=== PATIENT | female | born 1945 | race Caucasian/White ===

== ENCOUNTER 2023-07-18 17:19 | Inpatient (IN) | payer MEDICARE ==
--- NOTE | 2023-07-18 17:43 | ED ---
General Adult HPI - General Chief complaint: Shortness of Breath Stated complaint: chest pain/sob Time Seen by Provider: 07/18/23 17:25 Source: patient, RN notes reviewed, old records reviewed Mode of arrival: ambulatory Limitations: no limitations - History of Present Illness Initial comments: 78-year-old female history of oxygen dependent COPD presenting for evaluation of cough and dyspnea. Patient symptoms have been present for the past 3 weeks. She does report some left-sided chest pain worse with cough. No measured fever. She is also had diarrhea over this time. - Related Data Home Medications Medication Instructions Recorded Confirmed Fluticasone Propion/Salmeterol 2 puff INHALATION RT-BID 07/18/23 07/18/23 [Fluticasone-Salmeterol 115-21] Gabapentin [Neurontin] 300 mg PO TID 07/18/23 07/18/23 Levothyroxine Sodium [Synthroid] 75 mcg PO DAILY 07/18/23 07/18/23 Mirtazapine [Remeron] 15 mg PO HS 07/18/23 07/18/23 Nystatin 100,000 Unit/gm Oint 1 applic TOPICAL BID 07/18/23 07/18/23 [Mycostatin Oint] Omeprazole [PriLOSEC] 20 mg PO DAILY 07/18/23 07/18/23 Pravastatin Sodium [Pravachol] 40 mg PO HS 07/18/23 07/18/23 QUEtiapine FUMARATE [SEROquel] 200 mg PO HS 07/18/23 07/18/23 QUEtiapine [SEROquel] 50 mg PO HS 07/18/23 07/18/23 buPROPion SR [Wellbutrin SR] 150 mg PO PC-BRKFST 07/18/23 07/18/23 busPIRone HCL [Buspar] 7.5 mg PO BID 07/18/23 07/18/23 lamoTRIgine [LaMICtal] 150 mg PO BID 07/18/23 07/18/23 Allergies Allergy/AdvReac Type Severity Reaction Status Date / Time codeine Allergy Swelling Verified 07/18/23 19:01 Review of Systems ROS Statement: Those systems with pertinent positive or pertinent negative responses have been documented in the HPI. ROS Other: All systems not noted in ROS Statement are negative. Past Medical History Past Medical History: COPD History of Any Multi-Drug Resistant Organisms: None Reported Past Surgical History: No Surgical Hx Reported Past Psychological History: No Psychological Hx Reported Smoking Status: Former smoker Past Alcohol Use History: None Reported Past Drug Use History: None Reported General Exam Limitations: no limitations General appearance: alert, in no apparent distress Head exam: Present: atraumatic, normocephalic Eye exam: Present: normal appearance, PERRL ENT exam: Present: mucous membranes dry Respiratory exam: Present: respiratory distress, wheezes, accessory muscle use, decreased breath sounds (Left lower lung field) Cardiovascular Exam: Present: normal rhythm, tachycardia GI/Abdominal exam: Present: soft. Absent: distended, tenderness, guarding Extremities exam: Present: normal inspection, normal capillary refill. Absent: pedal edema, calf tenderness Neurological exam: Present: alert, oriented X3, CN II-XII intact. Absent: motor sensory deficit Psychiatric exam: Present: normal affect, normal mood Course Vital Signs 07/18/23 07/18/23 07/18/23 17:22 17:30 17:40 Temperature 98.3 F 98.6 F Pulse Rate 114 H 104 H Respiratory 32 H 28 H 28 H Rate Blood Pressure 152/54 125/82 O2 Sat by Pulse 89 L 83 L Oximetry 07/18/23 07/18/23 07/18/23 17:47 18:25 18:45 Temperature 98.1 F Pulse Rate 103 H 108 H 108 H Respiratory 32 H Rate Blood Pressure 100/77 O2 Sat by Pulse 93 L Oximetry 07/18/23 19:40 Temperature Pulse Rate Respiratory Rate Blood Pressure O2 Sat by Pulse 92 L Oximetry Medical Decision Making - Medical Decision Making Was pt. sent in by a medical professional or institution (, PA, TAX MANAGER PUBLIC, urgent care, hospital, or long term...) When possible be specific @ -No Did you speak to anyone other than the patient for history (EMS, parent, family, police, friend...)? What history was obtained from this source @ -No Did you review nursing and triage notes (agree or disagree)? Why? @ -I reviewed and agree with nursing and triage notes Were old charts reviewed (outside hosp., previous admission, EMS record, old EKG, old radiological studies, urgent care reports/EKG's, long term records)? Report findings @ -No old charts were reviewed Differential Diagnosis (chest pain, altered mental status, abdominal pain women, abdominal pain men, vaginal bleeding, weakness, fever, dyspnea, syncope, headache, dizziness, GI bleed, back pain, seizure, CVA, palpatations, mental health, musculoskeletal)? @ -Differential Dyspnea: Coronary syndrome, arrhythmia, tamponade, asthma, COPD, pulmonary embolism, pneumonia, pneumothorax, pulmonary effusion, anaphylaxis, diabetic ketoacidosis, flailed chest, pulmonary contusion, diaphragmatic rupture, anemia, neuromuscular, this is not meant to be an all-inclusive list. EKG interpreted by me (3pts min.). @Sinus tachycardia rate of 101, KS interval 146, QRS duration 97, QTc 396, no ST segment elevation. X-rays interpreted by me (1pt min.). @Chest x-ray showing opacification of the left hemithorax, pneumonia versus effusion versus bronchial plugging CT interpreted by me (1pt min.). @ -CT with contrast of the chest showing mass and likely postobstructive pneumonia. U/S interpreted by me (1pt. min.). @ -None done What testing was considered but not performed or refused? (CT, X-rays, U/S, labs)? Why? @ -None What meds were considered but not given or refused? Why? @ -None Did you discuss the management of the patient with other professionals (professionals i.e. , PA, TAX MANAGER PUBLIC, lab, RT, psych nurse, social security benefits interviewer, temporary receptionist, teacher, planned giving officer, social work case manager)? Give summary @ -Discussed with Dr. Padilla who will admit, case discussed with Dr. Villa covering for pulmonary critical care Was smoking cessation discussed for >3mins.? @ -No Was critical care preformed (if so, how long)? @ yes, 35 min Were there social determinants of health that impacted care today? How? (Homelessness, low income, unemployed, alcoholism, drug addiction, t ransportation, low edu. Level, literacy, decrease access to med. care, care home, rehab)? @ -No Was there de-escalation of care discussed even if they declined (Discuss DNR or withdrawal of care, Hospice)? DNR status @ -No What co-morbidities impacted this encounter? (DM, HTN, Smoking, COPD, CAD, Cance r, CVA, ARF, Chemo, Hep., AIDS, mental health diagnosis, sleep apnea, morbid obesity)? @ -Patient has history of lung nodule status post radiation. This was approximately 14 months ago Was patient admitted / discharged? Hospital course, mention meds given and route, prescriptions, significant lab abnormalities, going to OR and other pertinent info. @78-year-old female who is new to this health system presenting with cough and dyspnea. Patient is hypoxic and tachypneic with severe bronchospastic cough. X-ray shows opacification of left hemithorax with tracheal deviation towards the left. No pneumothorax on the right, suspect pneumonia versus mass. CT is ordered showing a perihilar mass on the left with likely postobstructive pneumonia and atelectasis. Patient started on albuterol, Atrovent, steroids, antibiotics. She will be admitted for pulmonary consultation as well as treatment of COPD and postobstructive pneumonia. Undiagnosed new problem with uncertain prognosis? @ -No Drug Therapy requiring intensive monitoring for toxicity (Heparin, Nitro, Insulin, Cardizem)? @ -No Were any procedures done? @ -No Diagnosis/symptom? @ -Pulmonary mass, COPD, postobstructive pneumonia Acute, or Chronic, or Acute on Chronic? @ -[Acute on chronic Uncomplicated (without systemic symptoms) or Complicated (systemic symptoms)? @ -Default Side effects of treatment? @ -No Exacerbation, Progression, or Severe Exacerbation? @ -No Poses a threat to life or bodily function? How? (Chest pain, [place], [place], pneumonia, PE, COPD, DKA, ARF, appy, cholecystitis, CVA, Diverticulitis, Homicidal, Suicidal, threat to staff... and all critical care pts) @ -Yes, COPD, pneumonia, pulmonary mass - Lab Data Result diagrams: 07/18/23 17:42 07/18/23 17:42 Lab Results 07/18/23 07/18/23 07/18/23 Range/Units 17:42 17:42 17:42 WBC 12.3 H (3.8-10.6) k/uL RBC 3.92 (3.80-5.40) m/uL Hgb 10.6 L (11.4-16.0) gm/dL Hct 33.7 L (34.0-46.0) % MCV 86.1 (80.0-100.0) fL MCH 27.0 (25.0-35.0) pg MCHC 31.4 (31.0-37.0) g/dL RDW 16.5 H (11.5-15.5) % Plt Count 321 (150-450) k/uL MPV 7.1 Neutrophils % 71 % Lymphocytes % 15 % Monocytes % 8 % Eosinophils % 5 % Basophils % 1 % Neutrophils # 8.6 H (1.3-7.7) k/uL Lymphocytes # 1.8 (1.0-4.8) k/uL Monocytes # 0.9 (0-1.0) k/uL Eosinophils # 0.6 (0-0.7) k/uL Basophils # 0.1 (0-0.2) k/uL Hypochromasia Moderate Poikilocytosis Slight Anisocytosis Slight PT 11.1 (10.0-12.5) sec INR 1.0 (<1.2) APTT 24.5 (22.0-30.0) sec Sodium 135 L (137-145) mmol/L Potassium 3.3 L (3.5-5.1) mmol/L Chloride 99 (98-107) mmol/L Carbon Dioxide 27 (22-30) mmol/L Anion Gap 9 mmol/L BUN 11 (7-17) mg/dL Creatinine 1.03 (0.52-1.04) mg/dL Est GFR (CKD-EPI)AfAm 60 (>60 ml/min/1.73 sqM) Est GFR (CKD-EPI)NonAf 52 (>60 ml/min/1.73 sqM) Glucose 101 H (74-99) mg/dL Plasma Lactic Acid Brendan (0.7-2.0) mmol/L Calcium 8.7 (8.4-10.2) mg/dL Magnesium 2.2 (1.6-2.3) mg/dL Total Bilirubin 0.8 (0.2-1.3) mg/dL AST 21 (14-36) U/L ALT 14 (4-34) U/L Alkaline Phosphatase 142 H (38-126) U/L Troponin I (0.000-0.034) ng/mL NT-Pro-B Natriuret Pep 1130 pg/mL Total Protein 6.6 (6.3-8.2) g/dL Albumin 3.5 (3.5-5.0) g/dL Influenza Type A (PCR) (Not Detectd) Influenza Type B (PCR) (Not Detectd) RSV (PCR) (Not Detectd) SARS-CoV-2 (PCR) (Not Detectd) 07/18/23 07/18/23 07/18/23 Range/Units 17:42 17:42 17:42 WBC (3.8-10.6) k/uL RBC (3.80-5.40) m/uL Hgb (11.4-16.0) gm/dL Hct (34.0-46.0) % MCV (80.0-100.0) fL MCH (25.0-35.0) pg MCHC (31.0-37.0) g/dL RDW (11.5-15.5) % Plt Count (150-450) k/uL MPV Neutrophils % % Lymphocytes % % Monocytes % % Eosinophils % % Basophils % % Neutrophils # (1.3-7.7) k/uL Lymphocytes # (1.0-4.8) k/uL Monocytes # (0-1.0) k/uL Eosinophils # (0-0.7) k/uL Basophils # (0-0.2) k/uL Hypochromasia Poikilocytosis Anisocytosis PT (10.0-12.5) sec INR (<1.2) APTT (22.0-30.0) sec Sodium (137-145) mmol/L Potassium (3.5-5.1) mmol/L Chloride (98-107) mmol/L Carbon Dioxide (22-30) mmol/L Anion Gap mmol/L BUN (7-17) mg/dL Creatinine (0.52-1.04) mg/dL Est GFR (CKD-EPI)AfAm (>60 ml/min/1.73 sqM) Est GFR (CKD-EPI)NonAf (>60 ml/min/1.73 sqM) Glucose (74-99) mg/dL Plasma Lactic Acid Brendan 2.0 (0.7-2.0) mmol/L Calcium (8.4-10.2) mg/dL Magnesium (1.6-2.3) mg/dL Total Bilirubin (0.2-1.3) mg/dL AST (14-36) U/L ALT (4-34) U/L Alkaline Phosphatase (38-126) U/L Troponin I <0.012 (0.000-0.034) ng/mL NT-Pro-B Natriuret Pep pg/mL Total Protein (6.3-8.2) g/dL Albumin (3.5-5.0) g/dL Influenza Type A (PCR) Not Detected (Not Detectd) Influenza Type B (PCR) Not Detected (Not Detectd) RSV (PCR) Not Detected (Not Detectd) SARS-CoV-2 (PCR) Not Detected (Not Detectd) Critical Care Time Critical Care Time: Yes Total Critical Care Time: 35 Disposition Clinical Impression: Acute exacerbation of chronic obstructive pulmonary disease, Postobstructive pneumonia, Pulmonary mass Disposition: ADMITTED IP TO THIS HOSP Condition: Serious Is patient prescribed a controlled substance at d/c from ED?: No Time of Disposition: 19:46
[2023-07-18] MEDS: IPRATROPIUM 0.5 MG/2.5 ML NEBU INHALATION STA (17:44)
[2023-07-18] MEDS: ALBUTEROL NEBULIZED 2.5 MG/3 ML INHALATION STA (17:44)
[2023-07-18] MEDS: methylPREDNISolone SOD SUCCI 125 MG/2 ML VIAL IV STA (17:46)
[2023-07-18 17:54] LABS: Anisocytosis Slight; Basophils # (A) 0.1 k/uL (0-0.2); Basophils % (A) 1 %; Eosinophils # (A) 0.6 k/uL (0-0.7); Eosinophils % (A) 5 %; HCT 33.7 % (34.0-46.0); HGB 10.6 gm/dL (11.4-16.0); Hypochromasia Moderate; Lymphocytes # (A) 1.8 k/uL (1.0-4.8); Lymphocytes % (A) 15 %; MCHC 31.4 g/dL (31.0-37.0); MCV 86.1 fL (80.0-100.0); Mean Platelet Volume 7.1; Monocytes # (A) 0.9 k/uL (0-1.0); Monocytes % (A) 8 %; Neutrophils # (A) 8.6 k/uL (1.3-7.7); Neutrophils % (A) 71 %; Platelet Count 321 k/uL (150-450); Poikilocytosis Slight; RBC 3.92 m/uL (3.80-5.40); RDW 16.5 % (11.5-15.5); WBC 12.3 k/uL (3.8-10.6)
[2023-07-18] MEDS: HYDROmorphone 0.5 MG/0.5 ML SYRINGE IVP STA (17:58)
[2023-07-18 18:03] LABS: Potassium 3.3 mmol/L (3.5-5.1)
[2023-07-18 18:04] LABS: ALT 14 U/L (4-34); AST 21 U/L (14-36); African American GFR (CKD) 60 (>60 ml/min/1.73 sqM); Albumin 3.5 g/dL (3.5-5.0); Alkaline Phosphatase 142 U/L (38-126); Anion Gap 9 mmol/L; Blood Urea Nitrogen 11 mg/dL (7-17); Calcium 8.7 mg/dL (8.4-10.2); Carbon Dioxide 27 mmol/L (22-30); Chloride 99 mmol/L (98-107); Glucose 101 mg/dL (74-99); Magnesium 2.2 mg/dL (1.6-2.3); Non-African American GFR(CKD) 52 (>60 ml/min/1.73 sqM); Sodium 135 mmol/L (137-145); Total Bilirubin 0.8 mg/dL (0.2-1.3); Total Protein 6.6 g/dL (6.3-8.2)
[2023-07-18 18:12] LABS: NT-Pro-B-Type Natriuretic Pept 1130 pg/mL
[2023-07-18 18:26] LABS: Prothrombin Time 11.1 sec (10.0-12.5)
[2023-07-18 18:27] LABS: Partial Thromboplastin Time 24.5 sec (22.0-30.0)
[2023-07-18] MEDS ORDERED: RX INFO: IV CONTRAST WAS GIVEN 1 EACH MISC MISCELLANE PRN (18:36)
--- NOTE | 2023-07-18 19:13 | XR ---
EXAMINATION TYPE: XR chest 1V DATE OF EXAM: 07/18/2023 COMPARISON: None INDICATION: Difficulty breathing TECHNIQUE: Single frontal view of the chest is obtained. FINDINGS: The heart size is normal. The pulmonary vasculature is normal. There is a left lower lobe consolidation. Correlate for pneumonia. Follow-up to clearing is recommend ed. IMPRESSION: 1. Left lower lobe consolidation. Correlate for pneumonia.
--- NOTE | 2023-07-18 19:29 | CT ---
EXAMINATION TYPE: CT chest w con DATE OF EXAM: 07/18/2023 COMPARISON: None HISTORY: DAYDAY, Pleural effusion. Severe coughing since June 23. Hx of Severe COPD w/emphysema. CT DLP: 317 mGycm, Automated exposure control for dose reduction was used. CONTRAST: Performed injected with 100 mL of Isovue 300. TECHNIQUE: Axial images were obtained at 5 mm thick sections. Reconstructed images are reviewed on [employer] computer in the coronal plane. FINDINGS: Portion of the thyroid visualized is normal. There is increased density in the lingula. Vascular structures with contrast are evident. Right hilar mass appears to be present estimated at 3.7 x 2.3 cm. Example image 201 image 23. Scattered infiltra te is at the left base. Small left pleural effusion is present. Limited CT sections were obtained through the upper abdomen appear unremarkable. IMPRESSION: 1. Masslike area in the left hilar region measuring 3.7 x 2.3 cm. Consider PET/CT for additional work up of suspected neoplasm. 2. Suspected obstructive atelectasis within the lingula. Underlying mass or pneumonia could be consid ered within the differential.
[2023-07-18] MEDS ORDERED: IPRATROPIUM-ALBUTEROL 3 ML NEB INHALATION PRN (19:30)
[2023-07-18] MEDS ORDERED: NALOXONE 0.4 MG/ML 1 ML VIAL IVP PRN (19:30)
[2023-07-18] MEDS: AZITHROMYCIN 500 MG in SODIUM CHLORIDE 0.9% 250 ML IVPB STA (19:31)
[2023-07-18] MEDS: IPRATROPIUM-ALBUTEROL 3 ML NEB INHALATION SCH (19:56)
[2023-07-18 20:21] LABS: ABG HCO3 30 mmol/L (21-25); ABG PCO2 43 mmHg (35-45); ABG PH 7.45 (7.35-7.45); ABG PO2 65 mmHg (83-108); ABG TCO2 31 mmol/L (19-24); Allen Test Performed? Yes
[2023-07-18 20:25] LABS: ABG Oxygen Saturation 93.4 % (94-97)
[2023-07-18] MEDS: QUEtiapine 50 MG TAB PO SCH (22:41)
[2023-07-18] MEDS: guaiFENesin 600 MG TABLET.ER PO SCH (22:41)
[2023-07-18] MEDS: QUEtiapine 200 MG TAB PO SCH (22:41)
[2023-07-19] MEDS: methylPREDNISolone SOD SUCCI 125 MG/2 ML VIAL IV SCH (00:09)
--- NOTE | 2023-07-19 02:51 | P.CNPUL ---
History of Present Illness Consult date: 07/19/23 Requesting physician: Tai Steinberg Reason for consult: COPD, lung mass Chief complaint: Shortness of breath and cough x 3 weeks History of present illness: Patient is a 78-year-old white female with past medical history significant for COPD, lung cancer, hypothyroidism, hyperlipidemia, bipolar disorder. Patient is in town visiting her son who lives across the border in [place]. She is actually from [place]. She does follow with a bus attendant in [place], Dr. John Hernandez. She states that she has moderate to severe emphysema/COPD. She quit smoking approximately 3 years ago. She is oxygen dependent on 3 L/min nasal cannula at home. She utilizes a combination of Advair and as needed albuterol inhaler. She does have a known lung mass/nodule on the left side, first ident ified 3 years ago, and has underwent radiation therapy. She is not on any systemic chemotherapy or immunotherapy. Over the last 2 to 3 weeks she has had progressively worsening shortness of breath accompanied with a associated nonproductive cough. She does have some left-sided, pleuritic like, chest pain. Worse with coughing and deep breathing. Denies any fevers, myalgias, purulent sputum, hemoptysis. She has had some diarrhea. An enhanced chest CT demonstrated a masslike area in the left hilar region measuring 3.7 x 2.3 cm. There is suspected obstructive atelectasis within the lingula, however, underlying pneumonia cannot be completely excluded. CBC includes: WBC count 12.3, hemoglobin 10.6, hematocrit 33.7, platelets 321. BMP on arrival unremarkable. Troponins less than 0.012. NT proBNP 1130. Negative for influenza, RSV, COVID. Patient was in some respiratory distress on arrival to the emergency room, and was placed on BiPAP. Initial BiPAP settings were 12/6 and FiO2 of 60%. ABGs done on the settings include a PaO2 of 65, pCO2 43, and pH of 7.45. She remains on BiPAP with the mentioned settings. Respiratory rate is in the mid 20s, and she is achieving tidal volumes of 300-400. I did temporarily try to wean her off onto a 15 L high flow nasla cannula. She did become dyspneic. She speaks in phrases. She was placed back on BiPAP with above-mentioned settings. She is afebrile. Remaining vital signs stable. Review of Systems REVIEW OF SYSTEMS: CONSTITUTIONAL: Denies any recent significant weight loss or weight gain. EYES: Denies change in vision. EARS, NOSE, MOUTH, THROAT: Denies headaches, denies sore throat. CARDIOVASCULAR: Denies any radiating chest pain, palpitations or syncopal episodes. RESPIRATORY: See HPI GASTROINTESTINAL: Denies change in appetite, nausea and vomiting. Does admit occasional diarrhea. There is some mild right lower quadrant abdominal pain with deep palpation GENITOURINARY: Denies hematuria, denies infections. MUSKULOSKELETAL: Denies pain, denies swelling. INTEGUMENTARY: Denies rash, denies eczema. NEUROLOGICAL: Denies recent memory loss, no recent seizure activity. PSYCHIATRIC: Denies anxiety, denies depression. HEMATOLOGIC/LYMPHATIC: Denies anemia, denies enlarged lymph node Past Medical History Past Medical History: COPD Additional Past Medical History / Comment(s): Patient states she has bipolar disorder. History of Any Multi-Drug Resistant Organisms: None Reported Past Surgical History: No Surgical Hx Reported Past Psychological History: No Psychological Hx Reported Smoking Status: Former smoker Past Alcohol Use History: None Reported Past Drug Use History: None Reported Medications and Allergies Home Medications Medication Instructions Recorded Confirmed Type Fluticasone Propion/Salmeterol 2 puff INHALATION RT-BID 07/18/23 07/18/23 History [Fluticasone-Salmeterol 115-21] Gabapentin [Neurontin] 300 mg PO TID 07/18/23 07/18/23 History Levothyroxine Sodium [Synthroid] 75 mcg PO DAILY 07/18/23 07/18/23 History Mirtazapine [Remeron] 15 mg PO HS 07/18/23 07/18/23 History Nystatin 100,000 Unit/gm Oint 1 applic TOPICAL BID 07/18/23 07/18/23 History [Mycostatin Oint] Omeprazole [PriLOSEC] 20 mg PO DAILY 07/18/23 07/18/23 History Pravastatin Sodium [Pravachol] 40 mg PO HS 07/18/23 07/18/23 History QUEtiapine FUMARATE [SEROquel] 200 mg PO HS 07/18/23 07/18/23 History QUEtiapine [SEROquel] 50 mg PO HS 07/18/23 07/18/23 History buPROPion SR [Wellbutrin SR] 150 mg PO PC-BRKFST 07/18/23 07/18/23 History busPIRone HCL [Buspar] 7.5 mg PO BID 07/18/23 07/18/23 History lamoTRIgine [LaMICtal] 150 mg PO BID 07/18/23 07/18/23 History Allergies Allergy/AdvReac Type Severity Reaction Status Date / Time codeine Allergy Swelling Verified 07/18/23 19:01 Physical Exam Vitals: Vital Signs Temp Pulse Pulse Resp BP BP Pulse Ox 07/19/23 00:00 97.7 F 85 24 103/54 93 L 07/18/23 23:59 07/18/23 21:05 92 18 127/65 95 07/18/23 21:00 97.6 F 79 24 129/63 96 07/18/23 20:04 90 07/18/23 20:00 90 18 120/63 92 L 07/18/23 19:56 92 07/18/23 19:53 07/18/23 19:52 07/18/23 19:40 92 L 07/18/23 19:30 97.8 F 96 32 H 119/67 83 L 07/18/23 18:45 98.1 F 108 H 32 H 100/77 93 L 07/18/23 18:25 108 H 07/18/23 17:47 103 H 07/18/23 17:40 98.6 F 104 H 28 H 125/82 83 L 07/18/23 17:30 28 H 07/18/23 17:22 98.3 F 114 H 32 H 152/54 89 L FiO2 07/19/23 00:00 60 07/18/23 23:59 60 07/18/23 21:05 07/18/23 21:00 60 07/18/23 20:04 07/18/23 20:00 07/18/23 19:56 07/18/23 19:53 60 07/18/23 19:52 60 07/18/23 19:40 07/18/23 19:30 07/18/23 18:45 07/18/23 18:25 07/18/23 17:47 07/18/23 17:40 07/18/23 17:30 07/18/23 17:22 Intake and Output 07/18/23 07/18/23 07/19/23 14:59 22:59 06:59 Other: Voiding Method External Catheter Weight 57.606 kg GENERAL EXAM: Alert, 78-year-old white female, teary-eyed and anxious appearing, on BiPAP. HEAD: Normocephalic and atraumatic EYES: Normal reaction of pupils, equal size. NOSE: Clear with pink turbinates. THROAT: No erythema or exudates. NECK: No masses, no JVD. CHEST: No chest wall deformity. LUNGS: Equal air entry with inspiratory and expiratory wheezes heard over the left lung palm. On BiPAP with settings 12/6 and FiO2 of 60%. SpO2 95%. Speaks in phrases. CVS: S1 and S2 normal with no audible murmur, regular rhythm. No extra heart sounds ABDOMEN: No hepatosplenomegaly, active bowel sounds, no guarding or rigidity. SPINE: No scoliosis or deformity SKIN: No rashes CENTRAL NERVOUS SYSTEM: No focal deficits, tone is normal in all 4 extremities. EXTREMITIES: There is no peripheral edema or cyanosis. Peripheral pulses are intact. There is clubbing. Results - Laboratory Findings CBC and BMP: 07/18/23 17:42 07/18/23 17:42 ABG ABG pH 7.45 (7.35-7.45) 07/18/23 20:19 ABG pCO2 43 mmHg (35-45) 07/18/23 20:19 ABG pO2 65 mmHg (83-108) L 07/18/23 20:19 ABG O2 Saturation 93.4 % (94-97) L 07/18/23 20:19 PT/INR, D-dimer PT 11.1 sec (10.0-12.5) 07/18/23 17:42 INR 1.0 (<1.2) 07/18/23 17:42 Abnormal lab findings: Abnormal Labs 07/18/23 07/18/23 07/18/23 17:42 17:42 20:19 WBC 12.3 H Hgb 10.6 L Hct 33.7 L RDW 16.5 H Neutrophils # 8.6 H ABG pO2 65 L ABG HCO3 30 H ABG Total CO2 31 H ABG O2 Saturation 93.4 L Sodium 135 L Potassium 3.3 L Glucose 101 H Alkaline Phosphatase 142 H - Diagnostic Findings Chest x-ray: image reviewed CT scan - chest: image reviewed Assessment and Plan Assessment: Acute COPD exacerbation 3.7 x 2.3 cm left hilar mass, with suspected postobstructive atelectasis within the lingula, underlying community-acquired pneumonia cannot be completely excluded. Acute on chronic hypoxemic respiratory failure, currently on BiPAP, likely secondary to above Chronic obstructive pulmonary disease History of lung cancer, status post radiation therapy. Chronic hypoxemic respiratory failure, secondary to above History of hypothyroidism History of hyperlipidemia History of bipolar disorder Former tobacco smoker, quitting approximately 3 years ago Plan: Patient's medications, labs, imaging were reviewed Continue on BiPAP with current settings Start patient on combination of DuoNebs [id number], budesonide inhalation, formoterol inhalation, and IV Solu-Medrol Continue empiric antibiotics. Check procalcitonin level. Negative for influenza, RSV, COVID She will follow with her regular bus attendant on discharge. Will continue to follow, and further recommendations are forthcoming. I have personally seen and examined the patient, performed the documentation and the assessment and plan as written. Number of minutes spent on the visit:20 Time with Patient: Greater than 30
[2023-07-19] MEDS: BENZONATATE 100 MG CAP PO PRN (03:35)
[2023-07-19] MEDS: ALPRAZolam 0.25 MG TAB PO PRN ×2 (05:47→15:53)
[2023-07-19] MEDS: guaiFENesin-DM 100-10MG/5ML 10 ML CUP PO PRN (05:49)
[2023-07-19] MEDS: BUDESONIDE 1 MG/2 ML NEBU INHALATION SCH (08:34)
[2023-07-19] MEDS: FORMOTEROL FUMARATE 20 MCG/2 ML NEBU INHALATION SCH (08:34)
[2023-07-19] MEDS: lamoTRIgine 100 MG TAB PO SCH (09:14)
[2023-07-19] MEDS: busPIRone HCl 5 MG TAB PO SCH (09:14)
[2023-07-19] MEDS: GABAPENTIN 300 MG CAP PO SCH (09:15)
[2023-07-19] MEDS: NYSTATIN 100,000 UNIT/GM OINT 30 GM TUBE TOPICAL SCH (09:24)
[2023-07-19] MEDS: buPROPion SR 150 MG TABLET.ER PO SCH (09:24)
[2023-07-19] MEDS: LEVOTHYROXINE 75 MCG TAB PO SCH (09:24)
[2023-07-19] MEDS: PANTOPRAZOLE 40 MG TABLET PO SCH (09:24)
[2023-07-19] MEDS: HEPARIN SODIUM,PORCINE 5,000 UNIT/ML 1 ML VIAL SQ SCH (15:53)
[2023-07-19] MEDS: AZITHROMYCIN 500 MG in SODIUM CHLORIDE 0.9% 250 ML IVPB SCH (17:27)
[2023-07-19] MEDS ORDERED: SALMETEROL INHALATION SCH (20:00)
[2023-07-19] MEDS ORDERED: FLUTICASONE INHALATION SCH (20:00)
[2023-07-19] MEDS ORDERED: [UNRECOGNIZED DRUG - OTHER] INHALATION SCH (20:00)
[2023-07-19] MEDS: PRAVASTATIN SODIUM 40 MG TAB PO SCH (20:46)
[2023-07-19] MEDS: QUEtiapine 200 MG TAB PO SCH (20:47)
[2023-07-19] MEDS: MIRTAZAPINE 15 MG TAB PO SCH (20:47)
[2023-07-19] MEDS: QUEtiapine 50 MG TAB PO SCH (20:47)
--- NOTE | 2023-07-19 23:26 | P.CONS ---
History of Present Illness - Reason for Consult Consult date: 07/19/23 - History of Present Illness Patient is a 78-year-old female with a past medical history pertinent for COPD bipolar disorder, hypothyroidism hyperlipidemia, lung cancer, prior smoker on 3 L nasal cannula oxygen at home, presenting to the hospital for evaluation of increasing shortness of breath and cough that has been getting worse for the last 2 to 3 weeks patient also complaining of left-sided pleuritic chest pain seems to be mild to moderate intensity without any radiation patient did have a cough moderate intensity but denies any purulent sputum production or hemoptysis patient denies having any nausea or vomiting no choking on the food no abdominal pain and no diarrhea patient on presentation to the hospital was afebrile and no fever have been recorded subsequently patient was tachycardic on presentation the hospital that has improved subsequently not hypotensive and was hypoxic with O2 sat down to 83% on 3 L nasal cannula oxygen. Did have a white count of 12.3 with a left shift creatinine has been normal liver isms are normal influenza RSV COVID testing has been negative patient did have a chest x-ray left lower lobe consolidation correlate for pneumonia patient did have a CT of the chest masslike area in the left hilar region suspected for new possible suspected obstructive atelectasis within the lingula patient was started on Zithromax and Rocephin infectious was consulted for further management of antibiotic therapy Past Medical History Past Medical History: COPD Additional Past Medical History / Comment(s): Patient states she has bipolar disorder. History of Any Multi-Drug Resistant Organisms: None Reported Past Surgical History: No Surgical Hx Reported Past Psychological History: No Psychological Hx Reported Smoking Status: Former smoker Past Alcohol Use History: None Reported Past Drug Use History: None Reported Medications and Allergies Home Medications Medication Instructions Recorded Confirmed Type Fluticasone Propion/Salmeterol 2 puff INHALATION RT-BID 07/18/23 07/18/23 History [Fluticasone-Salmeterol 115-21] Gabapentin [Neurontin] 300 mg PO TID 07/18/23 07/18/23 History Levothyroxine Sodium [Synthroid] 75 mcg PO DAILY 07/18/23 07/18/23 History Mirtazapine [Remeron] 15 mg PO HS 07/18/23 07/18/23 History Nystatin 100,000 Unit/gm Oint 1 applic TOPICAL BID 07/18/23 07/18/23 History [Mycostatin Oint] Omeprazole [PriLOSEC] 20 mg PO DAILY 07/18/23 07/18/23 History Pravastatin Sodium [Pravachol] 40 mg PO HS 07/18/23 07/18/23 History QUEtiapine FUMARATE [SEROquel] 200 mg PO HS 07/18/23 07/18/23 History QUEtiapine [SEROquel] 50 mg PO HS 07/18/23 07/18/23 History buPROPion SR [Wellbutrin SR] 150 mg PO PC-[id number] 07/18/23 07/18/23 History busPIRone HCL [Buspar] 7.5 mg PO BID 07/18/23 07/18/23 History lamoTRIgine [LaMICtal] 150 mg PO BID 07/18/23 07/18/23 History Allergies Allergy/AdvReac Type Severity Reaction Status Date / Time codeine Allergy Swelling Verified 07/18/23 19:01 Physical Exam Vitals: Vital Signs Temp Pulse Pulse Resp BP BP Pulse Ox 07/19/23 15:27 98.4 F 94 19 110/51 93 L 07/19/23 11:50 94 07/19/23 11:43 98.5 F 84 18 94/47 94 L 07/19/23 11:39 90 07/19/23 11:38 07/19/23 09:04 90 07/19/23 08:49 88 07/19/23 08:41 07/19/23 08:34 88 07/19/23 07:57 97.6 F 81 15 132/57 95 07/19/23 04:14 07/19/23 03:56 97.8 F 75 28 H 109/58 94 L 07/19/23 02:00 22 07/19/23 00:00 97.7 F 85 24 103/54 93 L 07/18/23 23:59 07/18/23 21:05 92 18 127/65 95 07/18/23 21:00 97.6 F 79 24 129/63 96 07/18/23 20:04 90 07/18/23 20:00 90 18 120/63 92 L 07/18/23 19:56 92 07/18/23 19:53 07/18/23 19:52 07/18/23 19:40 92 L 07/18/23 19:30 97.8 F 96 32 H 119/67 83 L 07/18/23 18:45 98.1 F 108 H 32 H 100/77 93 L 07/18/23 18:25 108 H 07/18/23 17:47 103 H 07/18/23 17:40 98.6 F 104 H 28 H 125/82 83 L 07/18/23 17:30 28 H 07/18/23 17:22 98.3 F 114 H 32 H 152/54 89 L FiO2 07/19/23 15:27 60 07/19/23 11:50 07/19/23 11:43 60 07/19/23 11:39 07/19/23 11:38 60 07/19/23 09:04 07/19/23 08:49 07/19/23 08:41 60 07/19/23 08:34 07/19/23 07:57 60 07/19/23 04:14 60 07/19/23 03:56 60 07/19/23 02:00 07/19/23 00:00 60 07/18/23 23:59 60 07/18/23 21:05 07/18/23 21:00 60 07/18/23 20:04 07/18/23 20:00 07/18/23 19:56 07/18/23 19:53 60 07/18/23 19:52 60 07/18/23 19:40 07/18/23 19:30 07/18/23 18:45 07/18/23 18:25 07/18/23 17:47 07/18/23 17:40 07/18/23 17:30 07/18/23 17:22 Intake and Output 07/19/23 07/19/23 07/19/23 06:59 14:59 22:59 Intake Total 480 Output Total 200 Balance -200 480 Intake: Oral 480 Output: Urine 200 Other: Voiding Method External Catheter External Catheter # Voids 1 Results CBC & Chem 7: 07/18/23 17:42 07/18/23 17:42 Labs: Abnormal Lab Results - Last 24 Hours (Table) 07/18/23 07/18/23 07/18/23 Range/Units 17:42 17:42 20:19 WBC 12.3 H (3.8-10.6) k/uL Hgb 10.6 L (11.4-16.0) gm/dL Hct 33.7 L (34.0-46.0) % RDW 16.5 H (11.5-15.5) % Neutrophils # 8.6 H (1.3-7.7) k/uL ABG pO2 65 L (83-108) mmHg ABG HCO3 30 H (21-25) mmol/L ABG Total CO2 31 H (19-24) mmol/L ABG O2 Saturation 93.4 L (94-97) % Sodium 135 L (137-145) mmol/L Potassium 3.3 L (3.5-5.1) mmol/L Glucose 101 H (74-99) mg/dL Alkaline Phosphatase 142 H (38-126) U/L Assessment and Plan Plan: 1patient presented hospital with increasing shortness of breath she also have left-sided pleuritic chest pain did have a cough but no hemoptysis in this patient did have history of smoking COPD and lung cancer now with abnormal CT suspicious for mass and a question of possible component of postobstructive pneu monia clinically not behaving as community-acquired pneumonia 2-obtain a sputum for Gram stain and culture 3-discontinue Rocephin and Zithromax 4-start the patient on Zosyn 3.375 g every 8 hours May benefit from bronchoscopy biopsy and culture We will follow on clinical condition and cultures to further adjust medication if needed Thank you for this consultation we will follow the patient along with you Dictation was produced using [employer] dictation software. please excuse any grammatical, word or spelling errors.
[2023-07-19] MEDS: PIPERACILLIN-TAZOBACTAM 3.375 GM in SODIUM CHLORIDE 0.9% 100 ML IVPB SCH (23:42)
--- NOTE | 2023-07-20 01:57 | HP ---
HISTORY AND PHYSICAL CHIEF COMPLAINT: Shortness of breath and diarrhea. HISTORY OF PRESENT ILLNESS: A 78-year-old woman with a past history of multiple medical problems, living in [place], was complaining of increased shortness of breath, cough, and diarrhea. The patient apparently had a left lung mass which had radiation from [place]. The patient does thought to have postobstructive pneumonia and the patient admitted for further evaluation and treatment. There is no history of any fever, rigors, or chills at this time. PAST MEDICAL HISTORY: Reviewed include COPD and bipolar. Rest of the history and rest of the chart is also reviewed. HOME MEDICATIONS: Reviewed include Prilosec. Dose and rest of medications noted. ALLERGIES: Codeine. FAMILY HISTORY: No history of heart disease or strokes. SOCIAL HISTORY: Previous history of smoking. REVIEW OF SYSTEMS: Fourteen-point review of systems negative except as mentioned earlier. PHYSICAL EXAM: VITAL SIGNS: Pulse 84, blood pressure 94/47, respirations 18, pulse ox 94% on BiPAP. HEENT: Conjunctivae normal. NECK: No JVD. CARDIOVASCULAR: S1, S2. RESPIRATION: Breath sounds diminished at the bases. A few scattered rhonchi and crackles. ABDOMEN: Soft. NERVOUS SYSTEM: No focal deficits. SKIN: No ulcer, rash, bleeding. JOINTS: No active deforming arthropathy. LABORATORY DATA: WBC 10.3. Other labs are noted. Chest x-ray and CT scan reviewed. ASSESSMENT: 1. Left lung pneumonia, possibly postobstructive. 2. Chronic obstructive pulmonary disease acute exacerbation with acute hypoxic respiratory failure. 3. Elevated WBC. 4. Diarrhea. 5. Hyponatremia. 6. Hypokalemia. 7. History of nicotine dependence. 8. History of bipolar. RECOMMENDATIONS AND DISCUSSION: A 78-year-old woman, presented with multiple complex medical issues. We will monitor the patient closely. I would optimize the bronchodilator treatment and IV steroids. Pulmonary consultation. Monitor blood sugars closely. Empiric antibiotics. Follow the cultures. I would also recommend Infectious Disease evaluation. If the diarrhea persist, we will do stool cultures and other testing also. Home medications will be continued. DVT prophylaxis. Prognosis guarded because of multiple complex medical issues. BiPAP to be continued. Further recommendations to follow. See orders for details. MMODL / IJN: [id number] /
[2023-07-20 11:16] LABS: Anisocytosis Slight; Basophils % (A) 0 %; Eosinophils % (A) 0 %; HGB 9.5 gm/dL (11.4-16.0); Hypochromasia Marked; Lymphocytes # (A) 0.4 k/uL (1.0-4.8); Lymphocytes % (A) 4 %; MCH 26.6 pg (25.0-35.0); MCHC 29.8 g/dL (31.0-37.0); MCV 89.4 fL (80.0-100.0); Monocytes # (A) 0.4 k/uL (0-1.0); Monocytes % (A) 4 %; Neutrophils # (A) 8.7 k/uL (1.3-7.7); Neutrophils % (A) 92 %; Platelet Count 252 k/uL (150-450); Poikilocytosis Slight; RBC 3.58 m/uL (3.80-5.40); RDW 16.3 % (11.5-15.5); WBC 9.5 k/uL (3.8-10.6)
[2023-07-20 11:30] LABS: African American GFR (CKD) 75 (>60 ml/min/1.73 sqM); Anion Gap 9 mmol/L; Blood Urea Nitrogen 14 mg/dL (7-17); Calcium 8.7 mg/dL (8.4-10.2); Carbon Dioxide 27 mmol/L (22-30); Chloride 103 mmol/L (98-107); Glucose 157 mg/dL (74-99); Non-African American GFR(CKD) 65 (>60 ml/min/1.73 sqM); Potassium 3.2 mmol/L (3.5-5.1); Sodium 139 mmol/L (137-145)
[2023-07-20] MEDS: POTASSIUM CHLORIDE ER 20 MEQ TAB.ER PO SCH (13:59)
--- NOTE | 2023-07-20 15:03 | P.PN ---
Subjective Progress Note Date: 07/20/23 Principal diagnosis: Pneumonia. Patient is a 78-year-old white female with past medical history significant for COPD, lung cancer, hypothyroidism, hyperlipidemia, bipolar disorder. Patient is in town visiting her son who lives across the border in [place]. She is actually from [place]. 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 John Hernandez. She states that she has moderate to severe emphysema/COPD. She quit smoking approximately 3 years ago. She is oxygen dependent on 3 L/min nasal cannula at home. She utilizes a combination of Advair and as needed albuterol inhaler. She does have a known lung mass/nodule on the left side, first identified 3 years ago, and has underwent radiation therapy. She is not on any systemic chemotherapy or immunotherapy. Over the last 2 to 3 weeks she has had progressively worsening shortness of breath accompanied with a associated nonproductive cough. She does have some left-sided, pleuritic like, chest pain. Worse with coughing and deep breathing. Denies any fevers, myalgias, purulent sputum, hemoptysis. She has had some diarrhea. An enhanced chest CT demonstrated a masslike area in the left hilar region measuring 3.7 x 2.3 cm. There is suspected obstructive atelectasis within the lingula, however, unde rlying pneumonia cannot be completely excluded. CBC includes: WBC count 12.3, hemoglobin 10.6, hematocrit 33.7, platelets 321. BMP on arrival unremarkable. Troponins less than 0.012. NT proBNP 1130. Negative for influenza, RSV, COVID. Patient was in some respiratory distress on arrival to the emergency room, and was placed on BiPAP. Initial BiPAP settings were 12/6 and FiO2 of 60%. ABGs do ne on the settings include a PaO2 of 65, pCO2 43, and pH of 7.45. She remains on BiPAP with the mentioned settings. Respiratory rate is in the mid 20s, and she is achieving tidal volumes of 300-400. I did temporarily try to wean her off onto a 15 L high flow nasla cannula. She did become dyspneic. She speaks in phrases. She was placed back on BiPAP with above-mentioned settings. She is afebrile. Remaining vital signs stable. Progress note dated July 20, 2023. 78-year-old female seen yesterday in consultation. The patient has a history of COPD, suspected, but not proven lung cancer, hypothyroidism, hyperlipidemia, and bipolar disorder. The patient was in town, visiting her son, who lives in [place]. She resides in [place]. The patient apparently has a coremaker apprentice, back home, and apparently was thought to have lung cancer, and she apparently opted for probable stereotactic body radiotherapy, to one of the lesions, and her left lung. The patient presented to the hospital with increasing shortness of breath, cough, and generally not feeling well. The patient's chest x-ray, and CAT scan, shows significant abnormalities in the left chest, particularly in the area of the left hilum, with a mass, that measures 3.7 x 2.3 cm. She is suspected to have a postobstructive pneumonia. Currently, the patient is on 15 L high flow O2. She has been on BiPAP at 12/6, and 60%. No IV fluids. The patient had radiation to the left lung lesion, in April 2022. The plan is to do bronchoscopy, airway examination, BAL, tomorrow. Labs are reviewed. White count 9.5, hemoglobin 9.5, hematocrit 32, and platelet count 252,000. Sodium 139, potassium 3.2, chlorides 103, CO2 27, BUN 14, creatinine 0.86. Glucose is 157. Procalcitonin level is 0.09. Objective - Vital Signs Vital signs: Vital Signs Temp 97.5 F L 07/20/23 11:52 Pulse 88 07/20/23 11:53 Resp 20 07/20/23 11:53 BP 116/70 07/20/23 11:52 Pulse Ox 96 07/20/23 11:52 FiO2 60 07/20/23 09:03 Intake & Output 07/19/23 07/20/23 07/20/23 18:59 06:59 18:59 Intake Total 660 420 Output Total 0 900 800 Balance 660 -900 -380 Intake: Oral 660 420 Output: Urine 0 900 800 Other: Voiding Method External Catheter External Catheter # Voids 1 - Exam No acute distress, oriented 3. Currently on 15 L high flow. Saturations are 96 to 97%. HEENT examination is grossly unremarkable. Mucous membranes are moist. No oral lesions. Neck supple. Full range of motion. No adenopathy thyromegaly or neck vein distention. Cardiovascular examination reveals regular rhythm rate. S1-S2 normal. No S3 or S4. No discernible murmur noted. Heart sounds are distant. Heart rate 90 bpm. Lungs reveal severely diminished breath sounds on the left. Scattered rhonchi are noted throughout. No crackles or wheezes. Saturations are 96 to 97%. Abdomen soft bowel sounds are heard. No masses or tenderness. Extremities are intact. No cyanosis clubbing or edema. Skin is without rash or lesion. Neurologic examination is brief but nonfocal. - Labs CBC & Chem 7: 07/20/23 09:27 07/20/23 09:27 Labs: Abnormal Lab Results - Last 24 Hours (Table) 07/20/23 07/20/23 Range/Units : 09:27 RBC 3.58 L (3.80-5.40) m/uL Hgb 9.5 L (11.4-16.0) gm/dL Hct 32.0 L (34.0-46.0) % MCHC 29.8 L (31.0-37.0) g/dL RDW 16.3 H (11.5-15.5) % Neutrophils # 8.7 H (1.3-7.7) k/uL Lymphocytes # 0.4 L (1.0-4.8) k/uL Potassium 3.2 L (3.5-5.1) mmol/L Glucose 157 H (74-99) mg/dL Microbiology - Last 24 Hours (Table) 07/18/23 18:20 Blood Culture - Preliminary Blood 07/18/23 18:35 Blood Culture - Preliminary Blood Assessment and Plan Assessment: Acute COPD exacerbation. 3.7 x 2.3 cm left hilar mass, with suspected postobstructive atelectasis within the lingula. Acute on chronic hypoxemic respiratory failure, currently on BiPAP, likely secondary to above. Chronic obstructive pulmonary disease. History of lung cancer, status post radiation therapy, probable SBRT. Chronic hypoxemic respiratory failure, secondary to above. History of hypothyroidism. History of hyperlipidemia. History of bipolar disorder. Former tobacco smoker, quitting approximately 3 years ago. Plan: Plan dated July 20, 2023. The patient's procalcitonin level is normal. We were thinking that she had a postobstructive pneumonia, but everything that we are seeing on the chest x-ray, and CAT scan, just may be a tumor/malignancy. The patient apparently had SBRT, to the left lung lesion, back in April 2022. She never had any chemotherapy. She is never actually had a precise diagnosis. I believe she just was thought t o have lung cancer. Anyway, the patient scheduled for bronchoscopy, airway examination, and possible biopsy tomorrow. We will continue to follow make recommendations were appropriate. Prognosis is guarded. Time with Patient: Less than 30
--- NOTE | 2023-07-20 16:28 | P.PN ---
Subjective Progress Note Date: 07/20/23 Principal diagnosis: Reason for follow-up is possible postoperative pneumonia Patient is a 78-year-old female with a past medical history pertinent for COPD bipolar disorder, hypothyroidism hyperlipidemia, lung cancer, prior smoker on 3 L nasal cannula oxygen at home, presenting to the hospital for evaluation of increasing shortness of breath and cough, patient did have significant normality on the CT of the chest with masslike lesion concerning for tumor with possible postobstructive pneumonia. On today's visit that is 07/20/2023, Patient is afebrile patient is currently on 15 L high flow nasal cannula oxygen and mention breathing about the same still complaining of pain to the left side of the chest denies any worsening cough or sputum production no abdominal pain no diarrhea. The patient white count normalized to 9.5 creatinine 0.86 Pro-Brandan 0.09 blood cu ltures pending Objective - Vital Signs Vital signs: Vital Signs Temp 98 F 07/20/23 16:06 Pulse 93 07/20/23 16:06 Resp 18 07/20/23 16:06 BP 104/67 07/20/23 16:06 Pulse Ox 92 L 07/20/23 16:06 FiO2 60 07/20/23 09:03 Intake & Output 07/19/23 07/20/23 07/20/23 18:59 06:59 18:59 Intake Total 660 420 Output Total 0 900 800 Balance 660 -900 -380 Intake: Oral 660 420 Output: Urine 0 900 800 Other: Voiding Method External Catheter External Catheter # Voids 1 - Exam GENERAL DESCRIPTION: An elderly female lying in bed in no distress RESPIRATORY SYSTEM: Unlabored breathing , decreased breath sounds at bases HEART: S1 S2 regular rate and rhythm , ABDOMEN: Soft , no tenderness EXTREMITIES: No edema feet - Labs CBC & Chem 7: 07/20/23 09:27 07/20/23 09:27 Labs: Abnormal Lab Results - Last 24 Hours (Table) 07/20/23 07/20/23 Range/Units 09:27 09:27 RBC 3.58 L (3.80-5.40) m/uL Hgb 9.5 L (11.4-16.0) gm/dL Hct 32.0 L (34.0-46.0) % MCHC 29.8 L (31.0-37.0) g/dL RDW 16.3 H (11.5-15.5) % Neutrophils # 8.7 H (1.3-7.7) k/uL Lymphocytes # 0.4 L (1.0-4.8) k/uL Potassium 3.2 L (3.5-5.1) mmol/L Glucose 157 H (74-99) mg/dL Microbiology - Last 24 Hours (Table) 07/18/23 18:20 Blood Culture - Preliminary Blood 07/18/23 18:35 Blood Culture - Preliminary Blood Assessment and Plan (1) Leukocytosis Current Visit: Yes Status: Acute Code(s): D72.829 - ELEVATED WHITE BLOOD CELL COUNT, UNSPECIFIED SNOMED Code(s): 395205009 (2) Postobstructive pneumonia Current Visit: Yes Status: Acute Code(s): J18.9 - PNEUMONIA, UNSPECIFIED ORG ANISM SNOMED Code(s): 628228779 Plan: 1patient presented hospital with increasing shortness of breath she also have left-sided pleuritic chest pain did have a cough but no hemoptysis in this patient did have history of smoking COPD and lung cancer now with abnormal CT suspicious for mass and a question of possible component of postobstructive pneumonia clinically not behaving as community-acquired pneumonia 2- patient is scheduled for bronchoscopy biopsy and lavage tomorrow 3for now continue patient on Zosyn 3.375 g every 8 hours while waiting for the workup to be completed Dictation was produced using [employer] dictation software. please excuse any grammatical, word or spelling errors. Time with Patient: Less than 30
[2023-07-20] MEDS ORDERED: LIDOCAINE 1% (10MG/ML) FOR IV START INTRADERMA PRN (18:35)
--- NOTE | 2023-07-20 21:29 | P.PN ---
Subjective Progress Note Date: 07/20/23 Patient evaluated today on the stepdown unit. Has been taken off the BiPAP and currently on 15L hi flow cannula. Chest CT reveals masslike area in the left hilar region measuring 3.7 x 2.3 cm. There is suspected obstructive atelectasis within the lingula. Underlying mass or pneumonia could be considered within the differential. Pulmonary following. Remains on IV zosyn, IV solumedrol. Review of Systems Constitutional: Denied any fatigue denied any fever. Cardio vascular: denied any chest pain, palpitations Gastrointestinal: denied any nausea, vomiting, diarrhea Pulmonary: Denied any shortness of breath cough Neurologic denied any new focal deficits All inpatient medications were reviewed and appropriate changes in these medications as dictated in the interval history and assessment and plan. PHYSICAL EXAMINATION: GENERAL: The patient is alert and oriented x3, not in any acute distress. Well developed, well nourished. On 15L Hi Flow cannula HEENT: Pupils are round and equally reacting to light. EOMI. No scleral icterus. No conjunctival pallor. Normocephalic, atraumatic. No pharyngeal erythema. No thyromegaly. CARDIOVASCULAR: S1 and S2 present. No murmurs, rubs, or gallops. PULMONARY: Chest is clear to auscultation, no wheezing or crackles. ABDOMEN: Soft, nontender, nondistended, normoactive bowel sounds. No palpable organomegaly. MUSCULOSKELETAL: No joint swelling or deformity. EXTREMITIES: No cyanosis, clubbing, or pedal edema. NEUROLOGICAL: Gross neurological examination did not reveal any focal deficits. SKIN: No rashes. Assessment and Plan Left lung pneumonia, post obstructive with concern for malignancy left hilar region. Patient scheduled to undergo bronchoscopy tomorrow. Acute on chronic hypoxemic respiratory failure secondary to above, maintained on 3L nasal cannula outpatient currently on 15L hiflow cannula. Acute COPD exacerbation on IV solumedrol, inhaled steroids and bronchodilators. Hx of lung cancer with radiation Hypothyroidism Hypokalemia supplemented and will repeat labs in the AM Hx hyperlipidemia Bipolar disorder Former tobacco use GI prophylaxis DVT prophylaxis The impression and plan of care has been dictated by Stephanie Sánchez, Nurse Practitioner as directed. Dr. Rosa Maria MD I have performed a history and physical examination and medical decision making of this patient, discussed the same with the dictator, and agree with the dictators assessment and plan as written, documented as a scribe. Based on total visit time, I have performed more than 50% of this visit. Objective - Vital Signs Vital signs: Vital Signs Temp 98.3 F 07/20/23 19:52 Pulse 94 07/20/23 19:52 Resp 20 07/20/23 19:53 BP 109/63 07/20/23 19:52 Pulse Ox 90 L 07/20/23 19:52 FiO2 60 07/20/23 09:03 Intake & Output 07/20/23 07/20/23 07/21/23 06:59 18:59 06:59 Intake Total 600 Output Total 900 800 Balance -900 -200 Intake: Oral 600 Output: Urine 900 800 Other: Voiding Method External Catheter External Catheter # Voids 1 - Labs CBC & Chem 7: 07/20/23 09:27 07/20/23 09:27 Labs: Abnormal Lab Results - Last 24 Hours (Table) 07/20/23 07/20/23 Range/Units 09:27 09:27 RBC 3.58 L (3.80-5.40) m/uL Hgb 9.5 L (11.4-16.0) gm/dL Hct 32.0 L (34.0-46.0) % MCHC 29.8 L (31.0-37.0) g/dL RDW 16.3 H (11.5-15.5) % Neutrophils # 8.7 H (1.3-7.7) k/uL Lymphocytes # 0.4 L (1.0-4.8) k/uL Potassium 3.2 L (3.5-5.1) mmol/L Glucose 157 H (74-99) mg/dL Microbiology - Last 24 Hours (Table) 07/18/23 18:20 Blood Culture - Preliminary Blood 07/18/23 18:35 Blood Culture - Preliminary Blood Assessment and Plan Time with Patient: Less than 30
[2023-07-20] MEDS: LACTATED RINGERS 1,000 ML IV SCH (23:44)
[2023-07-21 10:40] LABS: African American GFR (CKD) 66 (>60 ml/min/1.73 sqM); Anion Gap 6 mmol/L; Blood Urea Nitrogen 18 mg/dL (7-17); Calcium 8.8 mg/dL (8.4-10.2); Carbon Dioxide 26 mmol/L (22-30); Chloride 106 mmol/L (98-107); Glucose 137 mg/dL (74-99); Non-African American GFR(CKD) 57 (>60 ml/min/1.73 sqM); Potassium 4.3 mmol/L (3.5-5.1); Sodium 138 mmol/L (137-145)
--- NOTE | 2023-07-21 11:42 | P.PN ---
Subjective Progress Note Date: 07/21/23 Principal diagnosis: Pneumonia. Patient is a 78-year-old white female with past medical history significant for COPD, lung cancer, hypothyroidism, hyperlipidemia, bipolar disorder. Patient is in town visiting her son who lives across the border in [place]. She is actually from [place]. She does follow with a vp product marketing in [place], Dr. John Hernandez. She states that she has moderate to severe emphysema/COPD. She quit smoking approximately 3 years ago. She is oxygen dependent on 3 L/min nasal cannula at home. She utilizes a combination of Advair and as needed albuterol inhaler. She does have a known lung mass/nodule on the left side, first identified 3 years ago, and has underwent radiation therapy. She is not on any systemic chemotherapy or immunotherapy. Over the last 2 to 3 weeks she has had progressively worsening shortness of breath accompanied with a associated nonproductive cough. She does have some left-sided, pleuritic like, chest pain. Worse with coughing and deep breathing. Denies any fevers, myalgias, purulent sputum, hemoptysis. She has had some diarrhea. An enhanced chest CT demonstrated a masslike area in the left hilar region measuring 3.7 x 2.3 cm. There is suspected obstructive atelectasis within the lingula, however, unde rlying pneumonia cannot be completely excluded. CBC includes: WBC count 12.3, hemoglobin 10.6, hematocrit 33.7, platelets 321. BMP on arrival unremarkable. Troponins less than 0.012. NT proBNP 1130. Negative for influenza, RSV, COVID. Patient was in some respiratory distress on arrival to the emergency room, and was placed on BiPAP. Initial BiPAP settings were 12/6 and FiO2 of 60%. ABGs do ne on the settings include a PaO2 of 65, pCO2 43, and pH of 7.45. She remains on BiPAP with the mentioned settings. Respiratory rate is in the mid 20s, and she is achieving tidal volumes of 300-400. I did temporarily try to wean her off onto a 15 L high flow nasla cannula. She did become dyspneic. She speaks in phrases. She was placed back on BiPAP with above-mentioned settings. She is afebrile. Remaining vital signs stable. Progress note dated July 20, 2023. 78-year-old female seen yesterday in consultation. The patient has a history of COPD, suspected, but not proven lung cancer, hypothyroidism, hyperlipidemia, and bipolar disorder. The patient was in town, visiting her son, who lives in [place]. She resides in [place]. The patient apparently has a vp product marketing, back home, and apparently was thought to have lung cancer, and she apparently opted for probable stereotactic body radiotherapy, to one of the lesions, and her left lung. The patient presented to the hospital with increasing shortness of breath, cough, and generally not feeling well. The patient's chest x-ray, and CAT scan, shows significant abnormalities in the left chest, particularly in the area of the left hilum, with a mass, that measures 3.7 x 2.3 cm. She is suspected to have a postobstructive pneumonia. Currently, the patient is on 15 L high flow O2. She has been on BiPAP at 12/6, and 60%. No IV fluids. The patient had radiation to the left lung lesion, in April 2022. The plan is to do bronchoscopy, airway examination, BAL, tomorrow. Labs are reviewed. White count 9.5, hemoglobin 9.5, hematocrit 32, and platelet count 252,000. Sodium 139, potassium 3.2, chlorides 103, CO2 27, BUN 14, creatinine 0.86. Glucose is 157. Procalcitonin level is 0.09. Progress note dated July 21, 2023. 78-year-old female seen in room 374. The patient is scheduled to undergo bronchoscopy today. Currently, the patient is on BiPAP, with settings of 12/6, and 60%, or high flow oxygen at 15 L/min. The patient is not receiving any IV fluids. Her procalcitonin level was 0.09. We were thinking that she had endobronchial obstruction with postobstructive pneumonia. That may be the case, or, what was seen on x-ray, and CAT scan, could all just be tumor. I am hoping to get a sample on her, so that oncology, might be able to treat her, with either a chemotherapeutic agent, or immunotherapy. Labs today include a sodium 138, potassium 4.3, chlorides 106, CO2 26, BUN 18, creatinine 0.96. Glucose is 137. Calcium 8.8. Objective - Vital Signs Vital signs: Vital Signs Temp 97.4 F L 07/21/23 08:00 Pulse 85 07/21/23 09:08 Resp 18 07/21/23 08:00 BP 148/79 07/21/23 08:00 Pulse Ox 91 L 07/21/23 08:50 FiO2 60 07/21/23 01:03 Intake & Output 07/20/23 07/21/23 07/21/23 18:59 06:59 18:59 Intake Total 600 Output Total 800 650 Balance -200 -650 Intake: Oral 600 Output: Urine 800 650 Other: Voiding Method External Catheter External Catheter # Voids 1 # Bowel Movements 1 - Exam No acute distress, oriented 3. Currently on 15 L high flow. Saturations are 95% HEENT examination is grossly unremarkable. Mucous membranes are moist. No oral lesions. Neck supple. Full range of motion. No adenopathy thyromegaly or neck vein distention. Cardiovascular examination reveals regular rhythm rate. S1-S2 normal. No S3 or S4. No discernible murmur noted. Heart sounds are distant. Heart rate 85 bpm. Lungs reveal severely diminished breath sounds on the left. Scattered rhonchi are noted throughout. No crackles or wheezes. Saturations are 95% Abdomen soft bowel sounds are heard. No masses or tenderness. Extremities are intact. No cyanosis clubbing or edema. Skin is without rash or lesion. Neurologic examination is brief but nonfocal. - Labs CBC & Chem 7: 07/20/23 09:27 07/21/23 09:28 Labs: Abnormal Lab Results - Last 24 Hours (Table) 07/21/23 Range/Units 09:28 BUN 18 H (7-17) mg/dL Glucose 137 H (74-99) mg/dL Microbiology - Last 24 Hours (Table) 07/18/23 18:20 Blood Culture - Preliminary Blood 07/18/23 18:35 Blood Culture - Preliminary Blood Assessment and Plan Assessment: Acute COPD exacerbation. 3.7 x 2.3 cm left hilar mass, with suspected postobstructive atelectasis within the lingula. Acute on chronic hypoxemic respiratory failure, currently on BiPAP, likely secondary to above. Chronic obstructive pulmonary disease. History of lung cancer, status post radiation therapy, probable SBRT. Chronic hypoxemic respiratory failure, secondary to above. History of hypothyroidism. History of hyperlipidemia. History of bipolar disorder. Former tobacco smoker, quitting approximately 3 years ago. Plan: Plan dated July 20, 2023. The patient's procalcitonin level is normal. We were thinking that she had a postobstructive pneumonia, but everything that we are seeing on the chest x-ray, and CAT scan, just may be a tumor/malignancy. The patient apparently had SBRT, to the left lung lesion, back in April 2022. She never had any chemotherapy. She is never actually had a precise diagnosis. I believe she just was thought to have lung cancer. Anyway, the patient scheduled for bronchoscopy, airway examination, and possible biopsy tomorrow. We will continue to follow make recommendations were appropriate. Prognosis is guarded. Plan dated July 21, 2023. The patient will have bronchoscopy today, and hopefully, we can get a sample, of the lesion in her lung. The patient has a previous history of radiation therapy, to the left lung lesion, but it appears, that the mass has recurred, or gotten bigger. Anyway, she was initially admitted with a diagnosis of postobstructive pneumonia. That still may be the case. Interestingly, her procalcitonin level was normal. We will continue to follow the patient, and make recommendations along the way. Labs, x-rays, and medications are reviewed. Prognosis is certainly guarded. Time with Patient: Less than 30
[2023-07-21] MEDS: IV FLUID CONTINUATION 900 ML IV ONE (12:49)
[2023-07-21] MEDS ORDERED: LIDOCAINE 1% INJ 10MG/ML (20 ML MDV) ONE (12:54)
[2023-07-21] MEDS ORDERED: PROPOFOL 10 MG/ML 20 ML VIAL IV ONE (12:54)
[2023-07-21] MEDS ORDERED: SUCCINYLCHOLINE CHLORIDE 200 MG/10 ML VIAL IV ONE (12:54)
[2023-07-21] MEDS ORDERED: KETAMINE HCL IN 0.9 % NACL 50 MG/5 ML SYRINGE ONE (12:54)
[2023-07-21] MEDS: ALBUTEROL NEBULIZED 2.5 MG/3 ML INHALATION ONE (13:40)
--- NOTE | 2023-07-21 14:58 | P.PN ---
Subjective Progress Note Date: 07/21/23 Principal diagnosis: Reason for follow-up is possible postoperative pneumonia Patient is a 78-year-old female with a past medical history pertinent for COPD bipolar disorder, hypothyroidism hyperlipidemia, lung cancer, prior smoker on 3 L nasal cannula oxygen at home, presenting to the hospital for evaluation of increasing shortness of breath and cough, patient did have significant normality on the CT of the chest with masslike lesion concerning for tumor with possible postobstructive pneumonia. On today's visit that is 07/21/2023, patient has been afebrile, patient is breathing comfortably however the patient still requiring 15 L high flow oxygen patient did have a cough and bring up some sputum still complaining of left- sided pleuritic chest pain but no worsening no nausea no vomiting and no diarrhea. Patient white count of 9.5 creatinine 0.96 blood cultures pending Objective - Vital Signs Vital signs: Vital Signs Temp 97.7 F 07/21/23 11:53 Pulse 91 07/21/23 12:00 Resp 18 07/21/23 11:53 BP 148/79 07/21/23 11:53 Pulse Ox 97 07/21/23 11:53 FiO2 60 07/21/23 01:03 Intake & Output 07/20/23 07/21/23 07/21/23 18:59 06:59 18:59 Intake Total 600 100 Output Total 800 650 Balance -200 -650 100 Intake: IV 100 Oral 600 Output: Urine 800 650 Other: Voiding Method External Catheter External Catheter # Voids 1 # Bowel Movements 1 - Exam GENERAL DESCRIPTION: An elderly female lying in bed in no distress RESPIRATORY SYSTEM: Unlabored breathing , decreased breath sounds at bases HEART: S1 S2 regular rate and rhythm , ABDOMEN: Soft , no tenderness EXTREMITIES: No edema feet - Labs CBC & Chem 7: 07/20/23 09:27 07/21/23 09:28 Labs: Abnormal Lab Results - Last 24 Hours (Table) 07/21/23 Range/Units 09:28 BUN 18 H (7-17) mg/dL Glucose 137 H (74-99) mg/dL Microbiology - Last 24 Hours (Table) 07/18/23 18:20 Blood Culture - Preliminary Blood 07/18/23 18:35 Blood Culture - Preliminary Blood Assessment and Plan (1) Leukocytosis Current Visit: Yes Status: Acute Code(s): D72.829 - ELEVATED WHITE BLOOD CELL COUNT, UNSPECIFIED SNOMED Code(s): 522758851 (2) Postobstructive pneumonia Current Visit: Yes Status: Acute Code(s): J18.9 - PNEUMONIA, UNSPECIFIED ORGANISM SNOMED Code(s): 619182856 Plan: 1patient presented hospital with increasing shortness of breath she also have left-sided pleuritic chest pain did have a cough but no hemoptysis in this patient did have history of smoking COPD and lung cancer now with abnormal CT suspicious for mass and a question of possible component of postobstructive pneumonia clinically not behaving as community-acquired pneumonia 2- patient is scheduled for bronchoscopy biopsy and lavage this afternoon 3- we will continue Zosyn 3.375 g every 8 hours while waiting for the workup to be completed Question Answered Dictation was produced using [employer] dictation software. please excuse any grammatical, word or spelling errors. Time with Patient: Less than 30
--- NOTE | 2023-07-21 16:05 | P.PN ---
Subjective Progress Note Date: 07/21/23 Patient evaluated today on the stepdown unit. Has been taken off the BiPAP and currently on 15L hi flow cannula. Chest CT reveals masslike area in the left hilar region measuring 3.7 x 2.3 cm. There is suspected obstructive atelectasis within the lingula. Underlying mass or pneumonia could be considered within the differential. Pulmonary following. Remains on IV zosyn, IV solumedrol. 07/21/2023 Patient evaluated in follow up today. Remains on high flow nasal cannula 15L. Patient is pending bronchoscopy today of the left lung mass. Remains on IV solumedrol, IV zosyn. Patient is feeling anxious and has been tearful today. Review of Systems Constitutional: Denied any fatigue denied any fever. Cardio vascular: denied any chest pain, palpitations Gastrointestinal: denied any nausea, vomiting, diarrhea Pulmonary: Denied any shortness of breath cough Neurologic denied any new focal deficits All inpatient medications were reviewed and appropriate changes in these medications as dictated in the interval history and assessment and plan. PHYSICAL EXAMINATION: GENERAL: The patient is alert and oriented x3, not in any acute distress. Well developed, well nourished. On 15L Hi Flow cannula HEENT: Pupils are round and equally reacting to light. EOMI. No scleral icterus. No conjunctival pallor. Normocephalic, atraumatic. No pharyngeal erythema. No thyromegaly. CARDIOVASCULAR: S1 and S2 present. No murmurs, rubs, or gallops. PULMONARY: Chest is clear to auscultation, no wheezing or crackles. ABDOMEN: Soft, nontender, nondistended, normoactive bowel sounds. No palpable organomegaly. MUSCULOSKELETAL: No joint swelling or deformity. EXTREMITIES: No cyanosis, clubbing, or pedal edema. NEUROLOGICAL: Gross neurological examination did not reveal any focal deficits. SKIN: No rashes. Assessment and Plan Acute COPD exacerbation on IV solumedrol, inhaled steroids and bronchodilators. Left lung pneumonia, post obstructive with concern for malignancy left hilar region. Patient scheduled to undergo bronchoscopy of the left lung mass. Acute on chronic hypoxemic respiratory failure secondary to above, maintained on 3L nasal cannula outpatient currently on 15L hiflow cannula. Hx of lung cancer with radiation with possible reoccurance of lung mass Anxiety situational receiving xanax TID as needed. Hypothyroidism Hypokalemia replaced. Hx hyperlipidemia Bipolar disorder Former tobacco use GI prophylaxis DVT prophylaxis The impression and plan of care has been dictated by Stephanie Sánchez Nurse Practitioner as directed. Dr. Rosa Maria MD I have performed a history and physical examination and medical decision making of this patient, discussed the same with the dictator, and agree with the dictators assessment and plan as written, documented as a scribe. Based on total visit time, I have performed more than 50% of this visit. Objective - Vital Signs Vital signs: Vital Signs Temp 98.0 F 07/21/23 13:39 Pulse 101 H 07/21/23 14:09 Resp 20 07/21/23 14:09 BP 136/64 07/21/23 14:09 Pulse Ox 90 L 07/21/23 14:09 FiO2 60 07/21/23 01:03 Intake & Output 07/20/23 07/21/23 07/21/23 18:59 06:59 18:59 Intake Total 600 150 Output Total 800 650 Balance -200 -650 150 Intake: IV 150 Oral 600 Output: Urine 800 650 Other: Voiding Method External Catheter External Catheter # Voids 1 # Bowel Movements 1 - Labs CBC & Chem 7: 07/20/23 09:27 07/21/23 09:28 Labs: Abnormal Lab Results - Last 24 Hours (Table) 07/21/23 Range/Units 09:28 BUN 18 H (7-17) mg/dL Glucose 137 H (74-99) mg/dL Microbiology - Last 24 Hours (Table) 07/18/23 18:20 Blood Culture - Preliminary Blood 07/18/23 18:35 Blood Culture - Preliminary Blood Assessment and Plan Time with Patient: Less than 30
--- NOTE | 2023-07-21 19:59 | PCN ---
PROCEDURE NOTE PROCEDURE: Bronchoscopy airway examination; therapeutic lavage; bronchoalveolar lavage; brushes, left mainstem; biopsies, endobronchial, left mainstem; washes, left mainstem. PREOPERATIVE DIAGNOSIS: Rule out lung cancer. POSTOPERATIVE DIAGNOSIS: Rule out lung cancer. SPACE SCHEDULER: Dr. Nicole. FIRST INSEMINATION WORKER: Dr. Jasmin England. ANESTHESIA PROVIDED: General anesthesia. The patient was intubated. The patient's procedure took place in room #1 [facility]. There was informed consent and universal timeout. DESCRIPTION OF PROCEDURE: After the patient was intubated, and placed on the ventilator, the bronchoscope was inserted through the bronchoscope, adapter connected to the endotracheal tube. The bronchoscope was pushed through the endotracheal tube out into the trachea. The mid and distal trachea appeared normal. Tracheal hamilton was sharp. We did a thorough evaluation of the right lung. Right upper lobe and its 3 segments; right middle lobe and its 2 segments; right lower lobe and its 5 segments all appeared normal. On the left side, there was a mass noted in the proximal left mainstem. It was obstructing our ability to get down deeper into the left lung. This is where we did our sampling. Initially we did brushes of lesion of the left mainstem, and then multiple endobronchial biopsies of the same lesion. Finally, we washed the left mainstem, for exfoliative cytology. The patient's lesion had blood just a bit. We made sure there was adequate hemostasis before the bronchoscope was withdrawn. There was no immediate complication. The patient tolerated the procedure well. The patient will be extubated and recovered by Anesthesia. Again the patient tolerated the procedure well. The specimen will be sent to the laboratory for analysis. MMODL / IJN: [id number] /
[2023-07-21 21:25] LABS: Appearance,BF Blood Tinged (Clear); RBC, Body Fluid 7300 /UL (0-2000)
[2023-07-22 09:33] LABS: Nucleated Cells, Body Fluid 25 /UL
[2023-07-22 11:17] LABS: Anisocytosis Slight; Basophils % (A) 0 %; Eosinophils % (A) 0 %; HCT 34.9 % (34.0-46.0); HGB 10.5 gm/dL (11.4-16.0); Hypochromasia Marked; Lymphocytes # (A) 0.5 k/uL (1.0-4.8); Lymphocytes % (A) 4 %; MCH 26.7 pg (25.0-35.0); MCV 88.9 fL (80.0-100.0); Mean Platelet Volume 7.5; Monocytes # (A) 0.3 k/uL (0-1.0); Monocytes % (A) 3 %; Neutrophils # (A) 10.2 k/uL (1.3-7.7); Neutrophils % (A) 92 %; Platelet Count 292 k/uL (150-450); RBC 3.92 m/uL (3.80-5.40); RDW 16.2 % (11.5-15.5); WBC 11.1 k/uL (3.8-10.6)
--- NOTE | 2023-07-22 11:28 | P.PN ---
Subjective Progress Note Date: 07/22/23 Principal diagnosis: Pneumonia. Patient is a 78-year-old white female with past medical history significant for COPD, lung cancer, hypothyroidism, hyperlipidemia, bipolar disorder. Patient is in town visiting her son who lives across the border in [place]. She is actually from [place]. She does follow with a handle and vent machine operator in [place], Dr. John Hernandez. She states that she has moderate to severe emphysema/COPD. She quit smoking approximately 3 years ago. She is oxygen dependent on 3 L/min nasal cannula at home. She utilizes a combination of Advair and as needed albuterol inhaler. She does have a known lung mass/nodule on the left side, first identified 3 years ago, and has underwent radiation therapy. She is not on any systemic chemotherapy or immunotherapy. Over the last 2 to 3 weeks she has had progressively worsening shortness of breath accompanied with a associated nonproductive cough. She does have some left-sided, pleuritic like, chest pain. Worse with coughing and deep breathing. Denies any fevers, myalgias, purulent sputum, hemoptysis. She has had some diarrhea. An enhanced chest CT demonstrated a masslike area in the left hilar region measuring 3.7 x 2.3 cm. There is suspected obstructive atelectasis within the lingula, however, unde rlying pneumonia cannot be completely excluded. CBC includes: WBC count 12.3, hemoglobin 10.6, hematocrit 33.7, platelets 321. BMP on arrival unremarkable. Troponins less than 0.012. NT proBNP 1130. Negative for influenza, RSV, COVID. Patient was in some respiratory distress on arrival to the emergency room, and was placed on BiPAP. Initial BiPAP settings were 12/6 and FiO2 of 60%. ABGs do ne on the settings include a PaO2 of 65, pCO2 43, and pH of 7.45. She remains on BiPAP with the mentioned settings. Respiratory rate is in the mid 20s, and she is achieving tidal volumes of 300-400. I did temporarily try to wean her off onto a 15 L high flow nasla cannula. She did become dyspneic. She speaks in phrases. She was placed back on BiPAP with above-mentioned settings. She is afebrile. Remaining vital signs stable. Progress note dated July 20, 2023. 78-year-old female seen yesterday in consultation. The patient has a history of COPD, suspected, but not proven lung cancer, hypothyroidism, hyperlipidemia, and bipolar disorder. The patient was in town, visiting her son, who lives in [place]. She resides in [place]. The patient apparently has a handle and vent machine operator, back home, and apparently was thought to have lung cancer, and she apparently opted for probable stereotactic body radiotherapy, to one of the lesions, and her left lung. The patient presented to the hospital with increasing shortness of breath, cough, and generally not feeling well. The patient's chest x-ray, and CAT scan, shows significant abnormalities in the left chest, particularly in the area of the left hilum, with a mass, that measures 3.7 x 2.3 cm. She is suspected to have a postobstructive pneumonia. Currently, the patient is on 15 L high flow O2. She has been on BiPAP at 12/6, and 60%. No IV fluids. The patient had radiation to the left lung lesion, in April 2022. The plan is to do bronchoscopy, airway examination, BAL, tomorrow. Labs are reviewed. White count 9.5, hemoglobin 9.5, hematocrit 32, and platelet count 252,000. Sodium 139, potassium 3.2, chlorides 103, CO2 27, BUN 14, creatinine 0.86. Glucose is 157. Procalcitonin level is 0.09. Progress note dated July 21, 2023. 78-year-old female seen in room 374. The patient is scheduled to undergo bronchoscopy today. Currently, the patient is on BiPAP, with settings of 12/6, and 60%, or high flow oxygen at 15 L/min. The patient is not receiving any IV fluids. Her procalcitonin level was 0.09. We were thinking that she had endobronchial obstruction with postobstructive pneumonia. That may be the case, or, what was seen on x-ray, and CAT scan, could all just be tumor. I am hoping to get a sample on her, so that oncology, might be able to treat her, with either a chemotherapeutic agent, or immunotherapy. Labs today include a sodium 138, potassium 4.3, chlorides 106, CO2 26, BUN 18, creatinine 0.96. Glucose is 137. Calcium 8.8. Progress note dated July 22, 2023. 78-year-old female seen today in room 374. Yesterday, we did a bronchoscopy on the patient. The right-sided airway examination was normal. On the left side, we saw a very large obstructing tumor, in the proximal left mainstem. We did brushings, biopsies, and washings of that area. Those results are currently pending. We are going to have medical oncology see the patient, in anticipation, that the biopsies are positive, and the patient may have other treatment options. Currently, she is on high flow O2 at 15 L/min. She did not use the BiPAP last night. Zosyn can be discontinued as her procalcitonin level is normal. Clinically she is feeling okay. Current labs include a white count 11.1, hemoglobin 10.5, hematocrit 34.9, and a normal platelet count. Procalcitonin level was 0.09. Objective - Vital Signs Vital signs: Vital Signs Temp 98.0 F 07/22/23 01:10 Pulse 110 H 07/22/23 08:54 Resp 24 07/22/23 08:54 BP 131/68 07/22/23 04:40 Pulse Ox 89 L 07/22/23 08:28 FiO2 60 07/22/23 08:28 Intake & Output 07/21/23 07/22/23 07/22/23 18:59 06:59 18:59 Intake Total 330 240 Output Total 400 1100 Balance -70 -1100 240 Intake: IV 150 Oral 180 240 Output: Urine 400 1100 Other: Voiding Method External Catheter External Catheter # Bowel Movements 1 - Exam No acute distress, oriented 3. Currently on 15 L high flow. Saturations are 95% HEENT examination is grossly unremarkable. Mucous membranes are moist. No oral lesions. Neck supple. Full range of motion. No adenopathy thyromegaly or neck vein distention. Cardiovascular examination reveals regular rhythm rate. S1-S2 normal. No S3 or S4. No discernible murmur noted. Heart sounds are distant. Heart rate 100 bpm. Lungs reveal severely diminished breath sounds on the left. Scattered rhonchi are noted throughout. No crackles or wheezes. Saturations are 92 % Abdomen soft bowel sounds are heard. No masses or tenderness. Extremities are intact. No cyanosis clubbing or edema. Skin is without rash or lesion. Neurologic examination is brief but nonfocal. - Labs CBC & Chem 7: 07/22/23 09:29 07/21/23 09:28 Labs: Abnormal Lab Results - Last 24 Hours (Table) 07/21/23 07/22/23 Range/Units 13:15 09:29 WBC 11.1 H (3.8-10.6) k/uL Hgb 10.5 L (11.4-16.0) gm/dL MCHC 30.0 L (31.0-37.0) g/dL RDW 16.2 H (11.5-15.5) % Neutrophils # 10.2 H (1.3-7.7) k/uL Lymphocytes # 0.5 L (1.0-4.8) k/uL Fluid Appearance Blood Tinged A (Clear) Fluid RBC 7300 H (0-2000) /uL Microbiology - Last 24 Hours (Table) 07/21/23 13:15 Gram Stain - Preliminary Bronchoalviolar Lavage - Left 07/21/23 08:15 Gram Stain - Final Sputum Sputum Culture - Final 07/18/23 18:20 Blood Culture - Preliminary Blood 07/18/23 18:35 Blood Culture - Preliminary Blood Assessment and Plan Assessment: Acute COPD exacerbation. 3.7 x 2.3 cm left hilar mass, with suspected postobstructive atelectasis within the lingula, S/P bronchoscopy on 07/21/2023. Acute on chronic hypoxemic respiratory failure, currently on BiPAP, likely secondary to above. Chronic obstructive pulmonary disease. Suspected but never proven lung cancer, status post radiation therapy, probable SBRT. Chronic hypoxemic respiratory failure, secondary to above. History of hypothyroidism. History of hyperlipidemia. History of bipolar disorder. Former tobacco smoker, quitting approximately 3 years ago. Plan: Plan dated July 20, 2023. The patient's procalcitonin level is normal. We were thinking that she had a postobstructive pneumonia, but everything that we are seeing on the chest x-ray, and CAT scan, just may be a tumor/malignancy. The patient apparently had SBRT, to the left lung lesion, back in April 2022. She never had any chemotherapy. She is never actually had a precise diagnosis. I believe she just was thought to have lung cancer. Anyway, the patient scheduled for bronchoscopy, airway examination, and possible biopsy tomorrow. We will continue to follow make recommendations were appropriate. Prognosis is guarded. Plan dated July 21, 2023. The patient will have bronchoscopy today, and hopefully, we can get a sample, of the lesion in her lung. The patient has a previous history of radiation therapy, to the left lung lesion, but it appears, that the mass has recurred, or gotten bigger. Anyway, she was initially admitted with a diagnosis of postobstructive pneumonia. That still may be the case. Interestingly, her procalcitonin level was normal. We will continue to follow the patient, and make recommendations along the way. Labs, x-rays, and medications are reviewed. Prognosis is certainly guarded. Plan dated July 22, 2023. Because the patient's procalcitonin level was normal, Zosyn was discontinued. T he patient underwent bronchoscopy yesterday, was found to have a large obstructing mass, in the left mainstem bronchus. It was brushed, biopsy, and washed. Those results are currently pending. The patient remains on O2 via high flow nasal cannula at 15 L/min. Will have medical oncology see the p atient. Additional recommendations and suggestions are forthcoming. Prognosis is certainly guarded. We will await the biopsy results. Time with Patient: Less than 30
[2023-07-22 11:33] LABS: African American GFR (CKD) 56 (>60 ml/min/1.73 sqM); Anion Gap 7 mmol/L; Blood Urea Nitrogen 17 mg/dL (7-17); Calcium 8.8 mg/dL (8.4-10.2); Carbon Dioxide 25 mmol/L (22-30); Chloride 105 mmol/L (98-107); Glucose 163 mg/dL (74-99); Non-African American GFR(CKD) 49 (>60 ml/min/1.73 sqM); Potassium 4.4 mmol/L (3.5-5.1); Sodium 137 mmol/L (137-145)
--- NOTE | 2023-07-22 15:01 | P.PN ---
Subjective Progress Note Date: 07/22/23 Principal diagnosis: Reason for follow-up is possible postoperative pneumonia Patient is a 78-year-old female with a past medical history pertinent for COPD bipolar disorder, hypothyroidism hyperlipidemia, lung cancer, prior smoker on 3 L nasal cannula oxygen at home, presenting to the hospital for evaluation of increasing shortness of breath and cough, patient did have significant normality on the CT of the chest with masslike lesion concerning for tumor with possible postobstructive pneumonia. On today's visit that is Patient is status post bronchoscopy with evidence of left mainstem mass status post biopsy procedure completed on 07/21/2023. On today's evaluation that is 07/22/2023,the patient denies any fever or any chills, patient is breathing comfortably however still requiring 15 L high flow nasal cannula oxygen the patient denies any worsening cough and left-sided chest pain has decreased in intensity no vomiting or diarrhea. Patient white count is 11.1, creatinine 1.09, bronchial washing cultures pending sputum culture were negative Objective - Vital Signs Vital signs: Vital Signs Temp 97.7 F 07/22/23 08:00 Pulse 90 07/22/23 12:05 Resp 20 07/22/23 13:54 BP 138/67 07/22/23 12:00 Pulse Ox 94 L 07/22/23 12:00 FiO2 60 07/22/23 08:28 Intake & Output 07/21/23 07/22/23 07/22/23 18:59 06:59 18:59 Intake Total 330 780 Output Total 400 1100 600 Balance -70 -1100 180 Intake: IV 150 Oral 180 780 Output: Urine 400 1100 600 Other: Voiding Method External Catheter External Catheter External Catheter # Bowel Movements 1 1 - Exam GENERAL DESCRIPTION: An elderly female lying in bed in no distress RESPIRATORY SYSTEM: Unlabored breathing , decreased breath sounds at bases HEART: S1 S2 regular rate and rhythm , ABDOMEN: Soft , no tenderness EXTREMITIES: No edema feet - Labs CBC & Chem 7: 07/22/23 09:29 07/22/23 09:29 Labs: Abnormal Lab Results - Last 24 Hours (Table) 07/21/23 07/22/23 07/22/23 Range/Units 13:15 09:29 09:29 WBC 11.1 H (3.8-10.6) k/uL Hgb 10.5 L (11.4-16.0) gm/dL MCHC 30.0 L (31.0-37.0) g/dL RDW 16.2 H (11.5-15.5) % Neutrophils # 10.2 H (1.3-7.7) k/uL Lymphocytes # 0.5 L (1.0-4.8) k/uL Creatinine 1.09 H (0.52-1.04) mg/dL Glucose 163 H (74-99) mg/dL Fluid Appearance Blood Tinged A (Clear) Fluid RBC 7300 H (0-2000) /uL Microbiology - Last 24 Hours (Table) 07/21/23 13:15 Gram Stain - Preliminary Bronchoalviolar Lavage - Left Bronchial Washings Culture - Preliminary 07/21/23 08:15 Gram Stain - Final Sputum Sputum Culture - Final 07/18/23 18:20 Blood Culture - Preliminary Blood 07/18/23 18:35 Blood Culture - Preliminary Blood Assessment and Plan (1) Leukocytosis Current Visit: Yes Status: Acute Code(s): D72.829 - ELEVATED WHITE BLOOD CELL COUNT, UNSPECIFIED SNOMED Code(s): 138796110 (2) Postobstructive pneumonia Current Visit: Yes Status: Acute Code(s): J18.9 - PNEUMONIA, UNSPECIFIED ORGANISM SNOMED Code(s): 185490590 Plan: 1patient presented hospital with increasing shortness of breath she also have left-sided pleuritic chest pain did have a cough but no hemoptysis in this patient did have history of smoking COPD and lung cancer now with abnormal CT suspicious for mass and a question of possible component of postobstructive pneumonia clinically not behaving as community-acquired pneumonia 2- patient is s/p bronchoscopy biopsy and lavage completed on 07/21/2023 3-Zosyn has been discontinued by pulmonary we will monitor the patient closely off antibiotic at this point Dictation was produced using [employer] dictation software. please excuse any grammatical, word or spelling errors. Time with Patient: Less than 30
--- NOTE | 2023-07-22 15:23 | P.PN ---
Subjective Progress Note Date: 07/22/23 Patient evaluated today on the stepdown unit. Has been taken off the BiPAP and currently on 15L hi flow cannula. Chest CT reveals masslike area in the left hilar region measuring 3.7 x 2.3 cm. There is suspected obstructive atelectasis within the lingula. Underlying mass or pneumonia could be considered within the differential. Pulmonary following. Remains on IV zosyn, IV solumedrol. 07/21/2023 Patient evaluated in follow up today. Remains on high flow nasal cannula 15L. Patient is pending bronchoscopy today of the left lung mass. Remains on IV solumedrol, IV zosyn. Patient is feeling anxious and has been tearful today. 07/22/2023 Patient evaluated today. Status post bronchoscopy findings reveal an obstructing mass of the left mainstem which was biopsied. Pathology currently pending. Patient having loose stools, C.Dif was negative. Viral panel negative. Remains on IV solumedrol. IV zosyn was discontinued. Patient has reported frequent headaches on the left side of her head since June when the breathing difficulties started. Patient is also having difficulty with ambulation and weakness since June as well. Oncology evaluated the patient today. Remains on a 15L hi flow nasal cannula. Review of Systems Constitutional: Denied any fatigue denied any fever. Cardio vascular: denied any chest pain, palpitations Gastrointestinal: denied any nausea, vomiting, diarrhea Pulmonary: Denied any shortness of breath cough Neurologic denied any new focal deficits All inpatient medications were reviewed and appropriate changes in these medications as dictated in the interval history and assessment and plan. PHYSICAL EXAMINATION: GENERAL: The patient is alert and oriented x3, not in any acute distress. Well developed, well nourished. On 15L Hi Flow cannula HEENT: Pupils are round and equally reacting to light. EOMI. No scleral icterus. No conjunctival pallor. Normocephalic, atraumatic. No pharyngeal erythema. No thyromegaly. CARDIOVASCULAR: S1 and S2 present. No murmurs, rubs, or gallops. PULMONARY: Chest is clear to auscultation, no wheezing or crackles. ABDOMEN: Soft, nontender, nondistended, normoactive bowel sounds. No palpable organomegaly. MUSCULOSKELETAL: No joint swelling or deformity. EXTREMITIES: No cyanosis, clubbing, or pedal edema. NEUROLOGICAL: Gross neurological examination did not reveal any focal deficits. SKIN: No rashes. Assessment and Plan -Acute COPD exacerbation on IV solumedrol, inhaled steroids and bronchodilators. -Left lung pneumonia, post obstructive with concern for malignancy left hilar region status post bronchoscopy revealing left obstructing mass left mainstem which was biopsied. -Headaches; brain MRI ordered by oncology team r/o metastasis. -Acute on chronic hypoxemic respiratory failure secondary to above, maintained on 3L nasal cannula outpatient currently on 15L hiflow cannula. -Hx of lung cancer with radiation with possible reoccurance of lung mass -Anxiety situational receiving xanax TID as needed. -Lower extremity weakness and lower back pain due to medical debility PT/OT consultation. Will order lumbar xray -Hypothyroidism -Hypokalemia replaced. -Hx hyperlipidemia -Bipolar disorder -Former tobacco use GI prophylaxis DVT prophylaxis The impression and plan of care has been dictated by Stephanie Sánchez, Nurse Practitioner as directed. Dr. Rosa Maria MD I have performed a history and physical examination and medical decision making of this patient, discussed the same with the dictator, and agree with the dictators assessment and plan as written, documented as a scribe. Based on total visit time, I have performed more than 50% of this visit. Objective - Vital Signs Vital signs: Vital Signs Temp 97.7 F 07/22/23 08:00 Pulse 90 07/22/23 12:05 Resp 20 07/22/23 13:54 BP 138/67 07/22/23 12:00 Pulse Ox 94 L 07/22/23 12:00 FiO2 60 07/22/23 08:28 Intake & Output 07/21/23 07/22/23 07/22/23 18:59 06:59 18:59 Intake Total 330 780 Output Total 400 1100 600 Balance -70 -1100 180 Intake: IV 150 Oral 180 780 Output: Urine 400 1100 600 Other: Voiding Method External Catheter External Catheter External Catheter # Bowel Movements 1 1 - Labs CBC & Chem 7: 07/22/23 09:29 07/22/23 09:29 Labs: Abnormal Lab Results - Last 24 Hours (Table) 07/21/23 07/22/23 07/22/23 Range/Units 13:15 09:29 09:29 WBC 11.1 H (3.8-10.6) k/uL Hgb 10.5 L (11.4-16.0) gm/dL MCHC 30.0 L (31.0-37.0) g/dL RDW 16.2 H (11.5-15.5) % Neutrophils # 10.2 H (1.3-7.7) k/uL Lymphocytes # 0.5 L (1.0-4.8) k/uL Creatinine 1.09 H (0.52-1.04) mg/dL Glucose 163 H (74-99) mg/dL Fluid Appearance Blood Tinged A (Clear) Fluid RBC 7300 H (0-2000) /uL Microbiology - Last 24 Hours (Table) 07/21/23 13:15 Gram Stain - Preliminary Bronchoalviolar Lavage - Left Bronchial Washings Culture - Preliminary 07/21/23 08:15 Gram Stain - Final Sputum Sputum Culture - Final 07/18/23 18:20 Blood Culture - Preliminary Blood 07/18/23 18:35 Blood Culture - Preliminary Blood Assessment and Plan Time with Patient: Less than 30
--- NOTE | 2023-07-22 16:10 | XR ---
EXAMINATION TYPE: XR lumbar spine 2 or 3V DATE OF EXAM: 07/22/2023 3:50 PM CLINICAL INDICATION:Female, 78 years old with history of Weakness, lower back pain.; [facility] COMPARISON: None TECHNIQUE: XR lumbar spine 2 or 3V - Frontal, lateral and coned in L5-S1 lateral views of the spine. FINDINGS: No evidence of any acute osseous pathology. No evidence of loss of vertebral body height i s seen. There is normal alignment of the lumbar vertebral bodies. Mild scattered disc space narrowing . Multilevel marginal osteophyte formation throughout the visualized spine. There is facet joint arth ropathy throughout the spine. Scattered at least mild neural foraminal stenosis. IMPRESSION: 1. No acute fracture. 2. Moderate multilevel disc degeneration.
[2023-07-22] MEDS: FLUTICASONE 50MCG/SPRAY NASAL 16GM EA NOSTRIL SCH (17:47)
[2023-07-22] MEDS: LORATADINE 10 MG TAB PO SCH (17:47)
--- NOTE | 2023-07-22 19:30 | P.CONS ---
History of Present Illness - Reason for Consult Consult date: 07/22/23 lung mass Requesting physician: Jasmin England - Chief Complaint SOB - History of Present Illness Patient is a 70-year-old 8-year-old female with a significant history of COPD and severe emphysema, with long time nicotine dependence, quitting 5 yrs ago. Consult was placed due to lung mass found on CT imaging. Patient follows up with associate theatre professor in [facility] where she lives. She is currently visiting son who lives in [place]. She states that in April 2022 she underwent radiation to left lung nodules that were being followed by her associate theatre professor, but she did not undergo biopsy at that time. She follows up with her associate theatre professor every 3 months and at last follow-up in March/2023 she was told that there was no further progression or recurrence. She states that she began to not feel well and having increasing shortness of breath and cough after re ceiving the COVID-vaccine in early June. She states symptoms have progressively worsened since she drove here from [place] on July 09-. She also reports for the last month has been having left-sided occipital headache and feeling off balance over the last 1 week, having 7 falls. Upon adm ission chest x-ray showed left lower lobe consolidation. CT chest with contrast showed masslike area in the left hilar region measuring 3.7 x 2.3 cm. Suspected obstructive atelectasis within the lingula. Patient was been started on IV antibiotics, steroids and bronchodilators. Viral panel negative. Patient afebrile, SPO2 91% on 15L high flow. Pulmonary following. Underwent bronchoscopy with biopsy on 07/[address] Nicole. Review of Systems 10 point ROS is negative except as stated in the HPI Past Medical History Past Medical History: COPD Additional Past Medical History / Comment(s): Patient states she has bipolar disorder. History of Any Multi-Drug Resistant Organisms: None Reported Past Surgical History: No Surgical Hx Reported Past Psychological History: No Psychological Hx Reported Smoking Status: Former smoker Past Alcohol Use History: None Reported Past Drug Use History: None Reported Medications and Allergies Home Medications Medication Instructions Recorded Confirmed Type Fluticasone Propion/Salmeterol 2 puff INHALATION RT-BID 07/18/23 07/18/23 History [Fluticasone-Salmeterol 115-21] Gabapentin [Neurontin] 300 mg PO TID 07/18/23 07/18/23 History Levothyroxine Sodium [Synthroid] 75 mcg PO DAILY 07/18/23 07/18/23 History Mirtazapine [Remeron] 15 mg PO HS 07/18/23 07/18/23 History Nystatin 100,000 Unit/gm Oint 1 applic TOPICAL BID 07/18/23 07/18/23 History [Mycostatin Oint] Omeprazole [PriLOSEC] 20 mg PO DAILY 07/18/23 07/18/23 History Pravastatin Sodium [Pravachol] 40 mg PO HS 07/18/23 07/18/23 History QUEtiapine FUMARATE [SEROquel] 200 mg PO HS 07/18/23 07/18/23 History QUEtiapine [SEROquel] 50 mg PO HS 07/18/23 07/18/23 History buPROPion SR [Wellbutrin SR] 150 mg PO PC-[id number] 07/18/23 07/18/23 History busPIRone HCL [Buspar] 7.5 mg PO BID 07/18/23 07/18/23 History lamoTRIgine [LaMICtal] 150 mg PO BID 07/18/23 07/18/23 History Allergies Allergy/AdvReac Type Severity Reaction Status Date / Time codeine Allergy Swelling Verified 07/18/23 19:01 Physical Exam Vitals: Vital Signs Temp Pulse Pulse Resp BP Pulse Ox FiO2 07/22/23 08:54 110 H 24 07/22/23 08:40 110 H 20 07/22/23 08:28 113 H 24 89 L 60 07/22/23 04:40 90 20 131/68 94 L 07/22/23 01:10 98.0 F 84 20 143/80 93 L 07/21/23 21:39 89 07/21/23 21:30 90 07/21/23 21:18 92 L 07/21/23 21:17 88 07/21/23 19:41 98.3 F 89 20 131/67 90 L 07/21/23 16:15 95 24 07/21/23 16:04 97 24 07/21/23 16:00 97.9 F 98 20 156/82 98 07/21/23 15:00 87 20 153/80 94 L 07/21/23 14:45 89 20 136/80 95 07/21/23 14:30 98.4 F 80 19 155/77 94 L 07/21/23 14:09 101 H 20 136/64 90 L 07/21/23 13:54 98 22 144/57 92 L 07/21/23 13:39 98.0 F 105 H 24 134/66 87 L 07/21/23 12:00 91 07/21/23 11:53 97.7 F 87 18 148/79 97 07/21/23 11:49 88 Intake and Output 07/21/23 07/22/23 07/22/23 22:59 06:59 14:59 Intake Total 180 240 Output Total 400 1100 Balance -220 -1100 240 Intake: Oral 180 240 Output: Urine 400 1100 Other: Voiding Method External Catheter External Catheter - Constitutional General appearance: average body habitus, no acute distress - EENT Eyes: anicteric sclerae ENT: hard of hearing - Respiratory breathing midly labored, significantly diminished lung sounds bilaterally - Cardiovascular Rhythm: regular Heart sounds: normal: S1, S2 - Integumentary Integumentary: no cyanotic - Musculoskeletal Musculoskeletal: strength equal bilaterally - Psychiatric Psychiatric: A&O x's 3 Results CBC & Chem 7: 07/22/23 09:29 07/22/23 09:29 Labs: Abnormal Lab Results - Last 24 Hours (Table) 07/21/23 Range/Units 13:15 Fluid Appearance Blood Tinged A (Clear) Fluid RBC 7300 H (0-2000) /uL Microbiology - Last 24 Hours (Table) 07/21/23 13:15 Gram Stain - Preliminary Bronchoalviolar Lavage - Left 07/21/23 08:15 Gram Stain - Final Sputum Sputum Culture - Final 07/18/23 18:20 Blood Culture - Preliminary Blood 07/18/23 18:35 Blood Culture - Preliminary Blood Chest x-ray: report reviewed CT scan - chest: report reviewed Assessment and Plan (1) Acute exacerbation of chronic obstructive pulmonary disease Current Visit: Yes Status: Acute Priority: High Code(s): J44.1 - CHRONIC OBSTRUCTIVE PULMONARY DISEASE W (ACUTE) EXACERBATION SNOMED Code(s): 351193957 (2) Pulmonary mass Current Visit: Yes Status: Acute Priority: High Code(s): R91.8 - OTHER NONSPECIFIC ABNORMAL FINDING OF LUNG FIELD SNOMED Code(s): 855751477 Plan: Lung mass, COPD: Presented c/o of worsening SOB and cough over the last couple weeks. Also c/o headache and feeling off balance, with multiple falls over the last 1 week. She has a significant history of COPD and severe emphysema, with long time nicotine dependence, quitting 5 yrs ago. Patient follows up with associate theatre professor in [facility] where she lives. She states that in April 2022 she underwent radiation to left lung nodules that were being followed by her associate theatre professor, but she did not undergo biopsy at that time. She follows up with her associate theatre professor every 3 months and at last follow-up in March/2023 she was told that there was no further progression or recurrence -Upon admission chest x-ray showed left lower lobe consolidation. CT chest with contrast showed masslike area in the left hilar region measuring 3.7 x 2.3 cm. Suspected obstructive atelectasis within the lingula. Patient was started on IV antibiotics, steroids and bronchodilators. Patient afebrile, SPO2 91% on 15L high flow -Pulmonary following. Underwent bronchoscopy with biopsy on 07/[address] Nicole, pathology pending -Will obtain urgent brain MRI to evaluate for brain metastases; concerned for mets due to persisting headache and balance issues -Pt will also need PET CT in outpt setting. Discussed with pt, if she plans to return home or establish care here locally. She is wishing to establish care here, and is agreeable to proceed with further testing and workup -Will continue to follow, and set up outpt PET CT and clinic f/u
[2023-07-22] MEDS: ACETAMINOPHEN TAB 325 MG TAB PO PRN (20:01)
--- NOTE | 2023-07-23 11:22 | MR ---
EXAMINATION TYPE: MR brain wo/w con DATE OF EXAM: 07/23/2023 COMPARISON: None HISTORY: Pulmonary mass, headache, dizziness, evaluate for metastatic disease. CONTRAST: Performed utilizing 5.5 mL intravenous Gadobutrol gadolinium contrast. TECHNIQUE: Multiplanar, multiecho imaging on a 3.0 Laury magnet is performed through the brain. Stud y is performed within 24 hours of arrival to the hospital. The craniovertebral junction is normal. The pituitary is normal. Diffusion-weighted imaging is performed. No abnormal hyperintensity is present to suggest an acute i ntracranial infarct or acute ischemic change. There are multiple scattered punctate areas of hyperintensity on T2 and Inversion Recovery weighted s equences which are non-specific but can be related to microvascular ischemic changes. Ventricles and sulci are appropriate for the patient age. Bilateral fluid-filled mastoid air cells. Correlate for bilateral mastoiditis. IMPRESSION: 1. Multiple scattered chronic appearing periventricular and deep white matter ischemic changes. 2. No suspicious area of enhancement to suggest metastatic disease.
--- NOTE | 2023-07-23 11:59 | P.PN ---
Subjective Progress Note Date: 07/23/23 Principal diagnosis: Pneumonia. Patient is a 78-year-old white female with past medical history significant for COPD, lung cancer, hypothyroidism, hyperlipidemia, bipolar disorder. Patient is in town visiting her son who lives across the border in [place]. She is actually from [place]. She does follow with a international trade analyst in [place], Dr. John Hernandez. She states that she has moderate to severe emphysema/COPD. She quit smoking approximately 3 years ago. She is oxygen dependent on 3 L/min nasal cannula at home. She utilizes a combination of Advair and as needed albuterol inhaler. She does have a known lung mass/nodule on the left side, first identified 3 years ago, and has underwent radiation therapy. She is not on any systemic chemotherapy or immunotherapy. Over the last 2 to 3 weeks she has had progressively worsening shortness of breath accompanied with a associated nonproductive cough. She does have some left-sided, pleuritic like, chest pain. Worse with coughing and deep breathing. Denies any fevers, myalgias, purulent sputum, hemoptysis. She has had some diarrhea. An enhanced chest CT demonstrated a masslike area in the left hilar region measuring 3.7 x 2.3 cm. There is suspected obstructive atelectasis within the lingula, however, unde rlying pneumonia cannot be completely excluded. CBC includes: WBC count 12.3, hemoglobin 10.6, hematocrit 33.7, platelets 321. BMP on arrival unremarkable. Troponins less than 0.012. NT proBNP 1130. Negative for influenza, RSV, COVID. Patient was in some respiratory distress on arrival to the emergency room, and was placed on BiPAP. Initial BiPAP settings were 12/6 and FiO2 of 60%. ABGs do ne on the settings include a PaO2 of 65, pCO2 43, and pH of 7.45. She remains on BiPAP with the mentioned settings. Respiratory rate is in the mid 20s, and she is achieving tidal volumes of 300-400. I did temporarily try to wean her off onto a 15 L high flow nasla cannula. She did become dyspneic. She speaks in phrases. She was placed back on BiPAP with above-mentioned settings. She is afebrile. Remaining vital signs stable. Progress note dated July 20, 2023. 78-year-old female seen yesterday in consultation. The patient has a history of COPD, suspected, but not proven lung cancer, hypothyroidism, hyperlipidemia, and bipolar disorder. The patient was in town, visiting her son, who lives in [place]. She resides in [place]. The patient apparently has a international trade analyst, back home, and apparently was thought to have lung cancer, and she apparently opted for probable stereotactic body radiotherapy, to one of the lesions, and her left lung. The patient presented to the hospital with increasing shortness of breath, cough, and generally not feeling well. The patient's chest x-ray, and CAT scan, shows significant abnormalities in the left chest, particularly in the area of the left hilum, with a mass, that measures 3.7 x 2.3 cm. She is suspected to have a postobstructive pneumonia. Currently, the patient is on 15 L high flow O2. She has been on BiPAP at 12/6, and 60%. No IV fluids. The patient had radiation to the left lung lesion, in April 2022. The plan is to do bronchoscopy, airway examination, BAL, tomorrow. Labs are reviewed. White count 9.5, hemoglobin 9.5, hematocrit 32, and platelet count 252,000. Sodium 139, potassium 3.2, chlorides 103, CO2 27, BUN 14, creatinine 0.86. Glucose is 157. Procalcitonin level is 0.09. Progress note dated July 21, 2023. 78-year-old female seen in room 374. The patient is scheduled to undergo bronchoscopy today. Currently, the patient is on BiPAP, with settings of 12/6, and 60%, or high flow oxygen at 15 L/min. The patient is not receiving any IV fluids. Her procalcitonin level was 0.09. We were thinking that she had endobronchial obstruction with postobstructive pneumonia. That may be the case, or, what was seen on x-ray, and CAT scan, could all just be tumor. I am hoping to get a sample on her, so that oncology, might be able to treat her, with either a chemotherapeutic agent, or immunotherapy. Labs today include a sodium 138, potassium 4.3, chlorides 106, CO2 26, BUN 18, creatinine 0.96. Glucose is 137. Calcium 8.8. Progress note dated July 22, 2023. 78-year-old female seen today in room 374. Yesterday, we did a bronchoscopy on the patient. The right-sided airway examination was normal. On the left side, we saw a very large obstructing tumor, in the proximal left mainstem. We did brushings, biopsies, and washings of that area. Those results are currently pending. We are going to have medical oncology see the patient, in anticipation, that the biopsies are positive, and the patient may have other treatment options. Currently, she is on high flow O2 at 15 L/min. She did not use the BiPAP last night. Zosyn can be discontinued as her procalcitonin level is normal. Clinically she is feeling okay. Current labs include a white count 11.1, hemoglobin 10.5, hematocrit 34.9, and a normal platelet count. Procalcitonin level was 0.09. Progress note dated July 23, 2023. 78-year-old female seen today in room 374. The patient was seen by medical oncology. We are awaiting the biopsy results. Currently, the patient is on 12 L high flow nasal O2. She is getting LR at 20 cc an hour. She is not in any respiratory distress. No new labs today. The patient's biopsy results, showed non-small cell carcinoma. Additional stains, seem to indicate a pulmonary adenocarcinoma. Objective - Vital Signs Vital signs: Vital Signs Temp 97.4 F L 07/23/23 09:00 Pulse 82 07/23/23 11:43 Resp 20 07/23/23 09:00 BP 124/66 07/23/23 09:00 Pulse Ox 98 07/23/23 09:00 FiO2 60 07/22/23 08:28 Intake & Output 07/22/23 07/23/23 07/23/23 18:59 06:59 18:59 Intake Total 1320 180 Output Total 600 350 Balance 720 -350 180 Intake: Oral 1320 180 Output: Urine 600 350 Other: Voiding Method External Catheter External Catheter External Catheter # Voids 3 # Bowel Movements 1 1 - Exam No acute distress, oriented 3. Currently on 12 L high flow. Saturations are 98 % HEENT examination is grossly unremarkable. Mucous membranes are moist. No oral lesions. Neck supple. Full range of motion. No adenopathy thyromegaly or neck vein distention. Cardiovascular examination reveals regular rhythm rate. S1-S2 normal. No S3 or S4. No discernible murmur noted. Heart sounds are distant. Heart rate 82 bpm. Lungs reveal severely diminished breath sounds on the left. Scattered rhonchi a re noted throughout. No crackles or wheezes. Saturations are 88 % Abdomen soft bowel sounds are heard. No masses or tenderness. Extremities are intact. No cyanosis clubbing or edema. Skin is without rash or lesion. Neurologic examination is brief but nonfocal. - Labs CBC & Chem 7: 07/22/23 09:29 07/22/23 09:29 Labs: Microbiology - Last 24 Hours (Table) 07/21/23 13:15 Gram Stain - Final Bronchoalviolar Lavage - Left Bronchial Washings Culture - Final 07/21/23 13:15 Acid Fast Bacilli Smear - Preliminary Bronchoalviolar Lavage - Left 07/21/23 08:15 Gram Stain - Final Sputum Sputum Culture - Final Assessment and Plan Assessment: Acute COPD exacerbation. 3.7 x 2.3 cm left hilar mass, with suspected postobstructive atelectasis within the lingula, S/P bronchoscopy on 07/21/2023. Pathology is consistent with a non-small cell lung cancer, likely pulmonary adenocarcinoma. Acute on chronic hypoxemic respiratory failure, currently on BiPAP, likely secondary to above. Chronic obstructive pulmonary disease. Suspected but never proven lung cancer, status post radiation therapy, probable SBRT. Chronic hypoxemic respiratory failure, secondary to above. History of hypothyroidism. History of hyperlipidemia. History of bipolar disorder. Former tobacco smoker, quitting approximately 3 years ago. Plan: Plan dated July 20, 2023. The patient's procalcitonin level is normal. We were thinking that she had a postobstructive pneumonia, but everything that we are seeing on the chest x-ray, and CAT scan, just may be a tumor/malignancy. The patient apparently had SBRT, to the left lung lesion, back in April 2022. She never had any chemotherapy. She is never actually had a precise diagnosis. I believe she just was thought to have lung cancer. Anyway, the patient scheduled for bronchoscopy, airway examination, and possible biopsy tomorrow. We will continue to follow make recommendations were appropriate. Prognosis is guarded. Plan dated July 21, 2023. The patient will have bronchoscopy today, and hopefully, we can get a sample, of the lesion in her lung. The patient has a previous history of radiation therapy, to the left lung lesion, but it appears, that the mass has recurred, or gotten bigger. Anyway, she was initially admitted with a diagnosis of postobstructive pneumonia. That still may be the case. Interestingly, her procalcitonin level was normal. We will continue to follow the patient, and make recommendations along the way. Labs, x-rays, and medications are reviewed. Prognosis is certainly guarded. Plan dated July 22, 2023. Because the patient's procalcitonin level was normal, Zosyn was discontinued. The patient underwent bronchoscopy yesterday, was found to have a large obstructing mass, in the left mainstem bronchus. It was brushed, biopsy, and washed. Those results are currently pending. The patient remains on O2 via high flow nasal cannula at 15 L/min. Will have medical oncology see the patient. Additional recommendations and suggestions are forthcoming. Prognosis is certainly guarded. We will await the biopsy results. Plan dated July 23, 2023. The patient has been weaned down to 12 L high flow oxygen. She appears relatively stable. She is getting LR 20 cc an hour. Her biopsies, are consistent with non-small cell lung cancer, likely pulmonary adenocarcinoma. The patient was seen by medical oncology. The patient will need additional s taging including a scan of the brain, and PET scan. Additional recommendations and suggestions are forthcoming. She continues on appropriate medications. Antibiotics were discontinued. Prognosis is guarded. Time with Patient: Less than 30
--- NOTE | 2023-07-23 12:58 | P.PN ---
Subjective Progress Note Date: 07/23/23 No acute events. Breathing unlabored. 98% on 12 L high flow Biopsy/cytology pending. Brain MRI obtained this morning, no evidence of metastatic disease Objective - Vital Signs Vital signs: Vital Signs Temp 97.4 F L 07/23/23 09:00 Pulse 82 07/23/23 11:43 Resp 20 07/23/23 09:00 BP 124/66 07/23/23 09:00 Pulse Ox 98 07/23/23 09:00 FiO2 60 07/22/23 08:28 Intake & Output 07/22/23 07/23/23 07/23/23 18:59 06:59 18:59 Intake Total 1320 180 Output Total 600 350 Balance 720 -350 180 Intake: Oral 1320 180 Output: Urine 600 350 Other: Voiding Method External Catheter External Catheter External Catheter # Voids 3 # Bowel Movements 1 1 - Constitutional General appearance: Present: no acute distress - EENT Eyes: Present: anicteric sclerae, EOMI ENT: Present: hard of hearing - Respiratory Details: Breathing even and unlabored - Integumentary Integumentary: Absent: cyanotic - Musculoskeletal Musculoskeletal: Present: strength equal bilaterally - Psychiatric Psychiatric: Present: A&O x's 3 - Labs CBC & Chem 7: 07/22/23 09:29 07/22/23 09:29 Labs: Microbiology - Last 24 Hours (Table) 07/21/23 13:15 Gram Stain - Final Bronchoalviolar Lavage - Left Bronchial Washings Culture - Final 07/21/23 13:15 Acid Fast Bacilli Smear - Preliminary Bronchoalviolar Lavage - Left 07/21/23 08:15 Gram Stain - Final Sputum Sputum Culture - Final Assessment and Plan (1) Acute exacerbation of chronic obstructive pulmonary disease Current Visit: Yes Status: Acute Priority: High Code(s): J44.1 - CHRONIC OBSTRUCTIVE PULMONARY DISEASE W (ACUTE) EXACERBATION SNOMED Code(s): 947047117 (2) Pulmonary mass Current Visit: Yes Status: Acute Priority: High Code(s): R91.8 - OTHER NONSPECIFIC ABNORMAL FINDING OF LUNG FIELD SNOMED Code(s): 108185242 Plan: Lung mass, COPD: Presented c/o of worsening SOB and cough over the last couple weeks. Also c/o headache and feeling off balance, with multiple falls over the last 1 week. She has a significant history of COPD and severe emphysema, with long time nicotine dependence, quitting 5 yrs ago. Patient follows up with vegetable harvest worker in [facility] where she lives. She states that in April 2022 she underwent radiation to left lung nodules that were being followed by her vegetable harvest worker, but she did not undergo biopsy at that time. She follows up with her vegetable harvest worker every 3 months and at last follow-up in March/2023 she was told that there was no further progression or recurrence -Upon admission chest x-ray showed left lower lobe consolidation. CT chest with contrast showed masslike area in the left hilar region measuring 3.7 x 2.3 cm. Suspected obstructive atelectasis within the lingula. Patient was started on IV antibiotics, steroids and bronchodilators. Patient afebrile, SPO2 91% on 15L high flow -Pulmonary following. Underwent bronchoscopy with biopsy on 07/[address] Nicole, pathology and cytology pending -Will obtain urgent brain MRI to evaluate for brain metastases; concerned for mets due to persisting headache and balance issues. MRI revealed multiple Scattered chronic appearing periventricular and deep white matter ischemic changes. No suspicious area of enhancement to suggest metastatic disease -Pt will also need PET CT in outpt setting. Discussed with pt, if she plans to return home or establish care here locally. She is wishing to establish care here, and is agreeable to proceed with further testing and workup. Will request records from her vegetable harvest worker and radiation oncology, in [place]. -Will continue to follow, and set up outpt PET CT and clinic f/u
--- NOTE | 2023-07-23 15:22 | P.PN ---
Subjective Progress Note Date: 07/23/23 Principal diagnosis: Reason for follow-up is possible postoperative pneumonia Patient is a 78-year-old female with a past medical history pertinent for COPD bipolar disorder, hypothyroidism hyperlipidemia, lung cancer, prior smoker on 3 L nasal cannula oxygen at home, presenting to the hospital for evaluation of increasing shortness of breath and cough, patient did have significant normality on the CT of the chest with masslike lesion concerning for tumor with possible postobstructive pneumonia. On today's visit that is Patient is status post bronchoscopy with evidence of left mainstem mass status post biopsy procedure completed on 07/21/2023. On today's evaluation that is 07/23/2023,the patient remains to be afebrile, patient is down to 10 L supplemental oxygen and denies any worsening shortness of breath no chest pain and no worsening cough.Patient denies having any nausea or vomiting, no abdominal pain and no diarrhea. Patient white count is 11.1 creatinine 1.09 as of yesterday no lab draw today BAL cultures pending Objective - Vital Signs Vital signs: Vital Signs Temp 97.4 F L 07/23/23 11:40 Pulse 80 07/23/23 15:01 Resp 20 07/23/23 11:40 BP 162/65 07/23/23 11:40 Pulse Ox 94 L 07/23/23 14:53 FiO2 60 07/22/23 08:28 Intake & Output 07/22/23 07/23/23 07/23/23 18:59 06:59 18:59 Intake Total 1320 420 Output Total 600 350 Balance 720 -350 420 Intake: Oral 1320 420 Output: Urine 600 350 Other: Voiding Method External Catheter External Catheter External Catheter # Voids 3 # Bowel Movements 1 1 1 - Exam GENERAL DESCRIPTION: An elderly female lying in bed in no distress RESPIRATORY SYSTEM: Unlabored breathing , decreased breath sounds at bases HEART: S1 S2 regular rate and rhythm , ABDOMEN: Soft , no tenderness EXTREMITIES: No edema feet - Labs CBC & Chem 7: 07/22/23 09:29 07/22/23 09:29 Labs: Microbiology - Last 24 Hours (Table) 07/21/23 13:15 Gram Stain - Final Bronchoalviolar Lavage - Left Bronchial Washings Culture - Final 07/21/23 13:15 Acid Fast Bacilli Smear - Preliminary Bronchoalviolar Lavage - Left Assessment and Plan (1) Leukocytosis Current Visit: Yes Status: Acute Code(s): D72.829 - ELEVATED WHITE BLOOD CELL COUNT, UNSPECIFIED SNOMED Code(s): 380740617 (2) Postobstructive pneumonia Current Visit: Yes Status: Acute Code(s): J18.9 - PNEUMONIA, UNSPECIFIED ORGANISM SNOMED Code(s): 367296846 Plan: 1patient presented hospital with increasing shortness of breath she also have left-sided pleuritic chest pain did have a cough but no hemoptysis in this patient did have history of smoking COPD and lung cancer now with abnormal CT suspicious for mass and a question of possible component of postobstructive pneumonia clinically not behaving as community-acquired pneumonia, patient did have a low procalcitonin 2- patient is s/p bronchoscopy biopsy and lavage completed on 07/21/2023 with a BAL cultures pending 3-patient is currently being monitored closely off antibiotic therapy while waiting for the culture to finalize Dictation was produced using [employer] dictation software. please excuse any grammatical, word or spelling errors. Time with Patient: Less than 30
--- NOTE | 2023-07-23 15:40 | P.PN ---
Subjective Progress Note Date: 07/23/23 Patient evaluated today on the stepdown unit. Has been taken off the BiPAP and currently on 15L hi flow cannula. Chest CT reveals masslike area in the left hilar region measuring 3.7 x 2.3 cm. There is suspected obstructive atelectasis within the lingula. Underlying mass or pneumonia could be considered within the differential. Pulmonary following. Remains on IV zosyn, IV solumedrol. 07/21/2023 Patient evaluated in follow up today. Remains on high flow nasal cannula 15L. Patient is pending bronchoscopy today of the left lung mass. Remains on IV solumedrol, IV zosyn. Patient is feeling anxious and has been tearful today. 07/22/2023 Patient evaluated today. Status post bronchoscopy findings reveal an obstructing mass of the left mainstem which was biopsied. Pathology currently pending. Patient having loose stools, C.Dif was negative. Viral panel negative. Remains on IV solumedrol. IV zosyn was discontinued. Patient has reported frequent headaches on the left side of her head since June when the breathing difficulties started. Patient is also having difficulty with ambulation and weakness since June as well. Oncology evaluated the patient today. Remains on a 15L hi flow nasal cannula. 07/23/2023 Patient is evaluated today in follow-up she is status post bronchoscopy with pathology pending. She does report mild improvement in her breathing today she is less short of breath currently she is maintained on a 12 L high flow nasal cannula. This does pose a challenge for discharge planning as patient will need to be on at least 6 L maximum of oxygen support to be considered for discharge home. She does state that her concentrator that she has at her son's house only supports up to 6 L of nasal cannula. Lumbar x-ray showing degenerative changes and he is being followed by physical therapy who is currently recommending home with home care and 09/11 care on discharge. Patient will undergo a brain MRI today which is currently pending at this time. Review of Systems Constitutional: Denied any fatigue denied any fever. Cardio vascular: denied any chest pain, palpitations Gastrointestinal: denied any nausea, vomiting, diarrhea Pulmonary: Denied any shortness of breath cough Neurologic denied any new focal deficits All inpatient medications were reviewed and appropriate changes in these medications as dictated in the interval history and assessment and plan. PHYSICAL EXAMINATION: GENERAL: The patient is alert and oriented x3, not in any acute distress. Well developed, well nourished. On 15L Hi Flow cannula HEENT: Pupils are round and equally reacting to light. EOMI. No scleral icterus. No conjunctival pallor. Normocephalic, atraumatic. No pharyngeal erythema. No thyromegaly. CARDIOVASCULAR: S1 and S2 present. No murmurs, rubs, or gallops. PULMONARY: Chest is clear to auscultation, no wheezing or crackles. ABDOMEN: Soft, nontender, nondistended, normoactive bowel sounds. No palpable organomegaly. MUSCULOSKELETAL: No joint swelling or deformity. EXTREMITIES: No cyanosis, clubbing, or pedal edema. NEUROLOGICAL: Gross neurological examination did not reveal any focal deficits. SKIN: No rashes. Assessment and Plan -Acute COPD exacerbation on IV solumedrol, inhaled steroids and bronchodilators. -Left lung pneumonia, post obstructive with concern for malignancy left hilar region status post bronchoscopy revealing left obstructing mass left mainstem which was biopsied. -Headaches; brain MRI ordered by oncology team r/o metastasis. -Acute on chronic hypoxemic respiratory failure secondary to above, maintained on 3L nasal cannula outpatient currently on 12L hiflow cannula. -Hx of lung cancer with radiation with possible reoccurance of lung mass -Anxiety situational receiving xanax TID as needed. -Lower extremity weakness and lower back pain due to medical debility PT/OT consultation. Will order lumbar xray -Hypothyroidism -Hypokalemia replaced. -Hx hyperlipidemia -Bipolar disorder -Former tobacco use GI prophylaxis DVT prophylaxis We will need to continue to wean the oxygen as tolerated in order to consider this patient for discharge planning. Physical therapy is currently recommending home with home care and 24/7 care on discharge. She is currently staying with her son in [place] she does have a oxygen concentrator set up which only goes up to 6 L of high flow. Her pathology is currently pending from the lung biopsy. She will also undergo brain MRI today. The impression and plan of care has been dictated by Stephanie Sánchez, Nurse Practitioner as directed. Dr. Rosa Maria MD I have performed a history and physical examination and medical decision making of this patient, discussed the same with the dictator, and agree with the dictators assessment and plan as written, documented as a scribe. Based on total visit time, I have performed more than 50% of this visit. Objective - Vital Signs Vital signs: Vital Signs Temp 97.4 F L 07/23/23 11:40 Pulse 80 07/23/23 15:01 Resp 20 07/23/23 11:40 BP 162/65 07/23/23 11:40 Pulse Ox 94 L 07/23/23 14:53 FiO2 60 07/22/23 08:28 Intake & Output 07/22/23 07/23/23 07/23/23 18:59 06:59 18:59 Intake Total 1320 420 Output Total 600 350 Balance 720 -350 420 Intake: Oral 1320 420 Output: Urine 600 350 Other: Voiding Method External Catheter External Catheter External Catheter # Voids 3 # Bowel Movements 1 1 1 - Labs CBC & Chem 7: 07/22/23 09:29 07/22/23 09:29 Labs: Microbiology - Last 24 Hours (Table) 07/21/23 13:15 Gram Stain - Final Bronchoalviolar Lavage - Left Bronchial Washings Culture - Final 07/21/23 13:15 Acid Fast Bacilli Smear - Preliminary Bronchoalviolar Lavage - Left Assessment and Plan Time with Patient: Less than 30
[2023-07-24 10:04] LABS: Anisocytosis Slight; Basophils % (A) 0 %; Eosinophils % (A) 0 %; HCT 39.2 % (34.0-46.0); HGB 11.7 gm/dL (11.4-16.0); Hypochromasia Marked; Lymphocytes # (A) 0.4 k/uL (1.0-4.8); Lymphocytes % (A) 3 %; MCH 26.6 pg (25.0-35.0); MCHC 29.9 g/dL (31.0-37.0); MCV 88.9 fL (80.0-100.0); Mean Platelet Volume 7.7; Monocytes # (A) 0.2 k/uL (0-1.0); Monocytes % (A) 2 %; Neutrophils # (A) 12.1 k/uL (1.3-7.7); Neutrophils % (A) 94 %; Platelet Count 308 k/uL (150-450); RBC 4.41 m/uL (3.80-5.40); WBC 12.9 k/uL (3.8-10.6)
[2023-07-24 10:17] LABS: African American GFR (CKD) 66 (>60 ml/min/1.73 sqM); Anion Gap 11 mmol/L; Blood Urea Nitrogen 20 mg/dL (7-17); Calcium 9.1 mg/dL (8.4-10.2); Carbon Dioxide 26 mmol/L (22-30); Chloride 101 mmol/L (98-107); Glucose 234 mg/dL (74-99); Magnesium 2.7 mg/dL (1.6-2.3); Non-African American GFR(CKD) 57 (>60 ml/min/1.73 sqM); Potassium 3.7 mmol/L (3.5-5.1); Sodium 138 mmol/L (137-145)
--- NOTE | 2023-07-24 12:20 | P.PN ---
Subjective Progress Note Date: 07/24/23 Principal diagnosis: Pneumonia. Patient is a 78-year-old white female with past medical history significant for COPD, lung cancer, hypothyroidism, hyperlipidemia, bipolar disorder. Patient is in town visiting her son who lives across the border in [place]. She is actually from [place]. She does follow with a manager of engineering in [place], Dr. John Hernandez. She states that she has moderate to severe emphysema/COPD. She quit smoking approximately 3 years ago. She is oxygen dependent on 3 L/min nasal cannula at home. She utilizes a combination of Advair and as needed albuterol inhaler. She does have a known lung mass/nodule on the left side, first identified 3 years ago, and has underwent radiation therapy. She is not on any systemic chemotherapy or immunotherapy. Over the last 2 to 3 weeks she has had progressively worsening shortness of breath accompanied with a associated nonproductive cough. She does have some left-sided, pleuritic like, chest pain. Worse with coughing and deep breathing. Denies any fevers, myalgias, purulent sputum, hemoptysis. She has had some diarrhea. An enhanced chest CT demonstrated a masslike area in the left hilar region measuring 3.7 x 2.3 cm. There is suspected obstructive atelectasis within the lingula, however, unde rlying pneumonia cannot be completely excluded. CBC includes: WBC count 12.3, hemoglobin 10.6, hematocrit 33.7, platelets 321. BMP on arrival unremarkable. Troponins less than 0.012. NT proBNP 1130. Negative for influenza, RSV, COVID. Patient was in some respiratory distress on arrival to the emergency room, and was placed on BiPAP. Initial BiPAP settings were 12/6 and FiO2 of 60%. ABGs do ne on the settings include a PaO2 of 65, pCO2 43, and pH of 7.45. She remains on BiPAP with the mentioned settings. Respiratory rate is in the mid 20s, and she is achieving tidal volumes of 300-400. I did temporarily try to wean her off onto a 15 L high flow nasla cannula. She did become dyspneic. She speaks in phrases. She was placed back on BiPAP with above-mentioned settings. She is afebrile. Remaining vital signs stable. Progress note dated July 20, 2023. 78-year-old female seen yesterday in consultation. The patient has a history of COPD, suspected, but not proven lung cancer, hypothyroidism, hyperlipidemia, and bipolar disorder. The patient was in town, visiting her son, who lives in [place]. She resides in [place]. The patient apparently has a manager of engineering, back home, and apparently was thought to have lung cancer, and she apparently opted for probable stereotactic body radiotherapy, to one of the lesions, and her left lung. The patient presented to the hospital with increasing shortness of breath, cough, and generally not feeling well. The patient's chest x-ray, and CAT scan, shows significant abnormalities in the left chest, particularly in the area of the left hilum, with a mass, that measures 3.7 x 2.3 cm. She is suspected to have a postobstructive pneumonia. Currently, the patient is on 15 L high flow O2. She has been on BiPAP at 12/6, and 60%. No IV fluids. The patient had radiation to the left lung lesion, in April 2022. The plan is to do bronchoscopy, airway examination, BAL, tomorrow. Labs are reviewed. White count 9.5, hemoglobin 9.5, hematocrit 32, and platelet count 252,000. Sodium 139, potassium 3.2, chlorides 103, CO2 27, BUN 14, creatinine 0.86. Glucose is 157. Procalcitonin level is 0.09. Progress note dated July 21, 2023. 78-year-old female seen in room 374. The patient is scheduled to undergo bronchoscopy today. Currently, the patient is on BiPAP, with settings of 12/6, and 60%, or high flow oxygen at 15 L/min. The patient is not receiving any IV fluids. Her procalcitonin level was 0.09. We were thinking that she had endobronchial obstruction with postobstructive pneumonia. That may be the case, or, what was seen on x-ray, and CAT scan, could all just be tumor. I am hoping to get a sample on her, so that oncology, might be able to treat her, with either a chemotherapeutic agent, or immunotherapy. Labs today include a sodium 138, potassium 4.3, chlorides 106, CO2 26, BUN 18, creatinine 0.96. Glucose is 137. Calcium 8.8. Progress note dated July 22, 2023. 78-year-old female seen today in room 374. Yesterday, we did a bronchoscopy on the patient. The right-sided airway examination was normal. On the left side, we saw a very large obstructing tumor, in the proximal left mainstem. We did brushings, biopsies, and washings of that area. Those results are currently pending. We are going to have medical oncology see the patient, in anticipation, that the biopsies are positive, and the patient may have other treatment options. Currently, she is on high flow O2 at 15 L/min. She did not use the BiPAP last night. Zosyn can be discontinued as her procalcitonin level is normal. Clinically she is feeling okay. Current labs include a white count 11.1, hemoglobin 10.5, hematocrit 34.9, and a normal platelet count. Procalcitonin level was 0.09. Progress note dated July 23, 2023. 78-year-old female seen today in room 374. The patient was seen by medical oncology. We are awaiting the biopsy results. Currently, the patient is on 12 L high flow nasal O2. She is getting LR at 20 cc an hour. She is not in any respiratory distress. No new labs today. The patient's biopsy results, showed non-small cell carcinoma. Additional stains, seem to indicate a pulmonary adenocarcinoma. Progress note dated July 24, 2023. 78-year-old female seen today in room 374. This is a patient who we recently saw in consultation, for suspected lung cancer. The patient apparently takes most of her medical care, [place], but was in [place], visiting her son who lives in [place]. She came into the hospital with an abnormality noted on her CT scan and chest x-ray, involving the majority of her left lung. Bronchoscopy revealed a obstructing mass, in the left mainstem, and biopsies suggest non- small cell lung cancer, most consistent with pulmonary adenocarcinoma. We did have medical oncology see the patient. The patient has a previous history of SBRT to the lesion in the left lung. Currently, the patient is on saline at 20 cc an hour. She continues on high flow oxygen at 12 L. White count is 12.9, hemoglobin 11.7, hematocrit 39.2, and platelet count was normal. Sodium 138, potassium 3.7, chlorides 101, CO2 26, BUN 20, creatinine 0.96. Glucose is 234. Magnesium is 2.7. MRI of the brain, did not reveal any metastatic foci. Objective - Vital Signs Vital signs: Vital Signs Temp 97.3 F L 07/24/23 08:50 Pulse 90 07/24/23 11:20 Resp 18 07/24/23 08:50 BP 115/67 07/24/23 08:50 Pulse Ox 94 L 07/24/23 08:50 FiO2 60 07/22/23 08:28 Intake & Output 07/23/23 07/24/23 07/24/23 18:59 06:59 18:59 Intake Total 600 222 Balance 600 222 Intake: Oral 600 222 Other: Voiding Method External Catheter External Catheter External Catheter # Voids 2 # Bowel Movements 1 - Exam No acute distress, oriented 3. Currently on 12 L high flow. Saturations are 94 % HEENT examination is grossly unremarkable. Mucous membranes are moist. No oral lesions. Neck supple. Full range of motion. No adenopathy thyromegaly or neck vein distention. Cardiovascular examination reveals regular rhythm rate. S1-S2 normal. No S3 or S4. No discernible murmur noted. Heart sounds are distant. Heart rate 90 bpm. Lungs reveal severely diminished breath sounds on the left. Scattered rhonchi are noted throughout. No crackles or wheezes. Saturations are 88 % Abdomen soft bowel sounds are heard. No masses or tenderness. Extremities are intact. No cyanosis clubbing or edema. Skin is without rash or lesion. Neurologic examination is brief but nonfocal. - Labs CBC & Chem 7: 07/24/23 08:38 07/24/23 08:38 Labs: Abnormal Lab Results - Last 24 Hours (Table) 07/24/23 07/24/23 Range/Units 08:38 08:38 WBC 12.9 H (3.8-10.6) k/uL MCHC 29.9 L (31.0-37.0) g/dL RDW 16.0 H (11.5-15.5) % Neutrophils # 12.1 H (1.3-7.7) k/uL Lymphocytes # 0.4 L (1.0-4.8) k/uL BUN 20 H (7-17) mg/dL Glucose 234 H (74-99) mg/dL Magnesium 2.7 H (1.6-2.3) mg/dL Microbiology - Last 24 Hours (Table) 07/18/23 18:20 Blood Culture - Final Blood 07/18/23 18:35 Blood Culture - Final Blood 07/21/23 13:15 Gram Stain - Final Bronchoalviolar Lavage - Left Bronchial Washings Culture - Final Assessment and Plan Assessment: Acute COPD exacerbation. 3.7 x 2.3 cm left hilar mass, with suspected postobstructive atelectasis within the lingula, S/P bronchoscopy on 07/21/2023. Pathology is consistent with a non-small cell lung cancer, likely pulmonary adenocarcinoma. Acute on chronic hypoxemic respiratory failure, currently on BiPAP, likely secondary to above. Chronic obstructive pulmonary disease. Suspected but never proven lung cancer, status post radiation therapy, probable SBRT. Chronic hypoxemic respiratory failure, secondary to above. History of hypothyroidism. History of hyperlipidemia. History of bipolar disorder. Former tobacco smoker, quitting approximately 3 years ago. Plan: Plan dated July 20, 2023. The patient's procalcitonin level is normal. We were thinking that she had a postobstructive pneumonia, but everything that we are seeing on the chest x-ray, and CAT scan, just may be a tumor/malignancy. The patient apparently had SBRT, to the left lung lesion, back in April 2022. She never had any chemotherapy. She is never actually had a precise diagnosis. I believe she just was thought to have lung cancer. Anyway, the patient scheduled for bronchoscopy, airway examination, and possible biopsy tomorrow. We will continue to follow make recommendations were appropriate. Prognosis is guarded. Plan dated July 21, 2023. The patient will have bronchoscopy today, and hopefully, we can get a sample, of the lesion in her lung. The patient has a previous history of radiation therapy, to the left lung lesion, but it appears, that the mass has recurred, or gotten bigger. Anyway, she was initially admitted with a diagnosis of p ostobstructive pneumonia. That still may be the case. Interestingly, her procalcitonin level was normal. We will continue to follow the patient, and make recommendations along the way. Labs, x-rays, and medications are reviewed. Prognosis is certainly guarded. Plan dated July 22, 2023. Because the patient's procalcitonin level was normal, Zosyn was discontinued. The patient underwent bronchoscopy yesterday, was found to have a large obstructing mass, in the left mainstem bronchus. It was brushed, biopsy, and washed. Those results are currently pending. The patient remains on O2 via high flow nasal cannula at 15 L/min. Will have medical oncology see the patient. Additional recommendations and suggestions are forthcoming. Prognosis is certainly guarded. We will await the biopsy results. Plan dated July 23, 2023. The patient has been weaned down to 12 L high flow oxygen. She appears relatively stable. She is getting LR 20 cc an hour. Her biopsies, are consistent with non-small cell lung cancer, likely pulmonary adenocarcinoma. The patient was seen by medical oncology. The patient will need additional staging including a scan of the brain, and PET scan. Additional recommendations and suggestions are forthcoming. She continues on appropriate medications. Antibiotics were discontinued. Prognosis is guarded. And dated July 24, 2023. The patient continues on 12 L high flow oxygen. The diagnosis was given to her yesterday. The brain MRI did not reveal any metastatic deposits. The patient will need a outpatient PET scan, for further staging. Medical oncology has seen the patient. Additional recommendations and suggestions are forthcoming. Prognosis is poor. We will continue to follow the patient, and make recommendations along the way. Time with Patient: Less than 30
[2023-07-24 12:48] VITALS: BMI 22.4
--- NOTE | 2023-07-24 14:42 | P.PN ---
Subjective Progress Note Date: 07/24/23 Principal diagnosis: Reason for follow-up is possible postoperative pneumonia Patient is a 78-year-old female with a past medical history pertinent for COPD bipolar disorder, hypothyroidism hyperlipidemia, lung cancer, prior smoker on 3 L nasal cannula oxygen at home, presenting to the hospital for evaluation of increasing shortness of breath and cough, patient did have significant normality on the CT of the chest with masslike lesion concerning for tumor with possible postobstructive pneumonia. On today's visit that is Patient is status post bronchoscopy with evidence of left mainstem mass status post biopsy procedure completed on 07/21/2023. On today's evaluation that is 07/24/2023, the patient continues to be afebrile, the patient is on 12 L nasal cannula oxygen and breathing comfortably, the Pt has been complaining of more left-sided chest pain today denies any worsening cough sputum production no hemoptysis no nausea vomiting abdominal pain or diarrhea. Patient white count is 12.9, creatinine 0.96 BAL cultures so far negative Objective - Vital Signs Vital signs: Vital Signs Temp 97.3 F L 07/24/23 08:50 Pulse 90 07/24/23 11:20 Resp 18 07/24/23 08:50 BP 115/67 07/24/23 08:50 Pulse Ox 94 L 07/24/23 08:50 FiO2 60 07/22/23 08:28 Intake & Output 07/23/23 07/24/23 07/24/23 18:59 06:59 18:59 Intake Total 600 340 Balance 600 340 Weight 57.606 kg Intake: Oral 600 340 Other: Voiding Method External Catheter External Catheter External Catheter # Voids 2 # Bowel Movements 1 - Exam GENERAL DESCRIPTION: An elderly female lying in bed in no distress RESPIRATORY SYSTEM: Unlabored breathing , decreased breath sounds at bases HEART: S1 S2 regular rate and rhythm , ABDOMEN: Soft , no tenderness EXTREMITIES: No edema feet - Labs CBC & Chem 7: 07/24/23 08:38 07/24/23 08:38 Labs: Abnormal Lab Results - Last 24 Hours (Table) 07/24/23 07/24/23 Range/Units 08:38 08:38 WBC 12.9 H (3.8-10.6) k/uL MCHC 29.9 L (31.0-37.0) g/dL RDW 16.0 H (11.5-15.5) % Neutrophils # 12.1 H (1.3-7.7) k/uL Lymphocytes # 0.4 L (1.0-4.8) k/uL BUN 20 H (7-17) mg/dL Glucose 234 H (74-99) mg/dL Magnesium 2.7 H (1.6-2.3) mg/dL Microbiology - Last 24 Hours (Table) 07/18/23 18:20 Blood Culture - Final Blood 07/18/23 18:35 Blood Culture - Final Blood Assessment and Plan (1) Leukocytosis Current Visit: Yes Status: Acute Code(s): D72.829 - ELEVATED WHITE BLOOD CELL COUNT, UNSPECIFIED SNOMED Code(s): 192599520 (2) Postobstructive pneumonia Current Visit: Yes Status: Acute Code(s): J18.9 - PNEUMONIA, UNSPECIFIED ORGANISM SNOMED Code(s): 472431398 Plan: 1patient presented hospital with increasing shortness of breath she also have left-sided pleuritic chest pain did have a cough but no hemoptysis in this patient did have history of smoking COPD and lung cancer now with abnormal CT suspicious for mass and a question of possible component of postobstructive pneumonia clinically not behaving as community-acquired pneumonia, patient did h ave a low procalcitonin 2- patient is s/p bronchoscopy biopsy and lavage completed on 07/21/2023 with a BAL cultures so far negative 3-patient with mild leukocytosis possibly steroid related and will be monitored closely Dictation was produced using [employer] dictation software. please excuse any grammatical, word or spelling errors. Time with Patient: Less than 30
--- NOTE | 2023-07-24 14:43 | P.PN ---
Subjective Progress Note Date: 07/24/23 Patient evaluated today on the stepdown unit. Has been taken off the BiPAP and currently on 15L hi flow cannula. Chest CT reveals masslike area in the left hilar region measuring 3.7 x 2.3 cm. There is suspected obstructive atelectasis within the lingula. Underlying mass or pneumonia could be considered within the differential. Pulmonary following. Remains on IV zosyn, IV solumedrol. 07/21/2023 Patient evaluated in follow up today. Remains on high flow nasal cannula 15L. Patient is pending bronchoscopy today of the left lung mass. Remains on IV solumedrol, IV zosyn. Patient is feeling anxious and has been tearful today. 07/22/2023 Patient evaluated today. Status post bronchoscopy findings reveal an obstructing mass of the left mainstem which was biopsied. Pathology currently pending. Patient having loose stools, C.Dif was negative. Viral panel negative. Remains on IV solumedrol. IV zosyn was discontinued. Patient has reported frequent headaches on the left side of her head since June when the breathing difficulties started. Patient is also having difficulty with ambulation and weakness since June as well. Oncology evaluated the patient today. Remains on a 15L hi flow nasal cannula. 07/23/2023 Patient is evaluated today in follow-up she is status post bronchoscopy with pathology pending. She does report mild improvement in her breathing today she is less short of breath currently she is maintained on a 12 L high flow nasal cannula. This does pose a challenge for discharge planning as patient will need to be on at least 6 L maximum of oxygen support to be considered for discharge home. She does state that her concentrator that she has at her son's house only supports up to 6 L of nasal cannula. Lumbar x-ray showing degenerative changes and he is being followed by physical therapy who is currently recommending home with home care and 09/11 care on discharge. Patient will undergo a brain MRI today which is currently pending at this time. 07/24/2023 Patient evaluated today in follow up. Remains mostly bedrest needs encouragement to be up in the chair for meals. Reports feeling short of breath with activity and having dry cough. She was unable to be weaned down to 10 L high flow and placed back on 12 L of oxygen. Pathology from the lung biopsy revealing nonsmall cell carcinoma possible pulmonary adenocarcinoma. MRI of the brain does not show any metastatic disease. Renal function improved. Patient is being hydrated. Oncology following this patient and recommending evaluation by radiation/oncology services for the left lung mass. Review of Systems Constitutional: Denied any fatigue denied any fever. Cardio vascular: denied any chest pain, palpitations Gastrointestinal: denied any nausea, vomiting, diarrhea Pulmonary: Reports shortness of breath and cough. Neurologic denied any new focal deficits All inpatient medications were reviewed and appropriate changes in these medications as dictated in the interval history and assessment and plan. PHYSICAL EXAMINATION: GENERAL: The patient is alert and oriented x3, not in any acute distress. Well developed, well nourished. On 15L Hi Flow cannula HEENT: Pupils are round and equally reacting to light. EOMI. No scleral icterus. No conjunctival pallor. Normocephalic, atraumatic. No pharyngeal erythema. No thyromegaly. CARDIOVASCULAR: S1 and S2 present. No murmurs, rubs, or gallops. PULMONARY: Chest is clear to auscultation, no wheezing or crackles. ABDOMEN: Soft, nontender, nondistended, normoactive bowel sounds. No palpable organomegaly. MUSCULOSKELETAL: No joint swelling or deformity. EXTREMITIES: No cyanosis, clubbing, or pedal edema. NEUROLOGICAL: Gross neurological examination did not reveal any focal deficits. SKIN: No rashes. Assessment and Plan -Acute COPD exacerbation on IV solumedrol, inhaled steroids and bronchodilators. -Left lung pneumonia, post obstructive with concern for malignancy left hilar region status post bronchoscopy revealing left obstructing mass left mainstem -Left hilar mass positive for non small cell lung cancer with concern for pulmonary adenocarcinoma. Oncology following and rad/onc consulted. Will need PET scan on an outpatient basis for further work up. -Abdominal distention and diarrhea will check an abdominal xray -Headaches; brain MRI showing no metastatic lesions. -Acute on chronic hypoxemic respiratory failure secondary to above, maintained on 3L nasal cannula outpatient currently on 12L hiflow cannula. -Hx of lung cancer with radiation with possible reoccurance of lung mass -Anxiety situational receiving xanax TID as needed. -Lower extremity weakness and lower back pain due to medical debility PT/OT consultation. -Hypothyroidism -Hypokalemia replaced. -Hx hyperlipidemia -Bipolar disorder -Former tobacco use GI prophylaxis DVT prophylaxis We will need to continue to wean the oxygen as tolerated in order to consider this patient for discharge planning. Physical therapy is currently recommending home with home care and 09/11 care on discharge. She is currently staying with her son in [place] she does have a oxygen concentrator set up which only goes up to 6 L of high flow. The patient is considering [facility] here in [facility] on discharge. She will be evaluated by rad/onc. Abdominal xray ordered. The impression and plan of care has been dictated by Stephanie Sánchez, Nurse Practitioner as directed. Dr. Rosa Maria MD I have performed a history and physical examination and medical decision making of this patient, discussed the same with the dictator, and agree with the dictators assessment and plan as written, documented as a scribe. Based on total visit time, I have performed more than 50% of this visit. Objective - Vital Signs Vital signs: Vital Signs Temp 97.3 F L 07/24/23 08:50 Pulse 90 07/24/23 11:20 Resp 18 07/24/23 08:50 BP 115/67 07/24/23 08:50 Pulse Ox 94 L 07/24/23 08:50 FiO2 60 07/22/23 08:28 Intake & Output 07/23/23 07/24/23 07/24/23 18:59 06:59 18:59 Intake Total 600 340 Balance 600 340 Weight 57.606 kg Intake: Oral 600 340 Other: Voiding Method External Catheter External Catheter External Catheter # Voids 2 # Bowel Movements 1 - Labs CBC & Chem 7: 07/24/23 08:38 07/24/23 08:38 Labs: Abnormal Lab Results - Last 24 Hours (Table) 07/24/23 07/24/23 Range/Units 08:38 08:38 WBC 12.9 H (3.8-10.6) k/uL MCHC 29.9 L (31.0-37.0) g/dL RDW 16.0 H (11.5-15.5) % Neutrophils # 12.1 H (1.3-7.7) k/uL Lymphocytes # 0.4 L (1.0-4.8) k/uL BUN 20 H (7-17) mg/dL Glucose 234 H (74-99) mg/dL Magnesium 2.7 H (1.6-2.3) mg/dL Microbiology - Last 24 Hours (Table) 07/18/23 18:20 Blood Culture - Final Blood 07/18/23 18:35 Blood Culture - Final Blood Assessment and Plan Time with Patient: Less than 30
--- NOTE | 2023-07-24 15:52 | P.PN ---
Subjective Progress Note Date: 07/24/23 -Biopsy of the left hilar mass was consistent with non-small cell lung cancer containing components of adenocarcinoma and squamous cell carcinoma -Brain MRI was negative for metastases -No acute events overnight -Patient has continues to have dyspnea that is overall improved from admission, but persistent. She denies any hemoptysis Objective - Vital Signs Vital signs: Vital Signs Temp 97.3 F L 07/24/23 08:50 Pulse 88 07/24/23 15:17 Resp 18 07/24/23 08:50 BP 115/67 07/24/23 08:50 Pulse Ox 94 L 07/24/23 08:50 FiO2 60 07/22/23 08:28 Intake & Output 07/23/23 07/24/23 07/24/23 18:59 06:59 18:59 Intake Total 600 340 Balance 600 340 Weight 57.606 kg Intake: Oral 600 340 Other: Voiding Method External Catheter External Catheter External Catheter # Voids 2 # Bowel Movements 1 - Constitutional General appearance: Present: cooperative, no acute distress - Respiratory Respiratory: left: diminished (Diminished breath sounds in the left lung base) - Cardiovascular Details: Warm and well-perfused - Gastrointestinal General gastrointestinal: Present: soft. Absent: distended - Integumentary Integumentary: Present: pale - Psychiatric Psychiatric: Present: A&O x's 3, appropriate affect - Labs CBC & Chem 7: 07/24/23 08:38 07/24/23 08:38 Labs: Abnormal Lab Results - Last 24 Hours (Table) 07/24/23 07/24/23 Range/Units 08:38 08:38 WBC 12.9 H (3.8-10.6) k/uL MCHC 29.9 L (31.0-37.0) g/dL RDW 16.0 H (11.5-15.5) % Neutrophils # 12.1 H (1.3-7.7) k/uL Lymphocytes # 0.4 L (1.0-4.8) k/uL BUN 20 H (7-17) mg/dL Glucose 234 H (74-99) mg/dL Magnesium 2.7 H (1.6-2.3) mg/dL Microbiology - Last 24 Hours (Table) 07/18/23 18:20 Blood Culture - Final Blood 07/18/23 18:35 Blood Culture - Final Blood - Imaging and Cardiology CT scan - chest: report reviewed, image reviewed MRI - head: report reviewed Assessment and Plan (1) Non-small cell cancer of left lung Current Visit: Yes Status: Acute Code(s): C34.92 - MALIGNANT NEOPLASM OF UNSP PART OF LEFT BRONCHUS OR LUNG SNOMED Code(s): 667548421 Plan: NSCLC: Presented c/o of worsening SOB and cough over the last couple weeks. Also c/o headache and feeling off balance, with multiple falls over the last 1 week. She has a significant history of COPD and severe emphysema, with long time nicotine dependence, quitting 5 yrs ago. Patient follows up with retail sales clerk in [facility] where she lives. She states that in April 2022 she underwent radiation to left lung nodules that were being followed by her retail sales clerk, but she did not undergo biopsy at that time. She follows up with her retail sales clerk every 3 months and at last follow-up in March/2023 she was told that there was no further progression or recurrence -Upon admission chest x-ray showed left lower lobe consolidation. CT chest with contrast showed masslike area in the left hilar region measuring 3.7 x 2.3 cm. Suspected obstructive atelectasis within the lingula. Patient was started on IV antibiotics, steroids and bronchodilators. Patient afebrile, SPO2 91% on 15L high flow -Bronchoscopy with biopsy on 07/21/2023 noted non-small cell lung cancer with what appears to be adenosquamous histology -Brain MRI on 07/23/2023 revealed no evidence of intracranial metastases -Based on the workup to date, she has T2N0 non-small cell lung cancer -Given she had a lung nodule radiated in April 2022 in [place] that was also in the left lung, this could represent a localized recurrence vs new prima ry lesion. She has not had full staging workup, however -She continues to have acute hypoxia despite treatment with nebulizers, steroids, and antibiotics -Given the location of the lesion, this is likely causing compression of the left lower lobe bronchus -We discussed potential for at least palliative radiation to the lesion, which she was amenable to. There is no evidence of metastatic disease, it is unclear if she would be a candidate for additional SBRT given she had prior radiation in the left lung potentially in close proximity to the current lung lesion -Consult to radiation oncology will be placed -Records of her prior SBRT treatment will be needed for further assessment -NGS/PD-L1 from the biopsy will be sent for molecular profiling -Obtaining CT abdomen/pelvis with contrast inpatient could be beneficial for planning of radiation purposes as opposed to waiting for PET/CT outpatient Tamera Harkins MD
[2023-07-24] MEDS: KETOROLAC 15 MG/ML 1 ML VIAL IVP PRN (17:29)
[2023-07-24] MEDS: SODIUM CHLORIDE 0.9% 1,000 ML IV SCH (20:15)
--- NOTE | 2023-07-24 23:26 | XR ---
EXAMINATION TYPE: XR abdomen 1V DATE OF EXAM: 07/24/2023 3:26 PM CLINICAL HISTORY: Distention and diarrhea TECHNIQUE: Two supine KUB images of the abdomen are obtained. COMPARISON: None. FINDINGS: Mild distended gas-filled stomach. Scattered gas is seen in non-distended small and large b owel loops. There is left basilar opacity with left-sided volume loss. Cholecystectomy clips are pres ent. Surgical clips project over the right upper pelvis. Right lung base is clear. Osseous structures are intact. Mildly distended bladder in the pelvis is seen. IMPRESSION: Overall nonobstructive bowel gas pattern.
[2023-07-25 06:27] LABS: Anisocytosis Slight; Basophils % (A) 0 %; Eosinophils # (A) 0.1 k/uL (0-0.7); Eosinophils % (A) 1 %; HCT 34.9 % (34.0-46.0); HGB 10.6 gm/dL (11.4-16.0); Hypochromasia Moderate; Lymphocytes # (A) 0.5 k/uL (1.0-4.8); Lymphocytes % (A) 4 %; MCH 26.9 pg (25.0-35.0); MCHC 30.4 g/dL (31.0-37.0); MCV 88.6 fL (80.0-100.0); Mean Platelet Volume 7.2; Monocytes # (A) 0.3 k/uL (0-1.0); Monocytes % (A) 3 %; Neutrophils # (A) 10.4 k/uL (1.3-7.7); Neutrophils % (A) 91 %; Platelet Count 270 k/uL (150-450); RBC 3.94 m/uL (3.80-5.40); RDW 16.1 % (11.5-15.5); WBC 11.4 k/uL (3.8-10.6)
[2023-07-25 06:39] LABS: African American GFR (CKD) 69 (>60 ml/min/1.73 sqM); Anion Gap 3 mmol/L; Blood Urea Nitrogen 25 mg/dL (7-17); Calcium 8.5 mg/dL (8.4-10.2); Carbon Dioxide 28 mmol/L (22-30); Chloride 104 mmol/L (98-107); Glucose 138 mg/dL (74-99); Non-African American GFR(CKD) 60 (>60 ml/min/1.73 sqM); Potassium 3.9 mmol/L (3.5-5.1); Sodium 135 mmol/L (137-145)
[2023-07-25] MEDS ORDERED: ZINC OXIDE PASTE (Z-GUARD) 1 APPLIC TOPICAL PRN (09:58)
--- NOTE | 2023-07-25 11:50 | P.PN ---
Subjective Progress Note Date: 07/25/23 Principal diagnosis: Pneumonia. Patient is a 78-year-old white female with past medical history significant for COPD, lung cancer, hypothyroidism, hyperlipidemia, bipolar disorder. Patient is in town visiting her son who lives across the border in [place]. She is actually from [place]. 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 John Hernandez. She states that she has moderate to severe emphysema/COPD. She quit smoking approximately 3 years ago. She is oxygen dependent on 3 L/min nasal cannula at home. She utilizes a combination of Advair and as needed albuterol inhaler. She does have a known lung mass/nodule on the left side, first identified 3 years ago, and has underwent radiation therapy. She is not on any systemic chemotherapy or immunotherapy. Over the last 2 to 3 weeks she has had progressively worsening shortness of breath accompanied with a associated nonproductive cough. She does have some left-sided, pleuritic like, chest pain. Worse with coughing and deep breathing. Denies any fevers, myalgias, purulent sputum, hemoptysis. She has had some diarrhea. An enhanced chest CT demonstrated a masslike area in the left hilar region measuring 3.7 x 2.3 cm. There is suspected obstructive atelectasis within the lingula, however, unde rlying pneumonia cannot be completely excluded. CBC includes: WBC count 12.3, hemoglobin 10.6, hematocrit 33.7, platelets 321. BMP on arrival unremarkable. Troponins less than 0.012. NT proBNP 1130. Negative for influenza, RSV, COVID. Patient was in some respiratory distress on arrival to the emergency room, and was placed on BiPAP. Initial BiPAP settings were 12/6 and FiO2 of 60%. ABGs do ne on the settings include a PaO2 of 65, pCO2 43, and pH of 7.45. She remains on BiPAP with the mentioned settings. Respiratory rate is in the mid 20s, and she is achieving tidal volumes of 300-400. I did temporarily try to wean her off onto a 15 L high flow nasla cannula. She did become dyspneic. She speaks in phrases. She was placed back on BiPAP with above-mentioned settings. She is afebrile. Remaining vital signs stable. Progress note dated July 20, 2023. 78-year-old female seen yesterday in consultation. The patient has a history of COPD, suspected, but not proven lung cancer, hypothyroidism, hyperlipidemia, and bipolar disorder. The patient was in town, visiting her son, who lives in [place]. She resides in [place]. 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 The patient presented to the hospital with increasing shortness of breath, cough, and generally not feeling well. The patient's chest x-ray, and CAT scan, shows significant abnormalities in the left chest, particularly in the area of the left hilum, with a mass, that measures 3.7 x 2.3 cm. She is suspected to have a postobstructive pneumonia. Currently, the patient is on 15 L high flow O2. She has been on BiPAP at 12/6, and 60%. No IV fluids. The patient had radiation to the left lung lesion, in April 2022. The plan is to do bronchoscopy, airway examination, BAL, tomorrow. Labs are reviewed. White count 9.5, hemoglobin 9.5, hematocrit 32, and platelet count 252,000. Sodium 139, potassium 3.2, chlorides 103, CO2 27, BUN 14, creatinine 0.86. Glucose is 157. Procalcitonin level is 0.09. Progress note dated July 21, 2023. 78-year-old female seen in room 374. The patient is scheduled to undergo bronchoscopy today. Currently, the patient is on BiPAP, with settings of 12/6, and 60%, or high flow oxygen at 15 L/min. The patient is not receiving any IV fluids. Her procalcitonin level was 0.09. We were thinking that she had endobronchial obstruction with postobstructive pneumonia. That may be the case, or, what was seen on x-ray, and CAT scan, could all just be tumor. I am hoping to get a sample on her, so that oncology, might be able to treat her, with either a chemotherapeutic agent, or immunotherapy. Labs today include a sodium 138, potassium 4.3, chlorides 106, CO2 26, BUN 18, creatinine 0.96. Glucose is 137. Calcium 8.8. Progress note dated July 22, 2023. 78-year-old female seen today in room 374. Yesterday, we did a bronchoscopy on the patient. The right-sided airway examination was normal. On the left side, we saw a very large obstructing tumor, in the proximal left mainstem. We did brushings, biopsies, and washings of that area. Those results are currently pending. We are going to have medical oncology see the patient, in anticipation, that the biopsies are positive, and the patient may have other treatment options. Currently, she is on high flow O2 at 15 L/min. She did not use the BiPAP last night. Zosyn can be discontinued as her procalcitonin level is normal. Clinically she is feeling okay. Current labs include a white count 11.1, hemoglobin 10.5, hematocrit 34.9, and a normal platelet count. Procalcitonin level was 0.09. Progress note dated July 23, 2023. 78-year-old female seen today in room 374. The patient was seen by medical oncology. We are awaiting the biopsy results. Currently, the patient is on 12 L high flow nasal O2. She is getting LR at 20 cc an hour. She is not in any respiratory distress. No new labs today. The patient's biopsy results, showed non-small cell carcinoma. Additional stains, seem to indicate a pulmonary adenocarcinoma. Progress note dated July 24, 2023. 78-year-old female seen today in room 374. This is a patient who we recently saw in consultation, for suspected lung cancer. The patient apparently takes most of her medical care, [place], but was in [place], visiting her son who lives in [place]. She came into the hospital with an abnormality noted on her CT scan and chest x-ray, involving the majority of her left lung. Bronchoscopy revealed a obstructing mass, in the left mainstem, and biopsies suggest non- small cell lung cancer, most consistent with pulmonary adenocarcinoma. We did have medical oncology see the patient. The patient has a previous history of SBRT to the lesion in the left lung. Currently, the patient is on saline at 20 cc an hour. She continues on high flow oxygen at 12 L. White count is 12.9, hemoglobin 11.7, hematocrit 39.2, and platelet count was normal. Sodium 138, potassium 3.7, chlorides 101, CO2 26, BUN 20, creatinine 0.96. Glucose is 234. Magnesium is 2.7. MRI of the brain, did not reveal any metastatic foci. Progress note dated July 25, 2023. 78-year-old female seen again in room 374. The patient continues on 12 L high flow oxygen, and saline at 50 cc an hour. The patient had a recent bronchoscopy, which revealed a obstructing lesion in the left mainstem. Biopsy was positive for pulmonary adenocarcinoma. Current labs include a white count 11.4, hemoglobin 10.6, hematocrit 34.9, and a platelet count of 270,000. Sodium 135, potassium 3.9, chlorides 104, CO2 28, BUN 25, creatinine 0.92. Glucose is 138. Calcium is 8.5. Objective - Vital Signs Vital signs: Vital Signs Temp 97.3 F L 07/25/23 09:45 Pulse 80 07/25/23 11:25 Resp 20 07/25/23 09:45 BP 129/70 07/25/23 09:45 Pulse Ox 93 L 07/25/23 09:45 FiO2 60 07/22/23 08:28 Intake & Output 07/24/23 07/25/23 07/25/23 18:59 06:59 18:59 Intake Total 1300 240 Output Total 493 Balance 1300 -253 Weight 57.606 kg Intake: Oral 1300 240 Output: Post Void Residual 493 Other: Voiding Method External Catheter External Catheter External Catheter # Voids 1 # Bowel Movements 1 - Exam No acute distress, oriented 3. Currently on 12 L high flow. Saturations are 93 % HEENT examination is grossly unremarkable. Mucous membranes are moist. No oral lesions. Neck supple. Full range of motion. No adenopathy thyromegaly or neck vein distention. Cardiovascular examination reveals regular rhythm rate. S1-S2 normal. No S3 or S4. No discernible murmur noted. Heart sounds are distant. Heart rate 80 bpm. Lungs reveal severely diminished breath sounds on the left. Scattered rhonchi are noted throughout. No crackles or wheezes. The patient's current saturation on 12 L high flow oxygen is 93%. Abdomen soft bowel sounds are heard. No masses or tenderness. Extremities are intact. No cyanosis clubbing or edema. Skin is without rash or lesion. Neurologic examination is brief but nonfocal. - Labs CBC & Chem 7: 07/25/23 06:05 07/25/23 06:05 Labs: Abnormal Lab Results - Last 24 Hours (Table) 04/07/24 04/07/24 Range/Units 06:05 06:05 WBC 11.4 H (3.8-10.6) k/uL Hgb 10.6 L (11.4-16.0) gm/dL MCHC 30.4 L (31.0-37.0) g/dL RDW 16.1 H (11.5-15.5) % Neutrophils # 10.4 H (1.3-7.7) k/uL Lymphocytes # 0.5 L (1.0-4.8) k/uL Sodium 135 L (137-145) mmol/L BUN 25 H (7-17) mg/dL Glucose 138 H (74-99) mg/dL Assessment and Plan Assessment: Acute COPD exacerbation, with significant hypoxemic respiratory failure. 3.7 x 2.3 cm left hilar mass, with suspected postobstructive atelectasis within the lingula, S/P bronchoscopy on 07/21/2023. Pathology is consistent with a non-small cell lung cancer, likely pulmonary adenocarcinoma. Acute on chronic hypoxemic respiratory failure, currently on BiPAP, likely secondary to above. Chronic obstructive pulmonary disease. Suspected but never proven lung cancer, status post radiation therapy, probable SBRT. Chronic hypoxemic respiratory failure, secondary to above. History of hypothyroidism. History of hyperlipidemia. History of bipolar disorder. Former tobacco smoker, quitting approximately 3 years ago. Plan: Plan dated July 20, 2023. The patient's procalcitonin level is normal. We were thinking that she had a postobstructive pneumonia, but everything that we are seeing on the chest x-ray, and CAT scan, just may be a tumor/malignancy. The patient apparently had SBRT, to the left lung lesion, back in April 2022. She never had any chemotherapy. She is never actually had a precise diagnosis. I believe she just was thought to have lung cancer. Anyway, the patient scheduled for bronchoscopy, airway examination, and possible biopsy tomorrow. We will continue to follow make recommendations were appropriate. Prognosis is guarded. Plan dated July 21, 2023. The patient will have bronchoscopy today, and hopefully, we can get a sample, of the lesion in her lung. The patient has a previous history of radiation therapy, to the left lung lesion, but it appears, that the mass has recurred, or gotten bigger. Anyway, she was initially admitted with a diagnosis of postobstructive pneumonia. That still may be the case. Interestingly, her procalcitonin level was normal. We will continue to follow the patient, and make recommendations along the way. Labs, x-rays, and medications are reviewed. Prognosis is certainly guarded. Plan dated July 22, 2023. Because the patient's procalcitonin level was normal, Zosyn was discontinued. The patient underwent bronchoscopy yesterday, was found to have a large obstructing mass, in the left mainstem bronchus. It was brushed, biopsy, and washed. Those results are currently pending. The patient remains on O2 via high flow nasal cannula at 15 L/min. Will have medical oncology see the patient. Additional recommendations and suggestions are forthcoming. Prognosis is certainly guarded. We will await the biopsy results. Plan dated July 23, 2023. The patient has been weaned down to 12 L high flow oxygen. She appears relatively stable. She is getting LR 20 cc an hour. Her biopsies, are consistent with non-small cell lung cancer, likely pulmonary adenocarcinoma. The patient was seen by medical oncology. The patient will need additional staging including a scan of the brain, and PET scan. Additional recommendations and suggestions are forthcoming. She continues on appropriate medications. Antibiotics were discontinued. Prognosis is guarded. Plan dated July 24, 2023. The patient continues on 12 L high flow oxygen. The diagnosis was given to her yesterday. The brain MRI did not reveal any metastatic deposits. The patient will need a outpatient PET scan, for further staging. Medical oncology has seen the patient. Additional recommendations and suggestions are forthcoming. Prognosis is poor. We will continue to follow the patient, and make recommendations along the way. Plan dated July 25, 2023. The patient continues on high flow nasal O2 at 12 L. She is receiving saline at 50 cc an hour. She has been seen by medical oncology. The patient will need additional workup including a outpatient PET scan. Labs, x-rays, and medications are reviewed. The patient is overall prognosis remains poor. She continues on high flow oxygen. Time with Patient: Less than 30
--- NOTE | 2023-07-25 14:26 | P.PN ---
Subjective Progress Note Date: 07/25/23 Patient evaluated today on the stepdown unit. Has been taken off the BiPAP and currently on 15L hi flow cannula. Chest CT reveals masslike area in the left hilar region measuring 3.7 x 2.3 cm. There is suspected obstructive atelectasis within the lingula. Underlying mass or pneumonia could be considered within the differential. Pulmonary following. Remains on IV zosyn, IV solumedrol. 07/21/2023 Patient evaluated in follow up today. Remains on high flow nasal cannula 15L. Patient is pending bronchoscopy today of the left lung mass. Remains on IV solumedrol, IV zosyn. Patient is feeling anxious and has been tearful today. 07/22/2023 Patient evaluated today. Status post bronchoscopy findings reveal an obstructing mass of the left mainstem which was biopsied. Pathology currently pending. Patient having loose stools, C.Dif was negative. Viral panel negative. Remains on IV solumedrol. IV zosyn was discontinued. Patient has reported frequent headaches on the left side of her head since June when the breathing difficulties started. Patient is also having difficulty with ambulation and weakness since June as well. Oncology evaluated the patient today. Remains on a 15L hi flow nasal cannula. 07/23/2023 Patient is evaluated today in follow-up she is status post bronchoscopy with pathology pending. She does report mild improvement in her breathing today she is less short of breath currently she is maintained on a 12 L high flow nasal cannula. This does pose a challenge for discharge planning as patient will need to be on at least 6 L maximum of oxygen support to be considered for discharge home. She does state that her concentrator that she has at her son's house only supports up to 6 L of nasal cannula. Lumbar x-ray showing degenerative changes and he is being followed by physical therapy who is currently recommending home with home care and 09/11 care on discharge. Patient will undergo a brain MRI today which is currently pending at this time. 07/24/2023 Patient evaluated today in follow up. Remains mostly bedrest needs encouragement to be up in the chair for meals. Reports feeling short of breath with activity and having dry cough. She was unable to be weaned down to 10 L high flow and placed back on 12 L of oxygen. Pathology from the lung biopsy revealing nonsmall cell carcinoma possible pulmonary adenocarcinoma. MRI of the brain does not show any metastatic disease. Renal function improved. Patient is being hydrated. Oncology following this patient and recommending evaluation by radiation/oncology services for the left lung mass. 07/25/2023 Patient is evaluated today on the medical floor. Patient remains on a 12L hi flow cannula. Patient reports worsening shortness of breath and feeling chest pain from the epigastric region and wrapping around her back. She has been unable to be weaned off the 12L of oxygen. Sodium down to 135 today and would recommend to stop the IV fluids at the time. She remains on IV solumedrol. Continues to report multiple episodes of loose stool and abdominal xray was completed showing overall nonobstructive bowel gas pattern. The abdominal xray does mention left basilar opacity with some left sided volume loss. All cultures are negative so far. The lung biopsy does come back showing non small cell lung cancer and radiation/oncology has been consulted. Review of Systems Constitutional: Denied any fatigue denied any fever. Cardio vascular: denied any chest pain, palpitations Gastrointestinal: denied any nausea, vomiting, diarrhea Pulmonary: Reports shortness of breath and cough. Neurologic denied any new focal deficits All inpatient medications were reviewed and appropriate changes in these medications as dictated in the interval history and assessment and plan. PHYSICAL EXAMINATION: GENERAL: The patient is alert and oriented x3, not in any acute distress. Well developed, well nourished. On 15L Hi Flow cannula HEENT: Pupils are round and equally reacting to light. EOMI. No scleral icterus. No conjunctival pallor. Normocephalic, atraumatic. No pharyngeal erythema. No thyromegaly. CARDIOVASCULAR: S1 and S2 present. No murmurs, rubs, or gallops. PULMONARY: Chest is clear to auscultation, no wheezing or crackles. Diminished. ABDOMEN: Soft, nontender, nondistended, normoactive bowel sounds. No palpable organomegaly. MUSCULOSKELETAL: No joint swelling or deformity. EXTREMITIES: No cyanosis, clubbing, or pedal edema. NEUROLOGICAL: Gross neurological examination did not reveal any focal deficits. SKIN: No rashes. Assessment and Plan -Acute COPD exacerbation on IV solumedrol, inhaled steroids and bronchodilators. -Left lung pneumonia, post obstructive with concern for malignancy left hilar region status post bronchoscopy revealing left obstructing mass left mainstem -Left hilar mass positive for non small cell lung cancer with concern for pulmonary adenocarcinoma. Oncology following and rad/onc consulted. Will need PET scan on an outpatient basis for further work up. -Abdominal distention and diarrhea, imaging reveals no nobstructive bowel gas and questran will be added. -Headaches; brain MRI showing no metastatic lesions. -Acute on chronic hypoxemic respiratory failure secondary to above, maintained on 3L nasal cannula outpatient currently on 12L hiflow cannula. -Hx of lung cancer with radiation with possible reoccurance of lung mass -Anxiety situational receiving xanax TID as needed. -Lower extremity weakness and lower back pain due to medical debility PT/OT cons ultation. -Hypothyroidism -Hypokalemia replaced. -Hx hyperlipidemia -Bipolar disorder -Former tobacco use GI prophylaxis DVT prophylaxis We will need to continue to wean the oxygen as tolerated in order to consider this patient for discharge planning. Physical therapy is currently recommending home with home care and 24/ care on discharge. She is currently staying with her son in [place] she does have a oxygen concentrator set up which only goes up to 6 L of high flow. The patient is considering [facility] here in [facility] on discharge. She will be evaluated by rad/onc. The impression and plan of care has been dictated by Stephanie Sánchez Nurse Practitioner as directed. Dr. Rosa Maria MD I have performed a history and physical examination and medical decision making of this patient, discussed the same with the dictator, and agree with the dictators assessment and plan as written, documented as a scribe. Based on total visit time, I have performed more than 50% of this visit. Objective - Vital Signs Vital signs: Vital Signs Temp 97.3 F L 07/25/23 09:45 Pulse 80 07/25/23 11:25 Resp 20 07/25/23 09:45 BP 129/70 07/25/23 09:45 Pulse Ox 93 L 07/25/23 09:45 FiO2 60 07/22/23 08:28 Intake & Output 07/24/23 07/25/23 07/25/23 18:59 06:59 18:59 Intake Total 1300 240 Output Total 493 Balance 1300 -253 Weight 57.606 kg Intake: Oral 1300 240 Output: Post Void Residual 493 Other: Voiding Method External Catheter External Catheter External Catheter # Voids 1 # Bowel Movements 1 - Labs CBC & Chem 7: 07/25/23 06:05 07/25/23 06:05 Labs: Abnormal Lab Results - Last 24 Hours (Table) 07/25/23 07/25/23 Range/Units 06:05 06:05 WBC 11.4 H (3.8-10.6) k/uL Hgb 10.6 L (11.4-16.0) gm/dL MCHC 30.4 L (31.0-37.0) g/dL RDW 16.1 H (11.5-15.5) % Neutrophils # 10.4 H (1.3-7.7) k/uL Lymphocytes # 0.5 L (1.0-4.8) k/uL Sodium 135 L (137-145) mmol/L BUN 25 H (7-17) mg/dL Glucose 138 H (74-99) mg/dL Assessment and Plan Time with Patient: Less than 30
--- NOTE | 2023-07-25 14:52 | P.PN ---
Subjective Progress Note Date: 07/25/23 Principal diagnosis: Reason for follow-up is possible postoperative pneumonia Patient is a 78-year-old female with a past medical history pertinent for COPD bipolar disorder, hypothyroidism hyperlipidemia, lung cancer, prior smoker on 3 L nasal cannula oxygen at home, presenting to the hospital for evaluation of increasing shortness of breath and cough, patient did have significant normality on the CT of the chest with masslike lesion concerning for tumor with possible postobstructive pneumonia. On today's visit that is Patient is status post bronchoscopy with evidence of left mainstem mass status post biopsy procedure completed on 07/21/2023. On today's evaluation that is 07/25/2023, Patient is afebrile patient is currently on 12 L nasal cannula oxygen and denies having any worsening shortness of breath, the patient denies any worsening left-sided chest pain or cough, the patient denies any nausea vomiting did not have any abdominal pain and no diarrhea. Patient white count is 11.4, creatinine 0.92 BAL culture so far negative biopsy pending Objective - Vital Signs Vital signs: Vital Signs Temp 97.3 F L 07/25/23 09:45 Pulse 80 07/25/23 11:25 Resp 20 07/25/23 09:45 BP 129/70 07/25/23 09:45 Pulse Ox 93 L 07/25/23 09:45 FiO2 60 07/22/23 08:28 Intake & Output 07/24/23 07/25/23 07/25/23 18:59 06:59 18:59 Intake Total 1300 240 Output Total 493 Balance 1300 -253 Weight 57.606 kg Intake: Oral 1300 240 Output: Post Void Residual 493 Other: Voiding Method External Catheter External Catheter External Catheter # Voids 1 # Bowel Movements 1 - Exam GENERAL DESCRIPTION: An elderly female lying in bed in no distress RESPIRATORY SYSTEM: Unlabored breathing , decreased breath sounds at bases HEART: S1 S2 regular rate and rhythm , ABDOMEN: Soft , no tenderness EXTREMITIES: No edema feet - Labs CBC & Chem 7: 07/25/23 06:05 07/25/23 06:05 Labs: Abnormal Lab Results - Last 24 Hours (Table) 07/25/23 07/25/23 Range/Units 06:05 06:05 WBC 11.4 H (3.8-10.6) k/uL Hgb 10.6 L (11.4-16.0) gm/dL MCHC 30.4 L (31.0-37.0) g/dL RDW 16.1 H (11.5-15.5) % Neutrophils # 10.4 H (1.3-7.7) k/uL Lymphocytes # 0.5 L (1.0-4.8) k/uL Sodium 135 L (137-145) mmol/L BUN 25 H (7-17) mg/dL Glucose 138 H (74-99) mg/dL Assessment and Plan (1) Leukocytosis Current Visit: Yes Status: Acute Code(s): D72.829 - ELEVATED WHITE BLOOD CELL COUNT, UNSPECIFIED SNOMED Code(s): 579453982 (2) Postobstructive pneumonia Current Visit: Yes Status: Acute Code(s): J18.9 - PNEUMONIA, UNSPECIFIED ORGANISM SNOMED Code(s): 729561353 Plan: 1patient presented hospital with increasing shortness of breath she also have left-sided pleuritic chest pain did have a cough but no hemoptysis in this patient did have history of smoking COPD and lung cancer now with abnormal CT suspicious for mass and a question of possible component of postobstructive pneumonia clinically not behaving as community-acquired pneumonia, patient did have a low procalcitonin 2- patient is s/p bronchoscopy biopsy and lavage completed on 07/21/2023 with a BAL cultures so far negative 3-patient with mild leukocytosis possibly steroid related and trending down will be monitored closely off antibiotics Dictation was produced using [employer] dictation software. please excuse any grammatical, word or spelling errors. Time with Patient: Less than 30
[2023-07-25] MEDS: CHOLESTYRAMINE (WITH SUGAR) 4 GM PACKET PO SCH (16:51)
[2023-07-25] MEDS: ALPRAZolam 0.5 MG TAB PO PRN (21:52)
[2023-07-26] MEDS: SODIUM CHLORIDE 0.65% NASAL SPRAY 44 ML BTL NASAL PRN (09:30)
--- NOTE | 2023-07-26 11:55 | P.CONS ---
History of Present Illness - Reason for Consult Consult date: 07/26/23 Non-small cell lung cancer, hypoxia Requesting physician: Tamera Harkins - Chief Complaint "I am short of breath" - History of Present Illness Ms. Diez is a 78-year-old female with a history of left lung nodule treated empirically with SBRT (3 fractions, records pending) who now presents with at least a T2aN0 non-small cell lung cancer involving the left mainstem bronchus with resultant postobstructive atelectasis/hypoxia. The patient was previous residing in [place], [place]. She has a history of COPD and had been on 2.5 L ATC oxygen prior to admission. In April 2022 she had enlarging left lung nodule and was treated with 3 fractions of SBRT. We are obtaining records. More recently, she has noted progressively worsening dyspnea and is now living with her son who lives in the [place]. Due to dyspnea, she presented to . CT chest demonstrated 3.7 cm masslike area in left hilar region with postobstructive changes. MRI brain on 07/23/2023 was negative. Bronchoscopy on 07/21/2023 demonstrated involvement of the left mainstem bronchus with biopsy demonstrating detached atypical cells consistent with NSCLC. Today, she notes her breathing is marginally improved with steroids and antibiotics. She does not have a pacemaker. She denies neurological symptoms. Review of Systems as per HPI Past Medical History Past Medical History: COPD Additional Past Medical History / Comment(s): Patient states she has bipolar disorder. History of Any Multi-Drug Resistant Organisms: None Reported Past Surgical History: No Surgical Hx Reported Past Psychological History: No Psychological Hx Reported Smoking Status: Former smoker Past Alcohol Use History: None Reported Past Drug Use History: None Reported Medications and Allergies Home Medications Medication Instructions Recorded Confirmed Type Fluticasone Propion/Salmeterol 2 puff INHALATION RT-BID 07/18/23 07/18/23 History [Fluticasone-Salmeterol 115-21] Gabapentin [Neurontin] 300 mg PO TID 07/18/23 07/18/23 History Levothyroxine Sodium [Synthroid] 75 mcg PO DAILY 07/18/23 07/18/23 History Mirtazapine [Remeron] 15 mg PO HS 07/18/23 07/18/23 History Nystatin 100,000 Unit/gm Oint 1 applic TOPICAL BID 07/18/23 07/18/23 History [Mycostatin Oint] Omeprazole [PriLOSEC] 20 mg PO DAILY 07/18/23 07/18/23 History Pravastatin Sodium [Pravachol] 40 mg PO HS 07/18/23 07/18/23 History QUEtiapine FUMARATE [SEROquel] 200 mg PO HS 07/18/23 07/18/23 History QUEtiapine [SEROquel] 50 mg PO HS 07/18/23 07/18/23 History buPROPion SR [Wellbutrin SR] 150 mg PO PC-[id number] 07/18/23 07/18/23 History busPIRone HCL [Buspar] 7.5 mg PO BID 07/18/23 07/18/23 History lamoTRIgine [LaMICtal] 150 mg PO BID 07/18/23 07/18/23 History Allergies Allergy/AdvReac Type Severity Reaction Status Date / Time codeine Allergy Swelling Verified 07/18/23 19:01 Physical Exam Vitals: Vital Signs Temp Pulse Pulse Pulse Resp BP Pulse Ox 07/26/23 09:33 100 07/26/23 09:24 96 07/26/23 09:23 96 07/26/23 09:05 100 96 07/26/23 08:00 100 18 128/74 99 07/26/23 03:57 98.1 F 76 18 130/69 94 L 07/26/23 01:44 88 07/26/23 00:00 88 18 138/82 96 07/25/23 22:00 95 07/25/23 21:44 97.7 F 95 22 143/86 91 L 07/25/23 21:02 96 07/25/23 20:55 96 07/25/23 20:53 92 07/25/23 20:49 91 07/25/23 17:00 99 18 162/86 96 07/25/23 15:20 80 07/25/23 15:09 82 07/25/23 12:20 97.9 F 94 20 132/93 92 L Intake and Output 07/25/23 07/26/23 07/26/23 22:59 06:59 14:59 Intake Total 780 240 Output Total 600 Balance 780 -600 240 Intake: Oral 780 240 Output: Urine 600 Other: Voiding Method External Catheter External Catheter External Catheter # Voids 1 # Bowel Movements 1 - Constitutional General appearance: average body habitus, no acute distress - Respiratory 12 L oxygen Respiratory: negative: prolonged expiration, prolonged inspiration - Psychiatric Psychiatric: A&O x's 3, appropriate affect, intact judgment & insight Results CBC & Chem 7: 07/25/23 06:05 07/25/23 06:05 Assessment and Plan Assessment: Ms. Diez is a 78-year-old female with a history of left lung nodule treated empirically with SBRT (3 fractions, records pending) who now presents with at least a T2aN0 non-small cell lung cancer involving the left mainstem bronchus with resultant postobstructive atelectasis/hypoxia. Plan: The patient has an ultracentral at least T2aN0 NSCLC of the left mainstem bronchus (which may be recurrent disease from her previously-irradiated lesion). We will obtain treatment records from [place]. Clinically, she continues to have a high oxygen requirement. I will obtain CT abdomen/pelvis for staging. If she is metastatic, I would offer her a course of palliative radiation therapy. If she is non-metastatic, palliative radiation therapy may preclude delivery of definitive radiation therapy down the line. It is not clear if she would be a chemotherapy candidate in any event. Given the location of the lesion, she would not be a candidate for stereotactic body radiation therapy. For the time being we will obtain radiation records and CT abdomen/pelvis, and then re-evaluate her. Stevan Walsh MD Radiation Oncology Time with Patient: Greater than 30
--- NOTE | 2023-07-26 16:33 | P.PN ---
Subjective Progress Note Date: 07/26/23 Patient is a 78-year-old white female with past medical history significant for COPD, lung cancer, hypothyroidism, hyperlipidemia, bipolar disorder. Patient is in town visiting her son who lives across the border in [place]. She is actually from [place]. She does follow with a mannequin maker in [place], Dr. John Hernandez. She states that she has moderate to severe emphysema/COPD. She quit smoking approximately 3 years ago. She is oxygen dependent on 3 L/min nasal cannula at home. She utilizes a combination of Advair and as needed albuterol inhaler. She does have a known lung mass/nodule on the left side, first identified 3 years ago, and has underwent radiation therapy. She is not on any systemic chemotherapy or immunotherapy. Over the last 2 to 3 weeks she has had progressively worsening shortness of breath accompanied with a associated nonproductive cough. She does have some left-sided, pleuritic like, chest pain. Worse with coughing and deep breathing. Denies any fevers, myalgias, purulent sputum, hemoptysis. She has had some diarrhea. An enhanced chest CT demonstrated a masslike area in the left hilar region measuring 3.7 x 2.3 cm. There is suspected obstructive atelectasis within the lingula, however, underlying pneumonia cannot be completely excluded. CBC includes: WBC count 12.3, hemoglobin 10.6, hematocrit 33.7, platelets 321. BMP on arrival unremarkable. Troponins less than 0.012. NT proBNP 1130. Negative for influenza, RSV, COVID. Patient was in some respiratory distress on arrival to the emergency room, and was placed on BiPAP. Initial BiPAP settings were 12/6 and FiO2 of 60%. ABGs done on the settings include a PaO2 of 65, pCO2 43, and pH of 7.45. She remains on BiPAP with the mentioned settings. Respiratory rate is in the mid 20s, and she is achieving tidal volumes of 300-400. I did temporarily try to wean her off onto a 15 L high flow nasla cannula. She did become dyspneic. She speaks in phrases. She was placed back on BiPAP with above-mentioned settings. She is afebrile. Remaining vital signs stable. Progress note dated July 20, 2023. 78-year-old female seen yesterday in consultation. The patient has a history of COPD, suspected, but not proven lung cancer, hypothyroidism, hyperlipidemia, and bipolar disorder. The patient was in town, visiting her son, who lives in [place]. She resides in [place]. The patient apparently has a mannequin maker, back home, and apparently was thought to have lung cancer, and she apparently opted for probable stereotactic body radiotherapy, to one of the lesions, and her left lung. The patient presented to the hospital with increasing shortness of breath, cough, and generally not feeling well. The patient's chest x-ray, and CAT scan, shows significant abnormalities in the left chest, particularly in the area of the left hilum, with a mass, that measures 3.7 x 2.3 cm. She is suspected to have a postobstructive pneumonia. Currently, the patient is on 15 L high flow O2. She has been on BiPAP at 12/6, and 60%. No IV fluids. The patient had radiation to the left lung lesion, in April 2022. The plan is to do bronchoscopy, airway examination, BAL, tomorrow. Labs are reviewed. White count 9.5, hemoglobin 9.5, hematocrit 32, and platelet count 252,000. Sodium 1 39, potassium 3.2, chlorides 103, CO2 27, BUN 14, creatinine 0.86. Glucose is 157. Procalcitonin level is 0.09. Progress note dated July 21, 2023. 78-year-old female seen in room 374. The patient is scheduled to undergo bronchoscopy today. Currently, the patient is on BiPAP, with settings of 12/6, and 60%, or high flow oxygen at 15 L/min. The patient is not receiving any IV fluids. Her procalcitonin level was 0.09. We were thinking that she had endobronchial obstruction with postobstructive pneumonia. That may be the case, or, what was seen on x-ray, and CAT scan, could all just be tumor. I am hoping to get a sample on her, so that oncology, might be able to treat her, with either a chemotherapeutic agent, or immunotherapy. Labs today include a sodium 138, potassium 4.3, chlorides 106, CO2 26, BUN 18, creatinine 0.96. Glucose is 137. Calcium 8.8. Progress note dated July 22, 2023. 78-year-old female seen today in room 374. Yesterday, we did a bronchoscopy on the patient. The right-sided airway examination was normal. On the left side, we saw a very large obstructing tumor, in the proximal left mainstem. We did brushings, biopsies, and washings of that area. Those results are currently pending. We are going to have medical oncology see the patient, in anticip ation, that the biopsies are positive, and the patient may have other treatment options. Currently, she is on high flow O2 at 15 L/min. She did not use the BiPAP last night. Zosyn can be discontinued as her procalcitonin level is normal. Clinically she is feeling okay. Current labs include a white count 11.1, hemoglobin 10.5, hematocrit 34.9, and a normal platelet count. Procalcitonin level was 0.09. Progress note dated July 23, 2023. 78-year-old female seen today in room 374. The patient was seen by medical oncology. We are awaiting the biopsy results. Currently, the patient is on 12 L high flow nasal O2. She is getting LR at 20 cc an hour. She is not in any respiratory distress. No new labs today. The patient's biopsy results, showed non-small cell carcinoma. Additional stains, seem to indicate a pulmonary adenocarcinoma. Progress note dated July 24, 2023. 78-year-old female seen today in room 374. This is a patient who we recently saw in consultation, for suspected lung cancer. The patient apparently takes most of her medical care, [place], but was in [place], visiting her son who lives in [place]. She came into the hospital with an abnormality noted on her CT scan and chest x-ray, involving the majority of her left lung. Bronchoscopy revealed a obstructing mass, in the left mainstem, and biopsies suggest non- small cell lung cancer, most consistent with pulmonary adenocarcinoma. We did have medical oncology see the patient. The patient has a previous history of SBRT to the lesion in the left lung. Currently, the patient is on saline at 20 cc an hour. She continues on high flow oxygen at 12 L. White count is 12.9, hemoglobin 11.7, hematocrit 39.2, and platelet count was normal. Sodium 138, potassium 3.7, chlorides 101, CO2 26, BUN 20, creatinine 0.96. Glucose is 234. Magnesium is 2.7. MRI of the brain, did not reveal any metastatic foci. Progress note dated July 25, 2023. 78-year-old female seen again in room 374. The patient continues on 12 L high flow oxygen, and saline at 50 cc an hour. The patient had a recent bronchosco py, which revealed a obstructing lesion in the left mainstem. Biopsy was positive for pulmonary adenocarcinoma. Current labs include a white count 11.4, hemoglobin 10.6, hematocrit 34.9, and a platelet count of 270,000. Sodium 135, potassium 3.9, chlorides 104, CO2 28, BUN 25, creatinine 0.92. Glucose is 138. Calcium is 8.5. On today's evaluation of 07/26/2023, the patient is being seen for a follow-up. This patient has been diagnosed having pulm adenocarcinoma as the patient has a large 3.7 cm left hilar mass extending through to the left upper lobe bronchus and there is also some involvement of the left mainstem bronchus and the biopsy was consistent with pulmonary adenocarcinoma. Note that the patient has had a previous history of a pulmonary nodule that was treated empirically with radiation therapy in the [facility]. CAT scan of the chest that was done during this current admission showed the mass in the left hilum and scattered infiltrates in the left lung base and a small left-sided pleural effusion. The right lung was essentially clear. The patient remains quite hypoxic. The patient remains on DuoNeb nebulized treatments [id number] and the patient is also on IV Solu-Medrol 60 mg every 6 hours. Patient is on performance on Pulmicort nebulized treatment twice a day. Rest of the outpatient medication have been resumed. In terms of the oxygenation, the patient's oxygen flow is at 10 L with a pulse ox of 95%. The white cell count is at 11.4 with a hemoglobin 10.6 and a platelet count of 270. BUN is at 25 with a creatinine of 0.9 and his sodium level is at 135. The patient was seen by radiation oncology. Based on the absence of mediastinal lymphadenopathy, the patient was given stage IIa N0 M0 disease at this point. A CAT scan of the a bdomen pelvis was done also for staging purposes. MRI of the brain was negative for any metastatic lesions. Objective - Vital Signs Vital signs: Vital Signs Temp 98.1 F 07/26/23 03:57 Pulse 100 07/26/23 09:33 Resp 18 07/26/23 08:00 BP 128/74 07/26/23 08:00 Pulse Ox 96 07/26/23 09:05 FiO2 60 07/22/23 08:28 Intake & Output 07/25/23 07/26/23 07/26/23 18:59 06:59 18:59 Intake Total 240 780 240 Output Total 943 600 Balance -703 180 240 Intake: Oral 240 780 240 Output: Urine 450 600 Post Void Residual 493 Other: Voiding Method External Catheter External Catheter External Catheter # Voids 1 # Bowel Movements 1 - Exam No acute distress, oriented 3. Currently on 10 L of oxygen by nasal cannula with a pulse ox of 95% HEENT examination is grossly unremarkable. Mucous membranes are moist. No oral lesions. Neck supple. Full range of motion. No adenopathy thyromegaly or neck vein distention. Cardiovascular examination reveals regular rhythm rate. S1-S2 normal. No S3 or S4. No discernible murmur noted. Heart sounds are distant. Lungs reveal severely diminished breath sounds on the left. Scattered rhonchi are noted throughout. No crackles or wheezes. Abdomen soft bowel sounds are heard. No masses or tenderness. Extremities are intact. No cyanosis clubbing or edema. Skin is without rash or lesion. Neurologic examination is brief but nonfocal. - Labs CBC & Chem 7: 07/25/23 06:05 07/25/23 06:05 Assessment and Plan Plan: Acute COPD exacerbation, with significant hypoxemic respiratory failure.. The patient has background COPD in addition to significant atelectasis in the left upper lobe due to the left hilar mass extending into the left mainstem bronchus. The patient is currently on 2 L of O2 nasal cannula. 3.7 x 2.3 cm left hilar mass, with suspected postobstructive atelectasis within the lingula, S/P bronchoscopy on 07/21/2023. Pathology is consistent with a non-small cell lung cancer, likely pulmonary adenocarcinoma. The patient was given stage T2 a N0 M0 pending further staging by CAT scan of the abdomen and pelvis and the patient will obviously need an PET/CT on outpatient basis. MRI of the brain has been negative. Acute on chronic hypoxemic respiratory failure, currently on 10 L of oxygen by nasal cannula Chronic obstructive pulmonary disease. Lung nodule/lung cancer, status post radiation therapy, probable SBRT. This was performed in [place] Acute on top of chronic hypoxic respiratory failure secondary to above History of hypothyroidism. History of hyperlipidemia. History of bipolar disorder. Former tobacco smoker, quitting approximately 3 years ago. Plan Continue bronchodilators Continue IV Solu-Medrol Provide the patient incentive spirometer Wean down the FiO2, currently on 10 L May need to repeat his CTA of the chest if no improvement in the patient's oxygenation CAT scan of the abdomen and pelvis for staging purposes Patient was seen by radiation oncology Will need a hematology oncology consultation Prognosis poor and will continue to follow make further recommendations based on the progress
--- NOTE | 2023-07-26 17:26 | CT ---
EXAMINATION TYPE: CT abdomen pelvis w con DATE OF EXAM: 07/26/2023 COMPARISON: None INDICATION: Evaluate for metastases, history NSCLC DLP: 758.1 mGycm, Automated exposure control for dose reduction was used. CONTRAST: 70ml mL of Isovue 300. Study performed without Oral Contrast TECHNIQUE: Axial images were obtained from above the diaphragm to the pubic rami in the axial plane a t 5 mm thick sections. Reconstructed images are reviewed on the computer in the coronal plane. FINDINGS: Limited CT sections are obtained the lung bases. Scattered pneumatoceles are within the lower right lung base. There is a small left pleural effusion with adjacent compressive atelectasis.. CT ABDOMEN: Liver: Normal Spleen: Normal Pancreas: Normal Adrenal glands: The adrenal glands are normal. Gallbladder: Surgical clips are present Kidneys: No masses are evident. No hydronephrosis is present. No cysts are present. Delayed images were obtained through the kidneys, which remain unremarkable. No renal stones are identified. Aorta: Vascular calcification is within the aorta. Inferior vena cava: Normal. CT PELVIS: Loops of bowel within the abdomen and pelvis are normal. There is fecal debris through the prominent colon. No obstruction is identified. Scattered diverticuli are evident. The study is without oral contrast limiting bowel evaluation. Appendix: Surgical clips are present in cecum may be prior appendectomy. No dilated tubular structure or inflammatory changes evident. Urinary bladder: Normal. Genitourinary structures: Uterus and ovaries not identified. Osseous structures: No suspicious lytic or sclerotic lesions. IMPRESSION: 1. Left pleural effusion with adjacent atelectasis at the visualized lung base. 2. Diverticulosis without acute diverticulitis.
--- NOTE | 2023-07-26 17:52 | P.PN ---
Subjective Progress Note Date: 07/26/23 Patient evaluated today on the stepdown unit. Has been taken off the BiPAP and currently on 15L hi flow cannula. Chest CT reveals masslike area in the left hilar region measuring 3.7 x 2.3 cm. There is suspected obstructive atelectasis within the lingula. Underlying mass or pneumonia could be considered within the differential. Pulmonary following. Remains on IV zosyn, IV solumedrol. 07/21/2023 Patient evaluated in follow up today. Remains on high flow nasal cannula 15L. Patient is pending bronchoscopy today of the left lung mass. Remains on IV solumedrol, IV zosyn. Patient is feeling anxious and has been tearful today. 07/22/2023 Patient evaluated today. Status post bronchoscopy findings reveal an obstructing mass of the left mainstem which was biopsied. Pathology currently pending. Patie nt having loose stools, C.Dif was negative. Viral panel negative. Remains on IV solumedrol. IV zosyn was discontinued. Patient has reported frequent headaches on the left side of her head since June when the breathing difficulties started. Patient is also having difficulty with ambulation and weakness since June as well. Oncology evaluated the patient today. Remains on a 15L hi flow nasal cannula. 07/23/2023 Patient is evaluated today in follow-up she is status post bronchoscopy with pathology pending. She does report mild improvement in her breathing today she is less short of breath currently she is maintained on a 12 L high flow nasal cannula. This does pose a challenge for discharge planning as patient will need to be on at least 6 L maximum of oxygen support to be considered for discharge home. She does state that her concentrator that she has at her son's house only supports up to 6 L of nasal cannula. Lumbar x-ray showing degenerative changes and he is being followed by physical therapy who is currently recommending home with home care and 09/11 care on discharge. Patient will undergo a brain MRI today which is currently pending at this time. 07/24/2023 Patient evaluated today in follow up. Remains mostly bedrest needs encouragement to be up in the chair for meals. Reports feeling short of breath with activity and having dry cough. She was unable to be weaned down to 10 L high flow and placed back on 12 L of oxygen. Pathology from the lung biopsy revealing nonsmall cell carcinoma possible pulmonary adenocarcinoma. MRI of the brain does not show any metastatic disease. Renal function improved. Patient is being hydrated. Oncology following this patient and recommending evaluation by radiation/oncology services for the left lung mass. 07/25/2023 Patient is evaluated today on the medical floor. Patient remains on a 12L hi flow cannula. Patient reports worsening shortness of breath and feeling chest pain from the epigastric region and wrapping around her back. She has been unable to be weaned off the 12L of oxygen. Sodium down to 135 today and would recommend to stop the IV fluids at the time. She remains on IV solumedrol. Continues to report multiple episodes of loose stool and abdominal xray was completed showing overall nonobstructive bowel gas pattern. The abdominal xray does mention left basilar opacity with some left sided volume loss. All cultures are negative so far. The lung biopsy does come back showing non small cell lung cancer and radiation/oncology has been consulted. 07/26/2023 Patient is seen in follow-up today continues on 12 L high flow working on weaning FiO2 as tolerated. Patient reports no significant improvements in shortness of breath and is attempting to turn down oxygen. Patient is maintaining saturations at 95%. Multiple medical consultations including oncology and radiation oncology along with pulmonary following. Patient does chronically wear 2 L outpatient and instructed the patient to continue with incentive spirometer use and will follow-up with repeat chest x-ray in the next few days. Patient is scheduled to undergo CT abdomen pelvis today. Patient reports she plans on returning home. Will need PT/OT therapy evaluation. Review of Systems Constitutional: Denied any fatigue denied any fever. Cardio vascular: denied any chest pain, palpitations, reports chest wall pain intermittently Gastrointestinal: denied any nausea, vomiting, diarrhea Pulmonary: Reports shortness of breath and cough. Neurologic denied any new focal deficits, reports of feeling diffusely weak All inpatient medications were reviewed and appropriate changes in these medications as dictated in the interval history and assessment and plan. PHYSICAL EXAMINATION: GENERAL: The patient is alert and oriented x3, not in any acute distress. Well developed, thin built, elderly appearing. On 12L Hi Flow cannula HEENT: Pupils are round and equally reacting to light. EOMI. No scleral icterus. No conjunctival pallor. Normocephalic, atraumatic. No pharyngeal erythema. No thyromegaly. CARDIOVASCULAR: S1 and S2 present. No murmurs, rubs, or gallops. PULMONARY: Chest is clear to auscultation, no wheezing or crackles. Diminished. ABDOMEN: Soft, nontender, nondistended, normoactive bowel sounds. No palpable organomegaly. MUSCULOSKELETAL: No joint swelling or deformity. EXTREMITIES: No cyanosis, clubbing, or pedal edema. NEUROLOGICAL: Gross neurological examination did not reveal any focal deficits. Diffusely weak SKIN: No rashes. Assessment and Plan -Acute COPD exacerbation on IV solumedrol, inhaled steroids and bronchodilators. -Left lung pneumonia, post obstructive with concern for malignancy left hilar region status post bronchoscopy revealing left obstructing mass left mainstem -Left hilar mass positive for non small cell lung cancer with concern for pulmonary adenocarcinoma. Oncology following and rad/onc consulted. Will need PET scan on an outpatient basis for further work up. -Abdominal distention and diarrhea, imaging reveals no nobstructive bowel gas and questran continued -Headaches; brain MRI showing no metastatic lesions. -Acute on chronic hypoxemic respiratory failure secondary to above, maintained on 3L nasal cannula outpatient currently on 12L hiflow cannula. -Hx of lung cancer with radiation with possible reoccurance of lung mass -Anxiety situational receiving xanax TID as needed. -Lower extremity weakness and lower back pain due to medical debility PT/OT consultation. -Hypothyroidism -Hypokalemia replaced. -Hx hyperlipidemia -Bipolar disorder -Former tobacco use -Mild protein calorie malnutrition with a BMI of 22.5 GI prophylaxis DVT prophylaxis Plan: We will need to continue to wean the oxygen as tolerated in order to consider this patient for discharge planning. Physical therapy is currently recommending home with home care and 24/7 care on discharge. She is currently staying with her son in [place] she does have a oxygen concentrator set up which only goes up to 6 L of high flow. The patient is considering [facility] here [facility] on discharge. Patient was evaluated by rad/onc and CT abdomen pelvis ordered for evaluation of metastasis. If no metastasis noted may consider radiation treatment outpatient. Await PT/OT therapy evaluation and discussed with case management/social work regarding discharge planning. Patient continues on 12 L high flow currently. Wean as tolerated. Due to multiple complex medical issues, prognosis is extremely poor and guarded. The impression and plan of care has been dictated by Priyanka Lozano Nurse Pr actitioner as directed. Dr. Venkatesh MD I have performed a history and physical examination and medical decision making of this patient, discussed the same with the dictator, and agree with the dictat ors assessment and plan as written, documented as a scribe. Based on total visit time, I have performed more than 50% of this visit. Objective - Vital Signs Vital signs: Vital Signs Temp 98.1 F 07/26/23 03:57 Pulse 100 07/26/23 09:33 Resp 18 07/26/23 08:00 BP 128/74 07/26/23 08:00 Pulse Ox 96 07/26/23 09:05 FiO2 60 07/22/23 08:28 Intake & Output 07/25/23 07/26/23 07/26/23 18:59 06:59 18:59 Intake Total 240 780 240 Output Total 943 600 Balance -703 180 240 Intake: Oral 240 780 240 Output: Urine 450 600 Post Void Residual 493 Other: Voiding Method External Catheter External Catheter # Voids 1 # Bowel Movements 1 - Labs CBC & Chem 7: 07/25/23 06:05 07/25/23 06:05
[2023-07-26] MEDS: ONDANSETRON 4 MG/2 ML VIAL IVP PRN (18:35)
[2023-07-26] MEDS: PANTOPRAZOLE 40 MG/10 ML VIAL IVP SCH (20:22)
[2023-07-26] MEDS: SODIUM CHLORIDE 0.9% 1,000 ML IV SCH (20:23)
[2023-07-26] MEDS: METOCLOPRAMIDE 5 MG/ML 2 ML VIAL IVP STA (20:23)
--- NOTE | 2023-07-26 23:09 | P.PN ---
Subjective Progress Note Date: 07/26/23 Principal diagnosis: Reason for follow-up is possible postoperative pneumonia Patient is a 78-year-old female with a past medical history pertinent for COPD bipolar disorder, hypothyroidism hyperlipidemia, lung cancer, prior smoker on 3 L nasal cannula oxygen at home, presenting to the hospital for evaluation of increasing shortness of breath and cough, patient did have significant normality on the CT of the chest with masslike lesion concerning for tumor with possible postobstructive pneumonia. On today's visit that is Patient is status post bronchoscopy with evidence of left mainstem mass status post biopsy procedure completed on 07/21/2023. On today's evaluation that is 07/26/2023, patient has been afebrile, patient is breathing comfortably and requiring 8 L nasal cannula oxygen, patient left-sided chest pain slightly decreased in intensity denies any worsening cough or sputum production nausea no vomiting no abdominal pain no diarrhea. No new labs has been obtained today BAL culture has been negative Objective - Vital Signs Vital signs: Vital Signs Temp 98.1 F 07/26/23 03:57 Pulse 92 07/26/23 12:20 Resp 18 07/26/23 08:00 BP 128/74 07/26/23 08:00 Pulse Ox 96 07/26/23 12:11 FiO2 60 07/22/23 08:28 Intake & Output 07/25/23 07/26/23 07/26/23 18:59 06:59 18:59 Intake Total 240 780 240 Output Total 943 600 Balance -703 180 240 Intake: Oral 240 780 240 Output: Urine 450 600 Post Void Residual 493 Other: Voiding Method External Catheter External Catheter External Catheter # Voids 1 # Bowel Movements 1 - Exam GENERAL DESCRIPTION: An elderly female lying in bed in no distress RESPIRATORY SYSTEM: Unlabored breathing , decreased breath sounds at bases HEART: S1 S2 regular rate and rhythm , ABDOMEN: Soft , no tenderness EXTREMITIES: No edema feet - Labs CBC & Chem 7: 07/25/23 06:05 07/25/23 06:05 Assessment and Plan (1) Leukocytosis Current Visit: Yes Status: Acute Code(s): D72.829 - ELEVATED WHITE BLOOD CELL COUNT, UNSPECIFIED SNOMED Code(s): 520613829 (2) Postobstructive pneumonia Current Visit: Yes Status: Acute Code(s): J18.9 - PNEUMONIA, UNSPECIFIED ORGANISM SNOMED Code(s): 793358320 Plan: 1patient presented hospital with increasing shortness of breath she also have left-sided pleuritic chest pain did have a cough but no hemoptysis in this patient did have history of smoking COPD and lung cancer now with abnormal CT suspicious for mass and a question of possible component of postobstructive pneumonia clinically not behaving as community-acquired pneumonia, patient did have a low procalcitonin 2- patient is s/p bronchoscopy biopsy and lavage completed on 07/21/2023 with a BAL cultures so far negative 3-patient with mild leukocytosis possibly steroid related and will monitor closely seem to be doing well off antibiotic therapy at this point Dictation was produced using [employer] dictation software. please excuse any grammatical, word or spelling errors. Time with Patient: Less than 30
[2023-07-27 11:08] LABS: Anisocytosis Slight; Basophils % (A) 0 %; Eosinophils % (A) 0 %; HCT 36.9 % (34.0-46.0); HGB 11.2 gm/dL (11.4-16.0); Hypochromasia Marked; Lymphocytes # (A) 0.4 k/uL (1.0-4.8); Lymphocytes % (A) 3 %; MCHC 30.3 g/dL (31.0-37.0); Mean Platelet Volume 7.5; Monocytes # (A) 0.7 k/uL (0-1.0); Monocytes % (A) 5 %; Neutrophils # (A) 12.2 k/uL (1.3-7.7); Neutrophils % (A) 91 %; Platelet Count 221 k/uL (150-450); RBC 4.15 m/uL (3.80-5.40); WBC 13.5 k/uL (3.8-10.6)
[2023-07-27 11:34] LABS: ALT 63 U/L (4-34); AST 44 U/L (14-36); African American GFR (CKD) 79 (>60 ml/min/1.73 sqM); Albumin 2.9 g/dL (3.5-5.0); Alkaline Phosphatase 77 U/L (38-126); Anion Gap 4 mmol/L; Blood Urea Nitrogen 27 mg/dL (7-17); Calcium 8.3 mg/dL (8.4-10.2); Carbon Dioxide 25 mmol/L (22-30); Chloride 108 mmol/L (98-107); Glucose 101 mg/dL (74-99); Magnesium 2.7 mg/dL (1.6-2.3); Non-African American GFR(CKD) 68 (>60 ml/min/1.73 sqM); Sodium 137 mmol/L (137-145); Total Bilirubin 0.2 mg/dL (0.2-1.3); Total Protein 5.3 g/dL (6.3-8.2)
[2023-07-27 11:35] LABS: Potassium 4.1 mmol/L (3.5-5.1)
[2023-07-27] MEDS: LACTULOSE 20 GM/30 ML CUP PO SCH (11:53)
--- NOTE | 2023-07-27 11:58 | XR ---
EXAMINATION TYPE: XR chest 1V DATE OF EXAM: 07/27/2023 HISTORY: Shortness of breath. COMPARISON: 07/18/2023 TECHNIQUE: Single view of the chest is submitted. FINDINGS: Demonstrated are scattered senescent parenchymal change. Complete Opacification left hemithorax likely reflects large effusion. Underlying mass, infiltrate an d/or atelectasis difficult to exclude. The right lung is clear. The heart is stable. Hilar and mediastinal structures are within normal limits. Degenerative changes are seen of the dorsal spine. IMPRESSION: 1. Complete Opacification left hemithorax likely reflects large effusion. Underlying mass, infiltrat e and/or atelectasis difficult to exclude. The right lung is clear.
--- NOTE | 2023-07-27 12:05 | P.PN ---
Progress Note - Text Progress Note Date: 07/27/23 Patient will not be receiving any treatment for malignancy or having PET scan until after she has completed rehabilitation.
--- NOTE | 2023-07-27 14:10 | P.PN ---
Subjective Progress Note Date: 07/27/23 Patient is a 78-year-old white female with past medical history significant for COPD, lung cancer, hypothyroidism, hyperlipidemia, bipolar disorder. Patient is in town visiting her son who lives across the border in [place]. She is actually from [place]. She does follow with a hand glove cleaner in [place], Dr. John Hernandez. She states that she has moderate to severe emphysema/COPD. She quit smoking approximately 3 years ago. She is oxygen dependent on 3 L/min nasal cannula at home. She utilizes a combination of Advair and as needed albuterol inhaler. She does have a known lung mass/nodule on the left side, first identified 3 years ago, and has underwent radiation therapy. She is not on any systemic chemotherapy or immunotherapy. Over the last 2 to 3 weeks she has had progressively worsening shortness of breath accompanied with a associated nonproductive cough. She does have some left-sided, pleuritic like, chest pain. Worse with coughing and deep breathing. Denies any fevers, myalgias, purulent sputum, hemoptysis. She has had some diarrhea. An enhanced chest CT demonstrated a masslike area in the left hilar region measuring 3.7 x 2.3 cm. There is suspected obstructive atelectasis within the lingula, however, underlying pneumonia cannot be completely excluded. CBC includes: WBC count 12.3, hemoglobin 10.6, hematocrit 33.7, platelets 321. BMP on arrival unremarkable. Troponins less than 0.012. NT proBNP 1130. Negative for influenza, RSV, COVID. Patient was in some respiratory distress on arrival to the emergency room, and was placed on BiPAP. Initial BiPAP settings were 12/6 and FiO2 of 60%. ABGs done on the settings include a PaO2 of 65, pCO2 43, and pH of 7.45. She remains on BiPAP with the mentioned settings. Respiratory rate is in the mid 20s, and she is achieving tidal volumes of 300-400. I did temporarily try to wean her off onto a 15 L high flow nasla cannula. She did become dyspneic. She speaks in phrases. She was placed back on BiPAP with above-mentioned settings. She is afebrile. Remaining vital signs stable. Progress note dated July 20, 2023. 78-year-old female seen yesterday in consultation. The patient has a history of COPD, suspected, but not proven lung cancer, hypothyroidism, hyperlipidemia, and bipolar disorder. The patient was in town, visiting her son, who lives in [place]. She resides in [place]. The patient apparently has a hand glove cleaner, back home, and apparently was thought to have lung cancer, and she apparently opted for probable stereotactic body radiotherapy, to one of the lesions, and her left lung. The patient presented to the hospital with increasing shortness of breath, cough, and generally not feeling well. The patient's chest x-ray, and CAT scan, shows significant abnormalities in the left chest, particularly in the area of the left hilum, with a mass, that measures 3.7 x 2.3 cm. She is suspected to have a postobstructive pneumonia. Currently, the patient is on 15 L high flow O2. She has been on BiPAP at 12/6, and 60%. No IV fluids. The patient had radiation to the left lung lesion, in April 2022. The plan is to do bronchoscopy, airway examination, BAL, tomorrow. Labs are reviewed. White count 9.5, hemoglobin 9.5, hematocrit 32, and platelet count 252,000. Sodium 1 39, potassium 3.2, chlorides 103, CO2 27, BUN 14, creatinine 0.86. Glucose is 157. Procalcitonin level is 0.09. Progress note dated July 21, 2023. 78-year-old female seen in room 374. The patient is scheduled to undergo bronchoscopy today. Currently, the patient is on BiPAP, with settings of 12/6, and 60%, or high flow oxygen at 15 L/min. The patient is not receiving any IV fluids. Her procalcitonin level was 0.09. We were thinking that she had endobronchial obstruction with postobstructive pneumonia. That may be the case, or, what was seen on x-ray, and CAT scan, could all just be tumor. I am hoping to get a sample on her, so that oncology, might be able to treat her, with either a chemotherapeutic agent, or immunotherapy. Labs today include a sodium 138, potassium 4.3, chlorides 106, CO2 26, BUN 18, creatinine 0.96. Glucose is 137. Calcium 8.8. Progress note dated July 22, 2023. 78-year-old female seen today in room 374. Yesterday, we did a bronchoscopy on the patient. The right-sided airway examination was normal. On the left side, we saw a very large obstructing tumor, in the proximal left mainstem. We did brushings, biopsies, and washings of that area. Those results are currently pending. We are going to have medical oncology see the patient, in anticip ation, that the biopsies are positive, and the patient may have other treatment options. Currently, she is on high flow O2 at 15 L/min. She did not use the BiPAP last night. Zosyn can be discontinued as her procalcitonin level is normal. Clinically she is feeling okay. Current labs include a white count 11.1, hemoglobin 10.5, hematocrit 34.9, and a normal platelet count. Procalcitonin level was 0.09. Progress note dated July 23, 2023. 78-year-old female seen today in room 374. The patient was seen by medical oncology. We are awaiting the biopsy results. Currently, the patient is on 12 L high flow nasal O2. She is getting LR at 20 cc an hour. She is not in any respiratory distress. No new labs today. The patient's biopsy results, showed non-small cell carcinoma. Additional stains, seem to indicate a pulmonary adenocarcinoma. Progress note dated July 24, 2023. 78-year-old female seen today in room 374. This is a patient who we recently saw in consultation, for suspected lung cancer. The patient apparently takes most of her medical care, [place], but was in [place], visiting her son who lives in [place]. She came into the hospital with an abnormality noted on her CT scan and chest x-ray, involving the majority of her left lung. Bronchoscopy revealed a obstructing mass, in the left mainstem, and biopsies suggest non- small cell lung cancer, most consistent with pulmonary adenocarcinoma. We did have medical oncology see the patient. The patient has a previous history of SBRT to the lesion in the left lung. Currently, the patient is on saline at 20 cc an hour. She continues on high flow oxygen at 12 L. White count is 12.9, hemoglobin 11.7, hematocrit 39.2, and platelet count was normal. Sodium 138, potassium 3.7, chlorides 101, CO2 26, BUN 20, creatinine 0.96. Glucose is 234. Magnesium is 2.7. MRI of the brain, did not reveal any metastatic foci. Progress note dated July 25, 2023. 78-year-old female seen again in room 374. The patient continues on 12 L high flow oxygen, and saline at 50 cc an hour. The patient had a recent bronchosco py, which revealed a obstructing lesion in the left mainstem. Biopsy was positive for pulmonary adenocarcinoma. Current labs include a white count 11.4, hemoglobin 10.6, hematocrit 34.9, and a platelet count of 270,000. Sodium 135, potassium 3.9, chlorides 104, CO2 28, BUN 25, creatinine 0.92. Glucose is 138. Calcium is 8.5. On today's evaluation of 07/26/2023, the patient is being seen for a follow-up. This patient has been diagnosed having pulm adenocarcinoma as the patient has a large 3.7 cm left hilar mass extending through to the left upper lobe bronchus and there is also some involvement of the left mainstem bronchus and the biopsy was consistent with pulmonary adenocarcinoma. Note that the patient has had a previous history of a pulmonary nodule that was treated empirically with radiation therapy in the [facility]. CAT scan of the chest that was done during this current admission showed the mass in the left hilum and scattered infiltrates in the left lung base and a small left-sided pleural effusion. The right lung was essentially clear. The patient remains quite hypoxic. The patient remains on DuoNeb nebulized treatments [id number] and the patient is also on IV Solu-Medrol 60 mg every 6 hours. Patient is on performance on Pulmicort nebulized treatment twice a day. Rest of the outpatient medication have been resumed. In terms of the oxygenation, the patient's oxygen flow is at 10 L with a pulse ox of 95%. The white cell count is at 11.4 with a hemoglobin 10.6 and a platelet count of 270. BUN is at 25 with a creatinine of 0.9 and his sodium level is at 135. The patient was seen by radiation oncology. Based on the absence of mediastinal lymphadenopathy, the patient was given stage IIa N0 M0 disease at this point. A CAT scan of the a bdomen pelvis was done also for staging purposes. MRI of the brain was negative for any metastatic lesions. On today's evaluation of 07/27/2023, I am seeing the patient for a follow-up. The patient is slightly improved in terms of her oxygenation and the patient is currently on 7 L of oxygen by nasal cannula. Noted the patient was requiring high flow oxygen earlier. The chest x-ray was done today and shows complete opacification of left lung which reflects a combination of atelectasis and ef fusion. The right lung remains clear. I reviewed the chest x-ray and there is obvious volume loss and shift of the mediastinum to the left which is consistent of atelectasis. On her earlier CAT scan of the chest, the patient did have some small left-sided pleural effusion. As mentioned by Dr. Nicole, the endobronchial tumor was extending into the left mainstem bronchus and its where the biopsies were taken to establish diagnosis of pulmonary adenocarcinoma. Obviously, this carries a very poor prognosis. Meanwhile, CAT scan of the abdomen and pelvis was done as part of a metastatic workup and the findings were essentially negative. The patient has diverticulosis without evidence of any diverticulitis. The patient was seen by radiation oncology. She remains on DuoNeb updrafts. She is on Robitussin DM for cough. She is also on IV fluids normal saline at rate of 75 cc an hour. She is on a combination of performance and Pulmicort updrafts and IV Solu-Medrol 60 mg every 6 hours. Electrolytes are all stable, renal function is stable, white cell count at 13.5 with a hemoglobin of 11.2 and a platelet count of 221. Objective - Vital Signs Vital signs: Vital Signs Temp 98.3 F 07/27/23 07:54 Pulse 96 07/27/23 09:10 Resp 14 07/27/23 07:56 BP 104/59 07/27/23 07:54 Pulse Ox 94 L 07/27/23 08:43 FiO2 60 07/22/23 08:28 Intake & Output 07/26/23 07/27/23 07/27/23 18:59 06:59 18:59 Intake Total 920 Output Total 1100 Balance 920 -1100 Intake: Intake, IV Titration 200 Amount IV Fluid Continuation 900 200 ml @ 0 mls/hr IV .STK- MED ONE Rx#:[id number] Oral 720 Output: Urine 1100 Other: Voiding Method External Catheter External Catheter External Catheter # Bowel Movements 1 1 - Exam No acute distress, oriented 3. Currently on 7 L of oxygen by nasal cannula wit h a pulse ox of 95% HEENT examination is grossly unremarkable. Mucous membranes are moist. No oral lesions. Neck supple. Full range of motion. No adenopathy thyromegaly or neck vein distention. Cardiovascular examination reveals regular rhythm rate. S1-S2 normal. No S3 or S4. No discernible murmur noted. Heart sounds are distant. Lungs reveal severely diminished breath sounds on the left. Scattered rhonchi are noted throughout. No crackles or wheezes. Abdomen soft bowel sounds are heard. No masses or tenderness. Extremities are intact. No cyanosis clubbing or edema. Skin is without rash or lesion. Neurologic examination is brief but nonfocal. - Labs CBC & Chem 7: 07/27/23 10:01 07/27/23 10:01 Assessment and Plan Plan: Acute COPD exacerbation, with significant hypoxemic respiratory failure.. The patient has background COPD in addition to significant atelectasis in the left u pper lobe due to the left hilar mass extending into the left mainstem bronchus. The patient is currently on 7 L of O2 nasal cannula. Acute hypoxic respiratory failure secondary to complete opacification of the left lung and COPD. The patient has a tumor in the left upper lobe extending to the left mainstem bronchus causing significant atelectasis and shift of the mediastinum to the left. The patient also has a small loculated left-sided pleural effusion. The combination of all these factors contributing to the patient's hypoxia is located and the patient is currently on 7 L of O2 nasal ca nnula. 3.7 x 2.3 cm left hilar mass, with suspected postobstructive atelectasis within the lingula, S/P bronchoscopy on 07/21/2023. Pathology is consistent with a non-small cell lung cancer, likely pulmonary adenocarcinoma. The patient was given stage T2 a N0 M0 pending further staging by CAT scan of the abdomen and pelvis and the patient will obviously need an PET/CT on outpatient basis. MRI of the brain has been negative. CAT scan of the abdomen shows no evidence of any metastatic abnormalities. Acute on chronic hypoxemic respiratory failure, currently on 7 L of oxygen by nasal cannula Chronic obstructive pulmonary disease. Lung nodule/lung cancer, status post radiation therapy, probable SBRT. This was performed in [place] Acute on top of chronic hypoxic respiratory failure secondary to above History of hypothyroidism. History of hyperlipidemia. History of bipolar disorder. Former tobacco smoker, quitting approximately 3 years ago. Plan Continue our attempts to wean down FiO2. The patient is currently down to 7 L of O2 nasal cannula. She would likely need permanent oxygen therapy. Continue bronchodilators Continue IV Solu-Medrol Provide the patient incentive spirometer Chest x-ray from today shows complete opacification of the left lungPatient was seen by radiation oncology Appreciate hematology oncology consultation Prognosis poor and will continue to follow make further recommendations based on the progress Very poor prognosis based on above-mentioned comorbidities.
--- NOTE | 2023-07-27 14:25 | P.PN ---
Subjective Progress Note Date: 07/27/23 Principal diagnosis: Reason for follow-up is possible postoperative pneumonia Patient is a 78-year-old female with a past medical history pertinent for COPD bipolar disorder, hypothyroidism hyperlipidemia, lung cancer, prior smoker on 3 L nasal cannula oxygen at home, presenting to the hospital for evaluation of increasing shortness of breath and cough, patient did have significant normality on the CT of the chest with masslike lesion concerning for tumor with possible postobstructive pneumonia. On today's visit that is Patient is status post bronchoscopy with evidence of left mainstem mass status post biopsy procedure completed on 07/21/2023. On today's evaluation that is 07/27/2023,the patient denies any fever or any chills, patient is breathing comfortably and is down to 7 L nasal cannula oxygen, the patient left-sided chest pain has decreased interestingly cough is about the same as when he complained of some nausea and did not have any bowel movement since admission. Patient white count slightly up to 13.5, creatinine 0.83 Objective - Vital Signs Vital signs: Vital Signs Temp 97.5 F L 07/27/23 11:18 Pulse 88 07/27/23 12:37 Resp 16 07/27/23 11:18 BP 123/72 07/27/23 11:18 Pulse Ox 92 L 07/27/23 11:18 FiO2 60 07/22/23 08:28 Intake & Output 07/26/23 07/27/23 07/27/23 18:59 06:59 18:59 Intake Total 920 Output Total 1100 Balance 920 -1100 Weight 57.606 kg Intake: Intake, IV Titration 200 Amount IV Fluid Continuation 900 200 ml @ 0 mls/hr IV .STK- MED ONE Rx#:[id number] Oral 720 Output: Urine 1100 Other: Voiding Method External Catheter External Catheter External Catheter # Bowel Movements 1 1 - Exam GENERAL DESCRIPTION: An elderly female lying in bed in no distress RESPIRATORY SYSTEM: Unlabored breathing , decreased breath sounds at bases HEART: S1 S2 regular rate and rhythm , ABDOMEN: Soft , no tenderness EXTREMITIES: No edema feet - Labs CBC & Chem 7: 07/27/23 10:01 07/27/23 10:01 Labs: Abnormal Lab Results - Last 24 Hours (Table) 07/27/23 07/27/23 Range/Units 10:01 10:01 WBC 13.5 H (3.8-10.6) k/uL Hgb 11.2 L (11.4-16.0) gm/dL MCHC 30.3 L (31.0-37.0) g/dL RDW 16.0 H (11.5-15.5) % Neutrophils # 12.2 H (1.3-7.7) k/uL Lymphocytes # 0.4 L (1.0-4.8) k/uL Chloride 108 H (98-107) mmol/L BUN 27 H (7-17) mg/dL Glucose 101 H (74-99) mg/dL Calcium 8.3 L (8.4-10.2) mg/dL Magnesium 2.7 H (1.6-2.3) mg/dL AST 44 H (14-36) U/L ALT 63 H (4-34) U/L Total Protein 5.3 L (6.3-8.2) g/dL Albumin 2.9 L (3.5-5.0) g/dL Assessment and Plan (1) Leukocytosis Current Visit: Yes Status: Acute Code(s): D72.829 - ELEVATED WHITE BLOOD CELL COUNT, UNSPECIFIED SNOMED Code(s): 445975094 (2) Postobstructive pneumonia Current Visit: Yes Status: Acute Code(s): J18.9 - PNEUMONIA, UNSPECIFIED ORGANISM SNOMED Code(s): 651940454 Plan: 1patient presented hospital with increasing shortness of breath she also have left-sided pleuritic chest pain did have a cough but no hemoptysis in this patient did have history of smoking COPD and lung cancer now with abnormal CT suspicious for mass and a question of possible component of postobstructive pneumonia clinically not behaving as community-acquired pneumonia, patient did have a low procalcitonin 2- patient is s/p bronchoscopy biopsy and lavage completed on 07/21/2023 with a BAL cultures so far negative 3-patient leukocytosis more likely steroid related and will monitor closely as not running any fever does not look toxic, did have some constipation for the patient given lactulose Dictation was produced using [employer] dictation software. please excuse any grammatical, word or spelling errors. Time with Patient: Less than 30
--- NOTE | 2023-07-27 20:25 | P.PN ---
Subjective Progress Note Date: 07/27/23 Patient evaluated today on the stepdown unit. Has been taken off the BiPAP and currently on 15L hi flow cannula. Chest CT reveals masslike area in the left hilar region measuring 3.7 x 2.3 cm. There is suspected obstructive atelectasis within the lingula. Underlying mass or pneumonia could be considered within the differential. Pulmonary following. Remains on IV zosyn, IV solumedrol. 07/21/2023 Patient evaluated in follow up today. Remains on high flow nasal cannula 15L. Patient is pending bronchoscopy today of the left lung mass. Remains on IV solumedrol, IV zosyn. Patient is feeling anxious and has been tearful today. 07/22/2023 Patient evaluated today. Status post bronchoscopy findings reveal an obstructing mass of the left mainstem which was biopsied. Pathology currently pending. Patie nt having loose stools, C.Dif was negative. Viral panel negative. Remains on IV solumedrol. IV zosyn was discontinued. Patient has reported frequent headaches on the left side of her head since June when the breathing difficulties started. Patient is also having difficulty with ambulation and weakness since June as well. Oncology evaluated the patient today. Remains on a 15L hi flow nasal cannula. 07/23/2023 Patient is evaluated today in follow-up she is status post bronchoscopy with pathology pending. She does report mild improvement in her breathing today she is less short of breath currently she is maintained on a 12 L high flow nasal cannula. This does pose a challenge for discharge planning as patient will need to be on at least 6 L maximum of oxygen support to be considered for discharge home. She does state that her concentrator that she has at her son's house only supports up to 6 L of nasal cannula. Lumbar x-ray showing degenerative changes and he is being followed by physical therapy who is currently recommending home with home care and 09/11 care on discharge. Patient will undergo a brain MRI today which is currently pending at this time. 07/24/2023 Patient evaluated today in follow up. Remains mostly bedrest needs encouragement to be up in the chair for meals. Reports feeling short of breath with activity and having dry cough. She was unable to be weaned down to 10 L high flow and placed back on 12 L of oxygen. Pathology from the lung biopsy revealing nonsmall cell carcinoma possible pulmonary adenocarcinoma. MRI of the brain does not show any metastatic disease. Renal function improved. Patient is being hydrated. Oncology following this patient and recommending evaluation by radiation/oncology services for the left lung mass. 07/25/2023 Patient is evaluated today on the medical floor. Patient remains on a 12L hi flow cannula. Patient reports worsening shortness of breath and feeling chest pain from the epigastric region and wrapping around her back. She has been unable to be weaned off the 12L of oxygen. Sodium down to 135 today and would recommend to stop the IV fluids at the time. She remains on IV solumedrol. Continues to report multiple episodes of loose stool and abdominal xray was completed showing overall nonobstructive bowel gas pattern. The abdominal xray does mention left basilar opacity with some left sided volume loss. All cultures are negative so far. The lung biopsy does come back showing non small cell lung cancer and radiation/oncology has been consulted. 07/26/2023 Patient is seen in follow-up today continues on 12 L high flow working on weaning FiO2 as tolerated. Patient reports no significant improvements in shortness of breath and is attempting to turn down oxygen. Patient is maintaining saturations at 95%. Multiple medical consultations including oncology and radiation oncology along with pulmonary following. Patient does chronically wear 2 L outpatient and instructed the patient to continue with incentive spirometer use and will follow-up with repeat chest x-ray in the next few days. Patient is scheduled to undergo CT abdomen pelvis today. Patient reports she plans on returning home. Will need PT/OT therapy evaluation. 07/27/2023 Patient is seen in follow-up today currently on 7 L high flow weaning FiO2 as tolerated. Patient reports feeling some improvement in breathing and is sitting up in the chair. Repeat chest x-ray for today ordered and pending. Patient was having some nausea with vomiting and made n.p.o. overnight although is denying abdominal pain just has not had a bowel movement in a few days although feels hungry. Will resume diet and monitor for any further issues. Continue bowel regimen and lactulose is being added. Continue to wean FiO2 as tolerated and patient must maintain 4 to 5 L prior to discharge. Recommend PT/OT therapy evaluation as patient is significantly weak and may benefit from ECF for continued strength and mobility prior to returning with her family member in [place]. Patient is from [facility]. Patient is afebrile with no re ported chest pain or palpitations. Patient reports not much of an appetite. Review of Systems Constitutional: Denied any fatigue denied any fever. Cardio vascular: denied any chest pain, palpitations, reports chest wall pain intermittently Gastrointestinal: denied any nausea, vomiting, diarrhea Pulmonary: Reports shortness of breath and cough. Although feels shortness of breath is improving. Neurologic denied any new focal deficits, reports of feeling diffusely weak All inpatient medications were reviewed and appropriate changes in these medications as dictated in the interval history and assessment and plan. PHYSICAL EXAMINATION: GENERAL: The patient is alert and oriented x3, not in any acute distress. Well developed, thin built, elderly appearing. On 7L Hi Flow cannula HEENT: Pupils are round and equally reacting to light. EOMI. No scleral icterus. No conjunctival pallor. Normocephalic, atraumatic. No pharyngeal erythema. No thyromegaly. CARDIOVASCULAR: S1 and S2 present. No murmurs, rubs, or gallops. PULMONARY: Diminished breath sounds bilaterally with some scattered rhonchi noted. No accessory muscle use noted ABDOMEN: Soft, thin, nontender, nondistended, normoactive bowel sounds. No palpable organomegaly. MUSCULOSKELETAL: No joint swelling or deformity. EXTREMITIES: No cyanosis, clubbing, or pedal edema. NEUROLOGICAL: Gross neurological examination did not reveal any focal deficits. Diffusely weak SKIN: No rashes. Assessment and Plan -Acute COPD exacerbation on IV solumedrol, inhaled steroids and bronchodilators. -Left lung pneumonia, post obstructive with concern for malignancy left hilar region status post bronchoscopy revealing left obstructing mass left mainstem -Left hilar mass positive for non small cell lung cancer with concern for pulmon jose adenocarcinoma. Oncology following and rad/onc. Will need PET scan on an outpatient basis for further work up. -Abdominal distention and diarrhea, imaging reveals no nobstructive bowel gas. Diarrhea has resolved patient now feels constipated and has not had a bowel movement in a few days -Headaches; brain MRI showing no metastatic lesions. -Acute on chronic hypoxemic respiratory failure secondary to above, maintained on 3L nasal cannula outpatient currently on 7L hiflow cannula. -Hx of lung cancer with radiation with possible reoccurance of lung mass -Anxiety situational receiving xanax TID as needed. -Lower extremity weakness and lower back pain due to medical debility PT/OT consultation. -Hypothyroidism -Hypokalemia replaced. -Hx hyperlipidemia -Bipolar disorder -Former tobacco use -Mild protein calorie malnutrition with a BMI of 22.5 GI prophylaxis DVT prophylaxis Plan: We will need to continue to wean the oxygen as tolerated in order to consider this patient for discharge planning. Physical therapy is currently recommending home with home care and 24/7 care on discharge. She is currently staying with her son in [place] she does have a oxygen concentrator set up which only goes up to 7 L of high flow. The patient is considering [facility] here in [facility] on discharge. Patient was evaluated by rad/onc and CT abdomen pelvis ordered for evaluation of metastasis. CT abdomen with no evidence of metastasis. Rad onc requesting further information regarding radiation patient has previously received in [place]. Await PT/OT therapy evaluation and discussed with case manageme nt/social work regarding discharge planning. Patient continues on 7 L high flow currently. Wean as tolerated. Due to multiple complex medical issues, prognosis is extremely poor and guarded. The impression and plan of care has been dictated by Priyanka Lozano, Nurse Practitioner as directed. Dr. Venkatesh MD I have performed a history and physical examination and medical decision making of this patient, discussed the same with the dictator, and agree with the dictators assessment and plan as written, documented as a scribe. Based on total visit time, I have performed more than 50% of this visit. Presents back time Objective - Vital Signs Vital signs: Vital Signs Temp 97.5 F L 07/27/23 11:18 Pulse 88 07/27/23 12:37 Resp 16 07/27/23 11:18 BP 123/72 07/27/23 11:18 Pulse Ox 92 L 07/27/23 11:18 FiO2 60 07/22/23 08:28 Intake & Output 07/26/23 07/27/23 07/27/23 18:59 06:59 18:59 Intake Total 920 Output Total 1100 Balance 920 -1100 Intake: Intake, IV Titration 200 Amount IV Fluid Continuation 900 200 ml @ 0 mls/hr IV .STK- [facility] Rx#:[id number] Oral 720 Output: Urine 1100 Other: Voiding Method External Catheter External Catheter External Catheter # Bowel Movements 1 1 - Labs CBC & Chem 7: 07/27/23 10:01 07/27/23 10:01 Labs: Abnormal Lab Results - Last 24 Hours (Table) 07/27/23 07/27/23 Range/Units 10:01 10:01 WBC 13.5 H (3.8-10.6) k/uL Hgb 11.2 L (11.4-16.0) gm/dL MCHC 30.3 L (31.0-37.0) g/dL RDW 16.0 H (11.5-15.5) % Neutrophils # 12.2 H (1.3-7.7) k/uL Lymphocytes # 0.4 L (1.0-4.8) k/uL Chloride 108 H (98-107) mmol/L BUN 27 H (7-17) mg/dL Glucose 101 H (74-99) mg/dL Calcium 8.3 L (8.4-10.2) mg/dL Magnesium 2.7 H (1.6-2.3) mg/dL AST 44 H (14-36) U/L ALT 63 H (4-34) U/L Total Protein 5.3 L (6.3-8.2) g/dL Albumin 2.9 L (3.5-5.0) g/dL
--- NOTE | 2023-07-28 11:29 | P.PN ---
Subjective Progress Note Date: 07/28/23 Patient is a 78-year-old white female with past medical history significant for COPD, lung cancer, hypothyroidism, hyperlipidemia, bipolar disorder. Patient is in town visiting her son who lives across the border in [place]. She is actually from [place]. She does follow with a fish cleaner in [place], Dr. John Hernandez. She states that she has moderate to severe emphysema/COPD. She quit smoking approximately 3 years ago. She is oxygen dependent on 3 L/min nasal cannula at home. She utilizes a combination of Advair and as needed albuterol inhaler. She does have a known lung mass/nodule on the left side, first identified 3 years ago, and has underwent radiation therapy. She is not on any systemic chemotherapy or immunotherapy. Over the last 2 to 3 weeks she has had progressively worsening shortness of breath accompanied with a associated nonproductive cough. She does have some left-sided, pleuritic like, chest pain. Worse with coughing and deep breathing. Denies any fevers, myalgias, purulent sputum, hemoptysis. She has had some diarrhea. An enhanced chest CT demonstrated a masslike area in the left hilar region measuring 3.7 x 2.3 cm. There is suspected obstructive atelectasis within the lingula, however, underlying pneumonia cannot be completely excluded. CBC includes: WBC count 12.3, hemoglobin 10.6, hematocrit 33.7, platelets 321. BMP on arrival unremarkable. Troponins less than 0.012. NT proBNP 1130. Negative for influenza, RSV, COVID. Patient was in some respiratory distress on arrival to the emergency room, and was placed on BiPAP. Initial BiPAP settings were 12/6 and FiO2 of 60%. ABGs done on the settings include a PaO2 of 65, pCO2 43, and pH of 7.45. She remains on BiPAP with the mentioned settings. Respiratory rate is in the mid 20s, and she is achieving tidal volumes of 300-400. I did temporarily try to wean her off onto a 15 L high flow nasla cannula. She did become dyspneic. She speaks in phrases. She was placed back on BiPAP with above-mentioned settings. She is afebrile. Remaining vital signs stable. Progress note dated July 20, 2023. 78-year-old female seen yesterday in consultation. The patient has a history of COPD, suspected, but not proven lung cancer, hypothyroidism, hyperlipidemia, and bipolar disorder. The patient was in town, visiting her son, who lives in [place]. She resides in [place]. The patient apparently has a fish cleaner, back home, and apparently was thought to have lung cancer, and she apparently opted for probable stereotactic body radiotherapy, to one of the lesions, and her left lung. The patient presented to the hospital with increasing shortness of breath, cough, and generally not feeling well. The patient's chest x-ray, and CAT scan, shows significant abnormalities in the left chest, particularly in the area of the left hilum, with a mass, that measures 3.7 x 2.3 cm. She is suspected to have a postobstructive pneumonia. Currently, the patient is on 15 L high flow O2. She has been on BiPAP at 12/6, and 60%. No IV fluids. The patient had radiation to the left lung lesion, in April 2022. The plan is to do bronchoscopy, airway examination, BAL, tomorrow. Labs are reviewed. White count 9.5, hemoglobin 9.5, hematocrit 32, and platelet count 252,000. Sodium 1 39, potassium 3.2, chlorides 103, CO2 27, BUN 14, creatinine 0.86. Glucose is 157. Procalcitonin level is 0.09. Progress note dated July 21, 2023. 78-year-old female seen in room 374. The patient is scheduled to undergo bronchoscopy today. Currently, the patient is on BiPAP, with settings of 12/6, and 60%, or high flow oxygen at 15 L/min. The patient is not receiving any IV fluids. Her procalcitonin level was 0.09. We were thinking that she had endobronchial obstruction with postobstructive pneumonia. That may be the case, or, what was seen on x-ray, and CAT scan, could all just be tumor. I am hoping to get a sample on her, so that oncology, might be able to treat her, with either a chemotherapeutic agent, or immunotherapy. Labs today include a sodium 138, potassium 4.3, chlorides 106, CO2 26, BUN 18, creatinine 0.96. Glucose is 137. Calcium 8.8. Progress note dated July 22, 2023. 78-year-old female seen today in room 374. Yesterday, we did a bronchoscopy on the patient. The right-sided airway examination was normal. On the left side, we saw a very large obstructing tumor, in the proximal left mainstem. We did brushings, biopsies, and washings of that area. Those results are currently pending. We are going to have medical oncology see the patient, in anticip ation, that the biopsies are positive, and the patient may have other treatment options. Currently, she is on high flow O2 at 15 L/min. She did not use the BiPAP last night. Zosyn can be discontinued as her procalcitonin level is normal. Clinically she is feeling okay. Current labs include a white count 11.1, hemoglobin 10.5, hematocrit 34.9, and a normal platelet count. Procalcitonin level was 0.09. Progress note dated July 23, 2023. 78-year-old female seen today in room 374. The patient was seen by medical oncology. We are awaiting the biopsy results. Currently, the patient is on 12 L high flow nasal O2. She is getting LR at 20 cc an hour. She is not in any respiratory distress. No new labs today. The patient's biopsy results, showed non-small cell carcinoma. Additional stains, seem to indicate a pulmonary adenocarcinoma. Progress note dated July 24, 2023. 78-year-old female seen today in room 374. This is a patient who we recently saw in consultation, for suspected lung cancer. The patient apparently takes most of her medical care, [place], but was in [place], visiting her son who lives in [place]. She came into the hospital with an abnormality noted on her CT scan and chest x-ray, involving the majority of her left lung. Bronchoscopy revealed a obstructing mass, in the left mainstem, and biopsies suggest non- small cell lung cancer, most consistent with pulmonary adenocarcinoma. We did have medical oncology see the patient. The patient has a previous history of SBRT to the lesion in the left lung. Currently, the patient is on saline at 20 cc an hour. She continues on high flow oxygen at 12 L. White count is 12.9, hemoglobin 11.7, hematocrit 39.2, and platelet count was normal. Sodium 138, potassium 3.7, chlorides 101, CO2 26, BUN 20, creatinine 0.96. Glucose is 234. Magnesium is 2.7. MRI of the brain, did not reveal any metastatic foci. Progress note dated July 25, 2023. 78-year-old female seen again in room 374. The patient continues on 12 L high flow oxygen, and saline at 50 cc an hour. The patient had a recent bronchosco py, which revealed a obstructing lesion in the left mainstem. Biopsy was positive for pulmonary adenocarcinoma. Current labs include a white count 11.4, hemoglobin 10.6, hematocrit 34.9, and a platelet count of 270,000. Sodium 135, potassium 3.9, chlorides 104, CO2 28, BUN 25, creatinine 0.92. Glucose is 138. Calcium is 8.5. On today's evaluation of 07/26/2023, the patient is being seen for a follow-up. This patient has been diagnosed having pulm adenocarcinoma as the patient has a large 3.7 cm left hilar mass extending through to the left upper lobe bronchus and there is also some involvement of the left mainstem bronchus and the biopsy was consistent with pulmonary adenocarcinoma. Note that the patient has had a previous history of a pulmonary nodule that was treated empirically [facility]. CAT scan of the chest that was done during this current admission showed the mass in the left hilum and scattered infiltrates in the left lung base and a small left-sided pleural effusion. The right lung was essentially clear. The patient remains quite hypoxic. The patient remains on DuoNeb nebulized treatments [id number] and the patient is also on IV Solu-Medrol 60 mg every 6 hours. Patient is on performance on Pulmicort nebulized treatment twice a day. Rest of the outpatient medication have been resumed. In terms of the oxygenation, the patient's oxygen flow is at 10 L with a pulse ox of 95%. The white cell count is at 11.4 with a hemoglobin 10.6 and a platelet count of 270. BUN is at 25 with a creatinine of 0.9 and his sodium level is at 135. The patient was seen by radiation oncology. Based on the absence of mediastinal lymphadenopathy, the patient was given stage IIa N0 M0 disease at this point. A CAT scan of the a bdomen pelvis was done also for staging purposes. MRI of the brain was negative for any metastatic lesions. On today's evaluation of 07/27/2023, I am seeing the patient for a follow-up. The patient is slightly improved in terms of her oxygenation and the patient is currently on 7 L of oxygen by nasal cannula. Noted the patient was requiring high flow oxygen earlier. The chest x-ray was done today and shows complete opacification of left lung which reflects a combination of atelectasis and ef fusion. The right lung remains clear. I reviewed the chest x-ray and there is obvious volume loss and shift of the mediastinum to the left which is consistent of atelectasis. On her earlier CAT scan of the chest, the patient did have some small left-sided pleural effusion. As mentioned by Dr. Nicole, the endobronchial tumor was extending into the left mainstem bronchus and its where the biopsies were taken to establish diagnosis of pulmonary adenocarcinoma. Obviously, this carries a very poor prognosis. Meanwhile, CAT scan of the abdomen and pelvis was done as part of a metastatic workup and the findings were essentially negative. The patient has diverticulosis without evidence of any diverticulitis. The patient was seen by radiation oncology. She remains on DuoNeb updrafts. She is on Robitussin DM for cough. She is also on IV fluids normal saline at rate of 75 cc an hour. She is on a combination of performance and Pulmicort updrafts and IV Solu-Medrol 60 mg every 6 hours. Electrolytes are all stable, renal function is stable, white cell count at 13.5 with a hemoglobin of 11.2 and a platelet count of 221. On today's evaluation on 07/28/2023, the patient has no complaints. She is feeling stable and denies any respiratory distress at rest. As mentioned earlier, the patient complete opacification of left lung due to left lung mass. There is a combination of mass/atelectasis and a small left-sided pleural effusion. Oxygenation is gradually improved and the patient is currently on 6 L with a pulse ox of 92%. WBC count 13.4 with a hemoglobin 11.2 and a platelet c ount of 221. BUN is 27 with a creatinine of 0.8. She seems to be quite debilitated and weak. Rest of the medications remain unchanged. Tolerating her diet. IV fluids are currently at KVO. The patient has no other new complaints for now. Objective - Vital Signs Vital signs: Vital Signs Temp 97.5 F L 07/28/23 07:50 Pulse 104 H 07/28/23 08:42 Resp 20 07/28/23 07:50 BP 127/66 07/28/23 07:50 Pulse Ox 92 L 07/28/23 08:15 FiO2 60 07/22/23 08:28 Intake & Output 07/27/23 07/28/23 07/28/23 18:59 06:59 18:59 Intake Total 718 118 Output Total 1000 700 Balance -282 -700 118 Weight 57.606 kg Intake: Intake, IV Titration 600 Amount Sodium Chloride 0.9% 1, 600 000 ml @ 75 mls/hr IV . [id number] [facility] Rx#:[id number] Oral 118 118 Output: Urine 1000 700 Other: Voiding Method External Catheter External Catheter External Catheter - Exam No acute distress, oriented 3. Currently on 6 L of oxygen by nasal cannula with a pulse ox of 95% HEENT examination is grossly unremarkable. Mucous membranes are moist. No oral lesions. Neck supple. Full range of motion. No adenopathy thyromegaly or neck vein distention. Cardiovascular examination reveals regular rhythm rate. S1-S2 normal. No S3 or S4. No discernible murmur noted. Heart sounds are distant. Lungs reveal severely diminished breath sounds on the left. Scattered rhonchi are noted throughout. No crackles or wheezes. Abdomen soft bowel sounds are heard. No masses or tenderness. Extremities are intact. No cyanosis clubbing or edema. Skin is without rash or lesion. Neurologic examination is brief but nonfocal. - Labs CBC & Chem 7: 07/27/23 10:01 07/27/23 10:01 Labs: Abnormal Lab Results - Last 24 Hours (Table) 07/27/23 07/27/23 Range/Units 10:01 10:01 WBC 13.5 H (3.8-10.6) k/uL Hgb 11.2 L (11.4-16.0) gm/dL MCHC 30.3 L (31.0-37.0) g/dL RDW 16.0 H (11.5-15.5) % Neutrophils # 12.2 H (1.3-7.7) k/uL Lymphocytes # 0.4 L (1.0-4.8) k/uL Chloride 108 H (98-107) mmol/L BUN 27 H (7-17) mg/dL Glucose 101 H (74-99) mg/dL Calcium 8.3 L (8.4-10.2) mg/dL Magnesium 2.7 H (1.6-2.3) mg/dL AST 44 H (14-36) U/L ALT 63 H (4-34) U/L Total Protein 5.3 L (6.3-8.2) g/dL Albumin 2.9 L (3.5-5.0) g/dL Assessment and Plan Plan: Acute COPD exacerbation, with significant hypoxemic respiratory failure.. The patient has background COPD in addition to significant atelectasis in the left upper lobe due to the left hilar mass extending into the left mainstem bronchus. The patient is currently on 6 L of O2 nasal cannula. Acute hypoxic respiratory failure secondary to complete opacification of the left lung and COPD. The patient has a tumor in the left upper lobe extending to the left mainstem bronchus causing significant atelectasis and shift of the mediastinum to the left. The patient also has a small loculated left-sided pleural effusion. The combination of all these factors contributing to the patient's hypoxia is located and the patient is currently on 6 L of O2 nasal cannula. 3.7 x 2.3 cm left hilar mass, with suspected postobstructive atelectasis within the lingula, S/P bronchoscopy on 07/21/2023. Pathology is consistent with a non-small cell lung cancer, likely pulmonary adenocarcinoma. The patient was given stage T2 a N0 M0 pending further staging by CAT scan of the abdomen and pelvis and the patient will obviously need an PET/CT on outpatient basis. MRI of the brain has been negative. CAT scan of the abdomen shows no evidence of any metastatic abnormalities. Acute on chronic hypoxemic respiratory failure, currently on 6 L of oxygen by nasal cannula Chronic obstructive pulmonary disease. Lung nodule/lung cancer, status post radiation therapy, probable SBRT. This was performed in [place] Acute on top of chronic hypoxic respiratory failure secondary to above History of hypothyroidism. History of hyperlipidemia. History of bipolar disorder. Former tobacco smoker, quitting approximately 3 years ago. Plan Continue our attempts to wean down FiO2. The patient is currently down to 6 L of O2 nasal cannula. She would likely need permanent oxygen therapy. Continue bronchodilators Continue steroids and switch this patient to a prednisone burst taper Provide the patient incentive spirometer Chest x-ray from today shows complete opacification of the left lung Patient was seen by radiation oncology Appreciate hematology oncology consultation Prognosis poor and will continue to follow make further recommendations based on the progress Very poor prognosis based on above-mentioned comorbidities.
[2023-07-28] MEDS: predniSONE 20 MG TAB PO SCH (11:37)
--- NOTE | 2023-07-28 14:11 | P.PN ---
Subjective Progress Note Date: 07/28/23 Principal diagnosis: Reason for follow-up is possible postoperative pneumonia Patient is a 78-year-old female with a past medical history pertinent for COPD bipolar disorder, hypothyroidism hyperlipidemia, lung cancer, prior smoker on 3 L nasal cannula oxygen at home, presenting to the hospital for evaluation of increasing shortness of breath and cough, patient did have significant normality on the CT of the chest with masslike lesion concerning for tumor with possible postobstructive pneumonia. On today's visit that is Patient is status post bronchoscopy with evidence of left mainstem mass status post biopsy procedure completed on 07/21/2023. On today's evaluation that is 07/28/2023,the patient remains to be afebrile, patient is down to 5 L nasal cannula supplemental oxygen, patient mention breathing more comfortably and wants to go home patient denies having any chest pain or any worsening cough no nausea vomiting abdominal pain and did have 2 bowel movements. No new labs has been obtained today culture has been negative Objective - Vital Signs Vital signs: Vital Signs Temp 97.6 F 07/28/23 11:46 Pulse 103 H 07/28/23 11:46 Resp 18 07/28/23 11:46 BP 133/69 07/28/23 11:46 Pulse Ox 98 07/28/23 11:46 FiO2 60 07/22/23 08:28 Intake & Output 07/27/23 07/28/23 07/28/23 18:59 06:59 18:59 Intake Total 718 236 Output Total 1000 700 Balance -282 -700 236 Weight 57.606 kg Intake: Intake, IV Titration 600 Amount Sodium Chloride 0.9% 1, 600 000 ml @ 75 mls/hr IV . [id number] [facility] Rx#:[id number] Oral 118 236 Output: Urine 1000 700 Other: Voiding Method External Catheter External Catheter External Catheter # Bowel Movements 1 - Exam GENERAL DESCRIPTION: An elderly female lying in bed in no distress RESPIRATORY SYSTEM: Unlabored breathing , decreased breath sounds at bases HEART: S1 S2 regular rate and rhythm , ABDOMEN: Soft , no tenderness EXTREMITIES: No edema feet - Labs CBC & Chem 7: 07/27/23 10:01 07/27/23 10:01 Assessment and Plan (1) Leukocytosis Current Visit: Yes Status: Acute Code(s): D72.829 - ELEVATED WHITE BLOOD CELL COUNT, UNSPECIFIED SNOMED Code(s): 717911464 (2) Postobstructive pneumonia Current Visit: Yes Status: Acute Code(s): J18.9 - PNEUMONIA, UNSPECIFIED ORGANISM SNOMED Code(s): 508452773 Plan: 1patient presented hospital with increasing shortness of breath she also have left-sided pleuritic chest pain did have a cough but no hemoptysis in this patient did have history of smoking COPD and lung cancer now with abnormal CT suspicious for mass and a question of possible component of postobstructive pneumonia clinically not behaving as community-acquired pneumonia, patient did have a low procalcitonin 2- patient is s/p bronchoscopy biopsy and lavage completed on 07/21/2023 with a BAL cultures so far negative 3-patient leukocytosis more likely steroid related as a culture has been negative there is no need for any antibiotic therapy on discharge Question concern answered Dictation was produced using [employer] dictation software. please excuse any grammatical, word or spelling errors. Time with Patient: Less than 30
[2023-07-28 16:00] VITALS: PULSE 101
[2023-07-28 16:01] VITALS: BP 145/76; RESP 19; TEMP 97.4
--- NOTE | 2023-08-02 06:43 | P.DS ---
Providers Date of admission: 07/18/23 19:30 Expected date of discharge: 07/28/23 Attending physician: Beny Booth Consults: 07/18/23 19:30 Consult Physician Routine Consulting Provider: Priya Villa Consult Reason/Comments: COPD, postobstructive pneumonia, pulmonary mass Do you want consulting provider notified?: Already Contacted 07/19/23 14:02 Consult Physician Routine Consulting Provider: Mayte Saleh Consult Reason/Comments: pneumonia, diarrhea Do you want consulting provider notified?: Yes 07/22/23 09:17 Consult Physician Routine Consulting Provider: Tamera Harkins Consult Reason/Comments: Left lung mass, biopsy pending Do you want consulting provider notified?: Yes 07/24/23 13:30 Consult Physician Routine Consulting Provider: Filiberto Umanzor Consult Reason/Comments: Left hilar mass, NSCLC Do you want consulting provider notified?: Yes, Notify in am Primary care physician: Physician Nonstaff Hospital Course: Final diagnosis -Acute COPD exacerbation on IV solumedrol, inhaled steroids and bronchodilators. -Left lung pneumonia, post obstructive with concern for malignancy left hilar region status post bronchoscopy revealing left obstructing mass left mainstem -Left hilar mass positive for non small cell lung cancer with concern for pulmonary adenocarcinoma. Oncology following and rad/onc. Will need PET scan on an outpatient basis for further work up. -Abdominal distention and diarrhea, imaging reveals no nobstructive bowel gas. Diarrhea has resolved -Headaches; brain MRI showing no metastatic lesions. -Acute on chronic hypoxemic respiratory failure secondary to above, maintained on 3L nasal cannula outpatient currently on 5L cannula. -Hx of lung cancer with radiation with possible reoccurance of lung mass -Anxiety situational -Lower extremity weakness and lower back pain due to medical debility -Hypothyroidism -Hypokalemia replaced. -Hx hyperlipidemia -Bipolar disorder -Former tobacco use -Mild protein calorie malnutrition with a BMI of 22.5 GI prophylaxis DVT prophylaxis Discharge disposition Patient is being discharged in a stable condition with guarded prognosis to home. Patient will follow-up with her primary care provider in the outpatient setting upon discharge in [facility]. Patient is going back to her sons in [place] and he will take care of her. Patient is to follow-up outpatient with oncology and pulmonary. Patient will need PET scan as scheduled if continuing to pursue treatment. Total time taken is greater than 35 minutes. Hospital course This is a 78-year-old female who was recently admitted with increasing shortness of breath with COPD exacerbation. Patient also with left lung pneumonia with concerns of malignancy with pulmonary following. Patient is status post broncho scopy and there is a mass on the left mainstem that was positive for non-small cell lung carcinoma and concerning for pulmonary adenocarcinoma. Patient will need outpatient PET scan if wanting to continue with pursuing treatment. Patient lives in [facility] although had been visiting with her son in [place]. Patient will be returning with her son to [place] for now. Patient was evaluated by physical therapy with weakness although patient feels she is doing better and is refusing rehab and would like to go home with her son. Patient has been instructed to follow-up outpatient. Patient oxygen demands weaned to 4 to 5 L continuously nasal cannula and has been cleared by consultations. Please refer to other consultation notes for further HPI. Currently no reports of chest pain, no worsening shortness of breath, or palpitations. Patient is afebrile. No reports of nausea or vomiting and patient is tolerating diet. Patient will be discharged home today. Extremely guarded prognosis and high risk for readmissions given patient's comorbidities. Overall prognosis is poor. Physical exam: Gen: This is a 78-year-old female who is awake, alert and oriented x 3, well-developed, thin built, elderly appearing HEENT: Head is atraumatic, normocephalic. Pupils equal, round. Sclerae is anicteric. NECK: Supple. No JVD. No lymphadenopathy. No thyromegaly. LUNGS: Diminished breath sounds bilaterally with scattered rhonchi noted throughout. No intercostal retractions. HEART: Regular rate and rhythm. No murmur. ABDOMEN: Soft. Thin. Bowel sounds are present. No masses. No tenderness. EXTREMITIES: No pedal edema. No calf tenderness. NEUROLOGICAL: Patient is awake, alert and oriented x3. Cranial nerves 2 through 12 are grossly intact. Diffusely weak Please refer to medication reconciliation sheet for a list of medications. The impression and plan of care has been dictated by Priyanka Lozano, Nurse Practitioner as directed. Dr. Venkatesh MD I have performed a history and examination and MDM of this patient, discussed the same with the dictator, and agree with the dictator's assessment and plan as written ,documented as a scribe. Based on total visit time, I have performed more than 50% of the visit. Patient Condition at Discharge: Fair Plan - Discharge Summary Discharge Rx Participant: Yes New Discharge Prescriptions: New Lactulose [Cephulac] 30 gm PO BID PRN #240 ml PRN Reason: Constipation Loratadine [Claritin] 5 mg PO DAILY #30 tab Fluticasone Nasal [place] [Flonase Nasal [place]] 2 spray EA NOSTRIL DAILY #5 ml guaiFENesin [Mucinex] 600 mg PO Q12HR #20 tab Budesonide [Pulmicort] 1 mg INHALATION RT-BID #30 each predniSONE 10 mg PO DIRECTED #30 tab Sodium Chloride 0.65% Nasal [Deep Sea (Saline)] 2 spray NASAL QID PRN #7 ml PRN Reason: Dry Nasal Passages Ipratropium-Albuterol Nebulize [Duoneb 0.5 mg-3 mg/3 ml Soln] 3 ml INHALATION RT-QID #100 each Ipratropium-Albuterol Nebulize [Duoneb 0.5 mg-3 mg/3 ml Soln] 3 ml INHALATION RT-Q2H PRN each PRN Reason: Shortness Of Breath Or Wheezing Acetaminophen Tab [Tylenol] 650 mg PO Q4HR PRN tab PRN Reason: Mild Pain Or Fever > 100.5 Continue Omeprazole [PriLOSEC] 20 mg PO DAILY Nystatin 100,000 Unit/gm Oint [Mycostatin Oint] 1 applic TOPICAL BID lamoTRIgine [LaMICtal] 150 mg PO BID buPROPion SR [Wellbutrin SR] 150 mg PO PC-BRKFST QUEtiapine [SEROquel] 50 mg PO HS busPIRone HCL [Buspar] 7.5 mg PO BID Pravastatin Sodium [Pravachol] 40 mg PO HS Levothyroxine Sodium [Synthroid] 75 mcg PO DAILY Gabapentin [Neurontin] 300 mg PO TID Fluticasone Propion/Salmeterol [Fluticasone-Salmeterol 115-21] 2 puff INHALATION RT-BID QUEtiapine FUMARATE [SEROquel] 200 mg PO HS Mirtazapine [Remeron] 15 mg PO HS Discharge Medication List Fluticasone Propion/Salmeterol [Fluticasone-Salmeterol 115-21] 2 puff INHALATION RT-BID 07/18/23 [History] Gabapentin [Neurontin] 300 mg PO TID 07/18/23 [History] Levothyroxine Sodium [Synthroid] 75 mcg PO DAILY 07/18/23 [History] Mirtazapine [Remeron] 15 mg PO HS 07/18/23 [History] Nystatin 100,000 Unit/gm Oint [Mycostatin Oint] 1 applic TOPICAL BID 07/18/23 [History] Omeprazole [PriLOSEC] 20 mg PO DAILY 07/18/23 [History] Pravastatin Sodium [Pravachol] 40 mg PO HS 07/18/23 [History] QUEtiapine FUMARATE [SEROquel] 200 mg PO HS 07/18/23 [History] QUEtiapine [SEROquel] 50 mg PO HS 07/18/23 [History] buPROPion SR [Wellbutrin SR] 150 mg PO PC-BRKFST 07/18/23 [History] busPIRone HCL [Buspar] 7.5 mg PO BID 07/18/23 [History] lamoTRIgine [LaMICtal] 150 mg PO BID 07/18/23 [History] Acetaminophen Tab [Tylenol] 650 mg PO Q4HR PRN tab 07/28/23 [Rx] Budesonide [Pulmicort] 1 mg INHALATION RT-BID #30 each 07/28/23 [Rx] Fluticasone Nasal [place] [Flonase Nasal [place]] 2 spray EA NOSTRIL DAILY #5 ml 07/28/23 [Rx] Ipratropium-Albuterol Nebulize [Duoneb 0.5 mg-3 mg/3 ml Soln] 3 ml INHALATION RT-Q2H PRN each 07/28/23 [Rx] Ipratropium-Albuterol Nebulize [Duoneb 0.5 mg-3 mg/3 ml Soln] 3 ml INHALATION RT-QID #100 each 07/28/23 [Rx] Lactulose [Cephulac] 30 gm PO BID PRN #240 ml 07/28/23 [Rx] Loratadine [Claritin] 5 mg PO DAILY #30 tab 07/28/23 [Rx] Sodium Chloride 0.65% Nasal [Deep Sea (Saline)] 2 spray NASAL QID PRN #7 ml 07/28/23 [Rx] guaiFENesin [Mucinex] 600 mg PO Q12HR #20 tab 07/28/23 [Rx] predniSONE 10 mg PO DIRECTED #30 tab 07/28/23 [Rx] Follow up Appointment(s)/Referral(s): Dilip Almanza [STAFF PHYSICIAN] - 4 Weeks (Pt will be sched for PET after DC from rehab, then f/u with Dr. Almanza will be scheduled) Nonstaff,Physician [Primary Care Provider] - 1-2 days Patient Instructions/Handouts: COPD (Chronic Obstructive Pulmonary Disease) (DC) Activity/Diet/Wound Care/Special Instructions: Please call Dr. Almanza's office after discharge so that PET scan and f/u appointment can be scheduled, if wanting to pursue treatment. 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
== END 2023-07-28 17:21 | disposition home or self-care (01) | DRG 180 ==
LOC: EC 17:19 → 3SCARD 19:30
PROVIDERS: ADMIT Hospitalist; ATTEND Hospitalist
PROC: 5A09357 Assistance with Respiratory Ventilation, Less than 24 Consecutive Hours, Continuous Positive Airway Pressure (ICD-10-PCS; 2023-07-18)
PROC: 0BD38ZX Extraction of Right Main Bronchus, Via Natural or Artificial Opening Endoscopic, Diagnostic (ICD-10-PCS; 2023-07-21)
PROC: 0B9G8ZX Drainage of Left Upper Lung Lobe, Via Natural or Artificial Opening Endoscopic, Diagnostic (ICD-10-PCS; principal; 2023-07-21 12:50)
PROC: 0BD88ZX Extraction of Left Upper Lobe Bronchus, Via Natural or Artificial Opening Endoscopic, Diagnostic (ICD-10-PCS; 2023-07-21 12:50)
DX: C34.92 Malignant neoplasm of unspecified part of left bronchus or lung (principal); J18.9 Pneumonia, unspecified organism; J96.21 Acute and chronic respiratory failure with hypoxia; J44.0 Chronic obstructive pulmonary disease with (acute) lower respiratory infection; E87.1 Hypo-osmolality and hyponatremia; J44.1 Chronic obstructive pulmonary disease with (acute) exacerbation; J98.11 Atelectasis; E44.1 Mild protein-calorie malnutrition; C34.02 Malignant neoplasm of left main bronchus; E87.6 Hypokalemia; Z87.891 Personal history of nicotine dependence; F31.9 Bipolar disorder, unspecified; R91.8 Other nonspecific abnormal finding of lung field; E03.9 Hypothyroidism, unspecified; E78.5 Hyperlipidemia, unspecified; M54.50 Low back pain, unspecified; Z85.118 Personal history of other malignant neoplasm of bronchus and lung; Z68.22 Body mass index [BMI] 22.0-22.9, adult; F41.8 Other specified anxiety disorders; I25.10 Atherosclerotic heart disease of native coronary artery without angina pectoris; J43.9 Emphysema, unspecified; Z79.890 Hormone replacement therapy; Z79.899 Other long term (current) drug therapy; Z92.3 Personal history of irradiation; Z99.81 Dependence on supplemental oxygen
CPT/HCPCS: 31623; 31624; 31625; 36415; 36600; 70553; 71045; 71260; 72100; 74018; 74177; 80048; 80053; 82805; 83605; 83735; 83880; 84145; 84484; 85025; 85610; 85730; 87040; 87070; 87102; 87116; 87205; 87206; 87324; 87496; 87498; 87502; 87529; 87634; 87635; 87636; 87798; 88104; 88108; 88305; 88341; 88342; 89050; 93005; 94640; 94660; 94760; 96365; 96366; 96368; 96375; 99285

== ENCOUNTER 2023-08-11 22:02 | Inpatient (IN) | payer MEDICARE ==
[2023-08-11] MEDS: IPRATROPIUM-ALBUTEROL 3 ML NEB INHALATION STA (22:46)
[2023-08-11] MEDS: ALBUTEROL NEBULIZED 2.5 MG/3 ML INHALATION STA (22:46)
[2023-08-11 22:55] LABS: Anisocytosis Slight; Basophils % (A) 0 %; Eosinophils # (A) 0.2 k/uL (0-0.7); Eosinophils % (A) 2 %; HCT 33.3 % (34.0-46.0); HGB 10.3 gm/dL (11.4-16.0); Hypochromasia Slight; Lymphocytes # (A) 0.9 k/uL (1.0-4.8); Lymphocytes % (A) 10 %; MCH 26.1 pg (25.0-35.0); MCHC 31.1 g/dL (31.0-37.0); Monocytes # (A) 0.4 k/uL (0-1.0); Monocytes % (A) 5 %; Neutrophils # (A) 7.3 k/uL (1.3-7.7); Neutrophils % (A) 81 %; Platelet Count 219 k/uL (150-450); Poikilocytosis Slight; RBC 3.97 m/uL (3.80-5.40); RDW 16.7 % (11.5-15.5)
--- NOTE | 2023-08-11 22:59 | ED ---
SOB HPI - General Chief Complaint: Shortness of Breath Stated Complaint: DAYDAY cough Time Seen by Provider: 08/11/23 22:26 Source: patient, family Mode of arrival: wheelchair Limitations: physical limitation (Dyspnea) - History of Present Illness Initial Comments: This patient is a 78-year-old woman reportedly with history of lung cancer and COPD, who arrives to have evaluation for shortness of breath, cough, and hallucinations. Much of the history is given from the patient's son, who she is currently visiting. The patient living in [place] but visiting family in [place]. She had been admitted in the hospital at the end of June and was slated to start radiation therapy related to lung cancer. She reportedly has been short of breath and not able to get out of bed much over the past 3 to 4 days, reportedly spending up to 20 hours in bed past few days. No fever noted. Cough largely nonproductive. Patient having bilateral rib pains. MD Complaint: shortness of breath, cough -: days(s) Consistency: constant Improves With: nothing Worsens With: nothing Known History Of: COPD, other (Lung cancer) Associated Symptoms: denies other symptoms - Related Data Home Medications Medication Instructions Recorded Confirmed Fluticasone Propion/Salmeterol 2 puff INHALATION RT-BID 07/18/23 08/19/23 [Fluticasone-Salmeterol 115-21] Gabapentin [Neurontin] 300 mg PO TID 07/18/23 08/19/23 Levothyroxine Sodium [Synthroid] 75 mcg PO DAILY 07/18/23 08/19/23 Mirtazapine [Remeron] 15 mg PO HS 07/18/23 08/19/23 Nystatin 100,000 Unit/gm Oint 1 applic TOPICAL BID 07/18/23 08/19/23 [Mycostatin Oint] Omeprazole [PriLOSEC] 20 mg PO DAILY 07/18/23 08/19/23 Pravastatin Sodium [Pravachol] 40 mg PO HS 07/18/23 08/19/23 QUEtiapine FUMARATE [SEROquel] 200 mg PO HS 07/18/23 08/19/23 QUEtiapine [SEROquel] 50 mg PO HS 07/18/23 08/19/23 buPROPion SR [Wellbutrin SR] 150 mg PO PC-BRKFST 07/18/23 08/19/23 busPIRone HCL [Buspar] 7.5 mg PO BID 07/18/23 08/19/23 lamoTRIgine [LaMICtal] 150 mg PO BID 07/18/23 08/19/23 Previous Rx's Medication Instructions Recorded Acetaminophen Tab [Tylenol] 650 mg PO Q4HR PRN tab 07/28/23 Budesonide [Pulmicort] 1 mg INHALATION RT-BID #30 each 07/28/23 Fluticasone Nasal [place] [Flonase 2 spray EA NOSTRIL DAILY #5 ml 07/28/23 Nasal [place]] Ipratropium-Albuterol Nebulize 3 ml INHALATION RT-Q2H PRN each 07/28/23 [Duoneb 0.5 mg-3 mg/3 ml Soln] Ipratropium-Albuterol Nebulize 3 ml INHALATION RT-QID #100 each 07/28/23 [Duoneb 0.5 mg-3 mg/3 ml Soln] Loratadine [Claritin] 5 mg PO DAILY #30 tab 07/28/23 Sodium Chloride 0.65% Nasal [Deep 2 spray NASAL QID PRN #7 ml 07/28/23 Sea (Saline)] Allergies Allergy/AdvReac Type Severity Reaction Status Date / Time codeine Allergy Swelling Verified 08/19/23 17:04 Review of Systems ROS Statement: Those systems with pertinent positive or pertinent negative responses have been documented in the HPI. ROS Other: All systems not noted in ROS Statement are negative. Limitations: ROS unobtainable due to patients medical condition (Dyspnea) Constitutional: Denies: fever Respiratory: Reports: cough, dyspnea Cardiovascular: Reports: chest pain. Denies: edema Gastrointestinal: Denies: vomiting Musculoskeletal: Denies: back pain Neurological: Denies: headache Past Medical History Past Medical History: Cancer, COPD, Pneumonia Additional Past Medical History / Comment(s): stage 1 left lung CA, O2 dependent. Patient states she has bipolar disorder. History of Any Multi-Drug Resistant Organisms: None Reported Past Surgical History: Hysterectomy Additional Past Surgical History / Comment(s): feet, hands, lung biopsy Past Psychological History: Anxiety, Bipolar Smoking Status: Former smoker Past Alcohol Use History: None Reported Past Drug Use History: None Reported General Exam Limitations: no limitations General appearance: alert, other (Frequent coughing and tachypnea) Head exam: Present: atraumatic, normocephalic Eye exam: Present: normal appearance. Absent: scleral icterus, conjunctival injection ENT exam: Present: mucous membranes dry Neck exam: Present: normal inspection, full ROM Respiratory exam: Present: respiratory distress (Tachypnea), wheezes, rhonchi. Absent: rales, stridor, accessory muscle use, decreased breath sounds Cardiovascular Exam: Present: normal rhythm, tachycardia, normal heart sounds. Absent: systolic murmur, diastolic murmur, rubs, gallop GI/Abdominal exam: Present: soft. Absent: distended, tenderness, guarding, rebound, rigid, mass Extremities exam: Present: normal inspection, normal capillary refill. Absent: pedal edema, calf tenderness Back exam: Present: normal inspection. Absent: CVA tenderness (R), CVA tenderness (L) Neurological exam: Present: alert Psychiatric exam: Present: anxious Skin exam: Present: warm, dry, intact, normal color. Absent: rash Course Vital Signs 08/11/23 08/11/23 08/11/23 22:18 22:42 22:45 Temperature 98.1 F Pulse Rate 112 H 107 H Respiratory 36 H 34 H 34 H Rate Blood Pressure 81/46 107/54 O2 Sat by Pulse 91 L 91 L Oximetry 08/11/23 08/11/23 08/11/23 22:48 23:01 23:15 Temperature Pulse Rate 114 H 107 H 103 H Respiratory 32 H Rate Blood Pressure 104/64 O2 Sat by Pulse 91 L Oximetry 08/12/23 08/12/23 08/12/23 00:56 02:00 08:18 Temperature Pulse Rate 91 87 88 Respiratory 22 26 H Rate Blood Pressure 102/58 107/61 O2 Sat by Pulse 89 L 95 94 L Oximetry 08/12/23 08/12/23 08/12/23 08:26 09:02 11:47 Temperature 98.3 F Pulse Rate 95 97 102 H Respiratory 20 Rate Blood Pressure 91/58 O2 Sat by Pulse 93 L Oximetry 08/12/23 08/12/23 08/12/23 11:58 12:30 13:50 Temperature 98.5 F Pulse Rate 97 103 H 96 Respiratory 22 20 Rate Blood Pressure 107/57 108/56 O2 Sat by Pulse 92 L 93 L Oximetry 08/12/23 08/12/23 08/12/23 15:51 15:58 16:25 Temperature 98.3 F Pulse Rate 101 H 100 100 Respiratory 22 Rate Blood Pressure 122/68 O2 Sat by Pulse 93 L Oximetry 08/12/23 08/12/23 18:49 20:00 Temperature Pulse Rate 101 H Respiratory 22 24 Rate Blood Pressure 120/65 O2 Sat by Pulse 92 L Oximetry Medical Decision Making - Medical Decision Making Patient is 78-year-old woman who is here with constant cough and dyspnea which is increased from what she had been having at discharge. The patient had chest x-ray that shows complete opacification of left lung The patient had CT of the chest that I interpreted as negative for acute pulmonary embolism Was pt. sent in by a medical professional or institution (, PA, DERMATOLOGIST AND DERMATOPATHOLOGIST, urgent care, hospital, or custodial...) When possible be specific @ -[No] Did you speak to anyone other than the patient for history (EMS, parent, family, police, friend...)? What history was obtained from this source @ -[Patient's family gives history Did you review nursing and triage notes (agree or disagree)? Why? @ -[I reviewed and agree with nursing and triage notes] Were old charts reviewed (outside hosp., previous admission, EMS record, old EKG, old radiological studies, urgent care reports/EKG's, custodial records)? Report findings @ -[Yes, old charts were reviewed] Differential Diagnosis (chest pain, altered mental status, abdominal pain women, abdominal pain men, vaginal bleeding, weakness, fever, dyspnea, syncope, headache, dizziness, GI bleed, back pain, seizure, CVA, palpatations, mental health, musculoskeletal)? @ -[Differential Dyspnea: Coronary syndrome, arrhythmia, tamponade, asthma, COPD, pulmonary embolism, pneumonia, pneumothorax, pulmonary effusion, anaphylaxis, diabetic ketoacidosis, flailed chest, pulmonary contusion, diaphragmatic rupture, anemia, neuromuscular, this is not meant to be an all-inclusive list. EKG interpreted by me (3pts min.). @ -[I interpreted as above] X-rays interpreted by me (1pt min.). @ -[I interpreted as above CT interpreted by me (1pt min.). @ -[I interpreted as above U/S interpreted by me (1pt. min.). @ -[None done] What testing was considered but not performed or refused? (CT, X-rays, U/S, labs)? Why? @ -[None] What meds were considered but not given or refused? Why? @ -[None] Did you discuss the management of the patient with other professionals (professionals i.e. , PA, DERMATOLOGIST AND DERMATOPATHOLOGIST, lab, RT, psych nurse, social media strategist, fresco artist, teacher, cash management officer, case work aide)? Give summary @ -[Case discussed with admitting physician and treatment recommendations incorporated Was smoking cessation discussed for >3mins.? @ -[No] Was critical care preformed (if so, how long)? @ -[No] Were there social determinants of health that impacted care today? How? (Homelessness, low income, unemployed, alcoholism, drug addiction, transportation, low edu. Level, literacy, decrease access to med. care, long-term, rehab)? @ -[No] Was there de-escalation of care discussed even if they declined (Discuss DNR or withdrawal of care, Hospice)? DNR status @ -[Discussed CODE STATUS and at this point no decision What co-morbidities impacted this encounter? (DM, HTN, Smoking, COPD, CAD, Cancer, CVA, ARF, Chemo, Hep., AIDS, mental health diagnosis, sleep apnea, morbid obesity)? @ -[History of cancer. COPD Was patient admitted / discharged? Hospital course, mention meds given and route, prescriptions, significant lab abnormalities, going to OR and other pertinent info. @ -[Patient is 78-year-old woman here with dyspnea and cough, with worsening from her usual status. The patient will be admitted to have consultation from pulmonology and oncology related to her lung mass Undiagnosed new problem with uncertain prognosis? @ -[No] Drug Therapy requiring intensive monitoring for toxicity (Heparin, Nitro, Insulin, Cardizem)? @ -[No] Were any procedures done? @ -[No] Diagnosis/symptom? @ -[Acute dyspnea Lung cancer Pleural effusion COPD exacerbation Acute, or Chronic, or Acute on Chronic? @ -[default] Uncomplicated (without systemic symptoms) or Complicated (systemic symptoms)? @ -[default] Side effects of treatment? @ -[No] Exacerbation, Progression, or Severe Exacerbation? @ -[No] Poses a threat to life or bodily function? How? (Chest pain, USA, SD, pneumonia, PE, COPD, DKA, ARF, appy, cholecystitis, CVA, Diverticulitis, Homicidal, Suicidal, threat to staff... and all critical care pts) @ -[Yes - Lab Data Result diagrams: 08/15/23 04:40 08/15/23 04:40 Lab Results 08/11/23 08/11/23 08/11/23 Range/Units 22:38 22:38 22:38 WBC 9.0 (3.8-10.6) k/uL RBC 3.97 (3.80-5.40) m/uL Hgb 10.3 L (11.4-16.0) gm/dL Hct 33.3 L (34.0-46.0) % MCV 83.9 D (80.0-100.0) fL MCH 26.1 (25.0-35.0) pg MCHC 31.1 (31.0-37.0) g/dL RDW 16.7 H (11.5-15.5) % Plt Count 219 (150-450) k/uL MPV 8.0 Neutrophils % 81 % Lymphocytes % 10 % Monocytes % 5 % Eosinophils % 2 % Basophils % 0 % Neutrophils # 7.3 (1.3-7.7) k/uL Lymphocytes # 0.9 L (1.0-4.8) k/uL Monocytes # 0.4 (0-1.0) k/uL Eosinophils # 0.2 (0-0.7) k/uL Basophils # 0.0 (0-0.2) k/uL Hypochromasia Slight Poikilocytosis Slight Anisocytosis Slight PT 11.2 (10.0-12.5) sec INR 1.0 (<1.2) APTT 25.3 (22.0-30.0) sec D-Dimer 2.07 H (<0.60) mg/L FEU Sodium 136 L (137-145) mmol/L Potassium 3.5 (3.5-5.1) mmol/L Chloride 100 (98-107) mmol/L Carbon Dioxide 27 (22-30) mmol/L Anion Gap 9 mmol/L BUN 28 H (7-17) mg/dL Creatinine 1.40 H (0.52-1.04) mg/dL Est GFR (CKD-EPI)AfAm 42 (>60 ml/min/1.73 sqM) Est GFR (CKD-EPI)NonAf 36 (>60 ml/min/1.73 sqM) Glucose 124 H (74-99) mg/dL Plasma Lactic Acid Brendan (0.7-2.0) mmol/L Calcium 8.9 (8.4-10.2) mg/dL Total Bilirubin 1.0 (0.2-1.3) mg/dL AST 21 (14-36) U/L ALT 19 (4-34) U/L Alkaline Phosphatase 117 (38-126) U/L Troponin I (0.000-0.034) ng/mL NT-Pro-B Natriuret Pep 980 pg/mL Total Protein 6.3 (6.3-8.2) g/dL Albumin 3.4 L (3.5-5.0) g/dL 08/11/23 08/11/23 Range/Units 22:38 22:38 WBC (3.8-10.6) k/uL RBC (3.80-5.40) m/uL Hgb (11.4-16.0) gm/dL Hct (34.0-46.0) % MCV (80.0-100.0) fL MCH (25.0-35.0) pg MCHC (31.0-37.0) g/dL RDW (11.5-15.5) % Plt Count (150-450) k/uL MPV Neutrophils % % Lymphocytes % % Monocytes % % Eosinophils % % Basophils % % Neutrophils # (1.3-7.7) k/uL Lymphocytes # (1.0-4.8) k/uL Monocytes # (0-1.0) k/uL Eosinophils # (0-0.7) k/uL Basophils # (0-0.2) k/uL Hypochromasia Poikilocytosis Anisocytosis PT (10.0-12.5) sec INR (<1.2) APTT (22.0-30.0) sec D-Dimer (<0.60) mg/L FEU Sodium (137-145) mmol/L Potassium (3.5-5.1) mmol/L Chloride (98-107) mmol/L Carbon Dioxide (22-30) mmol/L Anion Gap mmol/L BUN (7-17) mg/dL Creatinine (0.52-1.04) mg/dL Est GFR (CKD-EPI)AfAm (>60 ml/min/1.73 sqM) Est GFR (CKD-EPI)NonAf (>60 ml/min/1.73 sqM) Glucose (74-99) mg/dL Plasma Lactic Acid Brendan 1.8 (0.7-2.0) mmol/L Calcium (8.4-10.2) mg/dL Total Bilirubin (0.2-1.3) mg/dL AST (14-36) U/L ALT (4-34) U/L Alkaline Phosphatase (38-126) U/L Troponin I 0.014 (0.000-0.034) ng/mL NT-Pro-B Natriuret Pep pg/mL Total Protein (6.3-8.2) g/dL Albumin (3.5-5.0) g/dL - EKG Data -: EKG Interpreted by Me EKG shows normal: sinus rhythm, QRS complexes (Possible old inferior infarct based on Q waves leads II, III and aVF) Rate: tachycardia (Rate 108 bpm) Disposition Clinical Impression: Pulmonary mass, Acute exacerbation of chronic obstructive pulmonary disease, Pleural effusion Disposition: ADMITTED IP TO THIS HOSP Condition: Poor
[2023-08-11 23:00] LABS: MCV 83.9 fL (80.0-100.0)
[2023-08-11] MEDS: MORPHINE SULFATE 4 MG/ML SYRINGE IV STA (23:02)
[2023-08-11 23:05] LABS: ALT 19 U/L (4-34); AST 21 U/L (14-36); African American GFR (CKD) 42 (>60 ml/min/1.73 sqM); Albumin 3.4 g/dL (3.5-5.0); Alkaline Phosphatase 117 U/L (38-126); Anion Gap 9 mmol/L; Blood Urea Nitrogen 28 mg/dL (7-17); Calcium 8.9 mg/dL (8.4-10.2); Carbon Dioxide 27 mmol/L (22-30); Chloride 100 mmol/L (98-107); Glucose 124 mg/dL (74-99); Non-African American GFR(CKD) 36 (>60 ml/min/1.73 sqM); Potassium 3.5 mmol/L (3.5-5.1); Sodium 136 mmol/L (137-145); Total Protein 6.3 g/dL (6.3-8.2)
[2023-08-11 23:08] LABS: Partial Thromboplastin Time 25.3 sec (22.0-30.0); Prothrombin Time 11.2 sec (10.0-12.5)
[2023-08-11 23:13] LABS: NT-Pro-B-Type Natriuretic Pept 980 pg/mL
--- NOTE | 2023-08-11 23:16 | XR ---
EXAMINATION TYPE: XR chest 1V portable DATE OF EXAM: 08/11/2023 COMPARISON: Chest x-ray from July [address] July 18, 2023. HISTORY: Dyspnea. TECHNIQUE: Single frontal view of the chest is obtained. FINDINGS: There is completely opacified left hemithorax with left-sided volume loss redemonstrated. Right lung remains clear. Silhouetting left heart border redemonstrated. The osseous structures ar e intact. IMPRESSION: Completely opacified left hemithorax with left-sided volume loss suggesting at least a s ignificant atelectatic component is redemonstrated. Suspect underlying left hilar mass or neoplasm. R ight lung remains clear.
[2023-08-12] MEDS: MORPHINE SULFATE 4 MG/ML SYRINGE IV STA (00:57)
--- NOTE | 2023-08-12 04:21 | CT ---
EXAM: CT Angiography Chest With Intravenous Contrast CLINICAL HISTORY: possible pe TECHNIQUE: Axial computed tomographic angiography images of the chest with intravenous contrast. CTDI is 20.2 mGy and DLP is 272.9 mGy-cm. This CT exam was performed using one or more of the following dose reduction techniques: automated exposure control, adjustment of the mA and/or kV according to patient size, and/or use of iterative reconstruction technique. MIP reconstructed images were created and reviewed. COMPARISON: CT chest with contrast dated 07/18/2023 FINDINGS: Pulmonary arteries: No evidence for pulmonary embolism. Aorta: Atherosclerotic calcification of the aorta without dissection or aneurysm. Lungs: The previously noted masslike area in the left hilum is larger when compared to the previous examination. There is an area in the lingular segments which demonstrate consolidation but no pulmonary artery perfusion and complete opacification of the bronchial segments. The area of involvement is estimated at 7.6 x 6.9 x 4.5 cm. The left lung is entirely consolidated without aeration. There is complete opacification of the distal left mainstem bronchus with fluid filled presumed postobstructive filling of the subsegmental bronchus serving the left lower lobe. There is volume loss with elevation of the left hemidiaphragm. Pleural space: There is a moderate left pleural effusion noted throughout the left hemithorax. No pneumothorax. Heart: The cardiac chambers are normal. Mild pericardial effusion noted primarily in the superior pericardial recess. Mediastinum: Advanced centrilobular emphysema involving the right lung with hyperexpansion. There is subtle shift of the cardiomediastinal structures to the left. Minimal curvilinear presumed atelectatic changes noted at the left lung base. No definite right-sided mass. Bones/joints: No acute fracture. No dislocation. Soft tissues: Unremarkable. Lymph nodes: Unremarkable. No enlarged lymph nodes. IMPRESSION: 1. The previously noted masslike area in the left hilum is larger when compared to the previous examination. There is an area in the lingular segments which demonstrate consolidation but no pulmonary artery perfusion and complete opacification of the bronchial segments. The area of presumed masslike involvement is estimated at 7.6 x 6.9 x 4.5 cm. Again, the primary consideration is a neoplastic process. Highly recommend either endobronchial biopsy of the masslike obstruction of the distal left mainstem bronchus or PET imaging for further analysis. 2. The left lung is entirely consolidated without aeration. There is complete opacification of the distal left mainstem bronchus with fluid filled presumed postobstructive filling of the subsegmental bronchus serving the left lower lobe. There is volume loss with elevation of the left hemidiaphragm. 3. There is a moderate left pleural effusion noted throughout the left hemithorax. 4. No evidence for pulmonary embolism. 5. Advanced centrilobular emphysema involving the right lung with hyperexpansion. There is subtle shift of the cardiomediastinal structures to the left. Minimal curvilinear presumed atelectatic changes noted at the left lung base. No definite right-sided mass.
[2023-08-12] MEDS: ALPRAZolam 0.25 MG TAB PO PRN (05:27)
[2023-08-12] MEDS: LEVOTHYROXINE 75 MCG TAB PO SCH (07:06)
[2023-08-12] MEDS: guaiFENesin SYRUP 100MG/5ML 200 MG/10 ML CUP PO PRN (07:14)
[2023-08-12] MEDS: SYMBICORT 160-4.5 MCG INHALER INHALATION SCH (08:13)
[2023-08-12] MEDS: IPRATROPIUM-ALBUTEROL 3 ML NEB INHALATION SCH ×2 (08:13→11:45)
[2023-08-12] MEDS: BUDESONIDE 1 MG/2 ML NEBU INHALATION SCH (08:13)
[2023-08-12] MEDS: PANTOPRAZOLE 40 MG TABLET PO SCH (09:00)
[2023-08-12] MEDS: GABAPENTIN 300 MG CAP PO SCH (09:00)
[2023-08-12] MEDS: lamoTRIgine 100 MG TAB PO SCH (09:00)
[2023-08-12] MEDS: guaiFENesin 600 MG TABLET.ER PO SCH (09:00)
[2023-08-12] MEDS ORDERED: polyethylene glycoL 3350 17 GM POWD.PACK PO PRN (10:08)
[2023-08-12] MEDS: busPIRone HCl 5 MG TAB PO SCH (12:19)
[2023-08-12] MEDS: SENNOSIDES 8.6 MG TAB PO SCH (12:19)
[2023-08-12] MEDS: LORATADINE 10 MG TAB PO SCH (12:20)
[2023-08-12] MEDS: FLUTICASONE 50MCG/SPRAY NASAL 16GM EA NOSTRIL SCH (12:21)
[2023-08-12] MEDS: buPROPion SR 150 MG TABLET.ER PO SCH (12:21)
[2023-08-12] MEDS: NYSTATIN 100,000 UNIT/GM OINT 30 GM TUBE TOPICAL SCH (12:26)
--- NOTE | 2023-08-12 13:48 | P.CNPUL ---
History of Present Illness Consult date: 08/12/23 Requesting physician: Beny Booth Reason for consult: dyspnea, abnormal CXR/CT Chief complaint: Shortness of breath, cough, weakness History of present illness: This is a very pleasant 78-year-old female with a history significant for COPD, lung cancer, hypothyroidism, hyperlipidemia, bipolar disorder. She states that she has moderate to severe emphysema/COPD. She quit smoking approximately 3 years ago. She is oxygen dependent on 3 L/min nasal cannula at home. She does have a known lung mass/nodule on the left side, first identified 3 years ago, and has underwent radiation therapy. She is not on any systemic chemotherapy or immunotherapy. The patient was here from July 17 through July 28, 2023. Patient was in town visiting her son who lives across the border in [place]. She is actually from [place]. She does follow with a scientific artist in [place], Dr. John Hernandez. During her recent hospitalization he was found to have complete opacification of the left lung and postobstructive atelectasis. She had undergone bronchoscopy with biopsy on 07/21/2023 and was found to have non-small cell lung cancer in the form of pulmonary adenocarcinoma. She was subsequently discharged and was to follow-up with radiation oncology for palliative and then possible continued radiation. States she had an appointment to initiate radiation here in town but as she was living with her son in [place] the day they were to cross there was too many cars and they did not come over for the appointment. She presented here again to the emergency room last evening with worsening shortness of breath, cough and congestion. This x-ray continues show completely opacified left hemithorax and left-sided volume loss. Underlying left hilar mass present. Right lung remains clear. CT angiogram reveals no evidence of pulmonary embolism. There is advanced centrilobular emphysema involving the right lung with hyperexpansion. There is previously noted masslike area in the left hilum which is larger compared to previous exam. There is an area in the lingular segment demonstrates consolidation but no pulmonary artery perfusion and complete opacification of the bronchial segments. The area of presumed masslike involvement is estimated at 7.6 x 6.9 x 4.5. Left lung is not entirely consolidated without aeration. There is complete opacification of the distal left mainstem bronchus with fluid-filled presumed postobstructive filling in the segmental bronchus serving the left lower lobe. There is volume loss with the elevation of the left hemidiaphragm. White count 9.0. Hemoglobin 10.3. Platelets 219. D-dimer 2.07. Sodium 136. Potassium 3.5. Bicarb 27. BUN 28. Creatinine 1.40. Glucose 124. AST 21. ALT 19. proBNP 980. She is seen today in consultation in the emergency department. She is currently resting in the stretcher. Awake and alert. She is quite cachectic and frail. She is requiring 5 L high flow nasal cannula to maintain O2 saturations in the 90s. BMI of 23.0 kg/m. Currently afebrile. Hemodynamically stable. Review of Systems REVIEW OF SYSTEMS: CONSTITUTIONAL: Deferred generalized weakness, fatigue. Positive for si gnificant weight loss. EYES: Denies change in vision. EARS, NOSE, MOUTH, THROAT: Positive for headaches, denies sore throat. CARDIOVASCULAR: Denies chest pain, palpitations or syncopal episodes. RESPIRATORY: Positive for shortness of breath, cough, congestion no hemoptysis. GASTROINTESTINAL: Denies change in appetite, denies abdominal pain GENITOURINARY: Denies hematuria, denies infections. MUSKULOSKELETAL: Denies pain, denies swelling. INTEGUMENTARY: Denies rash, denies eczema. NEUROLOGICAL: Denies recent memory loss, no recent seizure activity. PSYCHIATRIC: Denies anxiety, denies depression. HEMATOLOGIC/LYMPHATIC: Denies anemia, denies enlarged lymph nodes. Past Medical History Past Medical History: Cancer, COPD, Pneumonia Additional Past Medical History / Comment(s): stage 1 left lung CA, O2 dependent. Patient states she has bipolar disorder. History of Any Multi-Drug Resistant Organisms: None Reported Past Surgical History: Hysterectomy Additional Past Surgical History / Comment(s): feet, hands, lung biopsy Past Psychological History: Anxiety, Bipolar Smoking Status: Former smoker Past Alcohol Use History: None Reported Past Drug Use History: None Reported Medications and Allergies Home Medications Medication Instructions Recorded Confirmed Type Fluticasone Propion/Salmeterol 2 puff INHALATION RT-BID 07/18/23 08/12/23 History [Fluticasone-Salmeterol 115-21] Gabapentin [Neurontin] 300 mg PO TID 07/18/23 08/12/23 History Levothyroxine Sodium [Synthroid] 75 mcg PO DAILY 07/18/23 08/12/23 History Mirtazapine [Remeron] 15 mg PO HS 07/18/23 08/12/23 History Nystatin 100,000 Unit/gm Oint 1 applic TOPICAL BID 07/18/23 08/12/23 History [Mycostatin Oint] Omeprazole [PriLOSEC] 20 mg PO DAILY 07/18/23 08/12/23 History Pravastatin Sodium [Pravachol] 40 mg PO HS 07/18/23 08/12/23 History QUEtiapine FUMARATE [SEROquel] 200 mg PO HS 07/18/23 08/12/23 History QUEtiapine [SEROquel] 50 mg PO HS 07/18/23 08/12/23 History buPROPion SR [Wellbutrin SR] 150 mg PO PC-BRKFST 07/18/23 08/12/23 History busPIRone HCL [Buspar] 7.5 mg PO BID 07/18/23 08/12/23 History lamoTRIgine [LaMICtal] 150 mg PO BID 07/18/23 08/12/23 History Acetaminophen Tab [Tylenol] 650 mg PO Q4HR PRN tab 07/28/23 08/12/23 Rx Budesonide [Pulmicort] 1 mg INHALATION RT-BID #30 each 07/28/23 08/12/23 Rx Fluticasone Nasal [place] [Flonase 2 spray EA NOSTRIL DAILY #5 ml 07/28/2308/11 Rx Nasal [place]] Ipratropium-Albuterol Nebulize 3 ml INHALATION RT-Q2H PRN each 07/28/23 08/12/23 Rx [Duoneb 0.5 mg-3 mg/3 ml Soln] Ipratropium-Albuterol Nebulize 3 ml INHALATION RT-QID #100 each 07/28/23 08/12/23 Rx [Duoneb 0.5 mg-3 mg/3 ml Soln] Loratadine [Claritin] 5 mg PO DAILY #30 tab 07/28/23 08/12/23 Rx Sodium Chloride 0.65% Nasal [Deep 2 spray NASAL QID PRN #7 ml 07/28/23 08/12/23 Rx Sea (Saline)] Allergies Allergy/AdvReac Type Severity Reaction Status Date / Time codeine Allergy Swelling Verified 08/12/23 07:35 Physical Exam Vitals: Vital Signs Temp Pulse Resp BP Pulse Ox 08/12/23 12:30 98.5 F 103 H 22 107/57 92 L 08/12/23 11:58 97 08/12/23 11:47 102 H 08/12/23 09:02 98.3 F 97 20 91/58 93 L 08/12/23 08:26 95 08/12/23 08:18 88 94 L 08/12/23 02:00 87 26 H 107/61 95 08/12/23 00:56 91 22 102/58 89 L 08/11/23 23:15 103 H 32 H 104/64 91 L 08/11/23 23:01 107 H 08/11/23 22:48 114 H 08/11/23 22:45 34 H 08/11/23 22:42 107 H 34 H 107/54 91 L 08/11/23 22:18 98.1 F 112 H 36 H 81/46 91 L Intake and Output 08/11/23 08/12/23 08/12/23 22:59 06:59 14:59 Intake Total 200 Balance 200 Intake: Oral 200 Other: Weight 58.967 kg 58.967 kg GENERAL EXAM: Alert, very weak, cachectic 78-year-old female, on 5 L nasal cannula, fairly comfortable. HEAD: Normocephalic. EYES: Normal reaction of pupils, equal size. NOSE: Clear with pink turbinates. THROAT: No erythema or exudates. NECK: No masses, no JVD. CHEST: No chest wall deformity. LUNGS: Equal air entry with diminished throughout the whole left lung field.. CVS: S1 and S2 normal with no audible murmur, regular rhythm. ABDOMEN: No hepatosplenomegaly, normal bowel sounds, no guarding or rigidity. SPINE: No scoliosis or deformity SKIN: No rashes CENTRAL NERVOUS SYSTEM: No focal deficits, tone is normal in all 4 extremities. EXTREMITIES: There is no peripheral edema. No clubbing, no cyanosis. Peripheral pulses are intact. Results - Laboratory Findings CBC and BMP: 08/11/23 22:38 08/11/23 22:38 PT/INR, D-dimer PT 11.2 sec (10.0-12.5) 04/24/24 22:38 INR 1.0 (<1.2) 08/11/23 22:38 D-Dimer 2.07 mg/L FEU (<0.60) H 08/11/23 22:38 Abnormal lab findings: Abnormal Labs 08/11/23 08/11/23 08/11/23 22:38 22:38 22:38 Hgb 10.3 L Hct 33.3 L RDW 16.7 H Lymphocytes # 0.9 L D-Dimer 2.07 H Sodium 136 L BUN 28 H Creatinine 1.40 H Glucose 124 H Albumin 3.4 L - Diagnostic Findings Chest x-ray: image reviewed CT scan - chest: image reviewed Assessment and Plan Assessment: Acute hypoxemic respiratory failure secondary to complete opacification of the left lung. CT angiogram reveals no evidence of pulmonary embolism. There is advanced centrilobular emphysema involving the right lung with hyperexpansion. There is previously noted masslike area in the left hilum which is larger compared to previous exam. There is an area in the lingular segment demonstrates consolidation but no pulmonary artery perfusion and complete opacification of the bronchial segments. The area of presumed masslike involvement is estimated at 7.6 x 6.9 x 4.5. Left lung is not entirely consolidated without aeration. There is complete opacification of the distal left mainstem bronchus with fluid-filled presumed postobstructive filling in the segmental bronchus serving the left lower lobe. There is volume loss with the elevation of the left hemidiaphragm. Previously measured 3.7 x 2.3 cm left hilar mass, with suspected postobstructive atelectasis within the lingula, S/P bronchoscopy on 07/21/2023. Pathology is consistent with a non-small cell lung cancer, likely pulmonary adenocarcinoma. The patient was given stage T2 a N0 M0 and the patient will obviously need an PET/CT on outpatient basis. MRI of the brain has been negative. CAT scan of the abdomen shows no evidence of any metastatic abnormalities. Acute on chronic hypoxemic respiratory failure secondary to acute exacerbation of COPD and above, currently on 5 L of oxygen by nasal cannula Chronic obstructive pulmonary disease. Lung nodule/lung cancer, status post radiation therapy, probable SBRT. This was performed in [place] History of hypothyroidism History of hyperlipidemia History of bipolar disorder Former tobacco smoker, quitting approximately 3 years ago Plan: The patient was seen and evaluated CAT scan of the chest, chest x-ray, labs and medications reviewed Currently on 5 L nasal cannula. Titrate as needed Add DuoNeb and elations, Pulmicort and Perforomist inhalations Patient was not able to keep an appointment for radiation since last discharge Educated regarding the importance of medical compliance New CAT scan showing enlarging masslike involvement at the lingular segment Will re-consult radiation and medical oncology Overall prognosis is quite poor CODE STATUS to be addressed We will continue to follow and make further recommendations based on her clinical status This patient was seen independently by the pulmonary nurse practitioner addressing pulmonary issues I have personally seen and examined the patient, performed the documentation and the assessment and plan as written. Number of minutes spent on the visit: 40.
[2023-08-12] MEDS: MORPHINE SULFATE 2 MG/ML SYRINGE IVP PRN (13:49)
--- NOTE | 2023-08-12 19:15 | P.HPIM ---
History of Present Illness H&P Date: 08/12/23 Chief Complaint: Shortness of breath Patient is a 78-year-old male with a past medical history of COPD on home oxygen, known history of left lung mass/nodule status post radiation therapy, hypothyroidism, bipolar disorder, anxiety and prior history of smoking quit 3 years ago. Patient was recently in the hospital from 07/18/2023 to 07/28/2023. Patient is actually from [place] and visiting her son who lives across the border in [place]. During this admission patient underwent bronchoscopy with biopsy on 07/21/2023. Left main tissue, transbronchial biopsy showed detached atypical cells having site of morphologic features compatible with non-small cell carcinoma. Patient was recommended to go to subacute rehab at the time but eventually patient wants to be discharged home and supposed to follow-up with radiation oncology for palliative radiation. Patient is currently living with her son in [place] and misses her appointment. Patient presented back to ER with worsening shortness of breath cough and congestion. Chest x-ray showed completely opacified left hemithorax with left-sided volume loss suggesting at least a significant atelectatic component is redemonstrated. Suspect underlying left hilar mass or neoplasm. Right lung remains clear. EKG showed sinus tachycardia. CTA chest was done. Showed previously noted masslike area in the left hilum is larger when compared to the previous exam. The left lung is entirely consolidated without aeration. There is moderate left pleural effusion noted throughout the left hemithorax. No evidence for PE. Advanced central lobar emphysema involving the right lung with hyperexpansion. Laboratory data showed WBC 9.0 hemoglobin 10.3 and platelets 219, D-dimer 2.07 Sodium 136 potassium 3.5 chloride 100 bicarb is 27 BUN 28 and creatinine 1.4 and blood sugar 124. Liver enzymes are not elevated. proBNP 980 and albumin 3.4. Review of Systems Constitutional: Patient denies any fever or chills . Patient does have generalized weakness and fatigue and loss of appetite.. Abdomen: Patient denied nausea vomiting and diarrhea and abdominal pain. Cardiovascular: Patient denies any chest pain. Patient does have short of breath no palpitations. No leg swelling Respiratory: patient does have cough and congestion and shortness of breath Neurologic: Patient denied any numbness or tingling headache. Complete review of systems could not be obtained from the patient except as above. Past Medical History Past Medical History: Cancer, COPD, Pneumonia Additional Past Medical History / Comment(s): stage 1 left lung CA, O2 dependent. Patient states she has bipolar disorder. History of Any Multi-Drug Resistant Organisms: None Reported Past Surgical History: Hysterectomy Additional Past Surgical History / Comment(s): feet, hands, lung biopsy Past Psychological History: Anxiety, Bipolar Smoking Status: Former smoker Past Alcohol Use History: None Reported Past Drug Use History: None Reported Medications and Allergies Home Medications Medication Instructions Recorded Confirmed Type Fluticasone Propion/Salmeterol 2 puff INHALATION RT-BID 07/18/23 08/12/23 History [Fluticasone-Salmeterol 115-21] Gabapentin [Neurontin] 300 mg PO TID 07/18/23 08/12/23 History Levothyroxine Sodium [Synthroid] 75 mcg PO DAILY 07/18/23 08/12/23 History Mirtazapine [Remeron] 15 mg PO HS 07/18/23 08/12/23 History Nystatin 100,000 Unit/gm Oint 1 applic TOPICAL BID 07/18/23 08/12/23 History [Mycostatin Oint] Omeprazole [PriLOSEC] 20 mg PO DAILY 07/18/23 08/12/23 History Pravastatin Sodium [Pravachol] 40 mg PO HS 07/18/23 08/12/23 History QUEtiapine FUMARATE [SEROquel] 200 mg PO HS 07/18/23 08/12/23 History QUEtiapine [SEROquel] 50 mg PO HS 07/18/23 08/12/23 History buPROPion SR [Wellbutrin SR] 150 mg PO PC-BRKFST 07/18/23 08/12/23 History busPIRone HCL [Buspar] 7.5 mg PO BID 07/18/23 08/12/23 History lamoTRIgine [LaMICtal] 150 mg PO BID 07/18/23 08/12/23 History Acetaminophen Tab [Tylenol] 650 mg PO Q4HR PRN tab 07/28/23 08/12/23 Rx Budesonide [Pulmicort] 1 mg INHALATION RT-BID #30 each 07/28/23 08/12/23 Rx Fluticasone Nasal [place] [Flonase 2 spray EA NOSTRIL DAILY #5 ml 07/28/23 08/12/23 Rx Nasal [place]] Ipratropium-Albuterol Nebulize 3 ml INHALATION RT-Q2H PRN each 07/28/23 08/12/23 Rx [Duoneb 0.5 mg-3 mg/3 ml Soln] Ipratropium-Albuterol Nebulize 3 ml INHALATION RT-QID #100 each 07/28/23 08/12/23 Rx [Duoneb 0.5 mg-3 mg/3 ml Soln] Loratadine [Claritin] 5 mg PO DAILY #30 tab 07/28/23 08/12/23 Rx Sodium Chloride 0.65% Nasal [Deep 2 spray NASAL QID PRN #7 ml 07/28/23 08/12/23 Rx Sea (Saline)] Allergies Allergy/AdvReac Type Severity Reaction Status Date / Time codeine Allergy Swelling Verified 08/12/23 07:35 Physical Exam Vitals: Vital Signs Temp Pulse Resp BP Pulse Ox 08/12/23 09:02 98.3 F 97 20 91/58 93 L 08/12/23 08:26 95 08/12/23 08:18 88 94 L 08/12/23 02:00 87 26 H 107/61 95 08/12/23 00:56 91 22 102/58 89 L 08/11/23 23:15 103 H 32 H 104/64 91 L 08/11/23 23:01 107 H 08/11/23 22:48 114 H 08/11/23 22:45 34 H 08/11/23 22:42 107 H 34 H 107/54 91 L 08/11/23 22:18 98.1 F 112 H 36 H 81/46 91 L Intake and Output 08/11/23 08/12/23 08/12/23 22:59 06:59 14:59 Intake Total 200 Balance 200 Intake: Oral 200 Other: Weight 58.967 kg 58.967 kg PHYSICAL EXAMINATION: Patient is lying in the bed. Patient in mild distress due to shortness of breath.. Awake and alert and oriented. Weak and lethargic. HEENT: Normocephalic. Neck is supple. Pupils reactive. Nostrils clear. Oral cavity is moist. Neck reveals no JVD, carotid bruits, or thyromegaly. CHEST EXAMINATION: Trachea is central. Symmetrical expansion. Left-sided diminished sounds. Bilateral coarse breath sounds. Mild wheezing present bilaterally. CARDIAC: Normal S1, S2 with no gallops. No murmurs ABDOMEN: Soft. Bowel sounds present. No organomegaly. No abdominal bruits. Extremities: reveal no edema. No clubbing or cyanosis Neurologically awake, alert, oriented x 2 able to move all extremities while in bed.. No gross focal deficits noted Skin: No rash or skin lesions. Psychiatric: Coperative. Could not be sensitive completely Musculoskeletal: No joint swelling or deformity. Results CBC & Chem 7: 08/11/23 22:38 08/11/23 22:38 Labs: Abnormal Lab Results - Last 24 Hours (Table) 08/11/23 08/11/23 08/11/23 Range/Units 22:38 22:38 22:38 Hgb 10.3 L (11.4-16.0) gm/dL Hct 33.3 L (34.0-46.0) % RDW 16.7 H (11.5-15.5) % Lymphocytes # 0.9 L (1.0-4.8) k/uL D-Dimer 2.07 H (<0.60) mg/L FEU Sodium 136 L (137-145) mmol/L BUN 28 H (7-17) mg/dL Creatinine 1.40 H (0.52-1.04) mg/dL Glucose 124 H (74-99) mg/dL Albumin 3.4 L (3.5-5.0) g/dL Thrombosis Risk Factor Assmnt - DVT/VTE Prophylaxis DVT/VTE Prophylaxis: Pharmacologic Prophylaxis ordered - Choose All That Apply Each Factor Represents 1 point: Abnormal pulmonary function (COPD) Each Risk Factor Represents 2 Points: Age 61-74 years Thrombosis Risk Factor Assessment Total Risk Factor Score: 3 Thrombosis Risk Factor Assessment Level: Moderate Risk Assessment and Plan Assessment: Acute on chronic hypoxic respiratory failure secondary to moderate left pleural effusion, left hilar mass and entirely consolidated left lung without aeration. Currently requiring 5 L oxygen via nasal cannula. Acute kidney injury likely prerenal. Creatinine 1.4 on admission. 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 Elevated D-dimer level. CT angiogram showed no evidence of PE. COPD Left lung nodule/mass. Status post radiation previously at [place] Hyperlipidemia Hypothyroidism Bipolar disorder Prior history of smoking quit 3 years ago Moderate protein calorie malnutrition DVT prophylaxis with heparin subcu Plan: Patient will be continued on oxygen supplementation. Continue with [facility] Pulroopa and Perforomist. Radiation oncology was reconsulted for palliative radiation. Oncology was con sulted also. Will be continued on home medications including levothyroxine and other psychiatric medications. Continue to follow closely. Prognosis is poor at this time. Will discuss CODE STATUS with the patient and her son. Follow-up closely. Time with Patient: Greater than 30
[2023-08-12] MEDS: QUEtiapine 50 MG TAB PO SCH (21:19)
[2023-08-12] MEDS: HEPARIN SODIUM,PORCINE 5,000 UNIT/ML 1 ML VIAL SQ SCH (21:19)
[2023-08-12] MEDS: FORMOTEROL FUMARATE 20 MCG/2 ML NEBU INHALATION SCH (21:28)
--- NOTE | 2023-08-12 21:28 | P.CONS ---
History of Present Illness - Reason for Consult Consult date: 08/12/23 NSCLC Requesting physician: Jasmin England - Chief Complaint SOB - History of Present Illness Patient is a 78 yo female with PMH COPD and severe emphysema, long time nicotine dependence, quitting 5 yrs ago. We initially saw patient in consult on 07/21. Lung mass was found on CT imaging. Patient follows with a professor of musicology in [place] where she lives, she is currently visiting a son that lives in [place] and is awaiting a grandchild's graduation. In April 19992019 patient reports radiation to left lung nodules that were being followed, but she did not have any biopsy. She follows up regularly last seen March 2023, told no further progression or recurrence. On her way to [place] to visit she began to not feel well, increased shortness of breath and cough after receiving COVID-vaccine in early June. She reported left-sided occipital headache and feeling off balance x 1 week with multiple falls. Chest x-ray showed left lower lobe consolidation. CT chest showed a masslike area in the left hilar region measuring 3.7 x 2.3 with some suspected obstructive atelectasis within the lingula. Patient was on IV antibiotics, steroids and bronchodilators she had a bronchoscopy with biopsy 07/[address] Nicole, Transbronchial biopsy pathology reporting atypical cells compatible with non-small cell carcinoma. CK7 positive, TTF-1 rare, findings nonspecific but may represent pulmonary adenocarcinoma but at least a focal component of squamous differentiation could not entirely be excluded. Tissue specimens were requested to be sent for PD-L1 and NGS. She had a PET scan sched for 08/18. She was planning to be simulated and have radiation in the outpatient setting to help with symptoms but, she states that they got stuck in traffic and had to cancel that appointment. Patient is currently admitted with significant shortness of breath, she is feeling very weak and can "barely walk" she denies any fever or hemoptysis. It is noted that she has a very harsh, dry hacking cough and she is short of breath with speaking. CTA of the chest again reports the mass in the left hilar area is larger. Consolidation but no pulmonary artery perfusion, complete opacification of the bronchial segments. The area of involvement is estimated at 7.6 x 6.9 x 4.5 cm. Left lung is entirely consolidated without aeration complete opacif ication of the distal left mainstream bronchus, moderate left pleural effusion no definite right-sided mass, no evidence for PE subtle shift of the cardiomediastinal ruptures to the left no enlarged lymph nodes. Review of Systems 10 point ROS is neg except as stated in HPI Past Medical History Past Medical History: Cancer, COPD, Pneumonia Additional Past Medical History / Comment(s): stage 1 left lung CA, O2 dependent. Patient states she has bipolar disorder. History of Any Multi-Drug Resistant Organisms: None Reported Past Surgical History: Hysterectomy Additional Past Surgical History / Comment(s): feet, hands, lung biopsy Past Psychological History: Anxiety, Bipolar Smoking Status: Former smoker Past Alcohol Use History: None Reported Past Drug Use History: None Reported Medications and Allergies Home Medications Medication Instructions Recorded Confirmed Type Fluticasone Propion/Salmeterol 2 puff INHALATION RT-BID 07/18/23 08/12/23 History [Fluticasone-Salmeterol 115-21] Gabapentin [Neurontin] 300 mg PO TID 07/18/23 08/12/23 History Levothyroxine Sodium [Synthroid] 75 mcg PO DAILY 07/18/23 08/12/23 History Mirtazapine [Remeron] 15 mg PO HS 07/18/23 08/12/23 History Nystatin 100,000 Unit/gm Oint 1 applic TOPICAL BID 07/18/23 08/12/23 History [Mycostatin Oint] Omeprazole [PriLOSEC] 20 mg PO DAILY 07/18/23 08/12/23 History Pravastatin Sodium [Pravachol] 40 mg PO HS 07/18/23 08/12/23 History QUEtiapine FUMARATE [SEROquel] 200 mg PO HS 07/18/23 08/12/23 History QUEtiapine [SEROquel] 50 mg PO HS 07/18/23 08/12/23 History buPROPion SR [Wellbutrin SR] 150 mg PO PC-[id number] 07/18/23 08/12/23 History busPIRone HCL [Buspar] 7.5 mg PO BID 07/18/23 08/12/23 History lamoTRIgine [LaMICtal] 150 mg PO BID 07/18/23 08/12/23 History Acetaminophen Tab [Tylenol] 650 mg PO Q4HR PRN tab 07/28/23 08/12/23 Rx Budesonide [Pulmicort] 1 mg INHALATION RT-BID #30 each 07/28/23 08/12/23 Rx Fluticasone Nasal Dos Rios [Flonase 2 spray EA NOSTRIL DAILY #5 ml 07/28/23 08/12/23 Rx Nasal Dos Rios] Ipratropium-Albuterol Nebulize 3 ml INHALATION RT-Q2H PRN each 07/28/23 08/12/23 Rx [Duoneb 0.5 mg-3 mg/3 ml Soln] Ipratropium-Albuterol Nebulize 3 ml INHALATION RT-QID #100 each 07/28/23 08/12/23 Rx [Duoneb 0.5 mg-3 mg/3 ml Soln] Loratadine [Claritin] 5 mg PO DAILY #30 tab 07/28/23 08/12/23 Rx Sodium Chloride 0.65% Nasal [Deep 2 spray NASAL QID PRN #7 ml 07/28/23 08/12/23 Rx Sea (Saline)] Allergies Allergy/AdvReac Type Severity Reaction Status Date / Time codeine Allergy Swelling Verified 08/12/23 07:35 Physical Exam Vitals: Vital Signs Temp Pulse Resp BP Pulse Ox 08/12/23 12:30 98.5 F 103 H 22 107/57 92 L 08/12/23 11:58 97 08/12/23 11:47 102 H 08/12/23 09:02 98.3 F 97 20 91/58 93 L 08/12/23 08:26 95 08/12/23 08:18 88 94 L 08/12/23 02:00 87 26 H 107/61 95 08/12/23 00:56 91 22 102/58 89 L 08/11/23 23:15 103 H 32 H 104/64 91 L 08/11/23 23:01 107 H 08/11/23 22:48 114 H 08/11/23 22:45 34 H 08/11/23 22:42 107 H 34 H 107/54 91 L 08/11/23 22:18 98.1 F 112 H 36 H 81/46 91 L Intake and Output 08/11/23 08/12/23 08/12/23 22:59 06:59 14:59 Intake Total 200 Balance 200 Intake: Oral 200 Other: Weight 58.967 kg 58.967 kg - Constitutional General appearance: cooperative, mild distress, thin - EENT Eyes: anicteric sclerae, EOMI ENT: hearing grossly normal - Neck Neck: no lymphadenopathy - Respiratory Difficulty speaking, harsh, dry hacking cough that takes her time to recover from Respiratory: right: CTA, left: other (no breath sounds) - Cardiovascular mod/severe clubbing of the fingers and toes Heart sounds: normal: S1, S2 Abnormal Heart Sounds: no systolic murmur, no diastolic murmur, no rub, no S3 Gallop, no S4 Gallop, no click, no other leg Peripheral Edema: bilateral: None - Gastrointestinal General gastrointestinal: no absent bowel sounds, no decreased bowel sounds, no distended, no hepatomegaly, no hyperactive bowel sounds, normal bowel sounds, no organomegaly, no rigid, no scaphoid, soft, no splenomegaly, no tenderness, no umbilical hernia, no ventral hernia - Neurologic Neurologic: CNII-XII intact - Musculoskeletal Musculoskeletal: generalized weakness - Psychiatric Psychiatric: A&O x's 3, appropriate affect, intact judgment & insight Results CBC & Chem 7: 08/11/23 22:38 08/11/23 22:38 Labs: Abnormal Lab Results - Last 24 Hours (Table) 08/11/23 08/11/23 08/11/23 Range/Units 22:38 22:38 22:38 Hgb 10.3 L (11.4-16.0) gm/dL Hct 33.3 L (34.0-46.0) % RDW 16.7 H (11.5-15.5) % Lymphocytes # 0.9 L (1.0-4.8) k/uL D-Dimer 2.07 H (<0.60) mg/L FEU Sodium 136 L (137-145) mmol/L BUN 28 H (7-17) mg/dL Creatinine 1.40 H (0.52-1.04) mg/dL Glucose 124 H (74-99) mg/dL Albumin 3.4 L (3.5-5.0) g/dL Chest x-ray: report reviewed CT scan - chest: report reviewed Assessment and Plan (1) Postobstructive pneumonia Current Visit: Yes Status: Acute Priority: High Code(s): J18.9 - PNEUMONIA, UNSPECIFIED ORGANISM SNOMED Code(s): 417374289 (2) Non-small cell cancer of left lung Current Visit: Yes Status: Acute Priority: High Code(s): C34.92 - MALIGNANT NEOPLASM OF UNSP PART OF LEFT BRONCHUS OR LUNG SNOMED Code(s): 246561142 Plan: Postobstructive atelectasis/pneumonia -Secondary to left upper lobe lung carcinoma. Recent imaging and biopsy results as stated in HPI. -Plan was for initiation of radiation for symptoms but, patient missed that appointment. Radiation oncology has been consulted -Pulmonary has been consulted Non-small cell lung carcinoma -Recent diagnosis from a transbronchial biopsy 07/21/2023. Atypical cells compatible with non-small cell carcinoma. CK7 positive, TTF-1 rare, findings nonspecific but may represent pulmonary adenocarcinoma but at least a focal component of squamous differentiation could not entirely be excluded. -Brain MRI done 07/23/2023 reported no suspicious areas of enhancement to suggest metastatic disease -Tissue specimens were requested and sent for PD-L1 and NGS. -She had a staging PET scan sched for 08/18. -F/U with Dr. Almanza 08/23 at 4pm Case was discussed with Radiation Oncologist. Currently no evidence to suggest widely metastatic disease. Patient has not had the staging PET scan yet. It would certainly be reasonable to do some radiation to see if patient can get feeling better and that may help with her performance status. Currently patient is reporting that she would not want to do chemotherapy but NGS and PD-L1 have not resulted yet. Patient may qualify for a non-chemo regimen or targeted therapy. Will follow-up with patient to further clarify her goals of care. We will update the chart. Doctor attests: I performed a history and physical examination of this patient, developed impression and plan of care. Discussed with dictator. I agree with dictators note, documented as a scribe.
[2023-08-12] MEDS: QUEtiapine 200 MG TAB PO SCH (21:46)
[2023-08-12] MEDS: PRAVASTATIN SODIUM 40 MG TAB PO SCH (21:46)
[2023-08-12] MEDS: MIRTAZAPINE 15 MG TAB PO SCH (21:46)
[2023-08-13 10:26] LABS: Basophils # (A) 0.01 X 10*3/uL (0.00-0.10); Basophils % (A) 0.2 %; Eosinophils # (A) 0.19 X 10*3/uL (0.04-0.35); Eosinophils % (A) 3.6 %; HCT 25.8 % (37.2-46.3); Lymphocytes # (A) 0.58 X 10*3/uL (0.90-5.00); Lymphocytes % (A) 11.1 %; MCH 26.6 pg (27.0-32.0); MCV 85.7 FL (80.0-97.0); Mean Platelet Volume 9.3 FL (9.5-12.2); Monocytes % (A) 7.6 %; NRBC Per 100 WBC 0 X 10*3/uL (0.00-0.01); Neutrophils # (A) 4.04 X 10*3/uL (1.80-7.70); Neutrophils % (A) 77.1 %; Platelet Count 198 X 10*3/uL (140-440); RBC 3.01 X 10*6/uL (4.10-5.20); RDW 16.9 % (11.5-14.5); WBC 5.24 X 10*3/uL (4.50-10.00)
[2023-08-13 10:56] LABS: Blood Urea Nitrogen 21.8 mg/dL (9.0-27.0); Calcium 8.3 mg/dL (8.7-10.3); Carbon Dioxide 26.7 mmol/L (21.6-31.8); Chloride 97 mmol/L (96-109); Glucose 91 mg/dL (70-110); Potassium 3.4 mmol/L (3.5-5.5); Sodium 135 mmol/L (135-145)
--- NOTE | 2023-08-13 13:31 | P.PN ---
Subjective Progress Note Date: 08/13/23 Principal diagnosis: This is a very pleasant 78-year-old female with a history significant for COPD, lung cancer, hypothyroidism, hyperlipidemia, bipolar disorder. She states that she has moderate to severe emphysema/COPD. She quit smoking approximately 3 years ago. She is oxygen dependent on 3 L/min nasal cannula at home. She does have a known lung mass/nodule on the left side, first identified 3 years ago, and has underwent radiation therapy. She is not on any systemic chemotherapy or immunotherapy. The patient was here from July 17 through July 28, 2023. Patient was in town visiting her son who lives across the border in [place]. She is actually from [place]. She does follow with a perfect bind machine operator in [place], Dr. oJhn Hernandez. During her recent hospitalization he was found to have complete opacification of the left lung and postobstructive atelectasis. She had undergone bronchoscopy with biopsy on 07/21/2023 and was found to have non-small cell lung cancer in the form of pulmonary adenocarcinoma. She was subsequently discharged and was to follow-up with radiation oncology for palliative and then possible continued radiation. States she had an appointment to initiate radiation here in town but as she was living with her son in [place] the day they were to cross there was too many cars and they did not come over for the appointment. She presented here again to the emergency room last evening with worsening shortness of breath, cough and congestion. This x-ray continues show completely opacified left hemithorax and left-sided volume loss. Underlying left hilar mass present. Right lung remains clear. CT angiogram reveals no evidence of pulmonary embolism. There is advanced centrilobular emphysema involving the right lung with hyperexpansion. There is previously noted masslike area in the left hilum which is larger compared to previous exam. There is an area in the lingular segment demonstrates consolidation but no pulmonary artery perfusion and complete opacification of the bronchial segments. The area of presumed masslike involvement is estimated at 7.6 x 6.9 x 4.5. Left lung is not entirely consolidated without aeration. There is complete opacification of the distal left mainstem bronchus with fluid-filled presumed p ostobstructive filling in the segmental bronchus serving the left lower lobe. There is volume loss with the elevation of the left hemidiaphragm. White count 9.0. Hemoglobin 10.3. Platelets 219. D-dimer 2.07. Sodium 136. Potassium 3.5. Bicarb 27. BUN 28. Creatinine 1.40. Glucose 124. AST 21. ALT 19. proBNP 980. She is seen today in consultation in the emergency department. She is currently resting in the stretcher. Awake and alert. She is quite cachectic and frail. She is requiring 5 L high flow nasal cannula to maintain O2 saturations in the 90s. BMI of 23.0 kg/m. Currently afebrile. Hemodynamically stable. The patient is seen today August 13, 2023 in follow-up on the regular medical floor. She is currently resting in bed. Arousable. Somewhat weak and fatigued today. She is maintaining O2 saturations in the 90s on 5 L/min per nasal cannula. No IV fluids currently. She remains on DuoNeb ventilations, Pulmicort and Perforomist inhalations, Mucinex. From for DVT prophylaxis. She is on several narcotics and antidepressants which may need to be decreased due to her lethargy. White count 5.2. Hemoglobin 8.0. Platelets 198. Sodium 135. Potassium 3.5. Bicarb 27. BUN 22. Creatinine 1.0. Glucose 91. Objective - Vital Signs Vital signs: Vital Signs Temp 98.6 F 08/13/23 11:46 Pulse 96 08/13/23 12:13 Resp 16 08/13/23 11:46 BP 93/52 08/13/23 11:46 Pulse Ox 96 08/13/23 11:46 FiO2 Intake & Output 08/12/23 08/13/23 08/13/23 18:59 06:59 18:59 Other: Voiding Method Bedside Commode Diaper Diaper # Voids 1 - Exam GENERAL EXAM: Arousable, weak, frail 78-year-old female, on 5 L nasal cannula. HEAD: Normocephalic. EYES: Normal reaction of pupils, equal size. NOSE: Clear with pink turbinates. THROAT: No erythema or exudates. NECK: No masses, no JVD. CHEST: No chest wall deformity. LUNGS: Equal air entry with diminished throughout the whole left lung field. CVS: S1 and S2 normal with no audible murmur, regular rhythm. ABDOMEN: No hepatosplenomegaly, normal bowel sounds, no guarding or rigidity. SPINE: No scoliosis or deformity SKIN: No rashes CENTRAL NERVOUS SYSTEM: No focal deficits, tone is normal in all 4 extremities. EXTREMITIES: There is no peripheral edema. No clubbing, no cyanosis. Peripheral pulses are intact. - Labs CBC & Chem 7: 08/13/23 06:56 08/13/23 06:56 Labs: Abnormal Lab Results - Last 24 Hours (Table) 08/13/23 08/13/23 Range/Units 06:56 06:56 RBC 3.01 L (4.10-5.20) X 10*6/uL Hgb 8.0 L (12.0-15.0) g/dL Hct 25.8 L (37.2-46.3) % MCH 26.6 L (27.0-32.0) pg MCHC 31.0 L (32.0-37.0) g/dL RDW 16.9 H (11.5-14.5) % MPV 9.3 L (9.5-12.2) FL Lymphocytes # 0.58 L (0.90-5.00) X 10*3/uL Potassium 3.4 L (3.5-5.5) mmol/L Est GFR (CKD-EPI) 58 L (>=60) BUN/Creatinine Ratio 21.80 H (12.00-20.00) Ratio Calcium 8.3 L (8.7-10.3) mg/dL Assessment and Plan Assessment: Acute hypoxemic respiratory failure secondary to complete opacification of the left lung. CT angiogram reveals no evidence of pulmonary embolism. There is advanced centrilobular emphysema involving the right lung with hyperexpansion. There is previously noted masslike area in the left hilum which is larger west red to previous exam. There is an area in the lingular segment demonstrates consolidation but no pulmonary artery perfusion and complete opacification of the bronchial segments. The area of presumed masslike involvement is estimated at 7.6 x 6.9 x 4.5. Left lung is not entirely consolidated without aeration. There is complete opacification of the distal left mainstem bronchus with fluid-filled presumed postobstructive filling in the segmental bronchus serving the left lower lobe. There is volume loss with the elevation of the left hemidiaphragm. Previously measured 3.7 x 2.3 cm left hilar mass, with suspected postobstructive atelectasis within the lingula, S/P bronchoscopy on 07/21/2023. Pathology is consistent with a non-small cell lung cancer, likely pulmonary adenocarcinoma. The patient was given stage T2 a N0 M0 and the patient will obviously need an PET/CT on outpatient basis. MRI of the brain has been negative. CAT scan of the abdomen shows no evidence of any metastatic abnormalities. Acute on chronic hypoxemic respiratory failure secondary to acute exacerbation of COPD and above, currently on 5 L of oxygen by nasal cannula Chronic obstructive pulmonary disease. Lung nodule/lung cancer, status post radiation therapy, probable SBRT. This was performed in [place] History of hypothyroidism History of hyperlipidemia History of bipolar disorder Former tobacco smoker, quitting approximately 3 years ago Plan: The patient was seen and evaluated Labs and medications reviewed Currently on 5 L nasal cannula Continue bronchodilators Lethargic today, cautious use of pain medications Overall prognosis is quite poor Apparently declines chemotherapy CODE STATUS to be addressed We will continue to follow I have personally seen and examined the patient, performed the documentation and the assessment and plan as written. Number of minutes spent on the visit: 10.
--- NOTE | 2023-08-13 16:12 | P.PN ---
Subjective Progress Note Date: 08/13/23 Principal diagnosis: NSCLC -Afebrile, no acute events overnight -Alprazolam added to Seroquel due to anxiety -Noted to be confused today and unable able to follow commands Objective - Vital Signs Vital signs: Vital Signs Temp 98.6 F 08/13/23 11:46 Pulse 96 08/13/23 12:13 Resp 16 08/13/23 11:46 BP 93/52 08/13/23 11:46 Pulse Ox 96 08/13/23 11:46 FiO2 Intake & Output 08/12/23 08/13/23 08/13/23 18:59 06:59 18:59 Weight 58.967 kg Other: Voiding Method Bedside Commode Diaper Diaper # Voids 1 - Constitutional Constitutional Comment(s): Confused, unable to participate in conversation - Respiratory Respiratory: left: diminished - Cardiovascular Rhythm: regular - Gastrointestinal General gastrointestinal: Present: soft. Absent: distended - Integumentary Integumentary: Absent: rash - Neurologic Neurologic: Absent: focal deficits - Labs CBC & Chem 7: 08/13/23 06:56 08/13/23 06:56 Labs: Abnormal Lab Results - Last 24 Hours (Table) 08/13/23 08/13/23 Range/Units 06:56 06:56 RBC 3.01 L (4.10-5.20) X 10*6/uL Hgb 8.0 L (12.0-15.0) g/dL Hct 25.8 L (37.2-46.3) % MCH 26.6 L (27.0-32.0) pg MCHC 31.0 L (32.0-37.0) g/dL RDW 16.9 H (11.5-14.5) % MPV 9.3 L (9.5-12.2) FL Lymphocytes # 0.58 L (0.90-5.00) X 10*3/uL Potassium 3.4 L (3.5-5.5) mmol/L Est GFR (CKD-EPI) 58 L (>=60) BUN/Creatinine Ratio 21.80 H (12.00-20.00) Ratio Calcium 8.3 L (8.7-10.3) mg/dL Assessment and Plan (1) Non-small cell cancer of left lung Current Visit: Yes Status: Acute Priority: High Code(s): C34.92 - MALIGNANT NEOPLASM OF UNSP PART OF LEFT BRONCHUS OR LUNG SNOMED Code(s): 343343654 (2) Postobstructive pneumonia Current Visit: Yes Status: Acute Priority: High Code(s): J18.9 - PNEUMONIA, UNSPECIFIED ORGANISM SNOMED Code(s): 490652253 (3) Acute metabolic encephalopathy Current Visit: Yes Status: Acute Code(s): G93.41 - METABOLIC ENCEPHALOPATHY SNOMED Code(s): 42262672 Plan: Acute metabolic encephalopathy -Alprazolam added to home Seroquel listed at 250 mg daily -Unable to participate in conversation today or follow commands, which is an acute change from her presentation on admission -Her oxygen status continues to be stable, requiring 5 L nasal cannula with recent brain MRI on her prior admission revealing no evidence of metastases -This appears to be more consistent with medication related encephalopathy -Medication changes to be made per primary team Postobstructive atelectasis/pneumonia -Secondary to left upper lobe lung carcinoma. Recent imaging and biopsy results as stated in HPI. -Plan was for initiation of radiation for symptoms but, patient missed that appointment. Radiation oncology has been consulted -Discussed case with radiation oncology with potential for palliative radiation therapy -This would be complicated by her current medication induced metabolic enceph alopathy Non-small cell lung carcinoma -Recent diagnosis from a transbronchial biopsy 07/21/2023. Atypical cells compatible with non-small cell carcinoma. CK7 positive, TTF-1 rare, findings nonspecific but may represent pulmonary adenocarcinoma but at least a focal component of squamous differentiation could not entirely be excluded. -Brain MRI done 07/23/2023 reported no suspicious areas of enhancement to suggest metastatic disease -Tissue specimens were requested and sent for PD-L1 and NGS, but upon discussion with pathology, not enough tissue specimen would be present -Currently, she would not be a candidate for systemic therapy based on her performance status -If her performance status improves, circulating tumor DNA analysis could be obtained outpatient at this is not covered by insurance and patient -She had a staging PET scan sched for 08/18 -F/U with Dr. Almanza 08/23 at 4pm -On admission, she noted not wanting chemotherapy, but would be amenable to p otential immunotherapy or targeted therapy Tamera Harkins MD
[2023-08-13 16:24] VITALS: BMI 23.0
--- NOTE | 2023-08-13 17:08 | P.PN ---
Subjective Progress Note Date: 08/13/23 78-year-old male with a past medical history of COPD on home oxygen, known history of left lung mass/nodule status post radiation therapy, hypothyroidism, bipolar disorder, anxiety and prior history of smoking quit 3 years ago. Patient was recently in the hospital from 07/18/2023 to 07/28/2023. Patient is actually from [place] and visiting her son who lives across the border in [place]. During this admission patient underwent bronchoscopy with biopsy on 07/21/2023. Left main tissue, transbronchial biopsy showed detached atypical cells having site of morphologic features compatible with non-small cell carcinoma. Patient was recommended to go to subacute rehab at the time but eventually patient wants to be discharged home and supposed to follow-up with radiation oncology for palliative radiation. Patient is currently living with her son in [place] and misses her appointment. Patient presented back to ER with worsening shortness of breath cough and congestion. Chest x-ray showed completely opacified left hemithorax with left-sided volume loss suggesting at least a significant atelectatic component is redemonstrated. Suspect underlying left hilar mass or neoplasm. Right lung remains clear. EKG showed sinus tachycardia. CTA chest was done. Showed previously noted masslike area in the left hilum is larger when compared to the previous exam. The left lung is entirely consolidated without aeration. There is moderate left pleural effusion noted throughout the left hemithorax. No evidence for PE. Advanced central lobar emphysema involving the right lung with hyperexpansion. Laboratory data showed WBC 9.0 hemoglobin 10.3 and platelets 219, D-dimer 2.07 Sodium 136 potassium 3.5 chloride 100 bicarb is 27 BUN 28 and creatinine 1.4 and blood sugar 124. Liver enzymes are not elevated. proBNP 980 and albumin 3.4. Objective - Vital Signs Vital signs: Vital Signs Temp 98.1 F 08/13/23 02:00 Pulse 95 08/13/23 12:04 Resp 14 08/13/23 07:59 BP 83/58 08/13/23 07:59 Pulse Ox 94 L 08/13/23 07:59 FiO2 Intake & Output 08/12/23 08/13/23 08/13/23 18:59 06:59 18:59 Other: Voiding Method Bedside Commode Diaper Diaper # Voids 1 - Exam Patient is lying in the bed. Patient in mild distress due to shortness of breath.. Awake and alert and oriented. Weak and lethargic. HEENT: Normocephalic. Neck is supple. Pupils reactive. Nostrils clear. Oral cavity is moist. Neck reveals no JVD, carotid bruits, or thyromegaly. CHEST EXAMINATION: Trachea is central. Symmetrical expansion. Left-sided diminished sounds. Bilateral coarse breath sounds. Mild wheezing present bilaterally. CARDIAC: Normal S1, S2 with no gallops. No murmurs ABDOMEN: Soft. Bowel sounds present. No organomegaly. No abdominal bruits. Extremities: reveal no edema. No clubbing or cyanosis Neurologically awake, alert, oriented x 2 able to move all extremities while in bed.. No gross focal deficits noted Skin: No rash or skin lesions. Psychiatric: Coperative. Could not be sensitive completely Musculoskeletal: No joint swelling or deformity. - Labs CBC & Chem 7: 08/13/23 06:56 08/13/23 06:56 Labs: Abnormal Lab Results - Last 24 Hours (Table) 08/13/23 08/13/23 Range/Units 06:56 06:56 RBC 3.01 L (4.10-5.20) X 10*6/uL Hgb 8.0 L (12.0-15.0) g/dL Hct 25.8 L (37.2-46.3) % MCH 26.6 L (27.0-32.0) pg MCHC 31.0 L (32.0-37.0) g/dL RDW 16.9 H (11.5-14.5) % MPV 9.3 L (9.5-12.2) FL Lymphocytes # 0.58 L (0.90-5.00) X 10*3/uL Potassium 3.4 L (3.5-5.5) mmol/L Est GFR (CKD-EPI) 58 L (>=60) BUN/Creatinine Ratio 21.80 H (12.00-20.00) Ratio Calcium 8.3 L (8.7-10.3) mg/dL Assessment and Plan Assessment: Acute on chronic hypoxic respiratory failure secondary to moderate left pleural effusion, left hilar mass and entirely consolidated left lung without aeration. Currently requiring 5 L oxygen via nasal cannula. Acute kidney injury likely prerenal. Creatinine 1.4 on admission. 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 Elevated D-dimer level. CT angiogram showed no evidence of PE. COPD Left lung nodule/mass. Status post radiation previously at [place] Hyperlipidemia Hypothyroidism Bipolar disorder Prior history of smoking quit 3 years ago Moderate protein calorie malnutrition DVT prophylaxis with heparin subcu Plan: Patient will be continued on oxygen supplementation. Continue with DuoNebs, Pulmicort and Perforomist. Radiation oncology was reconsulted for palliative radiation. Oncology was consulted also. Will be continued on home medications including levothyroxine and other psychiatric medications. Continue to follow closely. Prognosis is poor at this time. Will discuss CODE STATUS with the patient and her son. Follow-up closely.
[2023-08-14 06:05] LABS: Glucose,Whole Blood 127 mg/dL (70-110)
[2023-08-14] MEDS: NALOXONE 0.4 MG/ML 1 ML VIAL IVP PRN (06:08)
[2023-08-14] MEDS: SODIUM CHLORIDE 0.9% 500 ML 500 ML IV ONE (07:43)
--- NOTE | 2023-08-14 08:00 | P.PN ---
Subjective Progress Note Date: 08/14/23 This is a very pleasant 78-year-old female with a history significant for COPD, lung cancer, hypothyroidism, hyperlipidemia, bipolar disorder. She states that she has moderate to severe emphysema/COPD. She quit smoking approximately 3 years ago. She is oxygen dependent on 3 L/min nasal cannula at home. She does have a known lung mass/nodule on the left side, first identified 3 years ago, and has underwent radiation therapy. She is not on any systemic chemotherapy or immunotherapy. The patient was here from July 17 through July 28, 2023. Patient was in town visiting her son who lives across the border in [place]. She is actually from [place]. She does follow with a stadium attendant in [facility], Dr. John Hernandez. During her recent hospitalization he was found to have complete opacification of the left lung and postobstructive atelectasis. She had undergone bronchoscopy with biopsy on 07/21/2023 and was found to have non- small cell lung cancer in the form of pulmonary adenocarcinoma. She was subsequently discharged and was to follow-up with radiation oncology for palliative and then possible continued radiation. States she had an appointment to initiate radiation here in town but as she was living with her son in [place] the day they were to cross there was too many cars and they did not come over for the appointment. She presented here again to the emergency room last evenin g with worsening shortness of breath, cough and congestion. This x-ray continues show completely opacified left hemithorax and left-sided volume loss. Underlying left hilar mass present. Right lung remains clear. CT angiogram reveals no evidence of pulmonary embolism. There is advanced centrilobular emphysema involving the right lung with hyperexpansion. There is previously noted masslike area in the left hilum which is larger compared to previous exam. There is an area in the lingular segment demonstrates consolidation but no pulmonary artery perfusion and complete opacification of the bronchial segments. The area of presumed masslike involvement is estimated at 7.6 x 6.9 x 4.5. Le ft lung is not entirely consolidated without aeration. There is complete opacification of the distal left mainstem bronchus with fluid-filled presumed postobstructive filling in the segmental bronchus serving the left lower lobe. There is volume loss with the elevation of the left hemidiaphragm. White count 9.0. Hemoglobin 10.3. Platelets 219. D-dimer 2.07. Sodium 136. Potassium 3.5. Bicarb 27. BUN 28. Creatinine 1.40. Glucose 124. AST 21. ALT 19. proBNP 980. She is seen today in consultation in the emergency department. She is currently resting in the stretcher. Awake and alert. She is quite cachectic and frail. She is requiring 5 L high flow nasal cannula to maintain O2 saturations in the 90s. BMI of 23.0 kg/m. Currently afebrile. Hemodynamically stable. The patient is seen today August 13, 2023 in follow-up on the regular medical floor. She is currently resting in bed. Arousable. Somewhat weak and fatigued today. She is maintaining O2 saturations in the 90s on 5 L/min per nasal cannula. No IV fluids currently. She remains on DuoNeb ventilations, Pulmicort and Perforomist inhalations, Mucinex. From for DVT prophylaxis. She is on several narcotics and antidepressants which may need to be decreased due to her lethargy. White count 5.2. Hemoglobin 8.0. Platelets 198. Sodium 135. Potassium 3.5. Bicarb 27. BUN 22. Creatinine 1.0. Glucose 91. The patient is seen today August 14, 2023 in follow-up on the regular medical floor. She is currently resting in bed. She has been having issues with confusion. A drug safety physician is at the bedside. She remains quite weak and frail. She is maintaining O2 saturations up to 100% on 5 L/min per nasal cannula. She is afebrile. Glucose 127. He is continued on DuoNeb inhalations, Pulmicort and Perforomist inhalations, Mucinex. Heparin for DVT prophylaxis. Objective - Vital Signs Vital signs: Vital Signs Temp 98.1 F 08/14/23 07:23 Pulse 100 08/14/23 07:23 Resp 12 08/14/23 07:23 BP 82/48 08/14/23 07:23 Pulse Ox 100 08/14/23 07:23 FiO2 Intake & Output 08/13/23 08/14/23 08/14/23 18:59 06:59 18:59 Intake Total 240 100 Output Total 580 Balance 240 -480 Weight 58.967 kg Intake: Oral 240 100 Output: Urine 580 Other: Voiding Method Diaper Diaper Incontinent # Voids 1 - Exam GENERAL EXAM: Arousable, frail cachectic 78-year-old female, on 5 L nasal cannula, currently resting in bed. HEAD: Normocephalic. EYES: Normal reaction of pupils, equal size. NOSE: Clear with pink turbinates. THROAT: No erythema or exudates. NECK: No masses, no JVD. CHEST: No chest wall deformity. LUNGS: Equal air entry with diminished throughout the whole left lung field. CVS: S1 and S2 normal with no audible murmur, regular rhythm. ABDOMEN: No hepatosplenomegaly, normal bowel sounds, no guarding or rigidity. SPINE: No scoliosis or deformity SKIN: No rashes CENTRAL NERVOUS SYSTEM: No focal deficits, tone is normal in all 4 extremities. EXTREMITIES: There is no peripheral edema. No clubbing, no cyanosis. Peripher al pulses are intact. - Labs CBC & Chem 7: 08/13/23 06:56 08/13/23 06:56 Labs: Abnormal Lab Results - Last 24 Hours (Table) 08/13/23 08/13/23 08/14/23 Range/Units 06:56 06:56 06:03 RBC 3.01 L (4.10-5.20) X 10*6/uL Hgb 8.0 L (12.0-15.0) g/dL Hct 25.8 L (37.2-46.3) % MCH 26.6 L (27.0-32.0) pg MCHC 31.0 L (32.0-37.0) g/dL RDW 16.9 H (11.5-14.5) % MPV 9.3 L (9.5-12.2) FL Lymphocytes # 0.58 L (0.90-5.00) X 10*3/uL Potassium 3.4 L (3.5-5.5) mmol/L Est GFR (CKD-EPI) 58 L (>=60) BUN/Creatinine Ratio 21.80 H (12.00-20.00) Ratio POC Glucose (mg/dL) 127 H (70-110) mg/dL Calcium 8.3 L (8.7-10.3) mg/dL Assessment and Plan Assessment: Acute hypoxemic respiratory failure secondary to complete opacification of the left lung. CT angiogram reveals no evidence of pulmonary embolism. There is advanced centrilobular emphysema involving the right lung with hyperexpansion. There is previously noted masslike area in the left hilum which is larger compared to previous exam. There is an area in the lingular segment demonstrates consolidation but no pulmonary artery perfusion and complete opacification of the bronchial segments. The area of presumed masslike involvement is estimated at 7.6 x 6.9 x 4.5. Left lung is not entirely consolidated without aeration. There is complete opacification of the distal left mainstem bronchus with fluid-filled presumed postobstructive filling in the segmental bronchus serving the left lower lobe. There is volume loss with the elevation of the left hemidiaphragm. Previously measured 3.7 x 2.3 cm left hilar mass, with suspected postobstructive atelectasis within the lingula, S/P bronchoscopy on 07/21/2023. Pathology is consistent with a non-small cell lung cancer, likely pulmonary adenocarcinoma. The patient was given stage T2 a N0 M0 and the patient will obviously need an PET/CT on outpatient basis. MRI of the brain has been negative. CAT scan of the abdomen shows no evidence of any metastatic abnormalities. Acute on chronic hypoxemic respiratory failure secondary to acute exacerbation of COPD and above, currently on 5 L of oxygen by nasal cannula Chronic obstructive pulmonary disease. Lung nodule/lung cancer, status post radiation therapy, probable SBRT. This was performed in [place] History of hypothyroidism History of hyperlipidemia History of bipolar disorder Former tobacco smoker, quitting approximately 3 years ago Plan: The patient was seen and evaluated Labs and medications reviewed Overall prognosis is quite poor Declines chemotherapy Being considered for possible immunotherapy CODE STATUS to be addressed Titrate the FiO2 as tolerated This patient was seen independently by the pulmonary nurse practitioner addressing pulmonary issues I have personally seen and examined the patient, performed the documentation and the assessment and plan as written. Number of minutes spent on the visit: 24.
[2023-08-14 09:24] LABS: Basophils # (A) 0.01 X 10*3/uL (0.00-0.10); Basophils % (A) 0.2 %; Eosinophils # (A) 0.12 X 10*3/uL (0.04-0.35); Eosinophils % (A) 2.3 %; HCT 27.7 % (37.2-46.3); HGB 8.4 g/dL (12.0-15.0); Lymphocytes # (A) 0.54 X 10*3/uL (0.90-5.00); Lymphocytes % (A) 10.3 %; MCH 25.6 pg (27.0-32.0); MCHC 30.3 g/dL (32.0-37.0); MCV 84.5 FL (80.0-97.0); Monocytes # (A) 0.41 X 10*3/uL (0.20-1.00); Monocytes % (A) 7.8 %; NRBC Per 100 WBC 0 X 10*3/uL (0.00-0.01); Neutrophils # (A) 4.15 X 10*3/uL (1.80-7.70); Platelet Count 236 X 10*3/uL (140-440); RBC 3.28 X 10*6/uL (4.10-5.20); RDW 16.6 % (11.5-14.5); WBC 5.25 X 10*3/uL (4.50-10.00)
[2023-08-14 09:48] LABS: BUN/Creat Ratio 19.55 Ratio (12.00-20.00); Blood Urea Nitrogen 21.5 mg/dL (9.0-27.0); Calcium 8.2 mg/dL (8.7-10.3); Carbon Dioxide 26.9 mmol/L (21.6-31.8); Chloride 98 mmol/L (96-109); Glucose 112 mg/dL (70-110); Potassium 3.4 mmol/L (3.5-5.5); Sodium 137 mmol/L (135-145)
[2023-08-14] MEDS: POTASSIUM CHLORIDE ER 10 MEQ TAB.ER.PRT PO STA (13:16)
--- NOTE | 2023-08-14 14:55 | P.CN ---
Psychiatric Consult - . Consult date: 08/14/23 Consult:: 08/14/23 14:43 this is a 78-year-old female was requested for a psychiatric assessment and follow-up According to the request the patient is too lethargic and fatigued and is currently on psychotropic medications She reports that she sees a psychiatrist in [place] and that she is currently staying with her son and candidate for the last 6 months and that she had to come to this hospital which is the closest that is covered by her insurance Patient reports that she's never been hospitalized for her bipolar disorder and that the diagnosis of is questionable in her mind She mainly was frustrated of being in the hospital and stated that she did not want to be confined to the bed She said that she has been In the bed for the last 2 days and that nothing is being done for her She feels that she needs to have some treatment but that she would prefer to rather go home Patient carries a very poor prognosis this time according to the chart reports Findings and except from the assessment which is been added here for completeness: 78-year-old female with a history significant for COPD, lung cancer, hypothyroidism, hyperlipidemia, bipolar disorder. She states that she has moderate to severe emphysema/COPD. She quit smoking approximately 3 years ago. She is oxygen dependent on 3 L/min nasal cannula at home. She does have a known lung mass/nodule on the left side, first identified 3 years ago, and has underwent radiation therapy. She is not on any systemic chemotherapy or immunotherapy. The patient was here from July 17 through July 28, 2023. Patient was in town visiting her son who lives across the border in [place]. She is actually from [place]. She does follow with a spring intern in [place], Dr. John Hernandez. During her recent hospitalization he was found to have complete opacification of the left lung and postobstructive atelectasis. She had undergone bronchoscopy with biopsy on 07/21/2023 and was found to have non-small cell lung cancer in the form of pulmonary adenocarcinoma. She was subsequently discharged and was to follow-up with radiation oncology for palliative and then possible continued radiation. States she had an appointment to initiate radiation here in town but as she was living with her son in [place] the day they were to cross there was too many cars and they did not come over for the appointment. She presented here again to the emergency room last evening with worsening shortness of breath, cough and congestion. This x-ray continues show completely opacified left hemithorax and left-sided volume loss. Underlying left hilar mass present. Right lung remains clear. CT angiogram reveals no evidence of pulmonary embolism. There is advanced centrilobular emphysema involving the right lung with hyperexpansion. There is previously noted masslike area in the left hilum which is larger compared to previous exam. There is an area in the lingular segment demonstrates consolidation but no pulmonary artery perfusion and complete opacification of the bronchial segments. The area of presumed masslike involvement is estimated at 7.6 x 6.9 x 4.5. Left lung is not entirely consolidated without aeration. There is complete opacification of the distal left mainstem bronchus with fluid-filled presumed postobstructive filling in the segmental bronchus serving the left lower lobe. There is volume loss with the elevation of the left hemidiaphragm. White count 9.0. Hemoglobin 10.3. Platelets 219. D-dimer 2.07. Sodium 136. Potassium 3.5. Bicarb 27. BUN 28. Creatinine 1.40. Glucose 124. AST 21. ALT 19. proBNP 980. She is seen today in consultation in the emergency department. She is currently resting in the stretcher. Awake and alert. She is quite cachectic and frail. She is requiring 5 L high flow nasal cannula to maintain O2 saturations in the 90s. BMI of 23.0 kg/m. Currently afebrile. Hemodynamically stable. Acute hypoxemic respiratory failure secondary to complete opacification of the left lung. CT angiogram reveals no evidence of pulmonary embolism. There is advanced centrilobular emphysema involving the right lung with hyperexpansion. There is previously noted masslike area in the left hilum which is larger compared to previous exam. There is an area in the lingular segment demonstrates consolidation but no pulmonary artery perfusion and complete opacification of the bronchial segments. The area of presumed masslike involvement is estimated at 7.6 x 6.9 x 4.5. Left lung is not entirely consolidated without aeration. There is complete opacification of the distal left mainstem bronchus with fluid-filled presumed postobstructive filling in the segmental bronchus serving the left lower lobe. There is volume loss with the elevation of the left hemidiaphragm. Previously measured 3.7 x 2.3 cm left hilar mass, with suspected postobstructive atelectasis within the lingula, S/P bronchoscopy on 07/21/2023. Pathology is consistent with a non-small cell lung cancer, likely pulmonary adenocarcinoma. The patient was given stage T2 a N0 M0 and the patient will obviously need an PET/CT on outpatient basis. MRI of the brain has been negative. CAT scan of the abdomen shows no evidence of any metastatic abnormalities. Acute on chronic hypoxemic respiratory failure secondary to acute exacerbation of COPD and above, currently on 5 L of oxygen by nasal cannula Chronic obstructive pulmonary disease. Lung nodule/lung cancer, status post radiation therapy, probable SBRT. This was performed in [place] History of hypothyroidism History of hyperlipidemia History of bipolar disorder Former tobacco smoker, quitting approximately 3 years ago Plan: The patient was seen and evaluated Labs and medications reviewed Overall prognosis is quite poor Declines chemotherapy Being considered for possible immunotherapy mental status examination: Reveals a elderly female was laying in bed and seemed to be somewhat frustrated Patient's responses were abrupt angry and sarcastic She is alert and oriented to time place and person Affect was that of irritability and exhibits some temperament Patient does however does not exhibit any aggression or agitation but exhibits more for mental frustration Patient denies any suicidal or homicidal ideations Formal and operational judgment remains impaired Insight into her problem is impaired patient however is aware of her diagnosis and her cancer and limited treatment that's available Patient however denies any suicidal or homicidal ideations Diagnostic impression: Adjustment disorder with mixed emotional features Bipolar disorder unspecified chronic Somatoform disorder unspecified Formulation and plan the patient does not meet the criteria for hospitalization on the psychiatric unit This is a elderly female with an extremely poor prognosis related to her small cell carcinoma of the lung and is currently hospitalized for support and supervision as well as assessment for possible immunotherapy The staff reported that they patient has just been made DO NOT RESUSCITATE after consultation with patient's son Nursing also reports that the patient is either too lethargic or restless and agitated but that the medication the ninth at nighttime seems to be too sedating and that she has much difficulty waking up in the morning After reviewing the medications we will make some changes that may help with the patient's current situation We'll discontinue the Wellbutrin which may be contributing to the agitation and restlessness We will also discontinue the buspirone and the Remeron. recommend using lorazepam/alprazolam when necessary for anxiety Continue supportive care psychiatry will continue to follow the patient along with you Thank you" kind referral please refer to contact me if any further questions Papi Barlow M.D.
--- NOTE | 2023-08-14 16:10 | P.PN ---
Subjective Progress Note Date: 08/14/23 78-year-old male with a past medical history of COPD on home oxygen, known history of left lung mass/nodule status post radiation therapy, hypothyroidism, bipolar disorder, anxiety and prior history of smoking quit 3 years ago. Patient was recently in the hospital from 07/18/2023 to 07/28/2023. Patient is actually from [place] and visiting her son who lives across the border in [place]. During this admission patient underwent bronchoscopy with biopsy on 07/21/2023. Left main tissue, transbronchial biopsy showed detached atypical cells having site of morphologic features compatible with non-small cell carcinoma. Patient was recommended to go to subacute rehab at the time but eventually patient wants to be discharged home and supposed to follow-up with radiation oncology for palliative radiation. Patient is currently living with her son in [place] and misses her appointment. Patient presented back to ER with worsening shortness of breath cough and congestion. Chest x-ray showed completely opacified left hemithorax with left-sided volume loss suggesting at least a significant atelectatic component is redemonstrated. Suspect underlying left hilar mass or neoplasm. Right lung remains clear. EKG showed sinus tachycardia. CTA chest was done. Showed previously noted masslike area in the left hilum is larger when compared to the previous exam. The left lung is entirely consolidated without aeration. There is moderate left pleural effusion noted throughout the left hemithorax. No evidence for PE. Advanced central lobar emphysema involving the right lung with hyperexpansion. Laboratory data showed WBC 9.0 hemoglobin 10.3 and platelets 219, D-dimer 2.07 Sodium 136 potassium 3.5 chloride 100 bicarb is 27 BUN 28 and creatinine 1.4 and blood sugar 124. Liver enzymes are not elevated. proBNP 980 and albumin 3.4. 08/14/2023 Patient is seen and evaluated with nursing staff at bedside; patient is very irritable at this time --Patient continues to have episodes of decreased responsiveness versus irritability Patient is currently on Seroquel 250 mg nightly; we will plan to back off on Seroquel; transition from Neurontin 300 mg 3 times daily down to 300 mg twice daily --Plan to add midodrine 10 mg 3 times daily for hypotension; patient did receive a bolus of normal saline 500 cc x 1 We will consult psychiatry for agitation and behavior Objective - Vital Signs Vital signs: Vital Signs Temp 98.1 F 08/14/23 07:23 Pulse 88 08/14/23 10:30 Resp 12 08/14/23 10:30 BP 99/65 08/14/23 10:30 Pulse Ox 100 08/14/23 10:30 FiO2 Intake & Output 08/13/23 08/14/23 08/14/23 18:59 06:59 18:59 Intake Total 240 100 Output Total 580 Balance 240 -480 Weight 58.967 kg Intake: Oral 240 100 Output: Urine 580 Other: Voiding Method Diaper Diaper Indwelling Catheter Incontinent # Voids 1 - Exam Patient is lying in the bed. Patient in mild distress due to shortness of ganesh th.. Awake and alert and oriented. Weak and lethargic. HEENT: Normocephalic. Neck is supple. Pupils reactive. Nostrils clear. Oral cavity is moist. Neck reveals no JVD, carotid bruits, or thyromegaly. CHEST EXAMINATION: Trachea is central. Symmetrical expansion. Left-sided diminished sounds. Bilateral coarse breath sounds. Mild wheezing present bilaterally. CARDIAC: Normal S1, S2 with no gallops. No murmurs ABDOMEN: Soft. Bowel sounds present. No organomegaly. No abdominal bruits. Extremities: reveal no edema. No clubbing or cyanosis Neurologically awake, alert, oriented x 2 able to move all extremities while in bed.. No gross focal deficits noted Skin: No rash or skin lesions. Psychiatric: Coperative. Could not be sensitive completely Musculoskeletal: No joint swelling or deformity. - Labs CBC & Chem 7: 08/14/23 04:19 08/14/23 04:19 Labs: Abnormal Lab Results - Last 24 Hours (Table) 08/14/23 08/14/23 08/14/23 Range/Units 04:19 04:19 06:03 RBC 3.28 L (4.10-5.20) X 10*6/uL Hgb 8.4 L (12.0-15.0) g/dL Hct 27.7 L (37.2-46.3) % MCH 25.6 L (27.0-32.0) pg MCHC 30.3 L (32.0-37.0) g/dL RDW 16.6 H (11.5-14.5) % MPV 9.0 L (9.5-12.2) FL Lymphocytes # 0.54 L (0.90-5.00) X 10*3/uL Potassium 3.4 L (3.5-5.5) mmol/L Anion Gap 12.10 H (4.00-12.00) mmol/L Est GFR (CKD-EPI) 51 L (>=60) Glucose 112 H (70-110) mg/dL POC Glucose (mg/dL) 127 H (70-110) mg/dL Calcium 8.2 L (8.7-10.3) mg/dL Assessment and Plan Assessment: Acute on chronic hypoxic respiratory failure secondary to moderate left pleural effusion, left hilar mass and entirely consolidated left lung without aeration. Currently requiring 5 L oxygen via nasal cannula. Acute kidney injury likely prerenal. Creatinine 1.4 on admission. 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 Elevated D-dimer level. CT angiogram showed no evidence of PE. COPD Left lung nodule/mass. Status post radiation previously at [place] Hyperlipidemia Hypothyroidism Bipolar disorder Prior history of smoking quit 3 years ago Moderate protein calorie malnutrition DVT prophylaxis with heparin subcu Plan: Patient will be continued on oxygen supplementation. Continue with DuoNebs, Pulmicort and Perforomist. Radiation oncology was reconsulted for palliative radiation. Oncology was consulted also. Will be continued on home medications including levothyroxine and other psychiatric medications. Continue to follow closely. Prognosis is poor at this time. Will discuss CODE STATUS with the patient and her son. Follow-up closely.
[2023-08-14] MEDS: MIDODRINE 5 MG TAB PO SCH (18:40)
[2023-08-14] MEDS: GABAPENTIN 300 MG CAP PO SCH (20:30)
[2023-08-14] MEDS: ACETAMINOPHEN TAB 325 MG TAB PO PRN (20:30)
[2023-08-14] MEDS: QUEtiapine 100 MG TAB PO SCH (20:30)
[2023-08-15 05:11] LABS: Anisocytosis Slight; Basophils % (A) 0 %; Eosinophils # (A) 0.3 k/uL (0-0.7); Eosinophils % (A) 4 %; HCT 30.7 % (34.0-46.0); HGB 9.5 gm/dL (11.4-16.0); Hypochromasia Slight; Lymphocytes # (A) 0.9 k/uL (1.0-4.8); Lymphocytes % (A) 15 %; MCH 25.7 pg (25.0-35.0); MCHC 31.1 g/dL (31.0-37.0); MCV 82.6 fL (80.0-100.0); Mean Platelet Volume 7.3; Monocytes # (A) 0.3 k/uL (0-1.0); Monocytes % (A) 5 %; Neutrophils # (A) 4.6 k/uL (1.3-7.7); Neutrophils % (A) 74 %; Platelet Count 355 k/uL (150-450); Poikilocytosis Slight; RBC 3.71 m/uL (3.80-5.40); RDW 16.6 % (11.5-15.5); WBC 6.2 k/uL (3.8-10.6)
[2023-08-15 05:25] LABS: African American GFR (CKD) 84 (>60 ml/min/1.73 sqM); Anion Gap 2 mmol/L; Blood Urea Nitrogen 19 mg/dL (7-17); Calcium 8.3 mg/dL (8.4-10.2); Carbon Dioxide 32 mmol/L (22-30); Chloride 101 mmol/L (98-107); Glucose 95 mg/dL (74-99); Non-African American GFR(CKD) 73 (>60 ml/min/1.73 sqM); Potassium 3.7 mmol/L (3.5-5.1); Sodium 135 mmol/L (137-145)
--- NOTE | 2023-08-15 07:51 | P.PN ---
Subjective Progress Note Date: 08/15/23 This is a very pleasant 78-year-old female with a history significant for COPD, lung cancer, hypothyroidism, hyperlipidemia, bipolar disorder. She states that she has moderate to severe emphysema/COPD. She quit smoking approximately 3 years ago. She is oxygen dependent on 3 L/min nasal cannula at home. She does have a known lung mass/nodule on the left side, first identified 3 years ago, and has underwent radiation therapy. She is not on any systemic chemotherapy or immunotherapy. The patient was here from July 17 through July 28, 2023. Patient was in town visiting her son who lives across the border in [place]. She is actually from [place]. She does follow with a general operator in [facility], Dr. John Hernandez. During her recent hospitalization he was found to have complete opacification of the left lung and postobstructive atelectasis. She had undergone bronchoscopy with biopsy on 07/21/2023 and was found to have non- small cell lung cancer in the form of pulmonary adenocarcinoma. She was subsequently discharged and was to follow-up with radiation oncology for palliative and then possible continued radiation. States she had an appointment to initiate radiation here in town but as she was living with her son in [place] the day they were to cross there was too many cars and they did not come over for the appointment. She presented here again to the emergency room last evenin g with worsening shortness of breath, cough and congestion. This x-ray continues show completely opacified left hemithorax and left-sided volume loss. Underlying left hilar mass present. Right lung remains clear. CT angiogram reveals no evidence of pulmonary embolism. There is advanced centrilobular emphysema involving the right lung with hyperexpansion. There is previously noted masslike area in the left hilum which is larger compared to previous exam. There is an area in the lingular segment demonstrates consolidation but no pulmonary artery perfusion and complete opacification of the bronchial segments. The area of presumed masslike involvement is estimated at 7.6 x 6.9 x 4.5. Le ft lung is not entirely consolidated without aeration. There is complete opacification of the distal left mainstem bronchus with fluid-filled presumed postobstructive filling in the segmental bronchus serving the left lower lobe. There is volume loss with the elevation of the left hemidiaphragm. White count 9.0. Hemoglobin 10.3. Platelets 219. D-dimer 2.07. Sodium 136. Potassium 3.5. Bicarb 27. BUN 28. Creatinine 1.40. Glucose 124. AST 21. ALT 19. proBNP 980. She is seen today in consultation in the emergency department. She is currently resting in the stretcher. Awake and alert. She is quite cachectic and frail. She is requiring 5 L high flow nasal cannula to maintain O2 saturations in the 90s. BMI of 23.0 kg/m. Currently afebrile. Hemodynamically stable. The patient is seen today August 13, 2023 in follow-up on the regular medical floor. She is currently resting in bed. Arousable. Somewhat weak and fatigued today. She is maintaining O2 saturations in the 90s on 5 L/min per nasal cannula. No IV fluids currently. She remains on DuoNeb ventilations, Pulmicort and Perforomist inhalations, Mucinex. From for DVT prophylaxis. She is on several narcotics and antidepressants which may need to be decreased due to her lethargy. White count 5.2. Hemoglobin 8.0. Platelets 198. Sodium 135. Potassium 3.5. Bicarb 27. BUN 22. Creatinine 1.0. Glucose 91. The patient is seen today August 14, 2023 in follow-up on the regular medical floor. She is currently resting in bed. She has been having issues with confusion. A consultant in ergonomics and safety is at the bedside. She remains quite weak and frail. She is maintaining O2 saturations up to 100% on 5 L/min per nasal cannula. She is afebrile. Glucose 127. He is continued on DuoNeb inhalations, Pulmicort and Perforomist inhalations, Mucinex. Heparin for DVT prophylaxis. The patient is seen today August 15, 2023 in follow-up on the regular medical floor. She is awake and alert in no acute distress. She continues with a dry nonproductive cough. She is maintaining good O2 saturations in the 90s on 4 L/min per nasal cannula. Somewhat teary-eyed today. She has made herself a DO NOT RESUSCITATE. She has declined chemotherapy. She did have a psychiatric evaluation yesterday. Not meeting inpatient criteria. They did discontinue her Wellbutrin, BuSpar and Remeron. She is on Ativan as needed. She is calm and cooperative. She remains on DuoNeb inhalations, Pulmicort and Perforomist inhalations, heparin for DVT prophylaxis. White count 6.2. Hemoglobin 9.5. Platelets 355. Sodium 135. Potassium 3.7. Bicarb 32. BUN 19. Creatinine 0.79. Objective - Vital Signs Vital signs: Vital Signs Temp 98.9 F 08/15/23 07:05 Pulse 75 08/15/23 07:05 Resp 18 08/15/23 07:05 BP 95/48 08/15/23 07:05 Pulse Ox 98 08/15/23 07:05 FiO2 Intake & Output 08/14/23 08/15/23 08/15/23 18:59 06:59 18:59 Intake Total 590 Output Total 250 Balance -250 590 Intake: Oral 590 Output: Urine 250 Other: Voiding Method Indwelling Catheter Indwelling Catheter # Bowel Movements 1 1 - Exam GENERAL EXAM: Awake, alert, frail cachectic 78-year-old female, on 4 L nasal cannula, resting in bed. HEAD: Normocephalic. EYES: Normal reaction of pupils, equal size. NOSE: Clear with pink turbinates. THROAT: Edentulous. No erythema or exudates. NECK: No masses, no JVD. CHEST: No chest wall deformity. LUNGS: Equal air entry with diminished throughout the whole left lung field. CVS: S1 and S2 normal with no audible murmur, regular rhythm. ABDOMEN: No hepatosplenomegaly, normal bowel sounds, no guarding or rigidity. SPINE: No scoliosis or deformity SKIN: No rashes CENTRAL NERVOUS SYSTEM: No focal deficits, tone is normal in all 4 extremities. EXTREMITIES: There is no peripheral edema. No clubbing, no cyanosis. Peripheral pulses are intact. - Labs CBC & Chem 7: 08/15/23 04:40 08/15/23 04:40 Labs: Abnormal Lab Results - Last 24 Hours (Table) 08/14/23 08/14/23 08/15/23 Range/Units 04:19 04:19 04:40 RBC 3.28 L 3.71 L (4.10-5.20) X 10*6/uL Hgb 8.4 L 9.5 L (12.0-15.0) g/dL Hct 27.7 L 30.7 L (37.2-46.3) % MCH 25.6 L (27.0-32.0) pg MCHC 30.3 L (32.0-37.0) g/dL RDW 16.6 H 16.6 H (11.5-14.5) % MPV 9.0 L (9.5-12.2) FL Lymphocytes # 0.54 L 0.9 L (0.90-5.00) X 10*3/uL Sodium (137-145) mmol/L Potassium 3.4 L (3.5-5.5) mmol/L Carbon Dioxide (22-30) mmol/L Anion Gap 12.10 H (4.00-12.00) mmol/L BUN (7-17) mg/dL Est GFR (CKD-EPI) 51 L (>=60) Glucose 112 H (70-110) mg/dL Calcium 8.2 L (8.7-10.3) mg/dL 08/15/23 Range/Units 04:40 RBC (4.10-5.20) X 10*6/uL Hgb (12.0-15.0) g/dL Hct (37.2-46.3) % MCH (27.0-32.0) pg MCHC (32.0-37.0) g/dL RDW (11.5-14.5) % MPV (9.5-12.2) FL Lymphocytes # (0.90-5.00) X 10*3/uL Sodium 135 L (137-145) mmol/L Potassium (3.5-5.5) mmol/L Carbon Dioxide 32 H (22-30) mmol/L Anion Gap (4.00-12.00) mmol/L BUN 19 H (7-17) mg/dL Est GFR (CKD-EPI) (>=60) Glucose (70-110) mg/dL Calcium 8.3 L (8.7-10.3) mg/dL Assessment and Plan Assessment: Acute hypoxemic respiratory failure secondary to complete opacification of the left lung. CT angiogram reveals no evidence of pulmonary embolism. There is advanced centrilobular emphysema involving the right lung with hyperexpansion. There is previously noted masslike area in the left hilum which is larger compared to previous exam. There is an area in the lingular segment demonstrates consolidation but no pulmonary artery perfusion and complete opacification of the bronchial segments. The area of presumed masslike involvement is estimated at 7.6 x 6.9 x 4.5. Left lung is not entirely consolidated without aeration. There is complete opacification of the distal left mainstem bronchus with fluid-filled presumed postobstructive filling in the segmental bronchus serving the left lower lobe. There is volume loss with the elevation of the left hemidiaphragm. Previously measured 3.7 x 2.3 cm left hilar mass, with suspected postobstructive atelectasis within the lingula, S/P bronchoscopy on 07/21/2023. Pathology is consistent with a non-small cell lung cancer, likely pulmonary adenocarcinoma. The patient was given stage T2 a N0 M0 and the patient will need an PET/CT on outpatient basis. MRI of the brain has been negative. CAT scan of the abdomen shows no evidence of any metastatic abnormalities Acute on chronic hypoxemic respiratory failure secondary to acute exacerbation of COPD and above, currently on 4 L of oxygen by nasal cannula Chronic obstructive pulmonary disease. Lung nodule/lung cancer, status post radiation therapy, probable SBRT. This was performed in [place] History of hypothyroidism History of hyperlipidemia History of bipolar disorder Former tobacco smoker, quitting approximately 3 years ago Plan: The patient was seen and evaluated Labs and medications reviewed Psychiatric evaluation reviewed Overall prognosis is quite poor Declines chemotherapy Being considered for possible immunotherapy DNR CODE STATUS now May consider home with hospice Titrate the FiO2 as tolerated To be evaluated for home oxygen at discharge This patient was seen independently by the pulmonary nurse practitioner addressing pulmonary issues I have personally seen and examined the patient, performed the documentation and the assessment and plan as written. Number of minutes spent on the visit: 23.
--- NOTE | 2023-08-15 13:57 | P.PN ---
Progress Note - Text Progress Note Date: 08/15/23 This is a psychiatric follow-up on Susi Diez who is a 78-year-old female and who was requested for a psychiatric follow-up for bipolar disorder Patient is hospitalized with terminal lung CA which is found to be inoperable as well as patient is also not a candidate for chemotherapy Patient is now considered for immunotherapy and hospice care Further details are as per the outpatient dietitian please refer to his notes for further details When seen today patient was resting comfortably and was no acute physical distress Nursing also reports that there has been an improvement with decrease in psychomotor agitation during the daytime and decrease in the lethargy Patient is more easily redirectable and cooperative When seen today patient was easily arousable and greeted to this television script writer without any acting out she asked for some assistance with her phone and getting a charged and plugging it and in the wall sockets She reports that she feels somewhat tired but otherwise is feeling a bit better and relaxed She did not discuss any specific issues She reports that she is not having any issues with her temper and that is looking forward to resting in bed MSE: The patient was alert and semi-attentive. Orientation X2. Patient was pleasant but semi-cooperative. Psychomotor activity was normal Speech was normal tone, quality, and quantity Mood: Flat. Affect: Blunted. SI or HI- None Thought content- normal Thought process- normal Patient however somewhat drowsy in the thinking is imp overished Perceptual disturbance- none Cognition- , higher cognitive functions are mildly compromised. Judgement- Fair. Insight- [place] Plan: The patient appears to be doing better in terms of decrease in psychomotor agitation and anxiety Patient is now possibly being considered for hospice and comfort medications most likely Would recommend continuation of her current medications and follow-up with her PCP/hospice specialist for ongoing medication management or a local psychiatrist Psychiatry will sign off at this time unless requested Papi Barlow MD
--- NOTE | 2023-08-15 14:18 | P.PN ---
Subjective Progress Note Date: 08/15/23 78-year-old male with a past medical history of COPD on home oxygen, known history of left lung mass/nodule status post radiation therapy, hypothyroidism, bipolar disorder, anxiety and prior history of smoking quit 3 years ago. Patient was recently in the hospital from 07/18/2023 to 07/28/2023. Patient is actually from [place] and visiting her son who lives across the border in [place]. During this admission patient underwent bronchoscopy with biopsy on 07/21/2023. Left main tissue, transbronchial biopsy showed detached atypical cells having site of morphologic features compatible with non-small cell carcinoma. Patient was recommended to go to subacute rehab at the time but eventually patient wants to be discharged home and supposed to follow-up with radiation oncology for palliative radiation. Patient is currently living with her son in [place] and misses her appointment. Patient presented back to ER with worsening shortness of breath cough and congestion. Chest x-ray showed completely opacified left hemithorax with left-sided volume loss suggesting at least a significant atelectatic component is redemonstrated. Suspect underlying left hilar mass or neoplasm. Right lung remains clear. EKG showed sinus tachycardia. CTA chest was done. Showed previously noted masslike area in the left hilum is larger when compared to the previous exam. The left lung is entirely consolidated without aeration. There is moderate left pleural effusion noted throughout the left hemithorax. No evidence for PE. Advanced central lobar emphysema involving the right lung with hyperexpansion. Laboratory data showed WBC 9.0 hemoglobin 10.3 and platelets 219, D-dimer 2.07 Sodium 136 potassium 3.5 chloride 100 bicarb is 27 BUN 28 and creatinine 1.4 and blood sugar 124. Liver enzymes are not elevated. proBNP 980 and albumin 3.4. 08/14/2023 Patient is seen and evaluated with nursing staff at bedside; patient is very irritable at this time --Patient continues to have episodes of decreased responsiveness versus irritability Patient is currently on Seroquel 250 mg nightly; we will plan to back off on Seroquel; transition from Neurontin 300 mg 3 times daily down to 300 mg twice daily --Plan to add midodrine 10 mg 3 times daily for hypotension; patient did receive a bolus of normal saline 500 cc x 1 We will consult psychiatry for agitation and behavior 24-hour interval change 08/15/2023 Patient is seen and evaluated in room at bedside; discussed with nursing staff; more calm with medication change Vital signs are reviewed and are stable, temperature of 98.1, pulse 96, respiration 18 and blood pressure 101/58, O2 saturation 94% on 4 L Lab review shows WBC 6.0, hemoglobin of 9.5 and platelet count of 355, sodium 135, potassium 3.7, BUNs/creatinine of 19/0.7 --Patient has been evaluated by psych; recommendations noted appreciated Patient is currently being considered for possible immunotherapy; has declined chemotherapy --Patient has been transitioned to DNR status after discussion with patient's son; might be considered for discharge home with hospice Objective - Vital Signs Vital signs: Vital Signs Temp 98.9 F 08/15/23 07:05 Pulse 103 H 08/15/23 08:31 Resp 18 08/15/23 07:05 BP 95/48 08/15/23 07:05 Pulse Ox 98 08/15/23 07:05 FiO2 Intake & Output 08/14/23 08/15/23 08/15/23 18:59 06:59 18:59 Intake Total 590 Output Total 250 Balance -250 590 Intake: Oral 590 Output: Urine 250 Other: Voiding Method Indwelling Catheter Indwelling Catheter Indwelling Catheter # Bowel Movements 1 1 - Exam Patient is lying in the bed. Patient in mild distress due to shortness of breath.. Awake and alert and oriented. Weak and lethargic. HEENT: Normocephalic. Neck is supple. Pupils reactive. Nostrils clear. Oral cavity is moist. Neck reveals no JVD, carotid bruits, or thyromegaly. CHEST EXAMINATION: Trachea is central. Symmetrical expansion. Left-sided diminished sounds. Bilateral coarse breath sounds. Mild wheezing present bilaterally. CARDIAC: Normal S1, S2 with no gallops. No murmurs ABDOMEN: Soft. Bowel sounds present. No organomegaly. No abdominal bruits. Extremities: reveal no edema. No clubbing or cyanosis Neurologically awake, alert, oriented x 2 able to move all extremities while in bed.. No gross focal deficits noted Skin: No rash or skin lesions. Psychiatric: Coperative. Could not be sensitive completely Musculoskeletal: No joint swelling or deformity. - Labs CBC & Chem 7: 08/15/23 04:40 08/15/23 04:40 Labs: Abnormal Lab Results - Last 24 Hours (Table) 08/15/23 08/15/23 Range/Units 04:40 04:40 RBC 3.71 L (3.80-5.40) m/uL Hgb 9.5 L (11.4-16.0) gm/dL Hct 30.7 L (34.0-46.0) % RDW 16.6 H (11.5-15.5) % Lymphocytes # 0.9 L (1.0-4.8) k/uL Sodium 135 L (137-145) mmol/L Carbon Dioxide 32 H (22-30) mmol/L BUN 19 H (7-17) mg/dL Calcium 8.3 L (8.4-10.2) mg/dL Assessment and Plan Assessment: Acute on chronic hypoxic respiratory failure secondary to moderate left pleural effusion, left hilar mass and entirely consolidated left lung without aeration. Currently requiring 5 L oxygen via nasal cannula. Acute kidney injury likely prerenal. Creatinine 1.4 on admission. 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 Elevated D-dimer level. CT angiogram showed no evidence of PE. COPD Left lung nodule/mass. Status post radiation previously at [place] Hyperlipidemia Hypothyroidism Bipolar disorder Prior history of smoking quit 3 years ago Moderate protein calorie malnutrition DVT prophylaxis with heparin subcu Plan: Patient will be continued on oxygen supplementation. Continue with DuoNebs, Pulmicort and Perforomist. Radiation oncology was reconsulted for palliative radiation. Oncology was consulted also. Will be continued on home medications including levothyroxine and other psychiatric medications. Continue to follow closely. Prognosis is poor at this time. Will discuss CODE STATUS with the patient and her son. Follow-up closely.
--- NOTE | 2023-08-15 14:53 | P.PN ---
Subjective Progress Note Date: 08/15/23 Principal diagnosis: NSCLC -Psychiatry consulted and recommended discontinuing Wellbutrin, buspirone, and Remeron -No acute events overnight -Mental status much closer to baseline on today's encounter -Continues to have difficulty breathing air in along with generalized fatigue, but denies any new signs or symptoms Objective - Vital Signs Vital signs: Vital Signs Temp 98.1 F 08/15/23 13:04 Pulse 96 08/15/23 13:04 Resp 19 08/15/23 13:04 BP 101/58 08/15/23 13:04 Pulse Ox 94 L 08/15/23 13:04 FiO2 Intake & Output 08/14/23 08/15/23 08/15/23 18:59 06:59 18:59 Intake Total 590 Output Total 250 Balance -250 590 Intake: Oral 590 Output: Urine 250 Other: Voiding Method Indwelling Catheter Indwelling Catheter Indwelling Catheter # Bowel Movements 1 1 - Constitutional General appearance: Present: cooperative, no acute distress - EENT Eyes: Present: EOMI - Respiratory Respiratory: left: diminished (Diminished breath sounds in the left mid and lower lung palm) - Cardiovascular Rhythm: regular - Gastrointestinal General gastrointestinal: Present: soft. Absent: distended - Integumentary Integumentary: Present: pale. Absent: rash - Neurologic Neurologic: Present: CNII-XII intact. Absent: focal deficits - Psychiatric Psychiatric Comment(s): Significantly improved mental status on today's encounter - Labs CBC & Chem 7: 08/15/23 04:40 08/15/23 04:40 Labs: Abnormal Lab Results - Last 24 Hours (Table) 08/15/23 08/15/23 Range/Units 04:40 04:40 RBC 3.71 L (3.80-5.40) m/uL Hgb 9.5 L (11.4-16.0) gm/dL Hct 30.7 L (34.0-46.0) % RDW 16.6 H (11.5-15.5) % Lymphocytes # 0.9 L (1.0-4.8) k/uL Sodium 135 L (137-145) mmol/L Carbon Dioxide 32 H (22-30) mmol/L BUN 19 H (7-17) mg/dL Calcium 8.3 L (8.4-10.2) mg/dL Assessment and Plan (1) Non-small cell cancer of left lung Current Visit: Yes Status: Acute Priority: High Code(s): C34.92 - M ALIGNANT NEOPLASM OF UNSP PART OF LEFT BRONCHUS OR LUNG SNOMED Code(s): 2 32180736 (2) Postobstructive pneumonia Current Visit: Yes Status: Acute Priority: High Code(s): J18.9 - PNEUMONIA, UNSPECIFIED ORGANISM SNOMED Code(s): 699168745 (3) Acute metabolic encephalopathy Current Visit: Yes Status: Acute Code(s): G93.41 - METABOLIC ENCEPHALOPATHY SNOMED Code(s): 47978877 (4) Microcytic normochromic anemia Current Visit: Yes Status: Acute Code(s): D50.9 - IRON DEFICIENCY ANEMIA, UNSPECIFIED SNOMED Code(s): 3715542 Plan: Acute metabolic encephalopathy -Alprazolam added to home Seroquel listed at 250 mg daily -Was unable to participate in conversation or follow commands, which was an acute change from her presentation on admission -Psychiatry consulted and recommend discontinuing Wellbutrin, buspirone, and Remeron -Mental status is significantly improved on today's encounter close to her baseline -Appreciate psychiatry assistance in managing her medications Postobstructive atelectasis/pneumonia -Secondary to left upper lobe lung carcinoma. Recent imaging and biopsy results as stated in HPI. -Plan was for initiation of radiation for symptoms but, patient missed that appointment. Radiation oncology has been consulted -Discussed case with radiation oncology with potential for palliative radiation therapy -As her acute hypoxia has been stable during her admission and her mental status is now significantly improved closer to her baseline, I do believe she could be a candidate for palliative radiation therapy -We will we discussed palliative radiation therapy tomorrow Non-small cell lung carcinoma -Recent diagnosis from a transbronchial biopsy 07/21/2023. Atypical cells compatible with non-small cell carcinoma. CK7 positive, TTF-1 rare, findings nonspecific but may represent pulmonary adenocarcinoma but at least a focal component of squamous differentiation could not entirely be excluded. -Brain MRI done 07/23/2023 reported no suspicious areas of enhancement to suggest metastatic disease -Tissue specimens were requested and sent for PD-L1 and NGS, but upon discussion with pathology, not enough tissue specimen is available for this testing -Currently, she would not be a candidate for systemic therapy based on her performance status -If her performance status improves, circulating tumor DNA analysis could be obtained outpatient at this is not covered by insurance while inpatient -She has a staging PET scan sched for 08/19/2023 -F/U with Dr. Almanza 08/24/2023 at 4pm -On admission, she noted not wanting chemotherapy, but would be amenable to potential immunotherapy or targeted therapy Tamera Harkins MD
[2023-08-15] MEDS: ONDANSETRON 4 MG/2 ML VIAL IVP PRN (16:30)
[2023-08-16 07:51] LABS: % Iron Saturation 13.85 (12.00-45.00)
[2023-08-16] MEDS ORDERED: guaiFENesin-Coden 100-10MG/5ML 10 ML CUP PO PRN (14:16)
--- NOTE | 2023-08-16 15:33 | P.PN ---
Subjective Progress Note Date: 08/16/23 No acute events. Reporting persisting cough and shortness of breath. Patient is scheduled for palliative RT to lung mass tomorrow. Hospice team has also been consulted for informational session. Patient tearful and crying during visit today, stating she is unsure if she wants to undergo systemic treatment as she does not want her family to see her like this and feels that hospice may be a better alternative so she has additional care and support. Objective - Vital Signs Vital signs: Vital Signs Temp 98.5 F 08/16/23 12:20 Pulse 98 08/16/23 12:20 Resp 18 08/16/23 12:20 BP 103/62 08/16/23 12:20 Pulse Ox 94 L 08/16/23 12:20 FiO2 Intake & Output 08/15/23 08/16/23 08/16/23 18:59 06:59 18:59 Output Total 275 Balance -275 Output: Urine 275 Other: Voiding Method Indwelling Catheter Indwelling Catheter Indwelling Catheter # Voids 2 # Bowel Movements 2 - Constitutional General appearance: Present: no acute distress - EENT Eyes: Present: anicteric sclerae, EOMI ENT: Present: hearing grossly normal - Respiratory Details: breathing mildly labored - Cardiovascular Details: skin warm and dry - Gastrointestinal General gastrointestinal: Present: soft. Absent: tenderness - Integumentary Integumentary: Absent: cyanotic - Musculoskeletal Musculoskeletal: Present: generalized weakness - Psychiatric Psychiatric: Present: A&O x's 3 - Labs CBC & Chem 7: 08/15/23 04:40 08/15/23 04:40 Labs: Abnormal Lab Results - Last 24 Hours (Table) 08/15/23 Range/Units 04:40 Iron 27 L (50-170) UG/DL TIBC 195 L (228-460) UG/DL Transferrin 139.0 L (204.0-354.0) mg/dL Ferritin 483.0 H (10.0-291.0) ng/mL Assessment and Plan (1) Acute metabolic encephalopathy Current Visit: Yes Status: Acute Priority: High Code(s): G93.41 - METABOLIC ENCEPHALOPATHY SNOMED Code(s): 73583186 (2) Microcytic normochromic anemia Current Visit: Yes Status: Acute Priority: High Code(s): D50.9 - IRON DEFICIENCY ANEMIA, UNSPECIFIED SNOMED Code(s): 5820620 (3) Non-small cell cancer of left lung Current Visit: Yes Status: Acute Priority: High Code(s): C34.92 - MALIGNANT NEOPLASM OF UNSP PART OF LEFT BRONCHUS OR LUNG SNOMED Code(s): 913406580 (4) Postobstructive pneumonia Current Visit: Yes Status: Acute Priority: High Code(s): J18.9 - PNEUMONIA, UNSPECIFIED ORGANISM SNOMED Code(s): 762323288 Plan: Acute metabolic encephalopathy -Alprazolam added to home Seroquel listed at 250 mg daily -Was unable to participate in conversation or follow commands, which was an acute change from her presentation on admission -Psychiatry consulted and recommend discontinuing Wellbutrin, buspirone, and Re chinedu -Mental status is significantly improved on today's encounter and is close to her baseline -Appreciate psychiatry assistance in managing her medications Postobstructive atelectasis/pneumonia -Secondary to left upper lobe lung carcinoma. Recent imaging and biopsy results as stated in consult HPI. -Plan was for initiation of radiation for symptoms but, patient missed that appointment. Radiation oncology has been consulted -Discussed case with radiation oncology, plan for palliative radiation tomorrow -As her acute hypoxia has been stable during her admission and her mental status is now significantly improved closer to her baseline, I do believe she could be a good candidate for palliative radiation therapy Non-small cell lung carcinoma -Recent diagnosis from a transbronchial biopsy 07/21/2023. Atypical cells compatible with non-small cell carcinoma. CK7 positive, TTF-1 rare, findings nonspecific but may represent pulmonary adenocarcinoma but at least a focal component of squamous differentiation could not entirely be excluded. -Brain MRI done 07/23/2023 reported no suspicious areas of enhancement to suggest metastatic disease -Tissue specimens were requested and sent for PD-L1 and NGS, but upon discussion with pathology, not enough tissue specimen is available for this testing -Currently, she would not be a candidate for systemic therapy based on her performance status -If her performance status improves, circulating tumor DNA analysis could be obtained outpatient at this is not covered by insurance while inpatient -She has a staging PET scan sched for 08/19/2023, and f/u with Dr. Almanza on 08/24/2023 at 4pm -On admission, she noted not wanting chemotherapy, but would be amenable to potential immunotherapy or targeted therapy. POC, treatment modalities, and hospice/comfort care discussed in detail patient. At this time, patient will proceed with palliative RT and we will continue to monitor course of hospitalization
--- NOTE | 2023-08-16 15:37 | P.CONS ---
History of Present Illness - Reason for Consult Consult date: 08/12/23 Lung cancer Requesting physician: Tamera Harkins - Chief Complaint "I have shortness of breath" - History of Present Illness Ms. Diez is a 78-year-old female with a history of a left lung nodule treated empirically with SBRT (3 fractions, records not able to be obtained) who now presents with at least a stage T2aN0 non-small cell lung cancer involving the left mainstem bronchus with complete opacification of the left lung. I established care with this patient in early 07/2023. Upon discharge, she was scheduled for outpatient follow-up but missed this appointment. She has not had PET/CT. She presented to the hospital with worsening shortness of breath. CTA chest d emonstrated interval enlargement of the left lung mass to 7.6 cm with complete opacification of the lung. She notes significant LOZANO. She notes today she would like to be a DNR, but would be amenable to radiation therapy if this would improve her breathing. Review of Systems as per HPI Past Medical History Past Medical History: Cancer, COPD, Pneumonia Additional Past Medical History / Comment(s): stage 1 left lung CA, O2 dependent. Patient states she has bipolar disorder. History of Any Multi-Drug Resistant Organisms: None Reported Past Surgical History: Hysterectomy Additional Past Surgical History / Comment(s): feet, hands, lung biopsy Past Psychological History: Anxiety, Bipolar Smoking Status: Former smoker Past Alcohol Use History: None Reported Past Drug Use History: None Reported Medications and Allergies Home Medications Medication Instructions Recorded Confirmed Type Fluticasone Propion/Salmeterol 2 puff INHALATION RT-BID 07/18/23 08/12/23 History [Fluticasone-Salmeterol 115-21] Gabapentin [Neurontin] 300 mg PO TID 07/18/23 08/12/23 History Levothyroxine Sodium [Synthroid] 75 mcg PO DAILY 07/18/23 08/12/23 History Mirtazapine [Remeron] 15 mg PO HS 07/18/23 08/12/23 History Nystatin 100,000 Unit/gm Oint 1 applic TOPICAL BID 07/18/23 08/12/23 History [Mycostatin Oint] Omeprazole [PriLOSEC] 20 mg PO DAILY 07/18/23 08/12/23 History Pravastatin Sodium [Pravachol] 40 mg PO HS 07/18/23 08/12/23 History QUEtiapine FUMARATE [SEROquel] 200 mg PO HS 07/18/23 08/12/23 History QUEtiapine [SEROquel] 50 mg PO HS 07/18/23 08/12/23 History buPROPion SR [Wellbutrin SR] 150 mg PO [id number] 07/18/23 08/12/23 History busPIRone HCL [Buspar] 7.5 mg PO BID 07/18/23 08/12/23 History lamoTRIgine [LaMICtal] 150 mg PO BID 07/18/23 08/12/23 History Acetaminophen Tab [Tylenol] 650 mg PO Q4HR PRN tab 07/28/23 08/12/23 Rx Budesonide [Pulmicort] 1 mg INHALATION RT-BID #30 each 07/28/23 08/12/23 Rx Fluticasone Nasal [place] [Flonase 2 spray EA NOSTRIL DAILY #5 ml 07/28/23 08/12/23 Rx Nasal [place]] Ipratropium-Albuterol Nebulize 3 ml INHALATION RT-Q2H PRN each 07/28/23 08/12/23 Rx [Duoneb 0.5 mg-3 mg/3 ml Soln] Ipratropium-Albuterol Nebulize 3 ml INHALATION RT-QID #100 each 07/28/23 08/12/23 Rx [Duoneb 0.5 mg-3 mg/3 ml Soln] Loratadine [Claritin] 5 mg PO DAILY #30 tab 07/28/23 08/12/23 Rx Sodium Chloride 0.65% Nasal [Deep 2 spray NASAL QID PRN #7 ml 07/28/23 08/12/23 Rx Sea (Saline)] Allergies Allergy/AdvReac Type Severity Reaction Status Date / Time codeine Allergy Swelling Verified 08/12/23 07:35 Physical Exam Vitals: Vital Signs Temp Pulse Pulse Resp BP BP Pulse Ox 08/16/23 15:13 100 08/16/23 15:00 100 08/16/23 12:20 98.5 F 98 18 103/62 94 L 08/16/23 08:05 104 H 08/16/23 07:54 104 H 08/16/23 07:53 104 H 08/16/23 07:39 100 08/16/23 07:15 97.7 F 96 18 103/55 94 L 08/16/23 02:20 99/62 08/16/23 01:52 98 F 102 H 16 87/54 96 08/15/23 19:55 98.1 F 98 16 98/61 96 08/15/23 18:36 104 H 08/15/23 18:28 100 08/15/23 18:17 100 08/15/23 15:44 105 H 08/15/23 15:35 101 H Intake and Output 08/16/23 08/16/23 08/16/23 06:59 14:59 22:59 Other: Voiding Method Indwelling Catheter # Voids 2 # Bowel Movements 2 Weight 58.967 kg - Constitutional significant cough General appearance: mild distress - Respiratory saturating 90% on 5 L NC Respiratory: negative: prolonged expiration, prolonged inspiration - Psychiatric Psychiatric: A&O x's 3, appropriate affect, intact judgment & insight Results CBC & Chem 7: 08/15/23 04:40 08/15/23 04:40 Labs: Abnormal Lab Results - Last 24 Hours (Table) 08/15/23 Range/Units 04:40 Iron 27 L (50-170) UG/DL TIBC 195 L (228-460) UG/DL Transferrin 139.0 L (204.0-354.0) mg/dL Ferritin 483.0 H (10.0-291.0) ng/mL Assessment and Plan Assessment: Ms. Diez is a 78-year-old female with a history of a left lung nodule treated empirically with SBRT (3 fractions, records not able to be obtained) who now presents with at least a stage T2aN0 non-small cell lung cancer involving the left mainstem bronchus with complete opacification of the left lung. Plan: The patient has AHRF due to an obstructive left lung tumor. Although she is ostensibly non-metastatic, her performance status is borderline and her prognosis is very poor. Curative treatment would require concurrent chemoradiation, which she is not a candidate for. Should her condition stabilize, I would offer her a course of palliative radiation therapy to ideally open her left lung and improve her respiratory condition. I explained that radiation is preceded by a CT simulation. Treatments will take place Mondays-Fridays and span 1 week. I explained potential acute effects of radiation, including but not limited to fatigue and temporary exacerbation of her dyspnea and cough. I will re-evaluate her respiratory condition early next week, and if she has stabilized, we will proceed with treatment. Stevan Walsh MD Radiation Oncology Time with Patient: Greater than 30
[2023-08-16] MEDS: guaiFENesin-DM 100-10MG/5ML 10 ML CUP PO PRN (18:12)
--- NOTE | 2023-08-16 18:37 | P.PN ---
Subjective Progress Note Date: 08/16/23 This is a very pleasant 78-year-old female with a history significant for COPD, lung cancer, hypothyroidism, hyperlipidemia, bipolar disorder. She states that she has moderate to severe emphysema/COPD. She quit smoking approximately 3 years ago. She is oxygen dependent on 3 L/min nasal cannula at home. She does have a known lung mass/nodule on the left side, first identified 3 years ago, and has underwent radiation therapy. She is not on any systemic chemotherapy or immunotherapy. The patient was here from July 17 through July 28, 2023. Patient was in town visiting her son who lives across the border in [place]. She is actually from [place]. She does follow with a document review specialist in [facility], Dr. John Hernandez. During her recent hospitalization he was found to have complete opacification of the left lung and postobstructive atelectasis. She had undergone bronchoscopy with biopsy on 07/21/2023 and was found to have non- small cell lung cancer in the form of pulmonary adenocarcinoma. She was subsequently discharged and was to follow-up with radiation oncology for palliative and then possible continued radiation. States she had an appointment to initiate radiation here in town but as she was living with her son in [place] the day they were to cross there was too many cars and they did not come over for the appointment. She presented here again to the emergency room last noemi srinivasan with worsening shortness of breath, cough and congestion. This x-ray continues show completely opacified left hemithorax and left-sided volume loss. Underlying left hilar mass present. Right lung remains clear. CT angiogram reveals no evidence of pulmonary embolism. There is advanced centrilobular emphysema involving the right lung with hyperexpansion. There is previously noted masslike area in the left hilum which is larger compared to previous exam. There is an area in the lingular segment demonstrates consolidation but no pulmonary artery perfusion and complete opacification of the bronchial segments. The area of presumed masslike involvement is estimated at 7.6 x 6.9 x 4.5. L eft lung is not entirely consolidated without aeration. There is complete opacification of the distal left mainstem bronchus with fluid-filled presumed postobstructive filling in the segmental bronchus serving the left lower lobe. There is volume loss with the elevation of the left hemidiaphragm. White count 9.0. Hemoglobin 10.3. Platelets 219. D-dimer 2.07. Sodium 136. Potassium 3.5. Bicarb 27. BUN 28. Creatinine 1.40. Glucose 124. AST 21. ALT 19. proBNP 980. She is seen today in consultation in the emergency department. She is currently resting in the stretcher. Awake and alert. She is quite cachectic and frail. She is requiring 5 L high flow nasal cannula to maintain O2 saturations in the 90s. BMI of 23.0 kg/m. Currently afebrile. Hemodynamically stable. The patient is seen today August 13, 2023 in follow-up on the regular medical floor. She is currently resting in bed. Arousable. Somewhat weak and fatigued today. She is maintaining O2 saturations in the 90s on 5 L/min per nasal cannula. No IV fluids currently. She remains on DuoNeb ventilations, Pulmicort and Perforomist inhalations, Mucinex. From for DVT prophylaxis. She is on several narcotics and antidepressants which may need to be decreased due to her lethargy. White count 5.2. Hemoglobin 8.0. Platelets 198. Sodium 135. Potassium 3.5. Bicarb 27. BUN 22. Creatinine 1.0. Glucose 91. The patient is seen today August 14, 2023 in follow-up on the regular medical floor. She is currently resting in bed. She has been having issues with confusion. A safety investigator/cause analyst is at the bedside. She remains quite weak and frail. She is maintaining O2 saturations up to 100% on 5 L/min per nasal cannula. She is afebrile. Glucose 127. He is continued on DuoNeb inhalations, Pulmicort and Perforomist inhalations, Mucinex. Heparin for DVT prophylaxis. The patient is seen today August 15, 2023 in follow-up on the regular medical floor. She is awake and alert in no acute distress. She continues with a dry nonproductive cough. She is maintaining good O2 saturations in the 90s on 4 L/m in per nasal cannula. Somewhat teary-eyed today. She has made herself a DO NOT RESUSCITATE. She has declined chemotherapy. She did have a psychiatric evaluation yesterday. Not meeting inpatient criteria. They did discontinue her Wellbutrin, BuSpar and Remeron. She is on Ativan as needed. She is calm and cooperative. She remains on DuoNeb inhalations, Pulmicort and Perforomist inhalations, heparin for DVT prophylaxis. White count 6.2. Hemoglobin 9.5. Platelets 355. Sodium 135. Potassium 3.7. Bicarb 32. BUN 19. Creatinine 0.79. On today's evaluation on 08/16/2023,The patient right hip to see the other 1 the patient is being seen for a follow-up. The patient is currently on 2 L of oxygen by nasal cannula with a pulse ox of 94%. As stated, the patient has advanced COPD with complete collapse of the left lung with a endobronchial tumor completely obstructing left mainstem bronchus and the patient has developed a area of atelectasis and effusion in the left lung and the left lung remains completely opacified. The patient was seen today by radiation oncology and consideration for palliative radiation therapy. The patient continues to be short of breath again she continues to have persistent cough. I do not personally see any role for thoracentesis at the patient has left mainstem bronchus is completely plugged with tumor. WBC count is at 6.2 with a hemoglobin 9.5, BUN is 19 with a creatinine of 0.7 and sodium levels at 135. She remains on DuoNeb updrafts and she is also on a combination performance of Pulmicort nebulized treatments and the rest of the home medication have been resumed on this patient. Objective - Vital Signs Vital signs: Vital Signs Temp 98.5 F 08/16/23 12:20 Pulse 100 08/16/23 15:13 Resp 18 08/16/23 12:20 BP 103/62 08/16/23 12:20 Pulse Ox 94 L 08/16/23 12:20 FiO2 Intake & Output 08/15/23 08/16/23 08/16/23 18:59 06:59 18:59 Output Total 275 200 Balance -275 -200 Weight 58.967 kg Output: Urine 275 200 Other: Voiding Method Indwelling Catheter Indwelling Catheter Indwelling Catheter # Voids 2 # Bowel Movements 2 - Exam GENERAL EXAM: Awake, alert, frail cachectic 78-year-old female, on 4 L nasal cannula, resting in bed. HEAD: Normocephalic. EYES: Normal reaction of pupils, equal size. NOSE: Clear with pink turbinates. THROAT: Edentulous. No erythema or exudates. NECK: No masses, no JVD. CHEST: No chest wall deformity. LUNGS: Equal air entry with diminished throughout the whole left lung field. CVS: S1 and S2 normal with no audible murmur, regular rhythm. ABDOMEN: No hepatosplenomegaly, normal bowel sounds, no guarding or rigidity. SPINE: No scoliosis or deformity SKIN: No rashes CENTRAL NERVOUS SYSTEM: No focal deficits, tone is normal in all 4 extremities. EXTREMITIES: There is no peripheral edema. No clubbing, no cyanosis. Peripher al pulses are intact. - Labs CBC & Chem 7: 08/15/23 04:40 08/15/23 04:40 Labs: Abnormal Lab Results - Last 24 Hours (Table) 08/15/23 Range/Units 04:40 Iron 27 L (50-170) UG/DL TIBC 195 L (228-460) UG/DL Transferrin 139.0 L (204.0-354.0) mg/dL Ferritin 483.0 H (10.0-291.0) ng/mL Assessment and Plan Plan: Acute hypoxemic respiratory failure secondary to complete opacification of the left lung. CT angiogram reveals no evidence of pulmonary embolism. There is advanced centrilobular emphysema involving the right lung with hyperexpansion. There is previously noted masslike area in the left hilum which is larger compared to previous exam. There is an area in the lingular segment demonstrates consolidation but no pulmonary artery perfusion and complete opacification of the bronchial segments. The area of presumed masslike involvement is estimated at 7.6 x 6.9 x 4.5. Left lung is not entirely consolidated without aeration. There is complete opacification of the distal left mainstem bronchus with fluid-filled presumed postobstructive filling in the segmental bronchus serving the left lower lobe. There is volume loss with the elevation of the left hemidiaphragm. Previously measured 3.7 x 2.3 cm left hilar mass, with suspected postobstructive atelectasis within the lingula, S/P bronchoscopy on 07/21/2023. Pathology is consistent with a non-small cell lung cancer, likely pulmonary adenocarcinoma. The patient was given stage T2 a N0 M0, At least and the patient will need an PET/CT on outpatient basis. MRI of the brain has been negative. CAT scan of the abdomen shows no evidence of any metastatic abnormalities Acute on chronic hypoxemic respiratory failure secondary to acute exacerbation of COPD and above, currently on 3 L of oxygen by nasal cannula Chronic obstructive pulmonary disease. Lung nodule/lung cancer, status post radiation therapy, probable SBRT. This was performed in [place] History of hypothyroidism History of hyperlipidemia History of bipolar disorder Former tobacco smoker, quitting approximately 3 years ago Plan: Overall for thoracentesis of the left mainstem bronchus is completely plugged wi th malignancy and tumor. Overall prognosis is quite poor Declines chemotherapy Being considered for possible immunotherapy Being considered for palliative radiation therapy DNR CODE STATUS now May consider home with hospice Titrate the FiO2 as tolerated
--- NOTE | 2023-08-17 03:19 | P.PN ---
Subjective Progress Note Date: 08/16/23 78-year-old male with a past medical history of COPD on home oxygen, known history of left lung mass/nodule status post radiation therapy, hypothyroidism, bipolar disorder, anxiety and prior history of smoking quit 3 years ago. Patient was recently in the hospital from 07/18/2023 to 07/28/2023. Patient is actually from [place] and visiting her son who lives across the border in [place]. During this admission patient underwent bronchoscopy with biopsy on 07/21/2023. Left main tissue, transbronchial biopsy showed detached atypical cells having site of morphologic features compatible with non-small cell carcinoma. Patient was recommended to go to subacute rehab at the time but eventually patient wants to be discharged home and supposed to follow-up with radiation oncology for palliative radiation. Patient is currently living with her son in [place] and misses her appointment. Patient presented back to ER with worsening shortness of breath cough and congestion. Chest x-ray showed completely opacified left hemithorax with left-sided volume loss suggesting at least a significant atelectatic component is redemonstrated. Suspect underlying left hilar mass or neoplasm. Right lung remains clear. EKG showed sinus tachycardia. CTA chest was done. Showed previously noted masslike area in the left hilum is larger when compared to the previous exam. The left lung is entirely consolidated without aeration. There is moderate left pleural effusion noted throughout the left hemithorax. No evidence for PE. Advanced central lobar emphysema involving the right lung with hyperexpansion. Laboratory data showed WBC 9.0 hemoglobin 10.3 and platelets 219, D-dimer 2.07 Sodium 136 potassium 3.5 chloride 100 bicarb is 27 BUN 28 and creatinine 1.4 and blood sugar 124. Liver enzymes are not elevated. proBNP 980 and albumin 3.4. 08/14/2023 Patient is seen and evaluated with nursing staff at bedside; patient is very irritable at this time --Patient continues to have episodes of decreased responsiveness versus irritability Patient is currently on Seroquel 250 mg nightly; we will plan to back off on Seroquel; transition from Neurontin 300 mg 3 times daily down to 300 mg twice daily --Plan to add midodrine 10 mg 3 times daily for hypotension; patient did receive a bolus of normal saline 500 cc x 1 We will consult psychiatry for agitation and behavior 24-hour interval change 08/15/2023 Patient is seen and evaluated in room at bedside; discussed with nursing staff; more calm with medication change Vital signs are reviewed and are stable, temperature of 98.1, pulse 96, respiration 18 and blood pressure 101/58, O2 saturation 94% on 4 L Lab review shows WBC 6.0, hemoglobin of 9.5 and platelet count of 355, sodium 135, potassium 3.7, BUNs/creatinine of 19/0.7 --Patient has been evaluated by psych; recommendations noted appreciated Patient is currently being considered for possible immunotherapy; has declined chemotherapy --Patient has been transitioned to DNR status after discussion with patient's son; might be considered for discharge home with hospice 08/16/2023 Patient is seen and evaluated in follow-up today with multiple medical consultations following including pulmonary, oncology, and radiation oncology. Discussion of possible palliative radiation in the near future. Overall prognosis remains poor and not a candidate for chemotherapy with significant weakness was recently hospitalized recommending rehab although patient went home with son. Patient reported no improvement and significant shortness of breath with continued cough and generalized weakness. Patient is not eating very well and appears severely emaciated and unwell. Patient is in no code and is considering possible hospice. Consult was placed for informational and will follow-up with case management as there are social issues. [facility] hospice consult placed as well for financial assessment. Overall prognosis remains extremely poor. Review of systems: Constitutional: No reports of fatigue, fever, or chills Cardiovascular: No reports of chest pain or palpitations Respiratory: reports of continued shortness of breath and continued persistent cough GI: No reports of nausea, vomiting, or diarrhea, reports not much of an appetite : No reports of dysuria or retention Neurovascular: reports of extreme weakness and gait dysfunction All medications have been reviewed Physical exam: Patient is sitting up in the bed. Patient in no acute distress, chronic persistent coughing on exam.. Awake and alert and oriented. Thin built, elderly appearing, ill-appearing, cachectic HEENT: Normocephalic. Neck is supple. Pupils reactive. Nostrils clear. Oral cavity is moist. Neck reveals no JVD, carotid bruits, or thyromegaly. CHEST EXAMINATION: Trachea is central. Symmetrical expansion. Left-sided diminished sounds. Bilateral coarse breath sounds. Mild wheezing present bilaterally. CARDIAC: S1, S2 are muffled ABDOMEN: Soft. Thin. Bowel sounds present. No organomegaly. No abdominal bruits. Extremities: reveal no edema. No clubbing or cyanosis, significant muscle wasting noted Neurologically awake, alert, oriented x 2 able to move all extremities while in bed.. No gross focal deficits noted, diffusely weak Skin: No rash or skin lesions. Psychiatric: Cooperative. Musculoskeletal: No joint swelling or deformity. Assessment: Acute on chronic hypoxic respiratory failure secondary to moderate left pleural effusion, left hilar mass and entirely consolidated left lung without aeration. Currently requiring 5 L oxygen via nasal cannula. Acute kidney injury likely prerenal. Creatinine 1.4 on admission. 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 Elevated D-dimer level. CT angiogram showed no evidence of PE. COPD, acute exacerbation Left lung nodule/mass. Status post radiation previously at [place], not a candidate for chemotherapy, being considered for possible palliative radiation Hyperlipidemia Hypothyroidism Bipolar disorder Prior history of smoking quit 3 years ago Moderate protein calorie malnutrition with a BMI of 23.0 Generalized weakness with gait dysfunction DVT prophylaxis with heparin subcu GI prophylaxis No code Plan: Patient will be continued on oxygen supplementation. Continue with DuoNebs, Pulmicort and Perforomist. Pulmonary following with no plans of thoracentesis at this time. Patient is not a candidate for chemotherapy and radiation oncology evaluating considering possible radiation palliatively early next week if improving Overall discussion about prognosis and treatment plan moving forward and hospice consult was placed. [facility] hospice consulted for financial assessment as patient currently resides in [place] with her son although was from [facility] and does not want to return there. Will be continued on home medications including levothyroxine and other psychiatric medications. Patient did have brief period of confusion, likely medication effect and was evaluated by psychiatry and adjustments to medications made. CODE STATUS has been discussed and patient is no code. Due to significant comorbidities, overall prognosis is extremely poor and guarded Will follow-up with case management/social work regarding treatment plan as well as possible home with hospice versus possible hospice house The impression and plan of care has been dictated by Priyanka Lozano, Nurse Practitioner as directed. Dr. Rosa Maria MD I have performed a history and examination and MDM of this patient, discussed the same with the dictator, and agree with the dictator's assessment and plan as written ,documented as a scribe. Based on total visit time, I have performed more than 50% of the visit. Objective - Vital Signs Vital signs: Vital Signs Temp 97.7 F 08/16/23 07:15 Pulse 104 H 08/16/23 08:05 Resp 18 08/16/23 07:15 BP 103/55 08/16/23 07:15 Pulse Ox 94 L 08/16/23 07:15 FiO2 Intake & Output 08/15/23 08/16/23 08/16/23 18:59 06:59 18:59 Output Total 275 Balance -275 Output: Urine 275 Other: Voiding Method Indwelling Catheter Indwelling Catheter # Voids 2 # Bowel Movements 2 - Labs CBC & Chem 7: 08/15/23 04:40 08/15/23 04:40 Labs: Abnormal Lab Results - Last 24 Hours (Table) 08/15/23 Range/Units 04:40 Iron 27 L (50-170) UG/DL TIBC 195 L (228-460) UG/DL Transferrin 139.0 L (204.0-354.0) mg/dL Ferritin 483.0 H (10.0-291.0) ng/mL
--- NOTE | 2023-08-17 15:04 | P.PN ---
Subjective Progress Note Date: 08/17/23 78-year-old male with a past medical history of COPD on home oxygen, known history of left lung mass/nodule status post radiation therapy, hypothyroidism, bipolar disorder, anxiety and prior history of smoking quit 3 years ago. Patient was recently in the hospital from 07/18/2023 to 07/28/2023. Patient is actually from [place] and visiting her son who lives across the border in [place]. During this admission patient underwent bronchoscopy with biopsy on 07/21/2023. Left main tissue, transbronchial biopsy showed detached atypical cells having site of morphologic features compatible with non-small cell carcinoma. Patient was recommended to go to subacute rehab at the time but eventually patient wants to be discharged home and supposed to follow-up with radiation oncology for palliative radiation. Patient is currently living with her son in [place] and misses her appointment. Patient presented back to ER with worsening shortness of breath cough and congestion. Chest x-ray showed completely opacified left hemithorax with left-sided volume loss suggesting at least a significant atelectatic component is redemonstrated. Suspect underlying left hilar mass or neoplasm. Right lung remains clear. EKG showed sinus tachycardia. CTA chest was done. Showed previously noted masslike area in the left hilum is larger when compared to the previous exam. The left lung is entirely consolidated without aeration. There is moderate left pleural effusion noted throughout the left hemithorax. No evidence for PE. Advanced central lobar emphysema involving the right lung with hyperexpansion. Laboratory data showed WBC 9.0 hemoglobin 10.3 and platelets 219, D-dimer 2.07 Sodium 136 potassium 3.5 chloride 100 bicarb is 27 BUN 28 and creatinine 1.4 and blood sugar 124. Liver enzymes are not elevated. proBNP 980 and albumin 3.4. 08/14/2023 Patient is seen and evaluated with nursing staff at bedside; patient is very irritable at this time --Patient continues to have episodes of decreased responsiveness versus irritability Patient is currently on Seroquel 250 mg nightly; we will plan to back off on Seroquel; transition from Neurontin 300 mg 3 times daily down to 300 mg twice daily --Plan to add midodrine 10 mg 3 times daily for hypotension; patient did receive a bolus of normal saline 500 cc x 1 We will consult psychiatry for agitation and behavior 24-hour interval change 08/15/2023 Patient is seen and evaluated in room at bedside; discussed with nursing staff; more calm with medication change Vital signs are reviewed and are stable, temperature of 98.1, pulse 96, respiration 18 and blood pressure 101/58, O2 saturation 94% on 4 L Lab review shows WBC 6.0, hemoglobin of 9.5 and platelet count of 355, sodium 135, potassium 3.7, BUNs/creatinine of 19/0.7 --Patient has been evaluated by psych; recommendations noted appreciated Patient is currently being considered for possible immunotherapy; has declined chemotherapy --Patient has been transitioned to DNR status after discussion with patient's son; might be considered for discharge home with hospice 08/16/2023 Patient is seen and evaluated in follow-up today with multiple medical consultations following including pulmonary, oncology, and radiation oncology. Discussion of possible palliative radiation in the near future. Overall prognosis remains poor and not a candidate for chemotherapy with significant weakness was recently hospitalized recommending rehab although patient went home with son. Patient reported no improvement and significant shortness of breath with continued cough and generalized weakness. Patient is not eating very well and appears severely emaciated and unwell. Patient is in no code and is considering possible hospice. Consult was placed for informational and will follow-up with case management as there are social issues. [facility] hospice consult placed as well for financial assessment. Overall prognosis remains extremely poor. 08/17/2023 Patient seen and evaluated in follow-up being followed by pulmonary along with oncology and radiation oncology. Patient is being scheduled for palliative radiation today. Multiple social issues regarding discharge planning as patient has no current address in [facility] and is not a resident here and her primary residence is in [facility] although staying with her son here in [facility]. Patient's insurance is from [place] and currently working with Medicaid rep to possibly transition insurance here. Plan is for possible hospice as she does not want to pursue chemotherapy. Patient is stable on 3 L and will undergo radiation treatment with 5 sessions scheduled. Patient is afebrile with no reports of chest pain or worsening shortness of breath. Patient oral intake is poor to fair and encouraged frequent meals throughout the day. Overall prognosis is extremely poor and guarded at this time. Review of systems: Constitutional: No reports of fatigue, fever, or chills Cardiovascular: No reports of chest pain or palpitations Respiratory: reports of continued shortness of breath and continued persistent cough GI: No reports of nausea, vomiting, or diarrhea, reports not much of an appetite : No reports of dysuria or retention Neurovascular: reports of extreme weakness and gait dysfunction All medications have been reviewed Physical exam: Patient is sitting up in the bed. Patient in no acute distress, chronic persistent coughing on exam.. Awake and alert and oriented. Thin built, elderly appearing, ill-appearing, cachectic HEENT: Normocephalic. Neck is supple. Pupils reactive. Nostrils clear. Oral cavity is moist. Neck reveals no JVD, carotid bruits, or thyromegaly. CHEST EXAMINATION: Trachea is central. Symmetrical expansion. Left-sided diminished sounds. Bilateral coarse breath sounds. Mild wheezing present bilat erally. CARDIAC: S1, S2 are muffled ABDOMEN: Soft. Thin. Bowel sounds present. No organomegaly. No abdominal bruits. Extremities: reveal no edema. No clubbing or cyanosis, significant muscle wasti ng noted Neurologically awake, alert, oriented x 2 able to move all extremities while in bed.. No gross focal deficits noted, diffusely weak Skin: No rash or skin lesions. Psychiatric: Cooperative. Musculoskeletal: No joint swelling or deformity. Assessment: Acute on chronic hypoxic respiratory failure secondary to moderate left pleural effusion, left hilar mass and entirely consolidated left lung without aeration. Currently requiring 5 L oxygen via nasal cannula. Acute kidney injury likely prerenal. Creatinine 1.4 on admission. 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 Elevated D-dimer level. CT angiogram showed no evidence of PE. COPD, acute exacerbation Left lung nodule/mass. Status post radiation previously at [place], not a candidate for chemotherapy, being considered for possible palliative radiation Hyperlipidemia Hypothyroidism Bipolar disorder Prior history of smoking quit 3 years ago Moderate protein calorie malnutrition with a BMI of 23.0 Generalized weakness with gait dysfunction DVT prophylaxis with heparin subcu GI prophylaxis No code Plan: Patient will be continued on oxygen supplementation. Continue with DuoNebs, Pulmicort and Perforomist. Pulmonary following with no plans of thoracentesis at this time. Patient is not a candidate for chemotherapy and radiation oncology evaluating and will be initiating radiation therapy today. Plan is to receive 5 sessions of palliative radiation. Overall discussion about prognosis and treatment plan moving forward and hospice consult was placed. [facility] hospice consulted for financial assessment although unable to provide any assistance as patient is not a [facility] resident. Insurance is out of [facility] where her primary residence is. Patient currently staying in [facility] with her son Case management following working on other options Will be continued on home medications including levothyroxine and other psychiatric medications. Patient did have brief period of confusion, likely medication effect and was evaluated by psychiatry and adjustments to medications made. Mentation is baseline. CODE STATUS has been discussed and patient is no code. Due to significant co morbidities, overall prognosis is extremely poor and guarded. Patient is agreeable to palliative radiation although does not want to continue pursuing any chemotherapy Patient to continue on palliative radiation with 5 sessions making that Wednesday of next week. The impression and plan of care has been dictated by Priyanka Lozano, Nurse Practitioner as directed. Dr. Rosa Maria MD I have performed a history and examination and MDM of this patient, discussed the same with the dictator, and agree with the dictator's assessment and plan as written ,documented as a scribe. Based on total visit time, I have performed more than 50% of the visit. Objective - Vital Signs Vital signs: Vital Signs Temp 97.5 F L 08/17/23 12:34 Pulse 80 08/17/23 14:45 Resp 19 08/17/23 12:34 BP 102/61 08/17/23 12:34 Pulse Ox 95 08/17/23 12:34 FiO2 Intake & Output 08/16/23 08/17/23 08/17/23 18:59 06:59 18:59 Output Total 200 450 Balance -200 -450 Weight 58.967 kg Output: Urine 200 450 Other: Voiding Method Indwelling Catheter Indwelling Catheter Indwelling Catheter - Labs CBC & Chem 7: 08/15/23 04:40 08/15/23 04:40 Labs: Abnormal Lab Results - Last 24 Hours (Table) 08/16/23 Range/Units 06:28 RBC Folate 1,147 H (280 - 791) ng/mL
--- NOTE | 2023-08-17 16:03 | P.PN ---
Subjective Progress Note Date: 08/17/23 This is a very pleasant 78-year-old female with a history significant for COPD, lung cancer, hypothyroidism, hyperlipidemia, bipolar disorder. She states that she has moderate to severe emphysema/COPD. She quit smoking approximately 3 years ago. She is oxygen dependent on 3 L/min nasal cannula at home. She does have a known lung mass/nodule on the left side, first identified 3 years ago, and has underwent radiation therapy. She is not on any systemic chemotherapy or immunotherapy. The patient was here from July 17 through July 28, 2023. Patient was in town visiting her son who lives across the border in [place]. She is actually from [place]. She does follow with a still worker helper in [facility], Dr. John Hernandez. During her recent hospitalization he was found to have complete opacification of the left lung and postobstructive atelectasis. She had undergone bronchoscopy with biopsy on 07/21/2023 and was found to have non- small cell lung cancer in the form of pulmonary adenocarcinoma. She was subsequently discharged and was to follow-up with radiation oncology for palliative and then possible continued radiation. States she had an appointment to initiate radiation here in town but as she was living with her son in [place] the day they were to cross there was too many cars and they did not come over for the appointment. She presented here again to the emergency room last noemi srinivasan with worsening shortness of breath, cough and congestion. This x-ray continues show completely opacified left hemithorax and left-sided volume loss. Underlying left hilar mass present. Right lung remains clear. CT angiogram reveals no evidence of pulmonary embolism. There is advanced centrilobular emphysema involving the right lung with hyperexpansion. There is previously noted masslike area in the left hilum which is larger compared to previous exam. There is an area in the lingular segment demonstrates consolidation but no pulmonary artery perfusion and complete opacification of the bronchial segments. The area of presumed masslike involvement is estimated at 7.6 x 6.9 x 4.5. L eft lung is not entirely consolidated without aeration. There is complete opacification of the distal left mainstem bronchus with fluid-filled presumed postobstructive filling in the segmental bronchus serving the left lower lobe. There is volume loss with the elevation of the left hemidiaphragm. White count 9.0. Hemoglobin 10.3. Platelets 219. D-dimer 2.07. Sodium 136. Potassium 3.5. Bicarb 27. BUN 28. Creatinine 1.40. Glucose 124. AST 21. ALT 19. proBNP 980. She is seen today in consultation in the emergency department. She is currently resting in the stretcher. Awake and alert. She is quite cachectic and frail. She is requiring 5 L high flow nasal cannula to maintain O2 saturations in the 90s. BMI of 23.0 kg/m. Currently afebrile. Hemodynamically stable. The patient is seen today August 13, 2023 in follow-up on the regular medical floor. She is currently resting in bed. Arousable. Somewhat weak and fatigued today. She is maintaining O2 saturations in the 90s on 5 L/min per nasal cannula. No IV fluids currently. She remains on DuoNeb ventilations, Pulmicort and Perforomist inhalations, Mucinex. From for DVT prophylaxis. She is on several narcotics and antidepressants which may need to be decreased due to her lethargy. White count 5.2. Hemoglobin 8.0. Platelets 198. Sodium 135. Potassium 3.5. Bicarb 27. BUN 22. Creatinine 1.0. Glucose 91. The patient is seen today August 14, 2023 in follow-up on the regular medical floor. She is currently resting in bed. She has been having issues with confusion. A consumer safety inspector is at the bedside. She remains quite weak and frail. She is maintaining O2 saturations up to 100% on 5 L/min per nasal cannula. She is afebrile. Glucose 127. He is continued on DuoNeb inhalations, Pulmicort and Perforomist inhalations, Mucinex. Heparin for DVT prophylaxis. The patient is seen today August 15, 2023 in follow-up on the regular medical floor. She is awake and alert in no acute distress. She continues with a dry nonproductive cough. She is maintaining good O2 saturations in the 90s on 4 L/m in per nasal cannula. Somewhat teary-eyed today. She has made herself a DO NOT RESUSCITATE. She has declined chemotherapy. She did have a psychiatric evaluation yesterday. Not meeting inpatient criteria. They did discontinue her Wellbutrin, BuSpar and Remeron. She is on Ativan as needed. She is calm and cooperative. She remains on DuoNeb inhalations, Pulmicort and Perforomist inhalations, heparin for DVT prophylaxis. White count 6.2. Hemoglobin 9.5. Platelets 355. Sodium 135. Potassium 3.7. Bicarb 32. BUN 19. Creatinine 0.79. On today's evaluation on 08/16/2023,The patient right hip to see the other 1 the patient is being seen for a follow-up. The patient is currently on 2 L of oxygen by nasal cannula with a pulse ox of 94%. As stated, the patient has advanced COPD with complete collapse of the left lung with a endobronchial tumor completely obstructing left mainstem bronchus and the patient has developed a area of atelectasis and effusion in the left lung and the left lung remains completely opacified. The patient was seen today by radiation oncology and consideration for palliative radiation therapy. The patient continues to be short of breath again she continues to have persistent cough. I do not personally see any role for thoracentesis at the patient has left mainstem bronchus is completely plugged with tumor. WBC count is at 6.2 with a hemoglobin 9.5, BUN is 19 with a creatinine of 0.7 and sodium levels at 135. She remains on DuoNeb updrafts and she is also on a combination performance of Pulmicort nebulized treatments and the rest of the home medication have been resumed on this patient. On today's evaluation of 08/17/2023, no change in patient's condition. The patient is currently on 3 Suboxone by nasal cannula. Patient is scheduled to undergo corrective radiation therapy. At the same time, there is a consideration for this patient to go into hospice care. Monitor for worsening shortness of breath. Objective - Vital Signs Vital signs: Vital Signs Temp 97.8 F 08/17/23 07:06 Pulse 100 08/17/23 08:05 Resp 20 08/17/23 07:06 BP 91/53 08/17/23 07:06 Pulse Ox 90 L 08/17/23 07:06 FiO2 Intake & Output 08/16/23 08/17/23 08/17/23 18:59 06:59 18:59 Output Total 200 450 Balance -200 -450 Weight 58.967 kg Output: Urine 200 450 Other: Voiding Method Indwelling Catheter Indwelling Catheter - Exam GENERAL EXAM: Awake, alert, frail cachectic 78-year-old female, on 4 L nasal cannula, resting in bed. HEAD: Normocephalic. EYES: Normal reaction of pupils, equal size. NOSE: Clear with pink turbinates. THROAT: Edentulous. No erythema or exudates. NECK: No masses, no JVD. CHEST: No chest wall deformity. LUNGS: Equal air entry with diminished throughout the whole left lung field. CVS: S1 and S2 normal with no audible murmur, regular rhythm. ABDOMEN: No hepatosplenomegaly, normal bowel sounds, no guarding or rigidity. SPINE: No scoliosis or deformity SKIN: No rashes CENTRAL NERVOUS SYSTEM: No focal deficits, tone is normal in all 4 extremities. EXTREMITIES: There is no peripheral edema. No clubbing, no cyanosis. Peripheral pulses are intact. - Labs CBC & Chem 7: 08/15/23 04:40 08/15/23 04:40 Labs: Abnormal Lab Results - Last 24 Hours (Table) 08/16/23 Range/Units 06:28 RBC Folate 1,147 H (280 - 791) ng/mL Assessment and Plan Plan: Acute hypoxemic respiratory failure secondary to complete opacification of the left lung. CT angiogram reveals no evidence of pulmonary embolism. There is advanced centrilobular emphysema involving the right lung with hyperexpansion. There is previously noted masslike area in the left hilum which is larger compared to previous exam. There is an area in the lingular segment demonstrates consolidation but no pulmonary artery perfusion and complete opacification of the bronchial segments. The area of presumed masslike involvement is estimated at 7.6 x 6.9 x 4.5. Left lung is not entirely consolidated without aeration. There is complete opacification of the distal left mainstem bronchus with fluid-filled presumed postobstructive filling in the segmental bronchus serving the left lower lobe. There is volume loss with the elevation of the left hemidiaphragm. Previously measured 3.7 x 2.3 cm left hilar mass, with suspected postobstructive atelectasis within the lingula, S/P bronchoscopy on 07/21/2023. Pathology is consistent with a non-small cell lung cancer, likely pulmonary adenocarcinoma. The patient was given stage T2 a N0 M0, At least and the patient will need an PET/CT on outpatient basis. MRI of the brain has been negative. CAT scan of the abdomen shows no evidence of any metastatic abnormalities Acute on chronic hypoxemic respiratory failure secondary to acute exacerbation of COPD and above, currently on 3 L of oxygen by nasal cannula Chronic obstructive pulmonary disease. Lung nodule/lung cancer, status post radiation therapy, probable SBRT. This was performed in [place] History of hypothyroidism History of hyperlipidemia History of bipolar disorder Former tobacco smoker, quitting approximately 3 years ago Plan: Overall for thoracentesis of the left mainstem bronchus is completely plugged with malignancy and tumor. Overall prognosis is quite poor Declines chemotherapy Being considered for possible immunotherapy Being considered for palliative radiation therapy DNR CODE STATUS now Consider hospice care Titrate the FiO2 as tolerated Pulmonary critical care services will sign off, this is a very poor prognosis. Strongly recommend hospice.
[2023-08-17] MEDS: ONDANSETRON 4 MG/2 ML VIAL IVP PRN (20:37)
[2023-08-17] MEDS: IPRATROPIUM-ALBUTEROL 3 ML NEB INHALATION PRN (21:45)
--- NOTE | 2023-08-18 23:05 | P.PN ---
Subjective Progress Note Date: 08/18/23 No acute events. Pt more lethargic at todays visit. She states breathing feels improved today. RT to lung mass was started yesterday. SPO2 97% on 4L NC Objective - Vital Signs Vital signs: Vital Signs Temp 97.3 F L 08/18/23 20:00 Pulse 112 H 08/18/23 21:25 Resp 16 08/18/23 20:00 BP 103/62 08/18/23 20:00 Pulse Ox 94 L 08/18/23 20:00 FiO2 Intake & Output 08/18/23 08/18/23 08/19/23 06:59 18:59 06:59 Intake Total 120 Output Total 625 450 Balance -625 -330 Intake: Oral 120 Output: Urine 625 450 Other: Voiding Method Indwelling Catheter Indwelling Catheter Indwelling Catheter - Constitutional General appearance: Present: no acute distress - EENT Eyes: Present: anicteric sclerae, EOMI ENT: Present: hearing grossly normal - Respiratory Details: breathing even and unlabored - Cardiovascular Details: skin warm and dry - Integumentary Integumentary: Absent: cyanotic - Musculoskeletal Musculoskeletal: Present: generalized weakness - Psychiatric Psychiatric Comment(s): A&O x 2, lethargic - Labs CBC & Chem 7: 08/15/23 04:40 08/15/23 04:40 Assessment and Plan (1) Acute metabolic encephalopathy Current Visit: Yes Status: Acute Priority: High Code(s): G93.41 - METABO LIC ENCEPHALOPATHY SNOMED Code(s): 58115217 (2) Microcytic normochromic anemia Current Visit: Yes Status: Acute Priority: High Code(s): D50.9 - IRON DEFICIENCY ANEMIA, UNSPECIFIED SNOMED Code(s): 5307786 (3) Non-small cell cancer of left lung Current Visit: Yes Status: Acute Priority: High Code(s): C34.92 - MALIGNANT NEOPLASM OF UNSP PART OF LEFT BRONCHUS OR LUNG SNOMED Code(s): 595270513 (4) Postobstructive pneumonia Current Visit: Yes Status: Acute Priority: High Code(s): J18.9 - PNEUMONIA, UNSPECIFIED ORGANISM SNOMED Code(s): 370186277 Plan: Acute metabolic encephalopathy -Alprazolam added to home Seroquel listed at 250 mg daily -Was unable to participate in conversation or follow commands, which was an acute change from her presentation on admission -Psychiatry consulted and recommend discontinuing Wellbutrin, buspirone, and Remeron -Mental status has improved since admission -Appreciate psychiatry assistance in managing her medications Postobstructive atelectasis/pneumonia -Secondary to left upper lobe lung carcinoma. Recent imaging and biopsy results as stated in consult HPI. -Plan was for initiation of radiation for symptoms but, patient missed that a ppointment. Radiation oncology has been consulted -Discussed case with radiation oncology. RT to lung mass started yesterday Non-small cell lung carcinoma -Recent diagnosis from a transbronchial biopsy 07/21/2023. Atypical cells compatible with non-small cell carcinoma. CK7 positive, TTF-1 rare, findings nonspecific but may represent pulmonary adenocarcinoma but at least a focal component of squamous differentiation could not entirely be excluded. -Brain MRI done 07/23/2023 reported no suspicious areas of enhancement to suggest metastatic disease -Tissue specimens were requested and sent for PD-L1 and NGS, but upon discussion with pathology, not enough tissue specimen is available for this testing -Currently, she would not be a candidate for systemic therapy based on her performance status -If her performance status improves, circulating tumor DNA analysis could be obtained outpatient at this is not covered by insurance while inpatient -She has a staging PET scan sched for 08/19/2023, and f/u with Dr. Almanza on 08/24/2023 at 4pm, pending course of hospitalization these will be rescheduled -On admission, she noted not wanting chemotherapy, but would be amenable to potential immunotherapy or targeted therapy. POC, treatment modalities, and hospice/comfort care discussed in detail patient. At this time, patient will proceed with palliative RT and we will continue to monitor course of hospitalization
--- NOTE | 2023-08-19 05:46 | P.PN ---
Subjective Progress Note Date: 08/18/23 78-year-old male with a past medical history of COPD on home oxygen, known history of left lung mass/nodule status post radiation therapy, hypothyroidism, bipolar disorder, anxiety and prior history of smoking quit 3 years ago. Patient was recently in the hospital from 07/18/2023 to 07/28/2023. Patient is actually from [place] and visiting her son who lives across the border in [place]. During this admission patient underwent bronchoscopy with biopsy on 07/21/2023. Left main tissue, transbronchial biopsy showed detached atypical cells having site of morphologic features compatible with non-small cell carcinoma. Patient was recommended to go to subacute rehab at the time but eventually patient wants to be discharged home and supposed to follow-up with radiation oncology for palliative radiation. Patient is currently living with her son in [place] and misses her appointment. Patient presented back to ER with worsening shortness of breath cough and congestion. Chest x-ray showed completely opacified left hemithorax with left-sided volume loss suggesting at least a significant atelectatic component is redemonstrated. Suspect underlying left hilar mass or neoplasm. Right lung remains clear. EKG showed sinus tachycardia. CTA chest was done. Showed previously noted masslike area in the left hilum is larger when compared to the previous exam. The left lung is entirely consolidated without aeration. There is moderate left pleural effusion noted throughout the left hemithorax. No evidence for PE. Advanced central lobar emphysema involving the right lung with hyperexpansion. Laboratory data showed WBC 9.0 hemoglobin 10.3 and platelets 219, D-dimer 2.07 Sodium 136 potassium 3.5 chloride 100 bicarb is 27 BUN 28 and creatinine 1.4 and blood sugar 124. Liver enzymes are not elevated. proBNP 980 and albumin 3.4. 08/14/2023 Patient is seen and evaluated with nursing staff at bedside; patient is very irritable at this time --Patient continues to have episodes of decreased responsiveness versus irritability Patient is currently on Seroquel 250 mg nightly; we will plan to back off on Seroquel; transition from Neurontin 300 mg 3 times daily down to 300 mg twice daily --Plan to add midodrine 10 mg 3 times daily for hypotension; patient did receive a bolus of normal saline 500 cc x 1 We will consult psychiatry for agitation and behavior 24-hour interval change 08/15/2023 Patient is seen and evaluated in room at bedside; discussed with nursing staff; more calm with medication change Vital signs are reviewed and are stable, temperature of 98.1, pulse 96, respiration 18 and blood pressure 101/58, O2 saturation 94% on 4 L Lab review shows WBC 6.0, hemoglobin of 9.5 and platelet count of 355, sodium 135, potassium 3.7, BUNs/creatinine of 19/0.7 --Patient has been evaluated by psych; recommendations noted appreciated Patient is currently being considered for possible immunotherapy; has declined chemotherapy --Patient has been transitioned to DNR status after discussion with patient's son; might be considered for discharge home with hospice 08/16/2023 Patient is seen and evaluated in follow-up today with multiple medical consultations following including pulmonary, oncology, and radiation oncology. Discussion of possible palliative radiation in the near future. Overall prognosis remains poor and not a candidate for chemotherapy with significant weakness was recently hospitalized recommending rehab although patient went home with son. Patient reported no improvement and significant shortness of breath with continued cough and generalized weakness. Patient is not eating very well and appears severely emaciated and unwell. Patient is in no code and is considering possible hospice. Consult was placed for informational and will follow-up with case management as there are social issues. [facility] hospice consult placed as well for financial assessment. Overall prognosis remains extremely poor. 08/17/2023 Patient seen and evaluated in follow-up being followed by pulmonary along with oncology and radiation oncology. Patient is being scheduled for palliative radiation today. Multiple social issues regarding discharge planning as patient has no current address in [facility] and is not a resident here and her primary residence is in [facility] although staying with her son here in [place]. Patient's insurance is from [place] and currently working with Medicaid rep to possibly transition insurance here. Plan is for possible hospice as she does not want to pursue chemotherapy. Patient is stable on 3 L and will undergo radiation treatment with 5 sessions scheduled. Patient is afebrile with no reports of chest pain or worsening shortness of breath. Patient oral intake is poor to fair and encouraged frequent meals throughout the day. Overall prognosis is extremely poor and guarded at this time. 08/18/2023 Patient is seen today and has just received pain medications so is groggy although able to answer questions appropriately. Plan is for continued radiation therapy for palliative support. Per nursing staff patient is to receive 5 doses and will discuss further with radiation oncology along with oncology about overall treatment plan. Patient does not want to pursue chemotherapy. Case management following as well and looking into options of possible hospice. Social barriers including insurance issues noted. Patient is currently afebrile with no reports of worsening shortness of breath. Patient reports not feeling well today. Not much of an appetite and patient is eating small little bites. Overall prognosis remains poor Review of systems: Constitutional: reports of fatigue and not feeling well, no fever, or chills Cardiovascular: No reports of chest pain or palpitations Respiratory: reports of continued shortness of breath and continued persistent cough GI: No reports of nausea, vomiting, or diarrhea, reports not much of an appetite : No reports of dysuria or retention Neurovascular: reports of extreme weakness and gait dysfunction All medications have been reviewed Physical exam: Patient is lying in the bed. Patient in no acute distress, asleep although arousable. Thin built, elderly appearing, ill-appearing, cachectic HEENT: Normocephalic. Neck is supple. Pupils reactive. Nostrils clear. Oral cavi ty is moist. Neck reveals no JVD, carotid bruits, or thyromegaly. CHEST EXAMINATION: Trachea is central. Symmetrical expansion. Left-sided diminished sounds. Bilateral coarse breath sounds. Mild wheezing present bilaterally. CARDIAC: S1, S2 are muffled ABDOMEN: Soft. Thin. Bowel sounds present. No organomegaly. No abdominal bruits. Extremities: reveal no edema. No clubbing or cyanosis, significant muscle wasting noted Neurologically awake, alert, oriented x 2 able to move all extremities while in bed.. No gross focal deficits noted, diffusely weak Skin: No rash or skin lesions. Psychiatric: Cooperative. Musculoskeletal: No joint swelling or deformity. Assessment: Acute on chronic hypoxic respiratory failure secondary to moderate left pleural effusion, left hilar mass and entirely consolidated left lung without aeration. Currently requiring 5 L oxygen via nasal cannula. Acute kidney injury likely prerenal. Creatinine 1.4 on admission. 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 Elevated D-dimer level. CT angiogram showed no evidence of PE. COPD, acute exacerbation Left lung nodule/mass. Status post radiation previously at [place], not a candidate for chemotherapy, undergoing palliative radiation currently Hyperlipidemia Hypothyroidism Bipolar disorder Prior history of smoking quit 3 years ago Moderate protein calorie malnutrition with a BMI of 23.0 Generalized weakness with gait dysfunction DVT prophylaxis with heparin subcu GI prophylaxis No code Plan: Patient will be continued on oxygen supplementation. Continue with DuoNebs, Pulmicort and Perforomist. Pulmonary following with no plans of thoracentesis at this time. Patient is not a candidate for chemotherapy and radiation oncology has evaluated and started radiation therapy for palliative purposes. Plan is to receive 5 sessions of palliative radiation. Overall discussion about prognosis and treatment plan moving forward and hospice consult was placed. [facility] consulted for financial assessment although unable to provide any assistance as patient is not a [facility] resident. Insurance is out of [facility] where her primary residence is. Patient currently staying in [facility] with her son Case management following working on other options Will be continued on home medications including levothyroxine and other psychiatric medications. Patient did have brief period of confusion, likely medication effect and was evaluated by psychiatry and adjustments to medications made. Mentation is baseline. CODE STATUS has been discussed and patient is no code. Due to significant comorbidities, overall prognosis is extremely poor and guarded. Patient is agr eeable to palliative radiation although does not want to continue pursuing any chemotherapy Patient to continue on palliative radiation with 5 sessions and will discuss further with radiation oncology as well as oncology regarding this. The impression and plan of care has been dictated by Priyanka Lozano, Nurse Practitioner as directed. Dr. Rosa Maria MD I have performed a history and examination and MDM of this patient, discussed the same with the dictator, and agree with the dictator's assessment and plan as written ,documented as a scribe. Based on total visit time, I have performed more than 50% of the visit. Objective - Vital Signs Vital signs: Vital Signs Temp 98 F 08/18/23 08:00 Pulse 112 H 08/18/23 09:31 Resp 18 08/18/23 08:00 BP 97/53 08/18/23 08:00 Pulse Ox 100 08/18/23 08:00 FiO2 Intake & Output 08/17/23 08/18/23 08/18/23 18:59 06:59 18:59 Output Total 450 625 Balance -450 -625 Output: Urine 450 625 Other: Voiding Method Indwelling Catheter Indwelling Catheter Indwelling Catheter - Labs CBC & Chem 7: 08/15/23 04:40 08/15/23 04:40 Labs: Abnormal Lab Results - Last 24 Hours (Table) 08/16/23 Range/Units 06:28 RBC Folate 1,147 H (280 - 791) ng/mL
[2023-08-19 07:51] VITALS: BP 95/54
[2023-08-19 13:50] VITALS: RESP 18; TEMP 98.9
[2023-08-19 15:18] VITALS: PULSE 100
--- NOTE | 2023-08-19 15:43 | P.DS ---
Providers Date of admission: 08/12/23 01:54 Expected date of discharge: 08/19/23 Attending physician: Beny Booth Consults: 08/12/23 05:03 Consult Physician Urgent Consulting Provider: Tai Nicole Consult Reason/Comments: recurrent effusion, sob, copd Do you want consulting provider notified?: Yes 08/12/23 08:47 Consult Physician Routine Consulting Provider: Tamera Harkins Consult Reason/Comments: Lung cancer Do you want consulting provider notified?: Yes Consult Physician Routine Consulting Provider: Stevan Walsh Consult Reason/Comments: Lung cancer Do you want consulting provider notified?: Yes 08/14/23 12:54 Consult Physician Urgent Consulting Provider: Psychiatry - [facility] Psychiatry Consult Reason/Comments: med review, lethargic during night and all morning; aggitation when awake Do you want consulting provider notified?: Yes Primary care physician: Stated None Hospital Course: Final diagnosis Acute on chronic hypoxic respiratory failure secondary to moderate left pleural effusion, left hilar mass and entirely consolidated left lung without aeration. Currently requiring 5 L oxygen via nasal cannula. Acute kidney injury likely prerenal. Creatinine 1.4 on admission. 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 Elevated D-dimer level. CT angiogram showed no evidence of PE. COPD, acute exacerbation Left lung nodule/mass. Status post radiation previously at [place], not a candidate for chemotherapy, undergoing palliative radiation currently Hyperlipidemia Hypothyroidism Bipolar disorder Prior history of smoking quit 3 years ago Moderate protein calorie malnutrition with a BMI of 23.0 Generalized weakness with gait dysfunction DVT prophylaxis with heparin subcu GI prophylaxis No code Discharge disposition Patient is being transitioned in a stable condition but guarded prognosis to [facility] hospice services, GIP appropriate and comfort measures. Total time taken is greater than 35 minutes. Hospital course This is a 78-year-old female who was recently admitted with increasing shortness of breath with known history of lung cancer and not a surgical candidate and does not want to pursue chemotherapy being closely monitored with multiple medical consultations. Patient was agreeable to palliative radiation and has had 2 sessions. Patient continues to clinically deteriorate and now having difficulty with tolerating any oral intake, not really taking medications orally and extreme weakness with continued pain. Asked hospice to reevaluate this patient is progressively becoming more weak and unstable. Family discussion was had and patient's son who lives in [place] discussed with estranged son in [place] where she resides and was agreeable to sign over to the son here for her rights. Case management was following working on possible options of hospice and attempting to change patient's insurance to [place] insurance as it currently was still in [place]. Patient does not have a residence here. Patient was reevaluated by hospice at bedside today and is meeting criteria for GIP. Patient will be transition to GIP comfort measures only. Overall prognosis is extremely poor and guarded. Please refer to other consultation notes for further HPI. Currently no reports of chest pain, reports continued shortness of breath, denies palpitations. Patient is afebrile. reports of nausea, no vomiting and patient is not eating much of anything and having difficulty with tolerating oral intake. Again overall prognosis is extremely poor and hospice is appropriate. We will continue to follow with [facility] during hospitalization. Physical exam: Gen: This is a 78-year-old female who is awake although lethargic, alert and oriented x 3, thin built, elderly appearing, ill-appearing HEENT: Head is atraumatic, normocephalic. Pupils equal, round. Sclerae is an icteric. NECK: Supple. No JVD. No lymphadenopathy. No thyromegaly. LUNGS: Diminished breath sounds bilaterally with coarse rhonchi noted. No intercostal retractions. HEART: S1, S2 are muffled ABDOMEN: Soft. Thin, scaphoid bowel sounds are present. No masses. No tenderness. EXTREMITIES: No pedal edema. No calf tenderness. NEUROLOGICAL: Patient is lethargic although arousable , alert and oriented x3. Cranial nerves 2 through 12 are grossly intact. Diffusely weak Please refer to medication reconciliation sheet for a list of medications. The impression and plan of care has been dictated by Priyanka Lozano, Nurse Practitioner as directed. Dr. Rosa Maria MD I have performed a history and examination and MDM of this patient, discussed the same with the dictator, and agree with the dictator's assessment and plan as written ,documented as a scribe. Based on total visit time, I have performed more than 50% of the visit. Patient Condition at Discharge: Poor Plan - Discharge Summary New Discharge Prescriptions: No Action Omeprazole [PriLOSEC] 20 mg PO DAILY Nystatin 100,000 Unit/gm Oint [Mycostatin Oint] 1 applic TOPICAL BID lamoTRIgine [LaMICtal] 150 mg PO BID buPROPion SR [Wellbutrin SR] 150 mg PO PC-BRKFST QUEtiapine [SEROquel] 50 mg PO HS Loratadine [Claritin] 5 mg PO DAILY #30 tab Fluticasone Nasal Blunt [Flonase Nasal Blunt] 2 spray EA NOSTRIL DAILY #5 ml Budesonide [Pulmicort] 1 mg INHALATION RT-BID #30 each busPIRone HCL [Buspar] 7.5 mg PO BID Pravastatin Sodium [Pravachol] 40 mg PO HS Levothyroxine Sodium [Synthroid] 75 mcg PO DAILY Gabapentin [Neurontin] 300 mg PO TID Fluticasone Propion/Salmeterol [Fluticasone-Salmeterol 115-21] 2 puff INHALATION RT-BID QUEtiapine FUMARATE [SEROquel] 200 mg PO HS Mirtazapine [Remeron] 15 mg PO HS Sodium Chloride 0.65% Nasal [Deep Sea (Saline)] 2 spray NASAL QID PRN #7 ml PRN Reason: Dry Nasal Passages Ipratropium-Albuterol Nebulize [Duoneb 0.5 mg-3 mg/3 ml Soln] 3 ml INHALATION RT-QID #100 each Ipratropium-Albuterol Nebulize [Duoneb 0.5 mg-3 mg/3 ml Soln] 3 ml INHALATION RT-Q2H PRN each PRN Reason: Shortness Of Breath Or Wheezing Acetaminophen Tab [Tylenol] 650 mg PO Q4HR PRN tab PRN Reason: Mild Pain Or Fever > 100.5 Discharge Medication List Fluticasone Propion/Salmeterol [Fluticasone-Salmeterol 115-21] 2 puff INHALATION RT-BID 07/18/23 [History] Gabapentin [Neurontin] 300 mg PO TID 07/18/23 [History] Levothyroxine Sodium [Synthroid] 75 mcg PO DAILY 07/18/23 [History] Mirtazapine [Remeron] 15 mg PO HS 07/18/23 [History] Nystatin 100,000 Unit/gm Oint [Mycostatin Oint] 1 applic TOPICAL BID 07/18/23 [History] Omeprazole [PriLOSEC] 20 mg PO DAILY 07/18/23 [History] Pravastatin Sodium [Pravachol] 40 mg PO HS 07/18/23 [History] QUEtiapine FUMARATE [SEROquel] 200 mg PO HS 07/18/23 [History] QUEtiapine [SEROquel] 50 mg PO HS 07/18/23 [History] buPROPion SR [Wellbutrin SR] 150 mg PO PC-BRKFST 07/18/23 [History] busPIRone HCL [Buspar] 7.5 mg PO BID 07/18/23 [History] lamoTRIgine [LaMICtal] 150 mg PO BID 07/18/23 [History] Acetaminophen Tab [Tylenol] 650 mg PO Q4HR PRN tab 07/28/23 [Rx] Budesonide [Pulmicort] 1 mg INHALATION RT-BID #30 each 07/28/23 [Rx] Fluticasone Nasal Blunt [Flonase Nasal Blunt] 2 spray EA NOSTRIL DAILY #5 ml 07/28/23 [Rx] Ipratropium-Albuterol Nebulize [Duoneb 0.5 mg-3 mg/3 ml Soln] 3 ml INHALATION RT-Q2H PRN each 07/28/23 [Rx] Ipratropium-Albuterol Nebulize [Duoneb 0.5 mg-3 mg/3 ml Soln] 3 ml INHALATION RT-QID #100 each 07/28/23 [Rx] Loratadine [Claritin] 5 mg PO DAILY #30 tab 07/28/23 [Rx] Sodium Chloride 0.65% Nasal [Deep Sea (Saline)] 2 spray NASAL QID PRN #7 ml 07/28/23 [Rx] Follow up Appointment(s)/Referral(s): Dilip Almanza [STAFF PHYSICIAN] - 08/24/23 4:00 pm None,Stated [Primary Care Provider] - 1-2 days Activity/Diet/Wound Care/Special Instructions: pill box from home sent down to inpatient pharmacy on 08/13/23
== END 2023-08-19 15:48 | disposition hospice, inpatient (51) | DRG 189 ==
LOC: EC 22:02 → 5NMEDONC 08-12 01:54
PROVIDERS: ADMIT Hospitalist; ATTEND Hospitalist
PROC: DB021ZZ Beam Radiation of Lung using Photons 1 - 10 MeV (ICD-10-PCS; principal; 2023-08-19)
DX: J96.21 Acute and chronic respiratory failure with hypoxia (principal); G93.41 Metabolic encephalopathy; J18.8 Other pneumonia, unspecified organism; C34.02 Malignant neoplasm of left main bronchus; E44.0 Moderate protein-calorie malnutrition; J44.0 Chronic obstructive pulmonary disease with (acute) lower respiratory infection; J44.1 Chronic obstructive pulmonary disease with (acute) exacerbation; J98.11 Atelectasis; N17.9 Acute kidney failure, unspecified; R64 Cachexia; I10 Essential (primary) hypertension; R79.1 Abnormal coagulation profile; R26.9 Unspecified abnormalities of gait and mobility; J43.2 Centrilobular emphysema; Z66 Do not resuscitate; Z51.5 Encounter for palliative care; E03.9 Hypothyroidism, unspecified; D50.9 Iron deficiency anemia, unspecified; D53.9 Nutritional anemia, unspecified; E78.5 Hyperlipidemia, unspecified; F31.9 Bipolar disorder, unspecified; F43.23 Adjustment disorder with mixed anxiety and depressed mood; F45.9 Somatoform disorder, unspecified; R29.6 Repeated falls; Z99.81 Dependence on supplemental oxygen; Z87.891 Personal history of nicotine dependence; Z79.890 Hormone replacement therapy; Z79.899 Other long term (current) drug therapy; Z92.3 Personal history of irradiation; Z68.23 Body mass index [BMI] 23.0-23.9, adult; Z88.5 Allergy status to narcotic agent; Z87.01 Personal history of pneumonia (recurrent); Z79.51 Long term (current) use of inhaled steroids
CPT/HCPCS: 36415; 71045; 71275; 77280; 77290; 77295; 77300; 77332; 77334; 77412; 80048; 80053; 82525; 82607; 82728; 82747; 83540; 83550; 83605; 83880; 83921; 84484; 85025; 85379; 85610; 85730; 93005; 94640; 94760; 96374; 96375; 96376; 99285

== ENCOUNTER 2023-08-19 15:30 | Inpatient (IN) | payer MEDICAID ==
[2023-08-19] MEDS ORDERED: ATROPINE OPHTH SOLN 1% 5ML BTL SUBLINGUAL PRN (15:36)
[2023-08-19] MEDS ORDERED: DRY MOUTH SPRAY 44.3 SPRAY/44.3 ML SPRAY MUCOUS MEM PRN (15:36)
[2023-08-19] MEDS ORDERED: GLYCOPYRROLATE 0.2 MG/ML 2 ML VIAL IVP PRN (15:36)
[2023-08-19] MEDS ORDERED: ARTIFICIAL TEARS-HYPROMELLOSE DROPS 15 ML BTL BOTH EYES PRN (15:36)
[2023-08-19] MEDS ORDERED: LORazepam 2 MG/ML INJ IV PRN (15:36)
[2023-08-19] MEDS ORDERED: DOCUSATE 100 MG CAP PO PRN (15:36)
[2023-08-19] MEDS ORDERED: ACETAMINOPHEN TAB 325 MG TAB PO PRN (15:36)
[2023-08-19] MEDS ORDERED: ONDANSETRON 4 MG/2 ML VIAL IVP PRN (15:36)
[2023-08-19] MEDS: MORPHINE SULFATE 2 MG/ML SYRINGE IV PRN (16:26)
[2023-08-19] MEDS: SCOPOLAMINE 1 MG/72 HR PATCH TRANSDERM SCH (18:00)
[2023-08-19] MEDS: MORPHINE SULFATE 4 MG/ML SYRINGE IV PRN (23:25)
[2023-08-20] MEDS: LORazepam 1 MG/0.5 ML VIAL IV PRN (01:10)
--- NOTE | 2023-08-20 05:44 | P.HPIM ---
History of Present Illness H&P Date: 08/20/23 78-year-old male with a past medical history of COPD on home oxygen, known history of left lung mass/nodule status post radiation therapy, hypothyroidism, bipolar disorder, anxiety and prior history of smoking quit 3 years ago. Patient was recently in the hospital from 07/18/2023 to 07/28/2023. Patient is actually from [place] and visiting her son who lives across the border in [place]. During this admission patient underwent bronchoscopy with biopsy on 07/21/2023. Left main tissue, transbronchial biopsy showed detached atypical cells having site of morphologic features compatible with non-small cell carcinoma. Patient was recommended to go to subacute rehab at the time but eventually dipti deidre wants to be discharged home and supposed to follow-up with radiation oncology for palliative radiation. Patient is currently living with her son in [place] and misses her appointment. Patient presented back to ER with worsening shortness of breath cough and congestion. Chest x-ray showed completely opacified left hemithorax with left-sided volume loss suggesting at least a significant atelectatic component is redemonstrated. Suspect underlying left hilar mass or neoplasm. Right lung remains clear. EKG showed sinus tachycardia. CTA chest was done. Showed previously noted masslike area in the left hilum is larger when compared to the previous exam. The left lung is entirely consolidated without aeration. There is moderate left pleural effusion noted throughout the left hemithorax. No evidence for PE. Advanced central lobar emphysema involving the right lung with hyperexpansion. Laboratory data showed WBC 9.0 hemoglobin 10.3 and platelets 219, D-dimer 2.07 Sodium 136 potassium 3.5 chloride 100 bicarb is 27 BUN 28 and creatinine 1.4 and blood sugar 124. Liver enzymes are not elevated. proBNP 980 and albumin 3.4. 08/14/2023 Patient is seen and evaluated with nursing staff at bedside; patient is very irritable at this time --Patient continues to have episodes of decreased responsiveness versus irritability Patient is currently on Seroquel 250 mg nightly; we will plan to back off on Seroquel; transition from Neurontin 300 mg 3 times daily down to 300 mg twice daily --Plan to add midodrine 10 mg 3 times daily for hypotension; patient did receive a bolus of normal saline 500 cc x 1 We will consult psychiatry for agitation and behavior 24-hour interval change 08/15/2023 Patient is seen and evaluated in room at bedside; discussed with nursing staff; more calm with medication change Vital signs are reviewed and are stable, temperature of 98.1, pulse 96, respiration 18 and blood pressure 101/58, O2 saturation 94% on 4 L Lab review shows WBC 6.0, hemoglobin of 9.5 and platelet count of 355, sodium 135, potassium 3.7, BUNs/creatinine of 19/0.7 --Patient has been evaluated by psych; recommendations noted appreciated Patient is currently being considered for possible immunotherapy; has declined chemotherapy --Patient has been transitioned to DNR status after discussion with patient's son; might be considered for discharge home with hospice 08/16/2023 Patient is seen and evaluated in follow-up today with multiple medical consultations following including pulmonary, oncology, and radiation oncology. Discussion of possible palliative radiation in the near future. Overall prognosis remains poor and not a candidate for chemotherapy with significant weakness was recently hospitalized recommending rehab although patient went home with son. Patient reported no improvement and significant shortness of breath with continued cough and generalized weakness. Patient is not eating very well and appears severely emaciated and unwell. Patient is in no code and is considering possible hospice. Consult was placed for informational and will follow-up with case management as there are social issues. [facility] hospice consult placed as well for financial assessment. Overall prognosis remains extremely poor. 08/17/2023 Patient seen and evaluated in follow-up being followed by pulmonary along with oncology and radiation oncology. Patient is being scheduled for palliative radiation today. Multiple social issues regarding discharge planning as patient has no current address in [facility] and is not a resident here and her primary residence is in [facility] although staying with her son here in [place]. Patient's insurance is from [place] and currently working with Medicaid rep to possibly transition insurance here. Plan is for possible hospice as she does not want to pursue chemotherapy. Patient is stable on 3 L and will undergo radiation treatment with 5 sessions scheduled. Patient is afebrile with no reports of chest pain or worsening shortness of breath. Patient oral intake is poor to fair and encouraged frequent meals throughout the day. Overall prognosis is extremely poor and guarded at this time. 08/18/2023 Patient is seen today and has just received pain medications so is groggy although able to answer questions appropriately. Plan is for continued radiation therapy for palliative support. Per nursing staff patient is to receive 5 doses and will discuss further with radiation oncology along with oncology about overall treatment plan. Patient does not want to pursue chemotherapy. Case management following as well and looking into options of possible hospice. Social barriers including insurance issues noted. Patient is currently afebrile with no reports of worsening shortness of breath. Patient reports not feeling well today. Not much of an appetite and patient is eating small little bites. Overall prognosis remains poor 08/19/2023 Patient continuing to clinically decline and not really eating and per nursing staff having difficulty with taking medications by mouth and reports continued shortness of breath that is worsening. Plan for palliative radiation today. Discussed with [facility] upon reevaluation as patient is clinically worsening and is uncomfortable. Will care and hospice reevaluated and meets criteria for inpatient GIP. Son from [place] has agreed to allow the son from [facility] to have rights to help make decisions for patient here. Assistance with transitioning insurance to [place] from [facility] also being done. Patient will be transitioned to [facility] GIP services. Comfort measures only. Review of systems: Constitutional: reports of fatigue and not feeling well, no fever, or chills Cardiovascular: No reports of chest pain or palpitations Respiratory: reports of continued shortness of breath and continued persistent cough with no improvement GI: No reports of nausea, vomiting, or diarrhea, reports not much of an appetite, having difficulty with taking medications : No reports of dysuria or retention Neurovascular: reports of extreme weakness and gait dysfunction All medications have been reviewed Physical exam: Patient is lying in the bed. Patient is lethargic although arousable and fatigues easily, tachypneic. Thin built, elderly appearing, ill-appearing, cachectic, emaciated HEENT: Normocephalic. Neck is supple. Pupils reactive. Nostrils clear. Oral cavity is moist. Neck reveals no JVD, carotid bruits, or thyromegaly. CHEST EXAMINATION: Trachea is central. Symmetrical expansion. Left-sided diminished sounds. Bilateral coarse breath sounds. Mild wheezing present bilaterally. Crackles noted at the bases CARDIAC: S1, S2 are muffled ABDOMEN: Soft. Thin. Bowel sounds present. No organomegaly. No abdominal bruits. Extremities: reveal no edema. No clubbing or cyanosis, significant muscle wasting noted of upper and lower extremities including clavicle and face Neurologically lethargic although arousable, alert, oriented x 2 able to move all extremities while in bed.. No gross focal deficits noted, diffusely weak Skin: No rash or skin lesions. Psychiatric: Cooperative. Somewhat anxious Musculoskeletal: No joint swelling or deformity. Assessment: Acute on chronic hypoxic respiratory failure secondary to moderate left pleural effusion, left hilar mass and entirely consolidated left lung without aeration. Currently requiring 5 L oxygen via nasal cannula. Acute kidney injury likely prerenal. Creatinine 1.4 on admission. 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 Elevated D-dimer level. CT angiogram showed no evidence of PE. COPD, acute exacerbation Left lung nodule/mass. Status post radiation previously at [place], not a candidate for chemotherapy, underwent 2 doses of palliative radiation this admission Hyperlipidemia Hypothyroidism Bipolar disorder Prior history of smoking quit 3 years ago Moderate protein calorie malnutrition with a BMI of 23.0 Generalized weakness with gait dysfunction DVT prophylaxis with heparin subcu GI prophylaxis No code Plan: Patient will be continued on oxygen supplementation. Continue with DuoNebs, Pulmicort and Perforomist. Pulmonary following with no plans of thoracentesis at this time. Patient is not a candidate for chemotherapy and radiation oncology has evaluated and started radiation therapy for palliative purposes. Plan was to receive 5 sessions of palliative radiation. Has completed 2 with no relief Overall discussion about prognosis and treatment plan moving forward and hospice consult was placed. [facility] consulted for financial assessment although unable to provide any assistance as patient is not a [facility] resident. Insurance is out of [facility] where her primary residence is. Patient currently staying in [facility] with her son. Discussed with [facility] about reevaluation as patient is clinically declining and more restless appears in acute distress with worsening shortness of breath, not eating and inability to tolerate medications orally. Patient meeting criteria for GIP and patient and family are agreeable. Patient will be transition to [facility] hospice, comfort measures only. Overall prognosis is extremely poor The impression and plan of care has been dictated by Priyanka Lozano, Nurse Practitioner as directed. Dr. Rosa Maria MD I have performed a history and examination and MDM of this patient, discussed the same with the dictator, and agree with the dictator's assessment and plan as written ,documented as a scribe. Based on total visit time, I have performed more than 50% of the visit. Past Medical History Past Medical History: Cancer, COPD, Pneumonia Additional Past Medical History / Comment(s): stage 1 left lung CA, O2 dependent. Patient states she has bipolar disorder. History of Any Multi-Drug Resistant Organisms: None Reported Past Surgical History: Hysterectomy Additional Past Surgical History / Comment(s): feet, hands, lung biopsy Past Psychological History: Anxiety, Bipolar Smoking Status: Former smoker Past Alcohol Use History: None Reported Past Drug Use History: None Reported Medications and Allergies Home Medications Medication Instructions Recorded Confirmed Type Fluticasone Propion/Salmeterol 2 puff INHALATION RT-BID 07/18/23 08/19/23 History [Fluticasone-Salmeterol 115-21] Gabapentin [Neurontin] 300 mg PO TID 07/18/23 08/19/23 History Levothyroxine Sodium [Synthroid] 75 mcg PO DAILY 07/18/23 08/19/23 History Mirtazapine [Remeron] 15 mg PO HS 07/18/23 08/19/23 History Nystatin 100,000 Unit/gm Oint 1 applic TOPICAL BID 07/18/23 08/19/23 History [Mycostatin Oint] Omeprazole [PriLOSEC] 20 mg PO DAILY 07/18/23 08/19/23 History Pravastatin Sodium [Pravachol] 40 mg PO HS 07/18/23 08/19/23 History QUEtiapine FUMARATE [SEROquel] 200 mg PO HS 07/18/23 08/19/23 History QUEtiapine [SEROquel] 50 mg PO HS 07/18/23 08/19/23 History buPROPion SR [Wellbutrin SR] 150 mg PO PC-[id number] 07/18/23 08/19/23 History busPIRone HCL [Buspar] 7.5 mg PO BID 07/18/23 08/19/23 History lamoTRIgine [LaMICtal] 150 mg PO BID 07/18/23 08/19/23 History Acetaminophen Tab [Tylenol] 650 mg PO Q4HR PRN tab 07/28/23 08/19/23 Rx Budesonide [Pulmicort] 1 mg INHALATION RT-BID #30 each 07/28/23 08/19/23 Rx Fluticasone Nasal [place] [Flonase 2 spray EA NOSTRIL DAILY #5 ml 07/28/23 08/19/23 Rx Nasal [place]] Ipratropium-Albuterol Nebulize 3 ml INHALATION RT-Q2H PRN each 07/28/23 08/19/23 Rx [Duoneb 0.5 mg-3 mg/3 ml Soln] Ipratropium-Albuterol Nebulize 3 ml INHALATION RT-QID #100 each 07/28/23 08/19/23 Rx [Duoneb 0.5 mg-3 mg/3 ml Soln] Loratadine [Claritin] 5 mg PO DAILY #30 tab 07/28/23 08/19/23 Rx Sodium Chloride 0.65% Nasal [Deep 2 spray NASAL QID PRN #7 ml 07/28/23 08/19/23 Rx Sea (Saline)] Allergies Allergy/AdvReac Type Severity Reaction Status Date / Time codeine Allergy Swelling Verified 08/19/23 17:04 Physical Exam Vitals: Vital Signs Temp Pulse Resp BP Pulse Ox 08/19/23 20:00 99.1 F 104 H 20 98/62 93 L 08/19/23 19:55 20 Intake and Output 08/19/23 08/19/23 08/20/23 14:59 22:59 06:59 Output Total 600 Balance -600 Output: Urine 600 Other: Voiding Method Indwelling Catheter Weight 58.9 kg
--- NOTE | 2023-08-21 19:04 | P.PN ---
Subjective Progress Note Date: 08/21/23 78-year-old male with a past medical history of COPD on home oxygen, known history of left lung mass/nodule status post radiation therapy, hypothyroidism, bipolar disorder, anxiety and prior history of smoking quit 3 years ago. Patient was recently in the hospital from 07/18/2023 to 07/28/2023. Patient is actually from [place] and visiting her son who lives across the border in [place]. During this admission patient underwent bronchoscopy with biopsy on 07/21/2023. Left main tissue, transbronchial biopsy showed detached atypical cells having site of morphologic features compatible with non-small cell carcinoma. Patient was recommended to go to subacute rehab at the time but eventually patient wants to be discharged home and supposed to follow-up with radiation oncology for palliative radiation. Patient is currently living with her son in [place] and misses her appointment. Patient presented back to ER with worsening shortness of breath cough and congestion. Chest x-ray showed completely opacified left hemithorax with left-sided volume loss suggesting at least a significant atelectatic component is redemonstrated. Suspect underlying left hilar mass or neoplasm. Right lung remains clear. EKG showed sinus tachycardia. CTA chest was done. Showed previously noted masslike area in the left hilum is larger when compared to the previous exam. The left lung is entirely consolidated without aeration. There is moderate left pleural effusion noted throughout the left hemithorax. No evidence for PE. Advanced central lobar emphysema involving the right lung with hyperexpansion. Laboratory data showed WBC 9.0 hemoglobin 10.3 and platelets 219, D-dimer 2.07 Sodium 136 potassium 3.5 chloride 100 bicarb is 27 BUN 28 and creatinine 1.4 and blood sugar 124. Liver enzymes are not elevated. proBNP 980 and albumin 3.4. 08/14/2023 Patient is seen and evaluated with nursing staff at bedside; patient is very irritable at this time --Patient continues to have episodes of decreased responsiveness versus irritability Patient is currently on Seroquel 250 mg nightly; we will plan to back off on Seroquel; transition from Neurontin 300 mg 3 times daily down to 300 mg twice daily --Plan to add midodrine 10 mg 3 times daily for hypotension; patient did receive a bolus of normal saline 500 cc x 1 We will consult psychiatry for agitation and behavior 24-hour interval change 08/15/2023 Patient is seen and evaluated in room at bedside; discussed with nursing staff; more calm with medication change Vital signs are reviewed and are stable, temperature of 98.1, pulse 96, respiration 18 and blood pressure 101/58, O2 saturation 94% on 4 L Lab review shows WBC 6.0, hemoglobin of 9.5 and platelet count of 355, sodium 135, potassium 3.7, BUNs/creatinine of 19/0.7 --Patient has been evaluated by psych; recommendations noted appreciated Patient is currently being considered for possible immunotherapy; has declined chemotherapy --Patient has been transitioned to DNR status after discussion with patient's son; might be considered for discharge home with hospice 08/16/2023 Patient is seen and evaluated in follow-up today with multiple medical consultations following including pulmonary, oncology, and radiation oncology. Discussion of possible palliative radiation in the near future. Overall prognosis remains poor and not a candidate for chemotherapy with significant weakness was recently hospitalized recommending rehab although patient went home with son. Patient reported no improvement and significant shortness of breath with continued cough and generalized weakness. Patient is not eating very well and appears severely emaciated and unwell. Patient is in no code and is considering possible hospice. Consult was placed for informational and will follow-up with case management as there are social issues. [facility] hospice consult placed as well for financial assessment. Overall prognosis remains extremely poor. 08/17/2023 Patient seen and evaluated in follow-up being followed by pulmonary along with oncology and radiation oncology. Patient is being scheduled for palliative radiation today. Multiple social issues regarding discharge planning as patient has no current address in [facility] and is not a resident here and her primary residence is in [facility] although staying with her son here in [place]. Patient's insurance is from [place] and currently working with Medicaid rep to possibly transition insurance here. Plan is for possible hospice as she does not want to pursue chemotherapy. Patient is stable on 3 L and will undergo radiation treatment with 5 sessions scheduled. Patient is afebrile with no reports of chest pain or worsening shortness of breath. Patient oral intake is poor to fair and encouraged frequent meals throughout the day. Overall prognosis is extremely poor and guarded at this time. 08/18/2023 Patient is seen today and has just received pain medications so is groggy although able to answer questions appropriately. Plan is for continued radiation therapy for palliative support. Per nursing staff patient is to receive 5 doses and will discuss further with radiation oncology along with oncology about overall treatment plan. Patient does not want to pursue chemotherapy. Case management following as well and looking into options of possible hospice. Social barriers including insurance issues noted. Patient is currently afebrile with no reports of worsening shortness of breath. Patient reports not feeling well today. Not much of an appetite and patient is eating small little bites. Overall prognosis remains poor 08/19/2023 Patient continuing to clinically decline and not really eating and per nursing staff having difficulty with taking medications by mouth and reports continued shortness of breath that is worsening. Plan for palliative radiation today. Discussed with [facility] upon reevaluation as patient is clinically worsening and is uncomfortable. Will care and hospice reevaluated and meets criteria for inpatient [facility]. Son from [place] has agreed to allow the son from [facility] to have rights to help make decisions for patient here. Assistance with transitioning insurance to [place] from [facility] also being done. Patient will be transitioned to [facility] services. Comfort measures only. 08/21/2023 Patient is evaluated in follow-up today she is in open with [facility] hospice; patient remains on IV push morphine and is mostly sedated and lethargic although arousable. Patient remains on 5 L of oxygen and is continuing to have intermittent dry nonproductive cough which is mostly been controlled with morphine at this time. Patient appears comfortable at rest. Review of systems: Constitutional: reports of fatigue and not feeling well, no fever, or chills Cardiovascular: No reports of chest pain or palpitations Respiratory: reports of continued shortness of breath and continued persistent cough with no improvement GI: No reports of nausea, vomiting, or diarrhea, reports not much of an appetite, having difficulty with taking medications : No reports of dysuria or retention Neurovascular: reports of extreme weakness and gait dysfunction All medications have been reviewed Physical exam: Patient is lying in the bed. Patient is lethargic although arousable and fatigues easily, tachypneic. Thin built, elderly appearing, ill-appearing, cachectic, emaciated HEENT: Normocephalic. Neck is supple. Pupils reactive. Nostrils clear. Oral cavity is moist. Neck reveals no JVD, carotid bruits, or thyromegaly. CHEST EXAMINATION: Trachea is central. Symmetrical expansion. Left-sided diminished sounds. Bilateral coarse breath sounds. Mild wheezing present bilaterally. Crackles noted at the bases CARDIAC: S1, S2 are muffled ABDOMEN: Soft. Thin. Bowel sounds present. No organomegaly. No abdominal bruits. Extremities: reveal no edema. No clubbing or cyanosis, significant muscle wasting noted of upper and lower extremities including clavicle and face Neurologically lethargic although arousable, alert, oriented x 2 able to move all extremities while in bed.. No gross focal deficits noted, diffusely weak Skin: No rash or skin lesions. Psychiatric: Cooperative. Somewhat anxious Musculoskeletal: No joint swelling or deformity. Assessment: Hospice care Acute on chronic hypoxic respiratory failure secondary to moderate left pleural effusion, left hilar mass and entirely consolidated left lung without aeration. Currently requiring 5 L oxygen via nasal cannula. Acute kidney injury likely prerenal. Creatinine 1.4 on admission. 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 Elevated D-dimer level. CT angiogram showed no evidence of PE. COPD, acute exacerbation Left lung nodule/mass. Status post radiation previously at [place], not a candidate for chemotherapy, underwent 2 doses of palliative radiation this admission Hyperlipidemia Hypothyroidism Bipolar disorder Prior history of smoking quit 3 years ago Moderate protein calorie malnutrition with a BMI of 23.0 Generalized weakness with gait dysfunction DVT prophylaxis with heparin subcu GI prophylaxis No code Plan: Patient meeting criteria for GIP and patient and family are agreeable. Patient was open with [facility] yesterday. Patient is continued on comfort measures only. The impression and plan of care has been dictated by Stephanie Sánchez, Nurse Practitioner as directed. Dr. Rosa Maria MD I have performed a history and physical examination and medical decision making of this patient, discussed the same with the dictator, and agree with the dictators assessment and plan as written, documented as a scribe. Based on total visit time, I have performed more than 50% of this visit. Objective - Vital Signs Vital signs: Vital Signs Temp 98.4 F 08/20/23 06:43 Pulse 102 H 08/20/23 06:43 Resp 18 08/20/23 06:43 BP 89/53 08/20/23 06:43 Pulse Ox 95 05/04/24 08:16 FiO2 Intake & Output 08/21/23 08/21/23 08/22/23 06:59 18:59 06:59 Intake Total 0 Output Total 100 200 Balance -100 -200 Intake: Oral 0 Output: Urine 100 200 Other: Voiding Method Indwelling Catheter Indwelling Catheter Assessment and Plan Time with Patient: Less than 30
--- NOTE | 2023-08-22 15:24 | P.PN ---
Subjective Progress Note Date: 08/22/23 78-year-old male with a past medical history of COPD on home oxygen, known history of left lung mass/nodule status post radiation therapy, hypothyroidism, bipolar disorder, anxiety and prior history of smoking quit 3 years ago. Patient was recently in the hospital from 07/18/2023 to 07/28/2023. Patient is actually from [place] and visiting her son who lives across the border in [place]. During this admission patient underwent bronchoscopy with biopsy on 07/21/2023. Left main tissue, transbronchial biopsy showed detached atypical cells having site of morphologic features compatible with non-small cell carcinoma. Patient was recommended to go to subacute rehab at the time but eventually patient wants to be discharged home and supposed to follow-up with radiation oncology for palliative radiation. Patient is currently living with her son in [place] and misses her appointment. Patient presented back to ER with worsening shortness of breath cough and congestion. Chest x-ray showed completely opacified left hemithorax with left-sided volume loss suggesting at least a significant atelectatic component is redemonstrated. Suspect underlying left hilar mass or neoplasm. Right lung remains clear. EKG showed sinus tachycardia. CTA chest was done. Showed previously noted masslike area in the left hilum is larger when compared to the previous exam. The left lung is entirely consolidated without aeration. There is moderate left pleural effusion noted throughout the left hemithorax. No evidence for PE. Advanced central lobar emphysema involving the right lung with hyperexpansion. Laboratory data showed WBC 9.0 hemoglobin 10.3 and platelets 219, D-dimer 2.07 Sodium 136 potassium 3.5 chloride 100 bicarb is 27 BUN 28 and creatinine 1.4 and blood sugar 124. Liver enzymes are not elevated. proBNP 980 and albumin 3.4. 08/14/2023 Patient is seen and evaluated with nursing staff at bedside; patient is very irritable at this time --Patient continues to have episodes of decreased responsiveness versus irritability Patient is currently on Seroquel 250 mg nightly; we will plan to back off on Seroquel; transition from Neurontin 300 mg 3 times daily down to 300 mg twice daily --Plan to add midodrine 10 mg 3 times daily for hypotension; patient did receive a bolus of normal saline 500 cc x 1 We will consult psychiatry for agitation and behavior 24-hour interval change 08/15/2023 Patient is seen and evaluated in room at bedside; discussed with nursing staff; more calm with medication change Vital signs are reviewed and are stable, temperature of 98.1, pulse 96, respiration 18 and blood pressure 101/58, O2 saturation 94% on 4 L Lab review shows WBC 6.0, hemoglobin of 9.5 and platelet count of 355, sodium 135, potassium 3.7, BUNs/creatinine of 19/0.7 --Patient has been evaluated by psych; recommendations noted appreciated Patient is currently being considered for possible immunotherapy; has declined chemotherapy --Patient has been transitioned to DNR status after discussion with patient's son; might be considered for discharge home with hospice 08/16/2023 Patient is seen and evaluated in follow-up today with multiple medical consultations following including pulmonary, oncology, and radiation oncology. Discussion of possible palliative radiation in the near future. Overall prognosis remains poor and not a candidate for chemotherapy with significant weakness was recently hospitalized recommending rehab although patient went home with son. Patient reported no improvement and significant shortness of breath with continued cough and generalized weakness. Patient is not eating very well and appears severely emaciated and unwell. Patient is in no code and is considering possible hospice. Consult was placed for informational and will follow-up with case management as there are social issues. [facility] hospice consult placed as well for financial assessment. Overall prognosis remains extremely poor. 08/17/2023 Patient seen and evaluated in follow-up being followed by pulmonary along with oncology and radiation oncology. Patient is being scheduled for palliative radiation today. Multiple social issues regarding discharge planning as patient has no current address in [facility] and is not a resident here and her primary residence is in [facility] although staying with her son here in [place]. Patient's insurance is from [place] and currently working with Medicaid rep to possibly transition insurance here. Plan is for possible hospice as she does not want to pursue chemotherapy. Patient is stable on 3 L and will undergo radiation treatment with 5 sessions scheduled. Patient is afebrile with no reports of chest pain or worsening shortness of breath. Patient oral intake is poor to fair and encouraged frequent meals throughout the day. Overall prognosis is extremely poor and guarded at this time. 08/18/2023 Patient is seen today and has just received pain medications so is groggy although able to answer questions appropriately. Plan is for continued radiation therapy for palliative support. Per nursing staff patient is to receive 5 doses and will discuss further with radiation oncology along with oncology about overall treatment plan. Patient does not want to pursue chemotherapy. Case management following as well and looking into options of possible hospice. Social barriers including insurance issues noted. Patient is currently afebrile with no reports of worsening shortness of breath. Patient reports not feeling well today. Not much of an appetite and patient is eating small little bites. Overall prognosis remains poor 08/19/2023 Patient continuing to clinically decline and not really eating and per nursing staff having difficulty with taking medications by mouth and reports continued shortness of breath that is worsening. Plan for palliative radiation today. Discussed with [facility] upon reevaluation as patient is clinically worsening and is uncomfortable. Will care and hospice reevaluated and meets criteria for inpatient [facility]. Son from [place] has agreed to allow the son from [facility] to have rights to help make decisions for patient here. Assistance with transitioning insurance to [place] from [facility] also being done. Patient will be transitioned to [facility] services. Comfort measures only. 08/21/2023 Patient is evaluated in follow-up today she is in open with [facility] hospice; patient remains on IV push morphine and is mostly sedated and lethargic although arousable. Patient remains on 5 L of oxygen and is continuing to have intermittent dry nonproductive cough which is mostly been controlled with morphine at this time. Patient appears comfortable at rest. 08/22/2023 Patient has been evaluated in follow up today. Continues on nasal cannula and updrafts. Remains on IV push morphine. Patient remains lethargic but arousable. Being followed closely by hospice services. Review of systems: Constitutional: reports of fatigue and not feeling well, no fever, or chills Cardiovascular: No reports of chest pain or palpitations Respiratory: reports of continued shortness of breath and continued persistent cough with no improvement GI: No reports of nausea, vomiting, or diarrhea, reports not much of an a ppetite, having difficulty with taking medications : No reports of dysuria or retention Neurovascular: reports of extreme weakness and gait dysfunction All medications have been reviewed Physical exam: Patient is lying in the bed. Patient is lethargic although arousable and fatigues easily, tachypneic. Thin built, elderly appearing, ill-appearing, cachectic, emaciated HEENT: Normocephalic. Neck is supple. Pupils reactive. Nostrils clear. Oral cavity is moist. Neck reveals no JVD, carotid bruits, or thyromegaly. CHEST EXAMINATION: Trachea is central. Symmetrical expansion. Left-sided diminished sounds. Bilateral coarse breath sounds. Mild wheezing present bilaterally. Crackles noted at the bases CARDIAC: S1, S2 are muffled ABDOMEN: Soft. Thin. Bowel sounds present. No organomegaly. No abdominal bruits. Extremities: reveal no edema. No clubbing or cyanosis, significant muscle wasting noted of upper and lower extremities including clavicle and face Neurologically lethargic although arousable, alert, oriented x 2 able to move all extremities while in bed.. No gross focal deficits noted, diffusely weak Skin: No rash or skin lesions. Psychiatric: Cooperative. Somewhat anxious Musculoskeletal: No joint swelling or deformity. Assessment: Hospice care Acute on chronic hypoxic respiratory failure secondary to moderate left pleural effusion, left hilar mass and entirely consolidated left lung without aeration. Currently requiring 5 L oxygen via nasal cannula. Acute kidney injury likely prerenal. Creatinine 1.4 on admission. 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 Elevated D-dimer level. CT angiogram showed no evidence of PE. COPD, acute exacerbation Left lung nodule/mass. Status post radiation previously at [place], not a candidate for chemotherapy, underwent 2 doses of palliative radiation this admission Hyperlipidemia Hypothyroidism Bipolar disorder Prior history of smoking quit 3 years ago Moderate protein calorie malnutrition with a BMI of 23.0 Generalized weakness with gait dysfunction DVT prophylaxis with heparin subcu GI prophylaxis No code Plan: Patient meeting criteria for GIP and patient and family are agreeable. Patient is opened to [facility]. Patient is continued on comfort measures only. Continues on IV push morphine. The impression and plan of care has been dictated by Stephanie Sánchez, Nurse Practitioner as directed. Dr. Rosa Maria MD I have performed a history and physical examination and medical decision making of this patient, discussed the same with the dictator, and agree with the dictators assessment and plan as written, documented as a scribe. Based on total visit time, I have performed more than 50% of this visit. Objective - Vital Signs Vital signs: Vital Signs Temp 98.4 F 08/20/23 06:43 Pulse 102 H 08/21/23 19:50 Resp 18 08/21/23 19:50 BP 89/53 08/20/23 06:43 Pulse Ox 95 08/21/23 08:16 FiO2 Intake & Output 08/21/23 08/22/23 08/22/23 18:59 06:59 18:59 Intake Total 0 Output Total 200 50 Balance -200 -50 Intake: Oral 0 Output: Urine 200 50 Other: Voiding Method Indwelling Catheter Indwelling Catheter Indwelling Catheter Assessment and Plan Time with Patient: Less than 30
[2023-08-23 03:20] VITALS: BP 97/63; PULSE 97; TEMP 98.6
--- NOTE | 2023-08-23 22:05 | P.PN ---
Subjective Progress Note Date: 08/23/23 78-year-old male with a past medical history of COPD on home oxygen, known history of left lung mass/nodule status post radiation therapy, hypothyroidism, bipolar disorder, anxiety and prior history of smoking quit 3 years ago. Patient was recently in the hospital from 07/18/2023 to 07/28/2023. Patient is actually from [place] and visiting her son who lives across the border in [place]. During this admission patient underwent bronchoscopy with biopsy on 07/21/2023. Left main tissue, transbronchial biopsy showed detached atypical cells having site of morphologic features compatible with non-small cell carcinoma. Patient was recommended to go to subacute rehab at the time but eventually patient wants to be discharged home and supposed to follow-up with radiation oncology for palliative radiation. Patient is currently living with her son in [place] and misses her appointment. Patient presented back to ER with worsening shortness of breath cough and congestion. Chest x-ray showed completely opacified left hemithorax with left-sided volume loss suggesting at least a significant atelectatic component is redemonstrated. Suspect underlying left hilar mass or neoplasm. Right lung remains clear. EKG showed sinus tachycardia. CTA chest was done. Showed previously noted masslike area in the left hilum is larger when compared to the previous exam. The left lung is entirely consolidated without aeration. There is moderate left pleural effusion noted throughout the left hemithorax. No evidence for PE. Advanced central lobar emphysema involving the right lung with hyperexpansion. Laboratory data showed WBC 9.0 hemoglobin 10.3 and platelets 219, D-dimer 2.07 Sodium 136 potassium 3.5 chloride 100 bicarb is 27 BUN 28 and creatinine 1.4 and blood sugar 124. Liver enzymes are not elevated. proBNP 980 and albumin 3.4. 08/14/2023 Patient is seen and evaluated with nursing staff at bedside; patient is very irritable at this time --Patient continues to have episodes of decreased responsiveness versus irritability Patient is currently on Seroquel 250 mg nightly; we will plan to back off on Seroquel; transition from Neurontin 300 mg 3 times daily down to 300 mg twice daily --Plan to add midodrine 10 mg 3 times daily for hypotension; patient did receive a bolus of normal saline 500 cc x 1 We will consult psychiatry for agitation and behavior 24-hour interval change 08/15/2023 Patient is seen and evaluated in room at bedside; discussed with nursing staff; more calm with medication change Vital signs are reviewed and are stable, temperature of 98.1, pulse 96, respiration 18 and blood pressure 101/58, O2 saturation 94% on 4 L Lab review shows WBC 6.0, hemoglobin of 9.5 and platelet count of 355, sodium 135, potassium 3.7, BUNs/creatinine of 19/0.7 --Patient has been evaluated by psych; recommendations noted appreciated Patient is currently being considered for possible immunotherapy; has declined chemotherapy --Patient has been transitioned to DNR status after discussion with patient's son; might be considered for discharge home with hospice 08/16/2023 Patient is seen and evaluated in follow-up today with multiple medical consultations following including pulmonary, oncology, and radiation oncology. Discussion of possible palliative radiation in the near future. Overall prognosis remains poor and not a candidate for chemotherapy with significant weakness was recently hospitalized recommending rehab although patient went home with son. Patient reported no improvement and significant shortness of breath with continued cough and generalized weakness. Patient is not eating very well and appears severely emaciated and unwell. Patient is in no code and is considering possible hospice. Consult was placed for informational and will follow-up with case management as there are social issues. [facility] hospice consult placed as well for financial assessment. Overall prognosis remains extremely poor. 08/17/2023 Patient seen and evaluated in follow-up being followed by pulmonary along with oncology and radiation oncology. Patient is being scheduled for palliative radiation today. Multiple social issues regarding discharge planning as patient has no current address in [facility] and is not a resident here and her primary residence is in [facility] although staying with her son here in [place]. Patient's insurance is from [place] and currently working with Medicaid rep to possibly transition insurance here. Plan is for possible hospice as she does not want to pursue chemotherapy. Patient is stable on 3 L and will undergo radiation treatment with 5 sessions scheduled. Patient is afebrile with no reports of chest pain or worsening shortness of breath. Patient oral intake is poor to fair and encouraged frequent meals throughout the day. Overall prognosis is extremely poor and guarded at this time. 08/18/2023 Patient is seen today and has just received pain medications so is groggy although able to answer questions appropriately. Plan is for continued radiation therapy for palliative support. Per nursing staff patient is to receive 5 doses and will discuss further with radiation oncology along with oncology about overall treatment plan. Patient does not want to pursue chemotherapy. Case management following as well and looking into options of possible hospice. Social barriers including insurance issues noted. Patient is currently afebrile with no reports of worsening shortness of breath. Patient reports not feeling well today. Not much of an appetite and patient is eating small little bites. Overall prognosis remains poor 08/19/2023 Patient continuing to clinically decline and not really eating and per nursing staff having difficulty with taking medications by mouth and reports continued shortness of breath that is worsening. Plan for palliative radiation today. Discussed with [facility] upon reevaluation as patient is clinically worsening and is uncomfortable. Will care and hospice reevaluated and meets criteria for inpatient [facility]. Son from [place] has agreed to allow the son from [facility] to have rights to help make decisions for patient here. Assistance with transitioning insurance to [place] from [facility] also being done. Patient will be transitioned to [facility] services. Comfort measures only. 08/21/2023 Patient is evaluated in follow-up today she is in open with [facility] hospice; patient remains on IV push morphine and is mostly sedated and lethargic although arousable. Patient remains on 5 L of oxygen and is continuing to have intermittent dry nonproductive cough which is mostly been controlled with morphine at this time. Patient appears comfortable at rest. 08/22/2023 Patient has been evaluated in follow up today. Continues on nasal cannula and updrafts. Remains on IV push morphine. Patient remains lethargic but arousable. Being followed closely by hospice services. 08/23/2023 Patient remains under the care of hospice, admitted as [facility]. Patient is restless in bed and moaning. She continues with dry cough and is on oxygen support. Review of systems: Unable to complete All medications have been reviewed Physical exam: Patient is lying in the bed. Patient is lethargic although arousable and fatigues easily, tachypneic. Thin built, elderly appearing, ill-appearing, cachectic, emaciated HEENT: Normocephalic. Neck is supple. Pupils reactive. Nostrils clear. Oral cavity is moist. Neck reveals no JVD, carotid bruits, or thyromegaly. CHEST EXAMINATION: Trachea is central. Symmetrical expansion. Left-sided diminished sounds. Bilateral coarse breath sounds. Mild wheezing present bilaterally. Crackles noted at the bases CARDIAC: S1, S2 are muffled ABDOMEN: Soft. Thin. Bowel sounds present. No organomegaly. No abdominal bruits. Extremities: reveal no edema. No clubbing or cyanosis, significant muscle wasting noted of upper and lower extremities including clavicle and face Neurologically lethargic although arousable, alert, oriented x 1-0 able to move all extremities while in bed.. No gross focal deficits noted, diffusely weak Skin: No rash or skin lesions. Psychiatric: Cooperative. Somewhat anxious Musculoskeletal: No joint swelling or deformity. Assessment: Hospice care Acute on chronic hypoxic respiratory failure secondary to moderate left pleural effusion, left hilar mass and entirely consolidated left lung without aeration. Currently requiring 5 L oxygen via nasal cannula. Acute kidney injury likely prerenal. Creatinine 1.4 on admission. 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 Elevated D-dimer level. CT angiogram showed no evidence of PE. COPD, acute exacerbation Left lung nodule/mass. Status post radiation previously at [place], not a candidate for chemotherapy, underwent 2 doses of palliative radiation this admission Hyperlipidemia Hypothyroidism Bipolar disorder Prior history of smoking quit 3 years ago Moderate protein calorie malnutrition with a BMI of 23.0 Generalized weakness with gait dysfunction DVT prophylaxis with heparin subcu GI prophylaxis No code Plan: Patient meeting criteria for GIP and patient and family are agreeable. Patient is opened to [facility]. Patient is continued on comfort measures only. Continues on IV push morphine. The impression and plan of care has been dictated by Stephanie Sánchez, Nurse Practitioner as directed. Dr. Rosa Maria MD I have performed a history and physical examination and medical decision making of this patient, discussed the same with the dictator, and agree with the dictators assessment and plan as written, documented as a scribe. Based on total visit time, I have performed more than 50% of this visit. Objective - Vital Signs Vital signs: Vital Signs Temp 98.6 F 08/23/23 02:47 Pulse 97 08/23/23 02:47 Resp 18 08/23/23 08:00 BP 97/63 08/23/23 02:47 Pulse Ox 97 08/23/23 07:49 FiO2 Intake & Output 08/23/23 08/23/23 08/24/23 06:59 18:59 06:59 Intake Total 60 Output Total 150 100 Balance -90 -100 Intake: Oral 60 Output: Urine 150 100 Other: Voiding Method Indwelling Catheter Indwelling Catheter Assessment and Plan Time with Patient: Less than 30
[2023-08-24] MEDS: MORPHINE SULFATE (100 MG/2 ML) 100 MG in SODIUM CHLORIDE 0.9% 100 ML IV SCH (18:06)
--- NOTE | 2023-08-25 06:15 | P.PN ---
Subjective Progress Note Date: 08/24/23 78-year-old male with a past medical history of COPD on home oxygen, known history of left lung mass/nodule status post radiation therapy, hypothyroidism, bipolar disorder, anxiety and prior history of smoking quit 3 years ago. Patient was recently in the hospital from 07/18/2023 to 07/28/2023. Patient is actually from [place] and visiting her son who lives across the border in [place]. During this admission patient underwent bronchoscopy with biopsy on 07/21/2023. Left main tissue, transbronchial biopsy showed detached atypical cells having site of morphologic features compatible with non-small cell carcinoma. Patient was recommended to go to subacute rehab at the time but eventually patient wants to be discharged home and supposed to follow-up with radiation oncology for palliative radiation. Patient is currently living with her son in [place] and misses her appointment. Patient presented back to ER with worsening shortness of breath cough and congestion. Chest x-ray showed completely opacified left hemithorax with left-sided volume loss suggesting at least a significant atelectatic component is redemonstrated. Suspect underlying left hilar mass or neoplasm. Right lung remains clear. EKG showed sinus tachycardia. CTA chest was done. Showed previously noted masslike area in the left hilum is larger when compared to the previous exam. The left lung is entirely consolidated without aeration. There is moderate left pleural effusion noted throughout the left hemithorax. No evidence for PE. Advanced central lobar emphysema involving the right lung with hyperexpansion. Laboratory data showed WBC 9.0 hemoglobin 10.3 and platelets 219, D-dimer 2.07 Sodium 136 potassium 3.5 chloride 100 bicarb is 27 BUN 28 and creatinine 1.4 and blood sugar 124. Liver enzymes are not elevated. proBNP 980 and albumin 3.4. 08/14/2023 Patient is seen and evaluated with nursing staff at bedside; patient is very irritable at this time --Patient continues to have episodes of decreased responsiveness versus irritability Patient is currently on Seroquel 250 mg nightly; we will plan to back off on Seroquel; transition from Neurontin 300 mg 3 times daily down to 300 mg twice daily --Plan to add midodrine 10 mg 3 times daily for hypotension; patient did receive a bolus of normal saline 500 cc x 1 We will consult psychiatry for agitation and behavior 24-hour interval change 08/15/2023 Patient is seen and evaluated in room at bedside; discussed with nursing staff; more calm with medication change Vital signs are reviewed and are stable, temperature of 98.1, pulse 96, respiration 18 and blood pressure 101/58, O2 saturation 94% on 4 L Lab review shows WBC 6.0, hemoglobin of 9.5 and platelet count of 355, sodium 135, potassium 3.7, BUNs/creatinine of 19/0.7 --Patient has been evaluated by psych; recommendations noted appreciated Patient is currently being considered for possible immunotherapy; has declined chemotherapy --Patient has been transitioned to DNR status after discussion with patient's son; might be considered for discharge home with hospice 08/16/2023 Patient is seen and evaluated in follow-up today with multiple medical consultations following including pulmonary, oncology, and radiation oncology. Discussion of possible palliative radiation in the near future. Overall prognosis remains poor and not a candidate for chemotherapy with significant weakness was recently hospitalized recommending rehab although patient went home with son. Patient reported no improvement and significant shortness of breath with continued cough and generalized weakness. Patient is not eating very well and appears severely emaciated and unwell. Patient is in no code and is considering possible hospice. Consult was placed for informational and will follow-up with case management as there are social issues. [facility] hospice consult placed as well for financial assessment. Overall prognosis remains extremely poor. 08/17/2023 Patient seen and evaluated in follow-up being followed by pulmonary along with oncology and radiation oncology. Patient is being scheduled for palliative radiation today. Multiple social issues regarding discharge planning as patient has no current address in [place] and is not a resident here and her primary residence is in [facility] although staying with her son here in [place]. Patient's insurance is from [place] and currently working with Medicaid rep to possibly transition insurance here. Plan is for possible hospice as she does not want to pursue chemotherapy. Patient is stable on 3 L and will undergo radiation treatment with 5 sessions scheduled. Patient is afebrile with no reports of chest pain or worsening shortness of breath. Patient oral intake is poor to fair and encouraged frequent meals throughout the day. Overall prognosis is extremely poor and guarded at this time. 08/18/2023 Patient is seen today and has just received pain medications so is groggy although able to answer questions appropriately. Plan is for continued radiation therapy for palliative support. Per nursing staff patient is to receive 5 doses and will discuss further with radiation oncology along with oncology about overall treatment plan. Patient does not want to pursue chemotherapy. Case management following as well and looking into options of possible hospice. Social barriers including insurance issues noted. Patient is currently afebrile with no reports of worsening shortness of breath. Patient reports not feeling well today. Not much of an appetite and patient is eating small little bites. Overall prognosis remains poor 08/19/2023 Patient continuing to clinically decline and not really eating and per nursing staff having difficulty with taking medications by mouth and reports continued shortness of breath that is worsening. Plan for palliative radiation today. Discussed with [facility] upon reevaluation as patient is clinically worsening and is uncomfortable. Will care and hospice reevaluated and meets criteria for inpatient [facility]. Son from [place] has agreed to allow the son from [facility] to have rights to help make decisions for patient here. Assistance with transitioning insurance to [place] from [facility] also being done. Patient will be transitioned to [facility] services. Comfort measures only. 08/21/2023 Patient is evaluated in follow-up today she is in open with [facility] hospice; patient remains on IV push morphine and is mostly sedated and lethargic although arousable. Patient remains on 5 L of oxygen and is continuing to have intermittent dry nonproductive cough which is mostly been controlled with morphine at this time. Patient appears comfortable at rest. 08/22/2023 Patient has been evaluated in follow up today. Continues on nasal cannula and updrafts. Remains on IV push morphine. Patient remains lethargic but arousable. Being followed closely by hospice services. 08/23/2023 Patient remains under the care of hospice, admitted as [facility]. Patient is restless in bed and moaning. She continues with dry cough and is on oxygen support. 08/24/2023 Patient evaluated today in follow up on the medical floor. Being followed closely by hospice services. Remains on IV push morphine and ativan. Continues t o call out and moan. Lethargic. Patient will be titrated to a morphine gtt today. Review of systems: Unable to complete All medications have been reviewed Physical exam: Patient is lying in the bed. Patient is lethargic although arousable and fatigues easily, tachypneic. Thin built, elderly appearing, ill-appearing, cachectic, emaciated HEENT: Normocephalic. Neck is supple. Pupils reactive. Nostrils clear. Oral cavity is moist. Neck reveals no JVD, carotid bruits, or thyromegaly. CHEST EXAMINATION: Trachea is central. Symmetrical expansion. Left-sided diminished sounds. Bilateral coarse breath sounds. Mild wheezing present bilaterally. Crackles noted at the bases CARDIAC: S1, S2 are muffled ABDOMEN: Soft. Thin. Bowel sounds present. No organomegaly. No abdominal bruits. Extremities: reveal no edema. No clubbing or cyanosis, significant muscle wasting noted of upper and lower extremities including clavicle and face Neurologically lethargic although arousable, alert, oriented x 1-0 able to move all extremities while in bed.. No gross focal deficits noted, diffusely weak Skin: No rash or skin lesions. Psychiatric: Cooperative. Somewhat anxious Musculoskeletal: No joint swelling or deformity. Assessment: Hospice care Acute on chronic hypoxic respiratory failure secondary to moderate left pleural effusion, left hilar mass and entirely consolidated left lung without aeration. Currently requiring 5 L oxygen via nasal cannula. Acute kidney injury likely prerenal. Creatinine 1.4 on admission. 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 Elevated D-dimer level. CT angiogram showed no evidence of PE. COPD, acute exacerbation Left lung nodule/mass. Status post radiation previously at [place], not a candidate for chemotherapy, underwent 2 doses of palliative radiation this admission Hyperlipidemia Hypothyroidism Bipolar disorder Prior history of smoking quit 3 years ago Moderate protein calorie malnutrition with a BMI of 23.0 Generalized weakness with gait dysfunction DVT prophylaxis with heparin subcu GI prophylaxis No code Plan: Patient meeting criteria for GIP and patient and family are agreeable. Patient is opened to [facility]. Patient is continued on comfort measures only. Continues on IV push morphine. The impression and plan of care has been dictated by Stephanie Sánchez Nurse Practitioner as directed. Dr. Rosa Maria MD I have performed a history and physical examination and medical decision making of this patient, discussed the same with the dictator, and agree with the dictators assessment and plan as written, documented as a scribe. Based on total visit time, I have performed more than 50% of this visit. Objective - Vital Signs Vital signs: Vital Signs Temp 98.6 F 08/23/23 02:47 Pulse 97 08/23/23 02:47 Resp 18 08/24/23 20:00 BP 97/63 08/23/23 02:47 Pulse Ox 93 L 08/24/23 08:54 FiO2 Intake & Output 08/24/23 08/24/23 08/25/23 06:59 18:59 06:59 Intake Total 13.77 Output Total 100 100 Balance -100 -86.23 Intake: Intake, IV Titration 13.77 Amount Morphine Sulfate (100 mg/ 13.77 2 ml) 100 mg In Sodium Chloride 0.9% 100 ml @ 2 MG/HR 2.04 mls/hr IV . Q24H [facility] Rx#:[id number] Output: Urine 100 100 Other: Voiding Method Indwelling Catheter Indwelling Catheter Indwelling Catheter # Voids 2
--- NOTE | 2023-08-25 13:39 | P.PN ---
Subjective Progress Note Date: 08/25/23 78-year-old male with a past medical history of COPD on home oxygen, known history of left lung mass/nodule status post radiation therapy, hypothyroidism, bipolar disorder, anxiety and prior history of smoking quit 3 years ago. Patient was recently in the hospital from 07/18/2023 to 07/28/2023. Patient is actually from [place] and visiting her son who lives across the border in [place]. During this admission patient underwent bronchoscopy with biopsy on 07/21/2023. Left main tissue, transbronchial biopsy showed detached atypical cells having site of morphologic features compatible with non-small cell carcinoma. Patient was recommended to go to subacute rehab at the time but eventually patient wants to be discharged home and supposed to follow-up with radiation oncology for palliative radiation. Patient is currently living with her son in [place] and misses her appointment. Patient presented back to ER with worsening shortness of breath cough and congestion. Chest x-ray showed completely opacified left hemithorax with left-sided volume loss suggesting at least a significant atelectatic component is redemonstrated. Suspect underlying left hilar mass or neoplasm. Right lung remains clear. EKG showed sinus tachycardia. CTA chest was done. Showed previously noted masslike area in the left hilum is larger when compared to the previous exam. The left lung is entirely consolidated without aeration. There is moderate left pleural effusion noted throughout the left hemithorax. No evidence for PE. Advanced central lobar emphysema involving the right lung with hyperexpansion. Laboratory data showed WBC 9.0 hemoglobin 10.3 and platelets 219, D-dimer 2.07 Sodium 136 potassium 3.5 chloride 100 bicarb is 27 BUN 28 and creatinine 1.4 and blood sugar 124. Liver enzymes are not elevated. proBNP 980 and albumin 3.4. 08/14/2023 Patient is seen and evaluated with nursing staff at bedside; patient is very irritable at this time --Patient continues to have episodes of decreased responsiveness versus irritability Patient is currently on Seroquel 250 mg nightly; we will plan to back off on Seroquel; transition from Neurontin 300 mg 3 times daily down to 300 mg twice daily --Plan to add midodrine 10 mg 3 times daily for hypotension; patient did receive a bolus of normal saline 500 cc x 1 We will consult psychiatry for agitation and behavior 24-hour interval change 08/15/2023 Patient is seen and evaluated in room at bedside; discussed with nursing staff; more calm with medication change Vital signs are reviewed and are stable, temperature of 98.1, pulse 96, respiration 18 and blood pressure 101/58, O2 saturation 94% on 4 L Lab review shows WBC 6.0, hemoglobin of 9.5 and platelet count of 355, sodium 135, potassium 3.7, BUNs/creatinine of 19/0.7 --Patient has been evaluated by psych; recommendations noted appreciated Patient is currently being considered for possible immunotherapy; has declined chemotherapy --Patient has been transitioned to DNR status after discussion with patient's son; might be considered for discharge home with hospice 08/16/2023 Patient is seen and evaluated in follow-up today with multiple medical consultations following including pulmonary, oncology, and radiation oncology. Discussion of possible palliative radiation in the near future. Overall prognosis remains poor and not a candidate for chemotherapy with significant weakness was recently hospitalized recommending rehab although patient went home with son. Patient reported no improvement and significant shortness of breath with continued cough and generalized weakness. Patient is not eating very well and appears severely emaciated and unwell. Patient is in no code and is considering possible hospice. Consult was placed for informational and will follow-up with case management as there are social issues. [facility] hospice consult placed as well for financial assessment. Overall prognosis remains extremely poor. 08/17/2023 Patient seen and evaluated in follow-up being followed by pulmonary along with oncology and radiation oncology. Patient is being scheduled for palliative radiation today. Multiple social issues regarding discharge planning as patient has no current address in [facility] and is not a resident here and her primary residence is in [facility] although staying with her son here in [place]. Patient's insurance is from [place] and currently working with Medicaid rep to possibly transition insurance here. Plan is for possible hospice as she does not want to pursue chemotherapy. Patient is stable on 3 L and will undergo radiation treatment with 5 sessions scheduled. Patient is afebrile with no reports of chest pain or worsening shortness of breath. Patient oral intake is poor to fair and encouraged frequent meals throughout the day. Overall prognosis is extremely poor and guarded at this time. 08/18/2023 Patient is seen today and has just received pain medications so is groggy although able to answer questions appropriately. Plan is for continued radiation therapy for palliative support. Per nursing staff patient is to receive 5 doses and will discuss further with radiation oncology along with oncology about overall treatment plan. Patient does not want to pursue chemotherapy. Case management following as well and looking into options of possible hospice. Social barriers including insurance issues noted. Patient is currently afebrile with no reports of worsening shortness of breath. Patient reports not feeling well today. Not much of an appetite and patient is eating small little bites. Overall prognosis remains poor 08/19/2023 Patient continuing to clinically decline and not really eating and per nursing staff having difficulty with taking medications by mouth and reports continued shortness of breath that is worsening. Plan for palliative radiation today. Discussed with [facility] upon reevaluation as patient is clinically worsening and is uncomfortable. Will care and hospice reevaluated and meets criteria for inpatient [facility]. Son from [place] has agreed to allow the son from [facility] to have rights to help make decisions for patient here. Assistance with transitioning insurance to [place] from [facility] also being done. Patient will be transitioned to [facility] services. Comfort measures only. 08/21/2023 Patient is evaluated in follow-up today she is in open with [facility] hospice; patient remains on IV push morphine and is mostly sedated and lethargic although arousable. Patient remains on 5 L of oxygen and is continuing to have intermittent dry nonproductive cough which is mostly been controlled with morphine at this time. Patient appears comfortable at rest. 08/22/2023 Patient has been evaluated in follow up today. Continues on nasal cannula and updrafts. Remains on IV push morphine. Patient remains lethargic but arousable. Being followed closely by hospice services. 08/23/2023 Patient remains under the care of hospice, admitted as [facility]. Patient is restless in bed and moaning. She continues with dry cough and is on oxygen support. 08/24/2023 Patient evaluated today in follow up on the medical floor. Being followed closely by hospice services. Remains on IV push morphine and ativan. Continues t o call out and moan. Lethargic. Patient will be titrated to a morphine gtt today. 08/25/2023 Is evaluated today in follow-up in the medical floor. Patient is more sedated has been started on the morphine drip but she is no longer coughing or moaning out in pain. Review of systems: Unable to complete All medications have been reviewed Physical exam: Patient is lying in the bed. Patient is lethargic although arousable and fatigues easily, tachypneic. Thin built, elderly appearing, ill-appearing, cachectic, emaciated HEENT: Normocephalic. Neck is supple. Pupils reactive. Nostrils clear. Oral cavity is moist. Neck reveals no JVD, carotid bruits, or thyromegaly. CHEST EXAMINATION: Trachea is central. Symmetrical expansion. Left-sided diminished sounds. Bilateral coarse breath sounds. Mild wheezing present bilaterally. Crackles noted at the bases CARDIAC: S1, S2 are muffled ABDOMEN: Soft. Thin. Bowel sounds present. No organomegaly. No abdominal bruits. Extremities: reveal no edema. No clubbing or cyanosis, significant muscle wasting noted of upper and lower extremities including clavicle and face Neurologically lethargic although arousable, alert, oriented x 1-0 able to move all extremities while in bed.. No gross focal deficits noted, diffusely weak Skin: No rash or skin lesions. Psychiatric: Cooperative. Somewhat anxious Musculoskeletal: No joint swelling or deformity. Assessment: Hospice care Acute on chronic hypoxic respiratory failure secondary to moderate left pleural effusion, left hilar mass and entirely consolidated left lung without aeration. Currently requiring 5 L oxygen via nasal cannula. Acute kidney injury likely prerenal. Creatinine 1.4 on admission. 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 Elevated D-dimer level. CT angiogram showed no evidence of PE. COPD, acute exacerbation Left lung nodule/mass. Status post radiation previously at [place], not a candidate for chemotherapy, underwent 2 doses of palliative radiation this admission Hyperlipidemia Hypothyroidism Bipolar disorder Prior history of smoking quit 3 years ago Moderate protein calorie malnutrition with a BMI of 23.0 Generalized weakness with gait dysfunction DVT prophylaxis with heparin subcu GI prophylaxis No code Plan: Patient meeting criteria for GIP and patient and family are agreeable. Patient is opened to [facility]. Patient is continued on comfort measures only. Has been started on IV push morphine. The impression and plan of care has been dictated by Stephanie Sánchez, Nurse Practitioner as directed. Dr. Rosa Maria MD I have performed a history and physical examination and medical decision making of this patient, discussed the same with the dictator, and agree with the dictators assessment and plan as written, documented as a scribe. Based on total visit time, I have performed more than 50% of this visit. Objective - Vital Signs Vital signs: Vital Signs Temp 98.6 F 08/23/23 02:47 Pulse 97 08/23/23 02:47 Resp 18 08/24/23 20:00 BP 97/63 08/23/23 02:47 Pulse Ox 100 08/25/23 10:20 FiO2 Intake & Output 08/24/23 08/25/23 08/25/23 18:59 06:59 18:59 Intake Total 13.77 Output Total 100 Balance -86.23 Intake: Intake, IV Titration 13.77 Amount Morphine Sulfate (100 mg/ 13.77 2 ml) 100 mg In Sodium Chloride 0.9% 100 ml @ 2 MG/HR 2.04 mls/hr IV . Q24H [facility] Rx#:[id number] Output: Urine 100 Other: Voiding Method Indwelling Catheter Indwelling Catheter Indwelling Catheter # Voids 2 Assessment and Plan Time with Patient: Less than 30
[2023-08-25 18:42] VITALS: RESP 4
[2023-08-26 12:10] VITALS: BMI 23.0
--- NOTE | 2023-08-26 15:07 | P.PN ---
Subjective Progress Note Date: 08/26/23 78-year-old male with a past medical history of COPD on home oxygen, known history of left lung mass/nodule status post radiation therapy, hypothyroidism, bipolar disorder, anxiety and prior history of smoking quit 3 years ago. Patient was recently in the hospital from 07/18/2023 to 07/28/2023. Patient is actually from [place] and visiting her son who lives across the border in [place]. During this admission patient underwent bronchoscopy with biopsy on 07/21/2023. Left main tissue, transbronchial biopsy showed detached atypical cells having site of morphologic features compatible with non-small cell carcinoma. Patient was recommended to go to subacute rehab at the time but eventually patient wants to be discharged home and supposed to follow-up with radiation oncology for palliative radiation. Patient is currently living with her son in [place] and misses her appointment. Patient presented back to ER with worsening shortness of breath cough and congestion. Chest x-ray showed completely opacified left hemithorax with left-sided volume loss suggesting at least a significant atelectatic component is redemonstrated. Suspect underlying left hilar mass or neoplasm. Right lung remains clear. EKG showed sinus tachycardia. CTA chest was done. Showed previously noted masslike area in the left hilum is larger when compared to the previous exam. The left lung is entirely consolidated without aeration. There is moderate left pleural effusion noted throughout the left hemithorax. No evidence for PE. Advanced central lobar emphysema involving the right lung with hyperexpansion. Laboratory data showed WBC 9.0 hemoglobin 10.3 and platelets 219, D-dimer 2.07 Sodium 136 potassium 3.5 chloride 100 bicarb is 27 BUN 28 and creatinine 1.4 and blood sugar 124. Liver enzymes are not elevated. proBNP 980 and albumin 3.4. 08/14/2023 Patient is seen and evaluated with nursing staff at bedside; patient is very irritable at this time --Patient continues to have episodes of decreased responsiveness versus irritability Patient is currently on Seroquel 250 mg nightly; we will plan to back off on Seroquel; transition from Neurontin 300 mg 3 times daily down to 300 mg twice daily --Plan to add midodrine 10 mg 3 times daily for hypotension; patient did receive a bolus of normal saline 500 cc x 1 We will consult psychiatry for agitation and behavior 24-hour interval change 08/15/2023 Patient is seen and evaluated in room at bedside; discussed with nursing staff; more calm with medication change Vital signs are reviewed and are stable, temperature of 98.1, pulse 96, respiration 18 and blood pressure 101/58, O2 saturation 94% on 4 L Lab review shows WBC 6.0, hemoglobin of 9.5 and platelet count of 355, sodium 135, potassium 3.7, BUNs/creatinine of 19/0.7 --Patient has been evaluated by psych; recommendations noted appreciated Patient is currently being considered for possible immunotherapy; has declined chemotherapy --Patient has been transitioned to DNR status after discussion with patient's son; might be considered for discharge home with hospice 08/16/2023 Patient is seen and evaluated in follow-up today with multiple medical consultations following including pulmonary, oncology, and radiation oncology. Discussion of possible palliative radiation in the near future. Overall prognosis remains poor and not a candidate for chemotherapy with significant weakness was recently hospitalized recommending rehab although patient went home with son. Patient reported no improvement and significant shortness of breath with continued cough and generalized weakness. Patient is not eating very well and appears severely emaciated and unwell. Patient is in no code and is considering possible hospice. Consult was placed for informational and will follow-up with case management as there are social issues. [facility] hospice consult placed as well for financial assessment. Overall prognosis remains extremely poor. 08/17/2023 Patient seen and evaluated in follow-up being followed by pulmonary along with oncology and radiation oncology. Patient is being scheduled for palliative radiation today. Multiple social issues regarding discharge planning as patient has no current address in [facility] and is not a resident here and her primary residence is in [facility] although staying with her son here in [place]. Patient's insurance is from [place] and currently working with Medicaid rep to possibly transition insurance here. Plan is for possible hospice as she does not want to pursue chemotherapy. Patient is stable on 3 L and will undergo radiation treatment with 5 sessions scheduled. Patient is afebrile with no reports of chest pain or worsening shortness of breath. Patient oral intake is poor to fair and encouraged frequent meals throughout the day. Overall prognosis is extremely poor and guarded at this time. 08/18/2023 Patient is seen today and has just received pain medications so is groggy although able to answer questions appropriately. Plan is for continued radiation therapy for palliative support. Per nursing staff patient is to receive 5 doses and will discuss further with radiation oncology along with oncology about overall treatment plan. Patient does not want to pursue chemotherapy. Case management following as well and looking into options of possible hospice. Social barriers including insurance issues noted. Patient is currently afebrile with no reports of worsening shortness of breath. Patient reports not feeling well today. Not much of an appetite and patient is eating small little bites. Overall prognosis remains poor 08/19/2023 Patient continuing to clinically decline and not really eating and per nursing staff having difficulty with taking medications by mouth and reports continued shortness of breath that is worsening. Plan for palliative radiation today. Discussed with [facility] upon reevaluation as patient is clinically worsening and is uncomfortable. Will care and hospice reevaluated and meets criteria for inpatient [facility]. Son from [place] has agreed to allow the son from [facility] to have rights to help make decisions for patient here. Assistance with transitioning insurance to [place] from [facility] also being done. Patient will be transitioned to [facility] services. Comfort measures only. 08/21/2023 Patient is evaluated in follow-up today she is in open with [facility] hospice; patient remains on IV push morphine and is mostly sedated and lethargic although arousable. Patient remains on 5 L of oxygen and is continuing to have intermittent dry nonproductive cough which is mostly been controlled with morphine at this time. Patient appears comfortable at rest. 08/22/2023 Patient has been evaluated in follow up today. Continues on nasal cannula and updrafts. Remains on IV push morphine. Patient remains lethargic but arousable. Being followed closely by hospice services. 08/23/2023 Patient remains under the care of hospice, admitted as [facility]. Patient is restless in bed and moaning. She continues with dry cough and is on oxygen support. 08/24/2023 Patient evaluated today in follow up on the medical floor. Being followed closely by hospice services. Remains on IV push morphine and ativan. Continues t o call out and moan. Lethargic. Patient will be titrated to a morphine gtt today. 08/25/2023 Is evaluated today in follow-up in the medical floor. Patient is more sedated has been started on the morphine drip but she is no longer coughing or moaning out in pain. 08/26/2023 Patient is evaluated in follow up on the medical floor. Patient is opened with GIP and has been transitioned to morphine gtt. Patient appears to be resting comfortably, she is lethargic however she has spontaneous eye opening. Review of systems: Unable to complete All medications have been reviewed Physical exam: Patient is lying in the bed. Patient is lethargic although arousable and fatigues easily, tachypneic. Thin built, elderly appearing, ill-appearing, cachectic, emaciated HEENT: Normocephalic. Neck is supple. Pupils reactive. Nostrils clear. Oral cavity is moist. Neck reveals no JVD, carotid bruits, or thyromegaly. CHEST EXAMINATION: Trachea is central. Symmetrical expansion. Left-sided diminished sounds. Bilateral coarse breath sounds. Mild wheezing present bilaterally. Crackles noted at the bases CARDIAC: S1, S2 are muffled ABDOMEN: Soft. Thin. Bowel sounds present. No organomegaly. No abdominal bruits. Extremities: reveal no edema. No clubbing or cyanosis, significant muscle wasting noted of upper and lower extremities including clavicle and face Neurologically lethargic although arousable, alert, oriented x 1-0 able to move all extremities while in bed.. No gross focal deficits noted, diffusely weak Skin: No rash or skin lesions. Psychiatric: Cooperative. Somewhat anxious Musculoskeletal: No joint swelling or deformity. Assessment: Hospice care Acute on chronic hypoxic respiratory failure secondary to moderate left pleural effusion, left hilar mass and entirely consolidated left lung without aeration. Currently requiring 5 L oxygen via nasal cannula. Acute kidney injury likely prerenal. Creatinine 1.4 on admission. 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 Elevated D-dimer level. CT angiogram showed no evidence of PE. COPD, acute exacerbation Left lung nodule/mass. Status post radiation previously at [place], not a candidate for chemotherapy, underwent 2 doses of palliative radiation this admission Hyperlipidemia Hypothyroidism Bipolar disorder Prior history of smoking quit 3 years ago Moderate protein calorie malnutrition with a BMI of 23.0 Generalized weakness with gait dysfunction DVT prophylaxis with heparin subcu GI prophylaxis No code Plan: Patient meeting criteria for GIP and patient and family are agreeable. Patient is opened to [facility]. Patient is continued on comfort measures only. Patient continues on IV morphine infusion at this time. The impression and plan of care has been dictated by Stephanie Sánchez Nurse Practitioner as directed. Dr. Rosa Maria MD I have performed a history and physical examination and medical decision making of this patient, discussed the same with the dictator, and agree with the dictators assessment and plan as written, documented as a scribe. Based on total visit time, I have performed more than 50% of this visit. Objective - Vital Signs Vital signs: Vital Signs Temp 98.6 F 08/23/23 02:47 Pulse 97 08/23/23 02:47 Resp 4 L 08/25/23 18:04 BP 97/63 08/23/23 02:47 Pulse Ox 100 08/25/23 10:20 FiO2 Intake & Output 08/25/23 08/26/23 08/26/23 18:59 06:59 18:59 Intake Total 88.23 Output Total 125 Balance -36.77 Weight 58.9 kg Intake: Intake, IV Titration 88.23 Amount Morphine Sulfate (100 mg/ 88.23 2 ml) 100 mg In Sodium Chloride 0.9% 100 ml @ 2 MG/HR 2.04 mls/hr IV . Q24H [facility] Rx#:[id number] Output: Urine 125 Other: Voiding Method Indwelling Catheter Indwelling Catheter Indwelling Catheter
--- NOTE | 2023-08-27 14:58 | P.DS ---
Providers Date of admission: 08/19/23 15:48 Expected date of discharge: 08/27/23 Attending physician: Beny Booth Primary care physician: Stated None Hospital Course: Preliminary cause of Left lung adenocarcinoma Final diagnosis Hospice care Acute on chronic hypoxic respiratory failure secondary to moderate left pleural effusion, left hilar mass and entirely consolidated left lung without aeration. Currently requiring 5 L oxygen via nasal cannula. Acute kidney injury likely prerenal. Creatinine 1.4 on admission. 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 Elevated D-dimer level. CT angiogram showed no evidence of PE. COPD, acute exacerbation Left lung nodule/mass. Status post radiation previously at [place], not a candidate for chemotherapy, underwent 2 doses of palliative radiation this admission Hyperlipidemia Hypothyroidism Bipolar disorder Prior history of smoking quit 3 years ago Moderate protein calorie malnutrition with a BMI of 23.0 Generalized weakness with gait dysfunction DVT prophylaxis with heparin subcu GI prophylaxis No code Discharge disposition Patient has . According to nursing documentation, time of was 1101 on 08/27/2023. Total time taken is greater than 35 minutes. Hospital course This is a 78-year-old female who was recently admitted with increasing shortness of breath has been recently diagnosed postbiopsy of adenocarcinoma of the left lung went home with family with continued oxygen. Patient came back with increasing shortness of breath with hypoxic respiratory failure with COPD as well with acute exacerbation. Patient attempted palliative radiation on the left lung nodule/mass with no significant improvements. Further discussions were had with patient along with son and had hospice reevaluated the patient and met inpatient criteria. Patient had been continued on comfort care measures and morphine drip and this morning. Please refer to other documentation for further HPI. Please refer to medication reconciliation sheet for a list of medications. The impression and plan of care has been dictated by Priyanka Lozano, Nurse Practitioner as directed. Dr. Leobardo MD I have performed a history and examination and MDM of this patient, discussed the same with the dictator, and agree with the dictator's assessment and plan as written ,documented as a scribe. Based on total visit time, I have performed more than 50% of the visit. Patient Condition at Discharge: Poor Plan - Discharge Summary New Discharge Prescriptions: No Action Omeprazole [PriLOSEC] 20 mg PO DAILY Nystatin 100,000 Unit/gm Oint [Mycostatin Oint] 1 applic TOPICAL BID lamoTRIgine [LaMICtal] 150 mg PO BID buPROPion SR [Wellbutrin SR] 150 mg PO PC-BRKFST QUEtiapine [SEROquel] 50 mg PO HS Loratadine [Claritin] 5 mg PO DAILY #30 tab Fluticasone Nasal [place] [Flonase Nasal [place]] 2 spray EA NOSTRIL DAILY #5 ml Budesonide [Pulmicort] 1 mg INHALATION RT-BID #30 each busPIRone HCL [Buspar] 7.5 mg PO BID Pravastatin Sodium [Pravachol] 40 mg PO HS Levothyroxine Sodium [Synthroid] 75 mcg PO DAILY Gabapentin [Neurontin] 300 mg PO TID Fluticasone Propion/Salmeterol [Fluticasone-Salmeterol 115-21] 2 puff INHALATION RT-BID QUEtiapine FUMARATE [SEROquel] 200 mg PO HS Mirtazapine [Remeron] 15 mg PO HS Sodium Chloride 0.65% Nasal [Deep Sea (Saline)] 2 spray NASAL QID PRN #7 ml PRN Reason: Dry Nasal Passages Ipratropium-Albuterol Nebulize [Duoneb 0.5 mg-3 mg/3 ml Soln] 3 ml INHALATION RT-QID #100 each Ipratropium-Albuterol Nebulize [Duoneb 0.5 mg-3 mg/3 ml Soln] 3 ml INHALATION RT-Q2H PRN each PRN Reason: Shortness Of Breath Or Wheezing Acetaminophen Tab [Tylenol] 650 mg PO Q4HR PRN tab PRN Reason: Mild Pain Or Fever > 100.5 Discharge Medication List Fluticasone Propion/Salmeterol [Fluticasone-Salmeterol 115-21] 2 puff INHALATION RT-BID 07/18/23 [History] Gabapentin [Neurontin] 300 mg PO TID 07/18/23 [History] Levothyroxine Sodium [Synthroid] 75 mcg PO DAILY 07/18/23 [History] Mirtazapine [Remeron] 15 mg PO HS 07/18/23 [History] Nystatin 100,000 Unit/gm Oint [Mycostatin Oint] 1 applic TOPICAL BID 07/18/23 [History] Omeprazole [PriLOSEC] 20 mg PO DAILY 07/18/23 [History] Pravastatin Sodium [Pravachol] 40 mg PO HS 07/18/23 [History] QUEtiapine FUMARATE [SEROquel] 200 mg PO HS 07/18/23 [History] QUEtiapine [SEROquel] 50 mg PO HS 07/18/23 [History] buPROPion SR [Wellbutrin SR] 150 mg PO PC-BRKFST 07/18/23 [History] busPIRone HCL [Buspar] 7.5 mg PO BID 07/18/23 [History] lamoTRIgine [LaMICtal] 150 mg PO BID 07/18/23 [History] Acetaminophen Tab [Tylenol] 650 mg PO Q4HR PRN tab 07/28/23 [Rx] Budesonide [Pulmicort] 1 mg INHALATION RT-BID #30 each 07/28/23 [Rx] Fluticasone Nasal [place] [Flonase Nasal [place]] 2 spray EA NOSTRIL DAILY #5 ml 07/28/23 [Rx] Ipratropium-Albuterol Nebulize [Duoneb 0.5 mg-3 mg/3 ml Soln] 3 ml INHALATION RT-Q2H PRN each 07/28/23 [Rx] Ipratropium-Albuterol Nebulize [Duoneb 0.5 mg-3 mg/3 ml Soln] 3 ml INHALATION RT-QID #100 each 07/28/23 [Rx] Loratadine [Claritin] 5 mg PO DAILY #30 tab 07/28/23 [Rx] Sodium Chloride 0.65% Nasal [Deep Sea (Saline)] 2 spray NASAL QID PRN #7 ml 07/28/23 [Rx] Discharge Disposition: - Preliminary Cause of Preliminary Cause of : Left lung adenocarcinoma.
== END 2023-08-27 12:06 | disposition expired | DRG 951 ==
LOC: 5NMEDONC 15:48
PROVIDERS: ADMIT Hospitalist; ATTEND Hospitalist
DX: Z51.5 Encounter for palliative care (principal); J96.21 Acute and chronic respiratory failure with hypoxia; C34.92 Malignant neoplasm of unspecified part of left bronchus or lung; J44.1 Chronic obstructive pulmonary disease with (acute) exacerbation; E44.0 Moderate protein-calorie malnutrition; J90 Pleural effusion, not elsewhere classified; N17.9 Acute kidney failure, unspecified; E03.9 Hypothyroidism, unspecified; Z79.890 Hormone replacement therapy; E78.5 Hyperlipidemia, unspecified; F31.9 Bipolar disorder, unspecified; F41.9 Anxiety disorder, unspecified; Z79.899 Other long term (current) drug therapy; I95.9 Hypotension, unspecified; Z68.23 Body mass index [BMI] 23.0-23.9, adult; Z85.118 Personal history of other malignant neoplasm of bronchus and lung; Z66 Do not resuscitate; Z99.81 Dependence on supplemental oxygen; Z90.710 Acquired absence of both cervix and uterus; Z87.891 Personal history of nicotine dependence; R00.0 Tachycardia, unspecified
CPT/HCPCS: 94760